=== PATIENT | male | born 1945 | race Caucasian/White ===

== ENCOUNTER 2017-12-12 15:30 | Day surgery (SDC) | payer MEDICARE, OTHER ==
[2017-12-12] VITALS (8 sets, daily range): BP systolic 118–156; BP diastolic 54–77
[~2017-12-12] VITALS: Ht 175.3 cm; Wt 108.9 kg
[~2017-12-12 15:30] MED LIST: AMLO1TAB52; ASP325T; ASP81TEC PO; BUME2TAB3 PO; COLE1TAB; CPR250T PO; HCT25T; HYDR1TAB PO; LOSA100T16; LOVA40TA2; LRT10T PO; MECL25TA56 PO; NFNEB10T PO; NIA500ERT; OMEP-10; OMG1KC PO; SCOP1PAT TD; UBID100T7 PO
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
[2017-12-12] MEDS ORDERED: LOSA100T28 PO (15:52)
[2017-12-12] MEDS ORDERED: UBID1CAP58 PO (15:52)
[2017-12-12] MEDS ORDERED: CHOL200012 PO (15:52)
[2017-12-12] MEDS ORDERED: AMLO10TA2 PO (15:52)
[2017-12-12] MEDS ORDERED: METF-478 PO (15:52)
[2017-12-12] MEDS ORDERED: CARV12.53 PO (15:52)
[2017-12-12] MEDS ORDERED: ASPIRIN 81 MG CHEW (CHILDREN'S ASA) PO ONE (16:00)
[2017-12-12 16:07] LABS: BASOPHILS % (AUTO) 1 % (0-10); EOSINOPHILS # (AUTO) 0.2 10^3/uL (0.0-0.3); EOSINOPHILS % (AUTO) 3 % (0-10); HEMATOCRIT 40 % (40-54); HEMOGLOBIN 13.7 G/DL (13.3-17.7); LYMPHOCYTES # (AUTO) 2.1 X 10^3 (1.0-4.0); LYMPHOCYTES % (AUTO) 36 % (12-44); MEAN CORPUSCULAR HEMOGLOBIN 30 PG (25-34); MEAN CORPUSCULAR HGB CONC 35 G/DL (32-36); MEAN CORPUSCULAR VOLUME 87 FL (80-99); MEAN PLATELET VOLUME 9.8 FL (7.4-10.4); MONOCYTES # (AUTO) 0.6 X 10^3 (0.0-1.0); MONOCYTES % (AUTO) 10 % (0-12); NEUTROPHILS % (AUTO) 52 % (42-75); PLATELET COUNT 221 10^3/uL (130-400); RED BLOOD COUNT 4.57 10^6/uL (4.35-5.85); RED CELL DISTRIBUTION WIDTH 13.3 % (10.0-14.5); WHITE BLOOD COUNT 5.9 10^3/uL (4.3-11.0)
[2017-12-12 16:17] LABS: INR 0.9 (0.8-1.4); PROTHROMBIN TIME PATIENT 12.5 SEC (12.2-14.7)
[2017-12-12 16:29] LABS: ALANINE AMINOTRANSFERASE 45 U/L (0-55); ALBUMIN 4.3 GM/DL (3.2-4.5); ALKALINE PHOSPHATASE 56 U/L (40-136); BILIRUBIN,TOTAL 0.5 MG/DL (0.1-1.0); BUN/CREATININE RATIO 17; CALCIUM 9.2 MG/DL (8.5-10.1); CARBON DIOXIDE 23 MMOL/L (21-32); CHLORIDE 102 MMOL/L (98-107); CREATININE SERUM 0.81 MG/DL (0.60-1.30); GFR ESTIMATED > 60; GLUCOSE 116 MG/DL (70-105); MAGNESIUM 2.2 MG/DL (1.8-2.4); POTASSIUM 3.8 MMOL/L (3.6-5.0); SODIUM 139 MMOL/L (135-145); TOTAL PROTEIN 7.7 GM/DL (6.4-8.2)
--- NOTE | 2017-12-12 16:30 | Diagnostic Imaging Report ---
INDICATION: SOA, Dizziness, Chest tightness x2 days. FINDINGS: Single view of the chest demonstrates clear lungs bilaterally. The heart is normal. There is no pneumothorax. The osseous structures are normal. IMPRESSION: Negative chest. Dictated by: Dictated on workstation # [id number]
[2017-12-12 16:35] LABS: MYOGLOBIN SERUM 62.3 NG/ML (10.0-92.0)
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
[2017-12-12] MEDS ORDERED: IOHEXOL 350 MG/ML 150 ML (OMNIPAQUE 350) VIAL IV ONE (17:30)
--- NOTE | 2017-12-12 18:27 | Diagnostic Imaging Report ---
PROCEDURE: CT angiography of the chest with contrast. TECHNIQUE: Multiple contiguous axial images were obtained through the chest after uneventful bolus administration of intravenous contrast. Reconstructed CTA MIP acquisitions were also performed. INDICATION: Chest pain x3 days The lungs are clear. There are no effusions or pneumothoraces. There is no hilar or mediastinal lymphadenopathy. There is minimal calcific atherosclerosis of the aorta but no aneurysm or dissection. There are no pulmonary emboli. IMPRESSION: Negative CTA chest Dictated by: Dictated on workstation # [id number]
--- NOTE | 2017-12-12 19:20 | Diagnostic Imaging Report ---
PROCEDURE: CT head without contrast. TECHNIQUE: Multiple contiguous axial images were obtained through the brain without the use of intravenous contrast. INDICATION: Dizziness The ventricles are normal in size, shape and position. There are no masses or hemorrhages. There are no extra-axial fluid collections. There is some inflammatory change in the posterior ethmoid air cells on the left. IMPRESSION: Ethmoid sinusitis Dictated by: Dictated on workstation # [id number]
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
[2017-12-12] MEDS ORDERED: ONDANSETRON 4 MG/2 ML (SDV) Z0FRAN IV PRN (21:15)
[2017-12-12] MEDS ORDERED: NITROGLYCERIN 0.4 MG SL TABS BTL 25'S SL PRN (21:15)
[2017-12-12] MEDS ORDERED: ACETAMINOPHEN 500 MG TAB (TYLENOL) PO PRN (21:15)
[2017-12-12] MEDS ORDERED: morphine INJ 4 MG/ML 1 ML (VIAL/SYRINGE) IV PRN (21:15)
[2017-12-12] MEDS ORDERED: cefTRIAXone 1,000 MG/D5W 50 ML IVPB IV SCH ×2 (21:15)
[2017-12-12] MEDS: NS IV 1000 ML 1,000 ML IV SCH (21:58)
[2017-12-12 22:10] LABS: CREATINE KINASE 213 U/L (30-200)
[2017-12-13] VITALS (16 sets, daily range): BP systolic 123–173; BP diastolic 61–79
[2017-12-13] MEDS: NS IV 1000 ML 1,000 ML IV SCH ×5 (06:00→20:53)
[2017-12-13 06:46] LABS: BASOPHILS % (AUTO) 0 % (0-10); EOSINOPHILS # (AUTO) 0.1 10^3/uL (0.0-0.3); EOSINOPHILS % (AUTO) 3 % (0-10); HEMATOCRIT 36 % (40-54); HEMOGLOBIN 12.3 G/DL (13.3-17.7); LYMPHOCYTES # (AUTO) 1.6 X 10^3 (1.0-4.0); LYMPHOCYTES % (AUTO) 35 % (12-44); MEAN CORPUSCULAR HEMOGLOBIN 30 PG (25-34); MEAN CORPUSCULAR HGB CONC 35 G/DL (32-36); MEAN CORPUSCULAR VOLUME 88 FL (80-99); MONOCYTES # (AUTO) 0.4 X 10^3 (0.0-1.0); MONOCYTES % (AUTO) 8 % (0-12); NEUTROPHILS # (AUTO) 2.5 X 10^3 (1.8-7.8); NEUTROPHILS % (AUTO) 53 % (42-75); PLATELET COUNT 185 10^3/uL (130-400); RED BLOOD COUNT 4.04 10^6/uL (4.35-5.85); RED CELL DISTRIBUTION WIDTH 13.4 % (10.0-14.5); WHITE BLOOD COUNT 4.6 10^3/uL (4.3-11.0)
[2017-12-13 06:59] LABS: ALANINE AMINOTRANSFERASE 42 U/L (0-55); ALBUMIN 3.5 GM/DL (3.2-4.5); ALKALINE PHOSPHATASE 47 U/L (40-136); BILIRUBIN,TOTAL 0.4 MG/DL (0.1-1.0); BUN/CREATININE RATIO 19; CALCIUM 8.5 MG/DL (8.5-10.1); CARBON DIOXIDE 25 MMOL/L (21-32); CHLORIDE 106 MMOL/L (98-107); CHOLESTEROL 184 MG/DL (< 200); CREATININE SERUM 0.78 MG/DL (0.60-1.30); GFR ESTIMATED > 60; GLUCOSE 127 MG/DL (70-105); HDL CHOLESTEROL 43 MG/DL (40-60); POTASSIUM 3.9 MMOL/L (3.6-5.0); SODIUM 142 MMOL/L (135-145); TOTAL PROTEIN 6.4 GM/DL (6.4-8.2); TRIGLYCERIDES 275 MG/DL (<150); VLDL CHOLESTEROL 55 MG/DL (5-40)
[2017-12-13] MEDS ORDERED: HEParin (CATH LAB) 2,000 ML IV ONE (08:32)
[2017-12-13] MEDS ORDERED: LIDOCAINE 1% INJ 50 ML (XYLOCAINE) VIAL ONE (08:32)
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
--- NOTE | 2017-12-13 08:36 | Consultation-Cardiology ---
HPI-Cardiology Cardiology Consultation Date of Consultation 12/13/17 Date of Admission Time Seen by Provider: 08:31 Indication: Chest pain HPI Patient is a very pleasant 72y/o male with history of HTN, HLP, DM. Presented to the ER with complaints of chest pain, dyspnea, and dizziness, intermittent for the last 3 days. 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 Denies any active CP at this time. In addition, he complains of sinus pain and pressure with nonproductive cough over the last week. Denies any F/C/ NS. No other complaints at this time. Patient was seen and evaluated with Mckenzie, has been having chest pain and shortness of breath with exertion, has been significantly worse over the past 3 days that worse to the point that patient came into the emergency room last night. He has been unable to lay down. Sleep in a recliner. Admit having worsening shortness of breath with activities. Has been fairly active until recently when he started having the chest pain. EKG showed T-wave inversion in the anterolateral lead and inferior leads. 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 Alcohol Use: Occasionally Uses Recreational Drug Use: No Smoking Status: Former Smoker Recent Foreign Travel: No Recent Infectious Disease Expo: No Physical Abuse Screen: No Sexual Abuse: No Immunizations Up To Date Tetanus Booster (TDap): Less than 5yrs Date of Pneumonia Vaccine: Nov 26, 2016 Date of Influenza Vaccine: Sep 15, 2017 Past Medical History HTN, HLP, DM, obesity Family Medical History Significant Family History: No Pertinent Family Hx Constitutional: No diaphoresis, dizziness, No fever, No malaise EENTM: No blurred vision, No double vision, No vision loss Cardiovascular: chest pain, edema, No palpitations, No syncope Gastrointestinal: No abdominal pain, No constipation, No diarrhea, No nausea, No vomiting Genitourinary: No dysuria, No frequency, No hematuria Musculoskeletal: No back pain, No neck pain Skin: No dryness, No lesions, No rash Psychiatric/Neurological: Denies Anxiety, Denies Depressed Reviewed Test Results Reviewed Test Results Lab Laboratory Tests 12/12/17 15:58: White Blood Count 5.9, Red Blood Count 4.57, Hemoglobin 13.7, Hematocrit 40, Mean Corpuscular Volume 87, Mean Corpuscular Hemoglobin 30, Mean Corpuscular Hemoglobin Concent 35, Red Cell Distribution Width 13.3, Platelet Count 221, Mean Platelet Volume 9.8, Neutrophils (%) (Auto) 52, Lymphocytes (%) (Auto) 36, Monocytes (%) (Auto) 10, Eosinophils (%) (Auto) 3, Basophils (%) (Auto) 1, Neutrophils # (Auto) 3.0, Lymphocytes # (Auto) 2.1, Monocytes # (Auto) 0.6, Eosinophils # (Auto) 0.2, Basophils # (Auto) 0.0, Prothrombin Time 12.5, INR Comment 0.9, Activated Partial Thromboplast Time 38H, D-Dimer < 0.27, Sodium Level 139, Potassium Level 3.8, Chloride Level 102, Carbon Dioxide Level 23, Anion Gap 14, Blood Urea Nitrogen 14, Creatinine 0.81, Estimat Glomerular Filtration Rate > 60, BUN/Creatinine Ratio 17, Glucose Level 116H, Calcium Level 9.2, Magnesium Level 2.2, Total Bilirubin 0.5, Aspartate Amino Transf (AST /SGOT) 31, Alanine Aminotransferase (ALT/SGPT) 45, Alkaline Phosphatase 56, Myoglobin 62.3, Troponin I < 0.30, B-Type Natriuretic Peptide 33.6, Total Protein 7.7, Albumin 4.3 12/12/17 21:46: Troponin I < 0.30, Total Creatine Kinase 213H 12/13/17 06:21: White Blood Count 4.6, Red Blood Count 4.04L, Hemoglobin 12.3L, Hematocrit 36L, Mean Corpuscular Volume 88, Mean Corpuscular Hemoglobin 30, Mean Corpuscular Hemoglobin Concent 35, Red Cell Distribution Width 13.4, Platelet Count 185, Mean Platelet Volume 10.0, Neutrophils (%) (Auto) 53, Lymphocytes (%) (Auto) 35 , Monocytes (%) (Auto) 8, Eosinophils (%) (Auto) 3, Basophils (%) (Auto) 0, Neutrophils # (Auto) 2.5, Lymphocytes # (Auto) 1.6, Monocytes # (Auto) 0.4, Eosinophils # (Auto) 0.1, Basophils # (Auto) 0.0, Sodium Level 142, Potassium Level 3.9, Chloride Level 106, Carbon Dioxide Level 25, Anion Gap 11, Blood Urea Nitrogen 15, Creatinine 0.78, Estimat Glomerular Filtration Rate > 60, BUN/ Creatinine Ratio 19, Glucose Level 127H, Calcium Level 8.5, Total Bilirubin 0.4 , Aspartate Amino Transf (AST/SGOT) 32, Alanine Aminotransferase (ALT/SGPT) 42, Alkaline Phosphatase 47, Total Protein 6.4, Albumin 3.5, Triglycerides Level 275H, Cholesterol Level 184, LDL Cholesterol Direct 93, VLDL Cholesterol 55H, HDL Cholesterol 43 ECG Impression ECG Initial ECG Rhythm: Normal Sinus Initial ECG Comparisson: Changed (T wave inversion present on most recent EKG) Physical Exam Vital Signs Vital Sign - Last 12Hours 12/12/17 12/12/17 15:39 19:55 Temp 97.7 Pulse 91 Resp 20 B/P (MAP) 155/74 (101) Pulse Ox 94 O2 Delivery Room Air Capillary Refill : Less Than 3 Seconds General Appearance: No Apparent Distress, WD/WN HEENT: PERRL/EOMI, TMs Normal, Normal ENT Inspection, Pharynx Normal Neck: Non Tender, Supple, Carotid Bruit (right bruit ascultated) Respiratory: Chest Non Tender, Lungs Clear, Normal Breath Sounds, No Accessory Muscle Use, No Respiratory Distress Cardiovascular: Regular Rate, Rhythm, No Edema, No JVD, Systolic Murmur ( murmur radiating to the right neck.) Gastrointestinal: No Pulsatile Mass, Non Tender, Soft, Other (ventral hernia present) Rectal: Deferred Back: No CVA Tenderness Extremity: Non Tender, No Calf Tenderness, No Pedal Edema Neurologic/Psychiatric: Alert, Oriented x3, street sweeper II-XII Norm as Tested Skin: Normal Color, Warm/Dry Lymphatic: No Adenopathy A/P-Cardiology Admission Diagnosis Chest pain Dyspnea HTN Assessment/Plan Chest pain, resembling unstable angina- denies any active CP at this time. EKG revealed T wave inversion not present on previous EKG. Cardiac enzymes are negative so far. Discussed the management plan with the patient, he has multiple risk factors for underlying CAD. Recommend [facility] for further evaluation. Planning for [facility] later this morning. Dyspnea, angina equivalent- management as discussed above. Aortic stenosis- 2D Echo done at bedside revealed moderate . Continue to monitor. HTN- restart home blood pressure medication and continue to monitor HLP- controlled. Continue to monitor. DM- management per PCP Obesity- discussed diet and exercise for weight loss Ex-tobaccoism Sinusitis- CT Head reveal ethmoid sinusitis. Management per PCP Thank you for allowing us to participate in the management of Mr. Packer. This is Mckenzie Banda PA-C as a scribe for Dr. Rodriguez. Patient was seen and evaluated with Mckenzie, I interviewed the patient and perform physical examination. He is a 72 years old gentleman with multiple risk factors for coronary artery disease including hypertension, hyperlipidemia and diabetes mellitus in addition to obesity with BMI 35. On examination lungs were clear to auscultation bilaterally, aortic stenosis murmur was noted on exam. Echocardiogram confirmed aortic stenosis that is moderate. Has been having unstable angina with EKG changes. Discussed the management plan with the patient recommended cardiac catheterization possible PTCA. Procedure was explained in length to the patient all pros and cons were explained. I'll proceed with the procedure. I reviewed the current note and agree with the current scribe, I made a few modification and used Italic Font Clinical Quality Measures DVT/VTE Risk/Contraindication: Risk Factor Score Per Nursin RFS Level Per Nursing on Admit: 4+=Very High MCKENZIE RIVERA Dec 13, 2017 08:36 JAYLAN RODRIGUEZ MD Dec 13, 2017 08:51
[2017-12-13] MEDS ORDERED: fentaNYL INJECTION 100 MCG/2 ML AMP ONE (08:45)
[2017-12-13] MEDS ORDERED: MIDAZOLAM 5 MG/5 ML (VERSED) VIAL ONE (08:46)
--- NOTE | 2017-12-13 08:47 | Cardiac Procedure Note-CS/ASA ---
Pre-Procedure Note Pre-Op Procedure Note H&P Reviewed The H&P was reviewed, patient examined and no changes noted. Date H&P Reviewed: Dec 13, 2017 Time H&P Reviewed: 08:47 Conscious Sedation Pre-Proced Time Reviewed: 08:47 ASA Class: 3 Airway Mallampati Classification: ([place] appropriate class) I. II. III, IV Lungs Heart ASA score ASA 1: a normal healthy patient ASA 2: a patient with a mild systemic disease (mid diabetes, controlled hypertension, obesity x ASA 3: a patient with a severe systemic disease that limits activity (angina , COPD, prior Myocardial infarction) ASA 4: a patient with an incapacitating disease that is a constant threat to life (CHF, renal failure) ASA 5: a moribund patient not expected to survive 24 hrs. (ruptured aneurysm) ASA 6: a declared brain patient whose organs are being harvested. For emergent operations, add the letter E after the classification Grade 3 Sedation Plan: Analgesia, Amnesia, Plan communicated to team members, Discussed options with patient/fam, Discussed risks with patient/fam Note The patient is an appropriate candidate to undergo the planned procedure, sedation, and anesthesia. The patient immediately re-assessed prior to indication. JAYLAN AGUDELO MD Dec 13, 2017 08:47
[2017-12-13] MEDS ORDERED: LOSARTAN 100 MG (COZAAR) TABLET PO SCH ×2 (09:00→12:58)
[2017-12-13] MEDS ORDERED: ASPIRIN E.C. 325 MG (ECOTRIN) TABLET PO SCH (09:00)
[2017-12-13] MEDS ORDERED: NS IV 1000 ML 1,000 ML IV SCH (09:00)
[2017-12-13] MEDS ORDERED: CARVEDILOL 12.5 MG (COREG) TABLET PO SCH (09:00)
[2017-12-13] MEDS ORDERED: amLODIPine 5 MG (NORVASC) TAB PO SCH (09:00)
[2017-12-13] MEDS ORDERED: PATIENT MAY USE OWN MEDS, ALL PO SCH (10:00)
--- NOTE | 2017-12-13 10:04 | Cardiac Cath Report ---
Cardiac Cath Report Physician (s)/Commercial Credit Specialist (s) Physician JAYLAN AGUDELO MD Pre-Procedure Diagnosis Pre-Procedure Diagnosis: Unstable angina Post-Procedure Note Procedure Start Date: Dec 13, 2017 Name of Procedure: Left heart catheterization Findings/Procedure Note PROCEDURE NOTE: After explaining the procedure to the patient, all pros and cons were explained, all questions were answered. The patient signed the consent and then she was placed on the cardiac catheterization laboratory. The patient was placed on the cardiac catheterization laboratory. Groin was prepped SL fashion local anesthesia was used. Sheath placed in the artery. Darryl right and left catheter were used to access the coronary system. I was able to cross the aortic valve with the stork wire through the Darryl right catheter. Pressure was measured and during clearing the catheter with saline I was able to visualize the left ventriculogram Pullback LV to aorta was recorded At the end of the procedure the sheath was removed. Closure device was used FINDINGS: Hemodynamics LV 193/23, end-diastolic pressure of 23 Aorta 151/62 mean of 97 Pullback LV to aorta showed peak to peak gradient of 53 mmHg ANATOMY: Left Main is free of obstructive disease Left Anterior Descending is calcified with mild to moderate disease at the midportion, nonobstructive disease Left Circumflex is small to moderate in size with ostial ramus intermedius that appeared to be hazy with moderate to severe stenosis, the artery is less than 1.5 mm in diameter Right Coronory Artery his dominant artery with mild disease nonobstructive disease, calcified artery LV Gram was done during flushing the catheter with saline showing normal left ventricular contractility with ejection fraction 60 percent CONCLUSION: 1. Calcified coronary system with moderate to severe stenosis at the ostium of the ramus intermedius branch that appeared to be slightly hazy and calcified, the artery is less than 1.5 mm in diameter. 2. Calcified coronary system with mild to moderate disease in the LAD and right coronary artery 3. Moderate aortic valve stenosis 4. Normal left ventricular size and contractility, elevated left ventricular end-diastolic pressure DISCUSSION AND RECOMMENDATION: Medical therapy is recommended, close monitoring is recommended and referral for evaluation for possible TAVR Anesthesia Type: Conscious Sedation Estimated blood loss (mL): 10 ml Contrast Amount: 60 ml Total Radiation Dose: 1613 mGy Post-Procedure Diagnosis Post-operative diagnosis: Chest pain nonspecific etiology Aortic valve stenosis Coronary artery disease Hypertension Hyperlipidemia JAYLAN AGUDELO MD Dec 13, 2017 10:04
[2017-12-13] MEDS ORDERED: cefTRIAXone 1,000 MG/NS 50 ML IVPB IV SCH ×4 (10:45→21:00)
[2017-12-13] MEDS ORDERED: OMEP20CA12 PO (10:55)
[2017-12-13] MEDS ORDERED: ASPI-983 PO (10:55)
[2017-12-13] MEDS ORDERED: LOVA40TA2 PO (10:55)
[2017-12-13] MEDS ORDERED: COLE1TAB PO (10:55)
[2017-12-13] MEDS ORDERED: LORA10TA7 PO (10:56)
[2017-12-13] MEDS ORDERED: CHOL10007 PO (10:56)
[2017-12-13] MEDS ORDERED: BUME1TAB4 PO (10:56)
[2017-12-13] MEDS ORDERED: MMT17NA NS (10:56)
[2017-12-13] MEDS ORDERED: UBID200C16 PO (10:56)
[2017-12-13] MEDS ORDERED: amLODIPine 10 MG (NORVASC) TAB PO SCH (12:57)
[2017-12-13] MEDS: CARVEDILOL 12.5 MG (COREG) TABLET PO SCH ×2 (13:17→20:09)
[2017-12-13] MEDS ORDERED: ATORVASTATIN 40 MG (LIPITOR) TABLET PO SCH (21:00)
[2017-12-14] VITALS: BP 136/63
[2017-12-14 04:19] VITALS: BP 138/63
[2017-12-14] MEDS: NS IV 1000 ML 1,000 ML IV SCH ×2 (05:39)
[2017-12-14 06:12] LABS: HEMOGLOBIN 12.3 G/DL (13.3-17.7); MEAN PLATELET VOLUME 9.8 FL (7.4-10.4); RED BLOOD COUNT 4.04 10^6/uL (4.35-5.85); RED CELL DISTRIBUTION WIDTH 13.5 % (10.0-14.5); WHITE BLOOD COUNT 4.5 10^3/uL (4.3-11.0)
[2017-12-14 06:23] LABS: BUN/CREATININE RATIO 20; CALCIUM 8.6 MG/DL (8.5-10.1); CARBON DIOXIDE 21 MMOL/L (21-32); CHLORIDE 107 MMOL/L (98-107); CREATININE SERUM 0.79 MG/DL (0.60-1.30); GFR ESTIMATED > 60; GLUCOSE 148 MG/DL (70-105); POTASSIUM 3.9 MMOL/L (3.6-5.0); SODIUM 139 MMOL/L (135-145)
[2017-12-14] MEDS ORDERED: UMEC1BLS IH (07:48)
[2017-12-14 08:00] VITALS: BP 167/72
[2017-12-14] MEDS ORDERED: ISOS30TA3 PO (08:08)
--- NOTE | 2017-12-14 08:08 | Discharge Inst-Post CATH ---
Discharge Inst-CATH Post Cardiac Cath D/C Inst Follow Up/Plan Hold metformin for [address] Rodriguez's office next week CARDIAC CATH DISCHARGE INSTRUCTIONS *Hold Metformin for 48 hours post heart cath. ACTIVITY * Go Home directly and rest. * Limit activity of the leg (or wrist if it was used) for 7 days including aerobics, swimming, jogging, bicycling, etc. * Restrict stair-climbing for 7 days if possible, if not, climb up with your non -cath leg, then bring together on the same step. * Avoid lifting, pushing, pulling or excessive movement of the affected extremity for 7 days. * Customary sexual activity may be resumed after 2 days-use caution not to use a position that strains or causes pain to the affected extremity. * No driving for 24 hours. * NO SMOKING. * Avoid straining for bowel movements for 7 days. * Gentle walking on level ground is allowed. * Returning to work will depend on the type of procedure and the results. Your doctor will discuss this with you. CALL YOUR DOCTOR FOR ANY OF THE FOLLOWING: *If bleeding from the puncture site occurs- Apply gentle pressure to site with clean cloth and call your doctor or EMS. * If a knot or lump forms under the skin, increases in size, or causes pain. * If bruising appears to be worsening or moving further down your leg instead of disappearing. * Temperature above 101 F. CARE OF YOUR GROIN INCISION; * Bruising or purple discoloration of the skin near the puncture site is common. * You may shower only, no bathtub bathing for 5 days. Be careful to avoid slipping as your leg may feel stiff. * If a closure device was used on your femoral artery, please see the attached guide regarding care of the device and your leg. * REMOVE the dressing from your groin the next day after your procedure in the shower. CARE OF YOUR WRIST INCISION; * Bruising or purple discoloration of the skin near the puncture site is common. * You may shower. * DO NOT submerge wrist. * Remove dressing in 24 hours. JAYLAN RODRIGUEZ MD Dec 14, 2017 08:08
--- NOTE | 2017-12-14 08:11 | Cardiology Progress Note ---
Subjective Date Seen by Provider: Dec 14, 2017 Time Seen by Provider: 08:09 Subjective/Events-last exam Patient is feeling better, asking to go home, denied any chest pain. Review of Systems General: No Chills, No Night Sweats, No Fatigue, No Malaise, No Appetite, No Other HEENT: No Head Aches, No Visual Changes, No Eye Pain, No Ear Pain, No Dysphasia , No Sinus Congestion, No Post Nasal Drip, No Sore Throat, No Other Pulmonary: No Dyspnea, No Cough, No Pleuritic Chest Pain, No Other Cardiovascular: No: Chest Pain, Palpitations, Orthopnea, Paroxysmal Noc. Dyspnea, Edema, Lt Headedness, Other Objective-Cardiology Exam Last Set of Vital Signs Vital Signs 12/14/17 04:19 Temp 98.0 Pulse 82 Resp 17 B/P (MAP) 138/63 (88) Pulse Ox 94 O2 Delivery Room Air Capillary Refill : Less Than 3 Seconds I&O Intake and Output 12/13/17 23:59 Intake Total 1140 ml Output Total 700 ml Balance 440 ml Intake Oral 1140 ml Output Urine Total 700 ml # Voids 2 # Bowel Movements 2 Daily Weight Change No General: Alert, Oriented X3, Cooperative HEENT: Atraumatic, PERRLA Neck: Supple, No JVD, No Thyromegaly Lungs: Clear to Auscultation, Normal Air Movement Heart: Regular Rate, Normal S1, Normal S2, No Murmurs Abdomen: Normal Bowel Sounds, Soft, No Tenderness, No Hepatosplenomegaly, No Masses Extremities: No Clubbing, No Cyanosis, No Edema, Normal Pulses, No Tenderness/ Swelling Skin: No Rashes, No Breakdown, No Significant Lesion Neuro: Normal Gait, Normal Speech, Strength at 5/5 X4 Ext, Normal Tone, Sensation Intact Psych/Mental Status: Mental Status NL, Mood NL Results Lab Laboratory Tests 12/14/17 06:00 A/P-Cardiology Admission Diagnosis Chest pain Dyspnea HTN Assessment/Plan Chest pain, resembling unstable angina- coronary artery disease status post cardiac catheterization done on December 13, 2017 Coronary artery disease, cardiac catheterization done on December 13, 2017 showing moderate severe stenosis at the ostium of the ramus intermedius branch that appeared to be small less than 1.5 millimeter in diameter. Calcified artery with [id number] disease otherwise. I will try to maximize medical therapy by adding Imdur. Dyspnea, angina equivalent- management as discussed above. Aortic stenosis, left ventricular systolic pressure is 205, diastolic pressure 25. Continue on beta blockers, ARB and add Imdur and evaluate tolerance and response. Hypertension, management as above Hyperlipidemia, continue on current medication monitor Diabetes mellitus, managed by primary care physician. Obesity- discussed diet and exercise for weight loss Ex-tobaccoism Sinusitis- CT Head reveal ethmoid sinusitis. Management per PCP Thank you for allowing us to participate in the management of Mr. Packer. Clinical Quality Measures DVT/VTE Risk/Contraindication: Risk Factor Score Per Nursin RFS Level Per Nursing on Admit: 4+=Very High JAYLAN AGUDELO MD Dec 14, 2017 08:11
[2017-12-14] MEDS ORDERED: Nitroglycerin SL (08:44)
[2017-12-14] MEDS ORDERED: NITROGLYCERIN 0.4 MG SL TABS BTL 25'S SL SCH (09:00)
--- NOTE | 2017-12-14 11:49 | Discharge Summary-Hospitalist ---
Diagnosis/Chief Complaint Date of Admission Dec 12, 2017 at 19:40 Date of Discharge Discharge Date: Dec 14, 2017 Admission Diagnosis 1. Symptoms suggestive of unstable angina are most likely with abnormal EKG suspicious for underlying ischemia.. Dr. Naidu/cardiology is been consulted with likely cardiac catheterization to follow pending his evaluation. 2. History of aortic stenosis judged to be of mild to moderate severity. Considering that his BNP level was normal doubt that this is a major contributor to angina. Considering his age and medical comorbidities significant three-vessel disease is more likely. 3. Hypertension continue current antihypertensive medication including beta tracy and calcium channel tracy therapy. 4. Hyperlipidemia continue at bedtime statin therapy. The patient had been getting [facility] will switch to Lipitor 40 mg at at bedtime 5. History of type II diabetes mellitus continue fingerstick monitoring. Discharge Diagnosis 1. Unstable angina 2. Aortic stenosis judged to be of moderate severity. 3. Hypertension 4. Type II diabetes mellitus Discharge Summary Discharge Physical Examination Allergies: Coded Allergies: No Known Drug Allergies (Unverified , 03/22/09) Vitals & I&Os Vital Signs Date Time Temp Pulse Resp B/P (MAP) Pulse Ox O2 Delivery O2 Flow Rate FiO2 12/14/17 04:19 98.0 82 17 138/63 (88) 94 Room Air Hospital Course Mr. Packer is a 72-year-old white male who presented with a 48 hour history of chest discomfort and shortness of breath with minimal exertion compatible with unstable angina. He is significantly abnormal EKG with diffuse T-wave inversion in addition to evidence for LVH. He had known aortic stenosis in 2014 judged to be of mild to moderate severity with preserved LV systolic function and estimated ejection fraction greater than [address] Naidu took the patient to cardiac catheterization where he was noted to have a significant ostial lesion of the intermediary ramus artery. Due to small caliber at 1.5 mm it was left. Calcific disease was noted but no other hemodynamically significant lesions were appreciated. He did have a gradient across aortic valve of 53 mmHg and an LV systolic pressure 197 indicative of moderate aortic stenosis. At this is likely contributing to his anginal symptoms. The patient had no chest discomfort during his hospital stay and Imdur 30 mg was initiated. He will be following up with Dr. Naidu in one week and I will see him back in 2 weeks. He will hold metformin due to recent cardiac catheterization until then resume and continue his other medications. He also underwent CT head which revealed some ethmoid haziness suggesting possible sinusitis. She denied headache he does have some chronic congestion but reports only clear discharge rarely purulent we'll hold off on antibiotic therapy at this time but if he has any subsequent infectious type symptoms or increased pressure will reevaluate. He was advised to avoid any significant exertion until follow-up with Dr. Cain and advised not to drive until . Labs (last 24 hrs) Laboratory Tests 12/14/17 06:00: White Blood Count 4.5, Red Blood Count 4.04L, Hemoglobin 12.3L, Hematocrit 36L, Mean Corpuscular Volume 89, Mean Corpuscular Hemoglobin 30, Mean Corpuscular Hemoglobin Concent 34, Red Cell Distribution Width 13.5, Platelet Count 188, Mean Platelet Volume 9.8, Sodium Level 139, Potassium Level 3.9, Chloride Level 107, Carbon Dioxide Level 21, Anion Gap 11, Blood Urea Nitrogen 16, Creatinine 0.79, Estimat Glomerular Filtration Rate > 60, BUN/Creatinine Ratio 20, Glucose Level 148H, Calcium Level 8.6 Microbiology 12/13/17 Influenza Types A,B Antigen (KORINA) - Final, Complete Pending Labs Laboratory Tests 12/14/17 06:00: White Blood Count 4.5, Red Blood Count 4.04, Hemoglobin 12.3, Hematocrit 36, Mean Corpuscular Volume 89, Mean Corpuscular Hemoglobin 30, Mean Corpuscular Hemoglobin Concent 34, Red Cell Distribution Width 13.5, Platelet Count 188, Mean Platelet Volume 9.8, Sodium Level 139, Potassium Level 3.9, Chloride Level 107, Carbon Dioxide Level 21, Anion Gap 11, Blood Urea Nitrogen 16, Creatinine 0.79, Estimat Glomerular Filtration Rate > 60, BUN/Creatinine Ratio 20, Glucose Level 148, Calcium Level 8.6 Discharge Home Medications: Active Scripts Active [Nitroglycerin] 0.4 MG Btl 0 Mg SL PRN PRN Isosorbide Mononitrate ER (Isosorbide Mononitrate) 30 Mg Tab.er.24h 30 Mg PO DAILY Anoro Ellipta 62.5-25 Mcg INH (Umeclidinium Brm/Vilanterol Tr) 1 Each Blst.w.dev 1 Each IH 1 30 Days Reported Nasonex (Mometasone Furoate) 17 Gm Naspr 2 Sprays NS DAILY PRN Vitamin D3 (Cholecalciferol (Vitamin D3)) 1,000 Unit Capsule 1,000 Unit PO DAILY Co Q-10 (Ubidecarenone) 200 Mg Capsule 200 Mg PO DAILY Loratadine 10 Mg Tablet 10 Mg PO DAILY PRN Bumetanide 1 Mg Tablet 2 Mg PO DAILY TAKES 2 (1MG) TABLETS Aspirin EC (Aspirin) 81 Mg Tablet.dr 81 Mg PO DAILY Lovastatin 40 Mg Tablet 40 Mg PO HS Omeprazole 20 Mg Capsule.dr 20 Mg PO Q48H Colestipol HCl 1 Gm Tablet 1 Gm PO TID Carvedilol 12.5 Mg Tablet 6.25 Mg PO BID TAKES 1/2 (12.5MG) TABLET Losartan Potassium 100 Mg Tablet 100 Mg PO DAILY Metformin HCl ER (Metformin HCl) 500 Mg Tab.er.24 1,000 Mg PO 1730 TAKES 2 (500MG) TABLETS Amlodipine Besylate 10 Mg Tablet 10 Mg PO DAILY Instructions to patient/family Please see electronic discharge instructions given to patient. Clinical Quality Measures DVT/VTE Risk/Contraindication: Risk Factor Score Per Nursin RFS Level Per Nursing on Admit: 4+=Very High Copy Copies To 1: PATTY ZHANG MD, MARK D MD Dec 14, 2017 11:49
[2017-12-14] MEDS ORDERED: cefTRIAXone 1,000 MG/NS 50 ML IVPB IV SCH ×2 (21:00)
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
== END 2017-12-14 07:49 | disposition home or self-care (01) ==
LOC: EDUNIT# 15:30 → ER 15:31 → UNDOADMOB 19:40 → 4TH 19:40 → CATH 20:15 → 4TH 20:15 → CATH 12-14 07:49 → 4TH 12-14 09:20 → UNDODISOB 12-14 09:20 → CATH 12-14 09:20
PROVIDERS: ATTEND Internal Medicine
DX: I25.110 Atherosclerotic heart disease of native coronary artery with unstable angina pectoris (principal); I35.0 Nonrheumatic aortic (valve) stenosis; J32.2 Chronic ethmoidal sinusitis; I10 Essential (primary) hypertension; E78.5 Hyperlipidemia, unspecified; E11.9 Type 2 diabetes mellitus without complications; J45.909 Unspecified asthma, uncomplicated; G47.30 Sleep apnea, unspecified; K21.9 Gastro-esophageal reflux disease without esophagitis; E66.9 Obesity, unspecified; Z68.35 Body mass index [BMI] 35.0-35.9, adult; Z79.82 Long term (current) use of aspirin; Z79.899 Other long term (current) drug therapy; Z87.891 Personal history of nicotine dependence
CPT/HCPCS: 36415; 70450; 71045; 71275; 80048; 80053; 80061; 82550; 83735; 83874; 83880; 84484; 85025; 85027; 85347; 85379; 85610; 85730; 87804; 93005; 93041; 93306; 93458

== ENCOUNTER → 2018-01-05 | Outpatient (CLI) | payer MEDICARE, OTHER ==
[~2018-01-05] MED LIST changes: +AMLO10TA2 PO; +ASPI-983 PO; +BUME1TAB4 PO; +CARV12.53 PO; +CHOL10007 PO; +CHOL200012 PO; +COLE1TAB PO; +ISOS30TA3 PO; +LORA10TA7 PO; +LOSA100T28 PO; +LOVA40TA2 PO; +METF-478 PO; +MMT17NA NS; +Nitroglycerin SL; +OMEP20CA12 PO; +RT-ALBUTEROL SULF 2.5 MG/3 ML PRE-MIX VIAL INH ONE; +UBID1CAP58 PO; +UBID200C16 PO; +UMEC1BLS IH
== END ==
LOC: RT 10:04
PROVIDERS: ATTEND Internal Medicine Cardiovascular Disease
DX: I35.0 Nonrheumatic aortic (valve) stenosis (principal); R06.09 Other forms of dyspnea
CPT/HCPCS: 94060; 94726; 94729

== ENCOUNTER 2018-04-15 10:08 | Outpatient (RCR) | payer MEDICARE, OTHER ==
[~2018-04-15 10:08] MED LIST changes: -RT-ALBUTEROL SULF 2.5 MG/3 ML PRE-MIX VIAL INH ONE
== END 2018-06-14 | disposition home or self-care (01) ==
LOC: CR 10:08
PROVIDERS: ATTEND Internal Medicine Cardiovascular Disease
DX: Z48.812 Encounter for surgical aftercare following surgery on the circulatory system (principal); Z95.1 Presence of aortocoronary bypass graft; Z95.2 Presence of prosthetic heart valve
CPT/HCPCS: 93798

== ENCOUNTER → 2019-02-21 | Outpatient (CLI) | payer MEDICARE, OTHER ==
[~2019-02-21] MED LIST changes: -AMLO10TA2 PO; +AMLO10TA7 PO; -LOSA100T28 PO; +LOSA100T57 PO
== END ==
LOC: CARD 11:52
PROVIDERS: ATTEND Physician Assistant
DX: I35.0 Nonrheumatic aortic (valve) stenosis (principal); I25.10 Atherosclerotic heart disease of native coronary artery without angina pectoris; E11.9 Type 2 diabetes mellitus without complications; E78.5 Hyperlipidemia, unspecified
CPT/HCPCS: 93306

== ENCOUNTER → 2019-02-22 | Outpatient (CLI) | payer MEDICARE, OTHER ==
[~2019-02-22] MED LIST changes: +CATHETER FLUSH 10 ML SYR IV PRN; +REGADENOSON 0.4 MG/5 ML SYR (LEXISCAN) IV ONE
[2019-02-22 09:43] VITALS: BP 169/72
--- NOTE | 2019-02-22 12:12 | STRESS TEST ---
DATE OF SERVICE: 02/22/2019 LEXISCAN MYOVIEW STRESS TEST REPORT REFERRING PHYSICIAN: Karthikeyan Lema MD Baseline heart rate is 89. Baseline blood pressure 181/76. Baseline EKG is sinus rhythm with occasional PVCs. SUMMARY: The patient was scheduled for exercise stress test, was unable to exercise. Test was converted to Lexiscan Myoview stress test. Received 10.43 mCi of technetium-99 Myoview and the resting images were obtained. Then, the patient received 0.4 mg of Lexiscan followed by 30.3 mCi of technetium-99 Myoview. Throughout the test, there were no EKG changes. Occasional PVCs were noted, persisted throughout test. The resting and stress images were reviewed and compared in the short axis, horizontal long axis, and vertical long axis views. Review of the images showed diaphragmatic attenuation with mild decreased uptake involving the mid to apical inferior wall with subtle reversibility, no significant ischemia was noted. SSS is 4. SDS is 4. TID value 1.07. On the gated images, the left ventricle appeared to be normal in size with normal contractility. Calculated ejection fraction 48%. CONCLUSION: 1. The patient tolerated Lexiscan well, unable to exercise on treadmill. 2. Diaphragmatic attenuation with typical male pattern, mild decreased uptake at the mid to apical inferior wall with subtle reversibility, no significant ischemia was noted. 3. Normal left ventricular size with normal contractility. Calculated ejection fraction 48%. Job ID: [id number] DocumentID: [id number] Dictated Date: 02/22/2019 11:29:33 Traffic Control Technician Date: 02/22/2019 12:12:34 Dictated By: JAYLAN AGUDELO MD
== END ==
LOC: CARD 07:48
PROVIDERS: ATTEND Physician Assistant
DX: I10 Essential (primary) hypertension (principal); I35.0 Nonrheumatic aortic (valve) stenosis; I25.10 Atherosclerotic heart disease of native coronary artery without angina pectoris; E78.5 Hyperlipidemia, unspecified; E11.9 Type 2 diabetes mellitus without complications
CPT/HCPCS: 78452; 93017

== ENCOUNTER 2019-08-03 19:05 | Observation (INO) | payer MEDICARE, OTHER ==
[~2019-08-03] VITALS: Ht 176.5 cm; Wt 106.0 kg
[2019-08-03] VITALS (7 sets, daily range): BP systolic 153–169; BP diastolic 68–89
[~2019-08-03 19:05] MED LIST changes: -BUME1TAB4 PO; +BUME1TAB8 PO; -CATHETER FLUSH 10 ML SYR IV PRN; -OMEP20CA12 PO; +OMEP20CA13 PO; -REGADENOSON 0.4 MG/5 ML SYR (LEXISCAN) IV ONE
[2019-08-03 19:25] LABS: BASOPHILS % (AUTO) 0 % (0-10); EOSINOPHILS # (AUTO) 0.1 10^3/uL (0.0-0.3); EOSINOPHILS % (AUTO) 1 % (0-10); HEMATOCRIT 45 % (40-54); HEMOGLOBIN 15.1 G/DL (13.3-17.7); LYMPHOCYTES # (AUTO) 2.3 X 10^3 (1.0-4.0); LYMPHOCYTES % (AUTO) 20 % (12-44); MEAN CORPUSCULAR HEMOGLOBIN 29 PG (25-34); MEAN CORPUSCULAR HGB CONC 34 G/DL (32-36); MEAN CORPUSCULAR VOLUME 87 FL (80-99); MEAN PLATELET VOLUME 10.4 FL (7.4-10.4); MONOCYTES # (AUTO) 0.8 X 10^3 (0.0-1.0); MONOCYTES % (AUTO) 7 % (0-12); NEUTROPHILS # (AUTO) 8.2 X 10^3 (1.8-7.8); NEUTROPHILS % (AUTO) 72 % (42-75); PLATELET COUNT 264 10^3/uL (130-400); RED CELL DISTRIBUTION WIDTH 13.8 % (10.0-14.5); WHITE BLOOD COUNT 11.5 10^3/uL (4.3-11.0)
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
[2019-08-03] MEDS ORDERED: fentaNYL INJECTION 100 MCG/2 ML AMP IVP ONE (19:30)
[2019-08-03] MEDS ORDERED: HOLD METFORMIN - RECEIVED CONTRAST 20 ML VIAL IV SCH (19:45)
[2019-08-03] MEDS ORDERED: IOHEXOL 350 MG/ML 100 ML (OMNIPAQUE 350) VIAL IV ONE (19:45)
[2019-08-03] MEDS ORDERED: NS 100 ML (IVPB) BAG IV ONE (19:45)
[2019-08-03] MEDS ORDERED: CATHETER FLUSH 10 ML SYR IV PRN (19:45)
[2019-08-03] MEDS ORDERED: meTOprolol 5 MG/5 ML (LOPRESSOR) VIAL IV ONE (20:00)
[2019-08-03 20:04] LABS: ALANINE AMINOTRANSFERASE 42 U/L (0-55); ALBUMIN 4.8 GM/DL (3.2-4.5); ALKALINE PHOSPHATASE 48 U/L (40-136); BILIRUBIN,TOTAL 0.7 MG/DL (0.1-1.0); BUN/CREATININE RATIO 21; CALCIUM 10.5 MG/DL (8.5-10.1); CARBON DIOXIDE 25 MMOL/L (21-32); CHLORIDE 104 MMOL/L (98-107); CREATININE SERUM 1.34 MG/DL (0.60-1.30); GFR ESTIMATED 52; GLUCOSE 140 MG/DL (70-105); POTASSIUM 3.9 MMOL/L (3.6-5.0); SODIUM 142 MMOL/L (135-145); TOTAL PROTEIN 8.4 GM/DL (6.4-8.2)
--- NOTE | 2019-08-03 20:09 | Diagnostic Imaging Report ---
PROCEDURE: CT chest, abdomen, and pelvis with contrast. TECHNIQUE: Multiple contiguous axial images were obtained through the chest, abdomen, and pelvis after the administration of intravenous contrast. Auto Exposure Controls were utilized during the CT exam to meet ALARA standards for radiation dose reduction. INDICATION: Stepped on by bull CT chest: Comparison is made to the examination of 12/12/2017. There are surgical changes noted in the sternum and mediastinum with small left basilar anterior pneumothorax. No definite rib fracture or other acute osseous abnormality is identified in the thorax. There is no significant pleural or pericardial fluid. There is no evidence of mediastinal hematoma. IMPRESSION: Approximately 5-10% anterior basilar left pneumothorax. CT abdomen and pelvis: There is mild low-density throughout the liver indicating steatosis without evidence of focal hepatic or splenic lesion. No gallbladder, pancreatic or adrenal gland abnormality is identified. Kidneys are also unremarkable. There is small anterior abdominal wall defect with protrusion of omental fat. There is no evidence of bowel hernia. Partially opacified urinary bladder reveals no perivesicular contrast extravasation. Prostate is prominent with evidence of previous transurethral resection. There is no evidence of pneumoperitoneum or hemoperitoneum. IMPRESSION: Hepatic steatosis and small anterior abdominal wall hernia containing only fat. Otherwise, no acute visceral injury is identified. Dictated by: Dictated on workstation # [id number]
--- NOTE | 2019-08-03 20:45 | NUR ---
CALLED TO GIVE REPORT, NURSE ANUSHA UNAVAIABLE AT THIS TIME.
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
--- NOTE | 2019-08-03 21:05 | NUR ---
2ND ATTEMPT TO GIVE REPORT, NURSE ANUSHA UNAVAIABLE AT THIS TIME. FAMILY INFORMED OF DELAY
--- NOTE | 2019-08-03 21:32 | NUR ---
REPORT GIVEN TO ANUSHA PATTERSON
[2019-08-03] MEDS ORDERED: RT-ALBUTEROL SULF 2.5 MG/3 ML PRE-MIX VIAL INH PRN (23:00)
[2019-08-04] VITALS (12 sets, daily range): BP systolic 136–174; BP diastolic 69–105
[2019-08-04] MEDS: fentaNYL INJECTION 100 MCG/2 ML AMP IV PRN ×2 (00:30→03:47)
[2019-08-04 03:46] LABS: BASOPHILS % (AUTO) 0 % (0-10); EOSINOPHILS # (AUTO) 0.1 10^3/uL (0.0-0.3); EOSINOPHILS % (AUTO) 1 % (0-10); HEMATOCRIT 41 % (40-54); HEMOGLOBIN 13.8 G/DL (13.3-17.7); LYMPHOCYTES # (AUTO) 2.2 X 10^3 (1.0-4.0); LYMPHOCYTES % (AUTO) 27 % (12-44); MEAN CORPUSCULAR HEMOGLOBIN 29 PG (25-34); MEAN CORPUSCULAR HGB CONC 34 G/DL (32-36); MEAN CORPUSCULAR VOLUME 87 FL (80-99); MEAN PLATELET VOLUME 9.9 FL (7.4-10.4); MONOCYTES # (AUTO) 0.7 X 10^3 (0.0-1.0); MONOCYTES % (AUTO) 9 % (0-12); NEUTROPHILS % (AUTO) 63 % (42-75); PLATELET COUNT 218 10^3/uL (130-400); WHITE BLOOD COUNT 7.9 10^3/uL (4.3-11.0)
[2019-08-04 04:10] LABS: BUN/CREATININE RATIO 29; CALCIUM 9.7 MG/DL (8.5-10.1); CARBON DIOXIDE 24 MMOL/L (21-32); CHLORIDE 104 MMOL/L (98-107); CREATININE SERUM 0.89 MG/DL (0.60-1.30); GFR ESTIMATED > 60; GLUCOSE 128 MG/DL (70-105); MAGNESIUM 2.1 MG/DL (1.6-2.4); PHOSPHORUS 4.8 MG/DL (2.3-4.7); POTASSIUM 3.8 MMOL/L (3.6-5.0); SODIUM 140 MMOL/L (135-145)
[2019-08-04] MEDS ORDERED: ENOXAPARIN 40 MG/0.4 ML (LOVENOX) SYR SC SCH (05:45)
[2019-08-04] MEDS ORDERED: MAGNESIUM 1 GM/100 ML IVPB 100 ML IV SCH (06:00)
[2019-08-04] MEDS ORDERED: KCL 20 MEQ TAB (K-DUR) PO SCH (06:00)
[2019-08-04] MEDS ORDERED: POTASSIUM CL 10MEQ/50ML IVPB 50 ML IV SCH (06:00)
--- NOTE | 2019-08-04 07:38 | Diagnostic Imaging Report ---
EXAMINATION: Portable erect AP chest at 3:34 AM INDICATION: Dyspnea The heart size is within normal limits and stable when compared to 12/12/2017. In the interval since the prior exam, the patient has undergone a cardiac surgical procedure and there are now sternotomy wires and orthopedic fixation plates evident. The lungs are clear. The CT chest exam performed on 08/03/2019 did notify 10% basilar pneumothorax on the left. That finding is not well visualized on this study. There is no sign of failure, pneumonia or a pleural effusion. The mediastinum is not widened. The osseous structures are intact. IMPRESSION: 1. In the interval since the prior exam, the patient has undergone a cardiac surgical procedure. However, there is no evidence for an acute cardiopulmonary abnormality at this time. 2. The small pneumothorax on the left seen on the CT chest exam performed yesterday cannot be identified on this study. Dictated by: Dictated on workstation # [id number]
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
[2019-08-04] MEDS ORDERED: ACHD5005 PO (11:17)
--- NOTE | 2019-08-04 11:20 | Discharge Inst-Surgical ---
Discharge Inst-Surgical Depart Medication/Instructions New, Converted or Re-Newed RX: RX Given to Pt/Family Patient Instructions Follow up Appt: Make appointment for [address] Lema, can follow up with Dr. Yates if needed. Instructions: Must use sling for right arm for 4-6 weeks. No strenuous activity. May shower in 24 hours. Use incentive spirometer at home as directed. No Smoking Symptoms to Report: Appetite Changes, Extremity Discoloration, Numbness/Tingling, Swelling Increased, Bleeding Excessive, Eyesight Changes, Pain Increased, Urine Color Change, Constipation(Persistent), Fever over 101 degree F, Pain/Pressure in c hest, Urinating Difficulty, Cough Up/Vomit Blood, Heart Beat Irreg/Pounding, Pain/Pressure in jaw, Cramps in feet or legs, Lightheadedness, Pain/Pressure in shoulder, Diarrhea(Persistent), Memory Changes Suddenly, Questions/Concerns, Weight gain consecutive days, Dizziness/Fainting, Nausea/Vomiting, Shortness of Breath, Weight gain over 2 pounds If questions or concerns contact your physician Or seek help at emergency department. Activity Activity as Tolerated: Yes Driving Instructions: No Driving/Refer to Dr. Rios Discharge Diet: No Restrictions Diet After 24 Hours: Clear Liquid if Nauseous Skin/Wound Care Bathing Instructions: KANE Pro DO Aug 04, 2019 11:19
--- NOTE | 2019-08-04 11:57 | NUR ---
Pt discharged to home via private vehicle with . All discharge information given to patient with no questions voiced. F/U appt with Dr. Lema is Aug 10 at 1300 and patient is aware. Script for Hydrocodone given to patient, he is aware he needs to take it to the pharmacy to fill. He states " I probably won't". All personal belongings with patient.
== END 2019-08-04 11:35 | disposition home or self-care (01) ==
LOC: EDUNIT# 19:09 → ER 19:11 → ICU 20:16 → UNDOADMOB 20:16 → ICU 22:10 → UNDODISOB 08-04 11:57
PROVIDERS: ADMIT Surgery; ATTEND Surgery
DX: S42.101A Fracture of unspecified part of scapula, right shoulder, initial encounter for closed fracture (principal); S27.321A Contusion of lung, unilateral, initial encounter; J93.9 Pneumothorax, unspecified
CPT/HCPCS: 36415; 71045; 71260; 73030; 74177; 80048; 80053; 82962; 83735; 84100; 85025; 87081; 93005; 94664; 96374; G0378

== ENCOUNTER 2020-05-16 05:44 | Outpatient (RCR) | payer MEDICARE, OTHER ==
[~2020-05-16] VITALS: Ht 176 cm; Wt 108.2 kg
[~2020-05-16 05:44] MED LIST changes: +ACHD5005 PO; -OMEP20CA13 PO; +OMEP20CA18 PO
[2020-05-16] MEDS ORDERED: ROSU20TA32 PO (13:37)
[2020-05-16] MEDS ORDERED: HYDR25TA4 PO (13:38)
== END 2020-05-16 13:41 | disposition home or self-care (01) ==
LOC: PREOP 05:44
PROVIDERS: ATTEND Internal Medicine
DX: Z01.818 Encounter for other preprocedural examination (principal); Z01.812 Encounter for preprocedural laboratory examination; K62.5 Hemorrhage of anus and rectum; Z20.828 Contact with and (suspected) exposure to other viral communicable diseases
CPT/HCPCS: 87635

== ENCOUNTER 2020-05-21 06:54 | Day surgery (SDC) | payer MEDICARE, OTHER ==
--- NOTE | 2020-05-19 08:20 | HISTORY AND PHYSICAL ---
DATE OF SERVICE: COLONOSCOPY HISTORY AND PHYSICAL HISTORY OF PRESENT ILLNESS: The patient is a 75-year-old white male, who I initially saw in the office on 05/09/2020. He was not having any of blood at that time in his stool, but was noticing some diarrhea, unpredictable 3 to 4 loose stools per day with no antibiotic exposure. With diabetes and proton pump inhibitor therapy, I was concerned about small bowel bacterial overgrowth first or less likely diverticulitis. He was given Cipro and Flagyl. He did report some improvement over the past week and diarrhea. He has developed some intermittent bright red blood per rectum, which is painless. I performed colonoscopy on him in 1996 that did not reveal any evidence for neoplasia. He reports 6 to 7 years ago, he had a colonoscopy at the [facility], does not recall any problems at that time with no intervening bowel studies. He reports his weight has been stable and appetite has been stable. He has had no weakness and denies abdominal pain. No changes in appetite reported. He denies any problems with dysphagia or odynophagia. PAST MEDICAL HISTORY: Significant for type 2 diabetes mellitus. He underwent aortic valve replacement for aortic stenosis and coronary artery bypass grafting in 2018. This is a bioprosthesis. He does not require anticoagulant therapy. He also has a history of hypertension and hyperlipidemia. PHYSICAL EXAMINATION: GENERAL: Reveals a pleasant overweight white male, in no acute distress. VITAL SIGNS: Weight was down 2.7 pounds over the last week. Blood pressure 152/54. HEENT: Unremarkable. CHEST: Clear. CARDIOVASCULAR: Revealed a regular rate and rhythm without murmur, S3 or S4. ABDOMEN: Soft, supple without mass, organomegaly or tenderness. EXTREMITIES: Revealed 1+ brawny edema on the right, trace on the left is baseline. ASSESSMENT AND PLAN: The patient will be set up for next Wednesday for diagnostic colonoscopy due to rectal bleeding and bowel habit change. He was sent for COVID testing prior. Prep instructions with the Suprep if affordable or Colyte if not. Given instructions and questions were answered. Job ID: [id number] DocumentID: [id number] Dictated Date: 05/15/2020 17:01:01 Stucco Worker Date: 05/15/2020 17:32:04 Dictated By: MD LILLIAN KEN
[2020-05-21] VITALS (13 sets, daily range): BP systolic 126–169; BP diastolic 60–75
[~2020-05-21] VITALS: Ht 176 cm; Wt 108.2 kg
[~2020-05-21 06:54] MED LIST changes: +HYDR25TA4 PO; +ROSU20TA32 PO
[2020-05-21] MEDS ORDERED: D5 LR IV SOLUTION 1,000 ML IV ONE (07:01)
--- OUTSIDE RECORDS SUMMARY | 2020-05-21 07:02 | XMS REPORT | Encounter Summary ---
Author Author [facility] Organization [facility] Address Unknown Phone Unavailable Care Team Providers Care Vice President Quality Improvement Name Role Phone Karthikeyan Lema MD PCP Cem Rodriguez MD [address], [address] Unavailable Reason for Visit * Reason Comments Post-hospital Follow Up Encounter Details Care Team Description Date Type Department Meseret Knight APRN [address] [address] [phone] Adriana Rooney APRN-MUSIC GRAPHER [address] [address] [phone] S/P CABG (coronary artery bypass graft) (Primary Dx); S/P AVR (aortic valve replacement) 04/11/2020 Scheduled [facility] [address] [address] Social History Date Tobacco Use Types Packs/Day Years Used Quit: 11/15/1987 Former Smoker Cigarettes 2 20 Smokeless Tobacco: Never Used Drinks/Week oz/Week Comments Alcohol Use Socially Yes Sex Assigned at Date Recorded Not on file Industry Job Start Date Occupation Not on file Not on file Not on file Travel End Travel History Travel Start No recent travel history available. 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 They are not currently experiencing any of the symptoms listed on the letter. There is not indication for further workup at thi s time. They know to contact us with any additional questions or new concerns. Adriana Rooney APRN Thoracic & Cardiovascular Surgery 04/12/2020 documented in this encounter Plan of Treatment Not on filedocumented as of this encounter Visit Diagnoses Diagnosis S/P CABG (coronary artery bypass graft) Postsurgical aortocoronary bypass statu s S/P AVR (aortic valve replacement) Heart valve replaced by other means documented in this encounter
--- OUTSIDE RECORDS SUMMARY | 2020-05-21 07:02 | XMS REPORT | Clinical Summary ---
Author Author [facility] Organization [facility] Address Unknown Phone Unavailable Care Team Providers Care Lock Installer Name Role Phone Karthikeyan Lema MD PCP Cem Rodriguez MD [address] [place] Unavailable Source Comments Some departments are not documenting in the electronic medical record. If you d o not see the information that you expected, contact Release of Information in [facility] Information Management department at [phone] for further assistan ce in locating additional records.[facility] Allergies No Known Allergies Medications End Date Status Medication Sig Dispensed Refills Start Date Active nitroglycerin (NITROSTAT) Place 0.4 mg 0 0.4 mg tablet under tongue every 5 minutes as needed for Chest Pain. Max of 3 tablets, call 911. Active amLODIPine (NORVASC) 10 Take 10 mg by 0 mg tablet mouth daily. Active cholecalciferol (VITAMIN Take 1,000 0 D-3) 1,000 units tablet Units by mouth daily. Active aspirin EC 81 mg tablet Take 81 mg by 0 mouth daily. Take with food. Active colestipol (COLESTID) 1 Take 1 g by 0 gram tablet mouth three times daily. Active losartan(+) (COZAAR) 100 Take 100 mg 0 mg tablet by mouth daily. Active lovastatin(+) (MEVACOR) Take 40 mg by 0 40 mg tablet mouth daily with dinner. Active omeprazole DR(+) Take 20 mg by 0 (PRILOSEC) 20 mg capsule mouth daily before breakfast. Active hydroCHLOROthiazide Take 25 mg by 0 (HYDRODIURIL) 25 mg mouth every tablet morning. Active Guaifenesin 400 mg tab Take 1 tablet 0 by mouth three times daily as needed. Active metFORMIN-XR(+) Take 1,000 mg 0 (GLUCOPHAGE XR) 500 mg by mouth extended release tablet daily with dinner. Active fish oil- omega 3-DHA/EPA Take 1 0 300/1,000 mg capsule capsule by mouth daily. Active loratadine (CLARITIN) 10 Take 10 mg by 0 mg tablet mouth every morning. Active carvedilol (COREG) 12.5 Take 1 tablet 180 tablet 3 02/15/201 mg tablet by mouth 8 twice daily with food. Active isosorbide mononitrate SR Take 60 mg by 0 (IMDUR) 60 mg tablet mouth every morning. Active Problems Problem Noted Date S/P AVR (aortic valve replacement) 02/11/2018 S/P CABG (coronary artery bypass graft) 02/11/2018 Acute blood loss anemia 02/11/2018 Aortic valve stenosis 02/10/2018 Coronary artery disease involving [place] coronary art [place] heart 02/10/2018 without angina pectoris Chronic diastolic heart failure 02/10/2018 Aortic stenosis 12/30/2017 CAD (coronary artery disease) Obesity HTN (hypertension) Stable angina Chronic diastolic heart failure, NYHA c lass 3 Diabetes History of tobacco use Encounters Care Team Description Date Type Specialty Meseret Knight APRN Winkler, Katelyn R, APRN-NP S/P CABG (coronary artery bypass graft) (Primary Dx); S/P AVR (aortic valve replacement) 04/11/2020 Scheduled Cardiothoracic Surg heena Telephone from Last 3 Months Family History Medical History Relation Name Comments Coronary Artery Disease Father Heart Attack Father Stroke Father Dementia Mother Diabetes Mother Relation Name Status Comments Father (Age 80) Mother (Age 90) Social History Date Tobacco Use Types Packs/Day Years Used Quit: 11/15/1987 Former Smoker Cigarettes 2 20 Smokeless Tobacco: Never Used Drinks/Week oz/Week Comments Alcohol Use Socially Yes Sex Assigned at Date Recorded Not on file Industry Job Start Date Occupation Not on file Not on file Not on file Travel End Travel History Travel Start No recent travel history available. Last Filed Vital Signs Reading Time Taken Comments Vital Sign 148/60 03/22/2018 1:06 PM CDT Blood Pressure 86 03/22/2018 1:06 PM CDT Pulse 36.8 C (98.3 F) 02/15/2018 8:10 AM CDT Temperature - - Respiratory Rate 92% 03/22/2018 1:06 PM CDT Oxygen Saturation - - Inhaled Oxygen Concentration 108.8 kg (239 lb 14.4 oz) 03/22/2018 1:06 PM CDT Weight 175.3 cm (5' 9") 03/22/2018 1:06 PM CDT Height 35.43 03/22/2018 1:06 PM CDT Body Mass Index Plan of Treatment Health Maintenance Due Date Last Done Comments MEDICARE ANNUAL WELLNESS 1945 VISIT DILATED EYE EXAM 1965 DTAP/TDAP VACCINES (1 - 1965 Tdap) FOOT EXAM 1965 HEPATITIS C SCREENING 1965 PHYSICAL (COMPREHENSIVE) 1965 EXAM COLORECTAL CANCER 1997 SCREENING ABDOMINAL AORTIC ANEURYSM 2012 SCREENING PNEUMONIA (PPSV23) 2012 VACCINE (1 of 1 - PPSV23) HBA1C 08/13/2018 02/10/2018 SHINGLES RECOMBINANT 10/25/2019 08/30/2019 VACCINE (2 of 2) INFLUENZA VACCINE 08/15/2020 Implants Device Identifier Shelf Expiration Date Model / Serial / L ot Implanted Type Area Manufactur er 11/16/2021 [id number] / [id number] / [id number] Valve Aortic 23mm Heart N/A: Heart [employer]arden[employer] Magna Valve LIF ESCIENC Ease - [id number] [facility] Implanted: Qty: 1 on 02/11/2018 by Camacho Dale MD at [facility] [id number] / [id number] / [id number] Plate Acutie Sternal Closure - N/A: Sternum ACT [id number] [employer] Implanted: Qty: 3 on 02/11/2018 by Camacho Frias MD at 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
--- OUTSIDE RECORDS SUMMARY | 2020-05-21 07:02 | XMS REPORT | Continuity of Care Document ---
Author [facility] Organization [facility] Address Unknown Phone Unavailable Care Team Providers Care Data Manager Name Role Phone [facility] Unavailable Unavailable Problems Combined list of all problems from all Department of Defense and [facility] facilities. It does not include entries that were removed or entered in error. Problem Status Onset Date Problem Type Date of Resolution Comments Source Essential hypertension Active Condition [facility] Gastroesophageal reflux disease (SNOMED CT 803249894) Active Condition [facility] Hearing loss (SNOMED CT 12391810) Active Condition [facility] Hypercholesterolemia Active Condition [facility] Hyperlipidemia Active Condition [facility] Muscle pain Active Condition [facility] Obesity (SNOMED CT 561255729) Active Condition [facility] Osteoarthritis (SNOMED CT 027052094) Active Condition [facility] Personal History of Colonic Polyps (ICD-9-CM V12.72) Active Condition [facility] Sleep apnea (SNOMED CT 40720203) Active Condition [facility] Type 2 diabetes mellitus Active Condition [facility] Vitamin D deficiency (SNOMED CT 34462676) Active Condition [facility] Actinic keratosis (SNOMED CT 240075415) Inactive Condition 9 [facility] Dizziness * (ICD-9-CM 780.4) Inactive Condition 02/01/2019 [facility] Dyslipidemia (ICD-9-CM 272.4) Inactive Condition 02/01/2019 [facility] Hyperglycemia * (ICD-9-CM 790.29) Inactive Condition 9 [facility] Hypertension * (ICD-9-CM 401.9) In active Condition 9 [facility] Impaired FASTING Glucose (ICD-9-CM 790.21) Inactive Condition 9 [facility] Obesity * (ICD-9-CM 278.00) Inactive Condition 02/01/2019 [facility] OSTEOARTHRITIS HAND Inactive Condition 02/01/2019 Aug 29, 2007 Entered By: SOULEYMANE MANCILLA Comment: wrist [facility] Other Seborrheic Keratosis (ICD-9-CM 702.19) Inactive Condition 9 [facility] Other tenosynovitis of hand and wrist (ICD-9-CM 727.05 ) Inactive Condition 02/01/2019 [facility] Rhinitis * (ICD-9-CM 472.0) Inactive Condition 02/01/2019 [facility] Screening, Malignancy Inactive Condition 02/01/2019 [facility] Trigger Finger (ICD-9-CM 727.03) I nactive Condition 9 [facility] Umbilical hernia * (ICD-9-CM 553.1) Inactive Condition 9 [facility] ICD-10-CM H90.3 Sensorineural hearing lo ss, bilateral with Provider Comments: Hearing loss ([facility] [id number]) active Diagnosis [facility] ICD-10-CM I10. Essential (primary) hyper tension with Provider Comments: Essential hypertension ([facility] [id number]) active Diagnosis [facility] ICD-10-CM E11.9 Type 2 diabetes mellitus without complications with Provider Comments: Type 2 Diabetes Mellitus without Complications active Diagnosis [facility] ICD-10-CM E11.9 Type 2 diabetes mellitus without complications with Provider Comments: Type 2 diabetes mellitus ([facility] [id number]) active Diagnosis [facility] Medications Combined list of all outpatient medications recorded within the last 15 months b y all Department of Defense and Veterans Affairs facilities, and also all patien t-reported medications. Medication Details Route Status Patient Instructions Prescription Expires Prescript ion Number Last Dispense Date Ordering Pr ovider Order Date Source AMLODIPINE BESYLATE 10MG TAB T MACHELLE ONE TABLET BY MOUTH EVERY MORNING DISCONTINUED 05/04/2020 [id number] 09/21/2019 GINNA ALFRED JR 05/07/2019 [facility] ASPIRIN 81MG TAB,EC TAKE ONE T ABLET BY MOUTH ONCE A DAY ACTIVE SILVIO DA SILVA 02/02/2013 [facility] BUMETANIDE 1MG TAB TAKE TWO TA BLETS BY MOUTH EVERY MORNING DISCONTINUED 05/04/2020 [id number] 05/04/2019 AUBRIEGINNA Irais GABRIEL 05/07/2019 [facility] CARVEDILOL 12.5MG TAB TAKE ONE -HALF TABLET BY MOUTH TWO TIMES A DAY FOR HEART. TAKE WITH FOOD. NOTE: EACH DOSE IS 1/2 TABLET ACTIVE 12/25/2020 [id number] 12/27/2019 AUBRIEGINNASUSHILA Braxton JR 12/27/2019 [facility] CARVEDILOL 12.5MG TAB TAKE ONE -HALF TABLET BY MOUTH TWO TIMES A DAY FOR HEART. TAKE WITH FOOD. NOTE: EACH DOSE IS 1/2 TABLET DISCONTINUE 05/04/2020 [id number] 09/21/2019 GINNA ALFRED JR 05/07/2019 [facility] CHOLECALCIFEROL 10MCG (400UNIT) TAB TAKE TWO TABLETS BY MOUTH ONCE A DAY FOR VITAMIN D DEFICIENCY ACTIVE 01/14 [id number] 02/03/2020 JULIA RODRIGUEZ 02/03/2020 [facility] COLESTIPOL HCL 1GM TAB TAKE ON E TABLET BY MOUTH THREE TIMES A DAY - TAKE ONE HOUR AFTER OR FOUR HOURS BEFORE OTHER MEDICATIONS *DO NOT CHEW OR CRUSH* DISCONTINUED 05/04/2020 [id number] 12/19/2019 GINNA ALFRED JR 05/07/2019 [facility] FISH OIL CAP/TAB 3 CAPS MOUTH ONCE A DAY ACTIVE SILVIO DA SILVA 02/02/2013 [facility] HYDROCHLOROTHIAZIDE 25MG TAB T MACHELLE ONE TABLET BY MOUTH EVERY MORNING ACTIVE GINNA ALFRED JR 01/26/2018 [facility] LORATADINE 10MG TAB TAKE ONE T ABLET BY MOUTH QDAY PRN ACTIVE SILVIO DA SILVA 02/02/2013 [facility] [place] POTASSIUM 100MG TAB T MACHELLE ONE TABLET BY MOUTH ONCE A DAY FOR BLOOD PRESSURE. ACTIVE 12/25/2020 [id number] 12/27/2019 GINNA ALFRED JR 12/27/2019 [facility] [place] POTASSIUM 100MG TAB T MACHELLE ONE TABLET BY MOUTH ONCE A DAY FOR BLOOD PRESSURE. DISCONTINUE 05/04/2020 [id number] 09/21/2019 GINNA ALFRED JR 05/07/2019 [facility] LOVASTATIN 40MG TAB TAKE ONE T ABLET BY MOUTH EVERY EVENING WITH SUPPER FOR CHOLESTEROL - REPORT ANY UNEXPLAINED MUSCLE PAIN/WEAKNESS TO YOUR PROVIDER DISCONTINUED 05/04/2020 [id number] 09/21/2019 GINNA ALFRED JR 05/07/2019 [facility] MELOXICAM 15MG TAB TAKE ONE TA BLET BY MOUTH ONCE A DAY WITH FOOD FOR PAIN AND INFLAMMATION. DISCONTINUED 05/04/2020 [id number] 05/04/2019 GINNA ALFRED JR 05/07/2019 [facility] METFORMIN HCL 500MG 24HR TAB,SA TAKE TWO TABLETS BY MOUTH EVERY EVENING BEFORE SUPPER ACTIVE LAYLA ALFRED JR 01/26/2018 [facility] OMEPRAZOLE 20MG CAP,EC TAKE 1 CAPSULE BY MOUTH EVERY MORNING 30 MINUTES BEFORE EATING TO LOWER STOMACH ACID ACTIVE 12/25/2020 [id number] 12/27/2019 GINNA ALFRED JR 12/27/2019 [facility] OMEPRAZOLE 20MG CAP,EC TAKE 1 CAPSULE BY MOUTH EVERY MORNING 30 MINUTES BEFORE EATING TO LOWER STOMACH ACID DISCONTINUE 05/04/2020 [id number] 09/21/2019 GINNA ALFRED JR 05/07/2019 [facility] OMEPRAZOLE 20MG CAP,EC TAKE 1 CAPSULE BY MOUTH EVERY MORNING ACTIVE SILVIO DA SILVA 02/02/2013 [facility] ROSUVASTATIN CA 40MG TAB TAKE ONE-HALF TABLET BY MOUTH AT BEDTIME FOR CHOLESTEROL. REPORT ANY UNEXPLAINED MUSCLE PAIN OR WEAKNESS TO YOUR DOCTOR. ACTIVE 12/25/2020 [id number] 12/27/2019 GINNA ALFRED JR 12/27/2019 [facility] Allergies, Adverse Reactions, Alerts Combined list of all allergies from all Department of Defense and Veterans Affairs facilities. It does not include entries that were removed or entered in error. Substance Category R eaction Severity Reaction type Status Date Reported Comments Source LISINOPRIL Propensity to adverse r eactions to drug (disorder) Cough Propensity to adverse reactions to drug (disorder) active 03/27/2008 [facility] ZOCOR Propensity to adverse reacti ons to drug (disorder) Syncope SEVERE Propensity to adverse reactions to drug (disorder) active 10/24/2007 [facility] Immunizations Combined list of: 1) all immunizations on record at all [facility] facilit ies, and 2) all available immunizations on record at Department of Defense (Do D) facilities. Some immunizations on record at [facility] may not be included. Immunization Series Date Given Administered By Site Reaction Lot Number CVX Code Drug Digital Printer Operator Status Comments Source ZOSTER RECOMBINANT 2 12/25/2019 187 completed E [facility] INFLUENZA, UNSPECIFIED FORMULATION 09/15/2019 88 completed [facility] ZOSTER RECOMBINANT 1 08/30/2019 187 completed [employer] Vaccination Form F[facility] in by [facility] INFLUENZA, UNSPECIFIED FORMULATION 09/15/2018 88 completed [facility] INFLUENZA, UNSPECIFIED FORMULATION 10/15/2017 88 completed [facility] INFLUENZA, SEASONAL, INJECTABLE, PRESERVATIVE FREE 08/15/2016 140 completed [facility] PNEUMOCOCCAL POLYSACCHARIDE PPV23 03/13/2016 33 completed [facility] INFLUENZA, SEASONAL, INJECTABLE, PRESERVATIVE FREE 08/29/2015 140 completed [facility] PNEUMOCOCCAL CONJUGATE PCV 13 01/23/2015 133 completed [facility] INFLUENZA, SEASONAL, INJECTABLE, PRESERVATIVE FREE 10/15/2014 140 completed [facility] INFLUENZA, UNSPECIFIED FORMULATION 09/04/2013 88 completed [facility] TDAP (HISTORICAL) 02/02/2013 115 completed E [facility] INFLUENZA, UNSPECIFIED FORMULATION 11/04/2012 88 completed [facility] INFLUENZA, UNSPECIFIED FORMULATION 01/05/2012 88 completed [facility] INFLUENZA, UNSPECIFIED FORMULATION 09/15/2010 88 completed [facility] INFLUENZA, UNSPECIFIED FORMULATION 08/14/2009 88 completed [facility] ZOSTER LIVE 11/15/2008 121 completed [facility] [place] INFLUENZA, UNSPECIFIED FORMULATION 09/10/2008 88 [facility] INFLUENZA, UNSPECIFIED FORMULATION 08/25/2007 88 completed [facility] INFLUENZA, UNSPECIFIED FORMULATION 10/01/2006 88 completed [facility] PNEUMOCOCCAL, UNSPECIFIED FORMULATION 10/01/2006 109 completed [facility] PNEUMOCOCCAL, UNSPECIFIED FORMULATION 11/15/2005 109 completed [facility] Results Combined list of recent chemistry, hematology and other laboratory results going back no more than 15 months from the Department of Defense and Veterans Affairs facilities. Order Name Results Value Reference Range Date Interpretation Specimen Comments Source HEMOGLOBIN A1C HEMOGLOBIN A1C/ HEMOGLOBIN.TOTAL IN BLOOD BY HPLC 6.5 % 4.0 - 6.0 01/24/2020 H Specimen Type: BLOOD No comment entered. [facility] URINALYSIS COLOR OF URINE Yello w 01/24/2020 Specimen Type: URINE No comment entered. [facility] URINALYSIS SPECIFIC GRAVITY OF URINE 1.021 01/24/2020 Specimen Type: URINE No comment entered. [facility] URINALYSIS UROBILINOGEN [MASS/VOLUME ] IN URINE Negativemg/dL 0.1 - 1.0 01/24/2020 Specimen Type: URINE No comment entered. [facility] URINALYSIS BILIRUBIN.TOTAL [DC ESENCE] IN URINE BY TEST STRIP Negative 0 01/24/2020 Specimen Type: URINE No comment entered. [facility] URINALYSIS KETONES [MASS/VOLUME] IN URINE BY TEST STRIP Negativemg/dl 01/24/2020 Specimen Type: URINE No comment entered. [facility] URINALYSIS GLUCOSE [MASS/VOLUME] IN URINE BY TEST STRIP Negativemg/dL 01/24/2020 Specimen Type: URINE No comment entered. [facility] URINALYSIS PROTEIN [MASS/VOLUME] IN URINE BY TEST STRIP Negativemg/dl - Trace" 01/24/2020 Specimen Type: URINE No comment entered. [facility] URINALYSIS PH OF URINE BY TEST STRIP 5.0 01/24/2020 Specimen Type: URINE No comment entered. [facility] URINALYSIS APPEARANCE OF URINE Clear 01/24/2020 Specimen Type: URINE No comment entered. [facility] URINALYSIS HEMOGLOBIN [PRESENCE] IN URINE Negative 01/24/2020 Specimen Type: URINE No comment entered. [facility] URINALYSIS NITRITE [PRESENCE] IN URI NE BY TEST STRIP Negative 01/24/2020 Specimen T ype: URINE No comment entered. [facility] URINALYSIS LEUKOCYTE ESTERASE [PRESENCE] IN URINE BY TEST STRIP Negative 0 01/24/2020 Specimen Type: URINE No comment entered. [facility] MICROALBUMIN (BARI,[place]) RANDOM URINE MICROALBUMIN [MASS/VOLUME] IN URINE 26 ug/mL 01/24/2020 Specimen Type: URINE No comment entered. [facility] MICROALBUMIN ([place]) RANDOM URINE MICROALBUMIN/CREATININE [MASS RATIO] IN URINE 20 mcg/mgcr 01/24/2020 Specimen Type: URINE No comment entered. [facility] MICROALBUMIN ([place]) RANDOM URINE CREATININE [MASS/VOLUME] IN URINE 130.7 mg/dL 01/24/2020 Specimen Type: URINE No comment entered. [facility] VITAMIN D (25-OH) CALCIDIOL [M ASS/VOLUME] IN SERUM OR PLASMA 23.6 ng/mL 30.0 - 96.0 01/24/2020 L Specimen Type: SERUM No comment entered. [facility] HCV-AB HEPATITIS C VIRUS AB [PRESENC E] IN SERUM NonReactive 01/24/2020 Specimen Type: SERUM No comment entered. [facility] CBC & DIFF LEUKOCYTES [#/VOLUM E] IN BLOOD BY AUTOMATED COUNT 5.4 K/cmm 3.60 - 11.20 01/24/2020 Specimen Type: BLOOD No comment entered. [facility] CBC & DIFF ERYTHROCYTES [#/VOL UME] IN BLOOD BY AUTOMATED COUNT 4.73 M/ul 4.1 - 5.7 01/24/2020 Specimen Type: BLOOD No comment entered. [facility] CBC & DIFF HEMOGLOBIN [MASS/VOLUME] IN BLOOD 13.6 g/dl 13.1 - 16.8 01/24/2020 Specimen T ype: BLOOD No comment entered. [facility] CBC & DIFF HEMATOCRIT [VOLUME FRACTION] OF BLOOD BY AUTOMATED COUNT 41.1 % 38.2 - 48.4 01/24/2020 Specimen Type: BLOOD No comment entered. [facility] CBC & DIFF MCV [ENTITIC VOLUME] BY A UTOMATED COUNT 86.9 fl 80.1 - 98.5 01/24/2020 Specimen Type: BLOOD No comment entered. [facility] CBC & DIFF MCH [ENTITIC MASS] BY AUT OMATED COUNT 28.8 pg 27.0 - 34.0 01/24/2020 Specimen T ype: BLOOD No comment entered. [facility] CBC & DIFF MCHC [MASS/VOLUME] BY AUT OMATED COUNT 33.1 g/dl 33.0 - 36.0 01/24/2020 Specimen Type: BLOOD No comment entered. [facility] CBC & DIFF PLATELETS [#/VOLUME ] IN BLOOD BY AUTOMATED COUNT 176 K/cmm 150 - 400 01/24/2020 Specimen Type: BLOOD No comment entered. [facility] CBC & DIFF PLATELET MEAN VOLUM E [ENTITIC VOLUME] IN BLOOD BY AUTOMATED COUNT 11.1 fl 7.5 - 11.2 01/24/2020 Specimen Type: BLOOD No comment entered. [facility] CBC & DIFF ERYTHROCYTE DISTRIB UTION WIDTH [RATIO] BY AUTOMATED COUNT 13.2 % 11.8 - 15.1 01/24/2020 Specimen Type: BLOOD No comment entered. [facility] CBC & DIFF LYMPHOCYTES/100 MICHELLE KOCYTES IN BLOOD BY AUTOMATED COUNT 31.5 % 01/24/2020 Specimen Type: BLOOD No comment entered. [facility] CBC & DIFF NEUTROPHILS/100 MICHELLE KOCYTES IN BLOOD BY AUTOMATED COUNT 58.3 % 01/24/2020 Specimen Type: BLOOD No comment entered. [facility] CBC & DIFF MONOCYTES/100 LEUKO CYTES IN BLOOD BY AUTOMATED COUNT 6.9 % 01/24/2020 Specimen Type: BLOOD No comment entered. [facility] CBC & DIFF MONOCYTES [#/VOLUME ] IN BLOOD BY AUTOMATED COUNT 0.4 K/cmm 0.19 - 0.80 01/24/2020 Specimen Type: BLOOD No comment entered. [facility] CBC & DIFF NEUTROPHILS [#/VOLU ME] IN BLOOD BY AUTOMATED COUNT 3.1 K/cmm 2.10 - 8.00 01/24/2020 Specimen Type: BLOOD No comment entered. [facility] CBC & DIFF EOSINOPHILS [#/VOLU ME] IN BLOOD BY AUTOMATED COUNT 0.1 K/cmm 0.00 - 0.60 01/24/2020 Specimen Type: BLOOD No comment entered. [facility] CBC & DIFF BASOPHILS [#/VOLUME ] IN BLOOD BY AUTOMATED COUNT 0.0 K/cmm 0.00 - 0.20 01/24/2020 Specimen Type: BLOOD No comment entered. [facility] CBC & DIFF EOSINOPHILS/100 MICHELLE KOCYTES IN BLOOD BY AUTOMATED COUNT 2.2 % 01/24/2020 Specimen Type: BLOOD No comment entered. [facility] CBC & DIFF BASOPHILS/100 LEUKO CYTES IN BLOOD BY AUTOMATED COUNT 0.7 % 01/24/2020 Specimen Type: BLOOD No comment entered. [facility] CBC & DIFF LYMPHOCYTES [#/VOLU ME] IN BLOOD BY AUTOMATED COUNT 1.7 K/cmm 0.77 - 4.50 01/24/2020 Specimen Type: BLOOD No comment entered. [facility] CBC & DIFF IMMATURE GRANULOCYT ES [#/VOLUME] IN BLOOD BY AUTOMATED COUNT 0.02 K/cmm 0.00 - 0.05 01/24/2020 Specimen Type: BLOOD No comment entered. [facility] CBC & DIFF IMMATURE GRANULOCYT ES/100 LEUKOCYTES IN BLOOD BY AUTOMATED COUNT 0.4 % 01/24/2020 Specimen Type: BLOOD No comment entered. [facility] COMPREHENSIVE METABOLIC PANEL CREATININE [MASS/VOLUME] IN SERUM OR PLASMA 0.73 mg/dL 0.7 - 1.3 01/24/2020 Specimen Type: PLASMA Comment: For eGFR: eGFR results >60 are imprecise. Many variables affect the calculated result. Interpretation of eGFR results >60 must be monitored over time. [facility] COMPREHENSIVE METABOLIC PANEL UREA NITROGEN [MASS/VOLUME] IN SERUM OR PLASMA 16 mg/dL 9 - 25 01/24/2020 Specimen Type: PLASMA Comment: For eGFR: eGFR results >60 are imprecise. Many variables affect the calculated result. Interpretation of eGFR results >60 must be monitored over time. [facility] COMPREHENSIVE METABOLIC PANEL GLUCOSE [MASS/VOLUME] IN SERUM OR PLASMA 118 mg/dL 72 - 99 01/24/2020 H Specimen Type: PLASMA Comment: For eGFR: eGFR results >60 are imprecise. Many variables affect the calculated result. Interpretation of eGFR results >60 must be monitored over time. [facility] COMPREHENSIVE METABOLIC PANEL SODIUM [MOLES/VOLUME] IN SERUM OR PLASMA 139 mEq/L 136 - 145 01/24/2020 Specimen Type: PLASMA Comment: For eGFR: eGFR results >60 are imprecise. Many variables affect the calculated result. Interpretation of eGFR results >60 must be monitored over time. [facility] COMPREHENSIVE METABOLIC PANEL POTASSIUM [MOLES/VOLUME] IN SERUM OR PLASMA 4.4 mEq/L 3.5 - 5.0 01/24/2020 Specimen Type: PLASMA Comment: For eGFR: eGFR results >60 are imprecise. Many variables affect the calculated result. Interpretation of eGFR results >60 must be monitored over time. [facility] COMPREHENSIVE METABOLIC PANEL CALCIUM [MASS/VOLUME] IN SERUM OR PLASMA 9.1 mg/dL 8.4 - 10.4 01/24/2020 Specimen Type: PLASMA Comment: For eGFR: eGFR results >60 are imprecise. Many variables affect the calculated result. Interpretation of eGFR results >60 must be monitored over time. [facility] COMPREHENSIVE METABOLIC PANEL PROTEIN [MASS/VOLUME] IN SERUM OR PLASMA 7.4 g/dL 6.0 - 8.6 01/24/2020 Specimen Type: PLASMA Comment: For eGFR: eGFR results >60 are imprecise. Many variables affect the calculated result. Interpretation of eGFR results >60 must be monitored over time. [facility] COMPREHENSIVE METABOLIC PANEL ALBUMIN [MASS/VOLUME] IN SERUM OR PLASMA 4.3 g/dl 3.4 - 5.0 01/24/2020 Specimen Type: PLASMA Comment: For eGFR: eGFR results >60 are imprecise. Many variables affect the calculated result. Interpretation of eGFR results >60 must be monitored over time. [facility] COMPREHENSIVE METABOLIC PANEL BILIRUBIN.TOTAL [MASS/VOLUME] IN SERUM OR PLASMA 0.5 mg/dL 0.2 - 1.2 01/24/2020 Specimen Type: PLASMA Comment: For eGFR: eGFR results >60 are imprecise. Many variables affect the calculated result. Interpretation of eGFR results >60 must be monitored over time. [facility] COMPREHENSIVE METABOLIC PANEL ASPARTATE AMINOTRANSFERASE [ENZYMATIC ACTIVITY/VOLUME] IN SERUM OR PLASMA 20 U/L 5 - 34 01/24/2020 Specimen Type: PLASMA Comment: For eGFR: eGFR results >60 are imprecise. Many variables affect the calculated result. Interpretation of eGFR results >60 must be monitored over time. [facility] COMPREHENSIVE METABOLIC PANEL ALANINE AMINOTRANSFERASE [ENZYMATIC ACTIVITY/VOLUME] IN SERUM OR PLASMA 30 U/L 8 - 40 01/24/2020 Specimen Type: PLASMA Comment: For eGFR: eGFR results >60 are imprecise. Many variables affect the calculated result. Interpretation of eGFR results >60 must be monitored over time. [facility] COMPREHENSIVE METABOLIC PANEL ANION GAP IN SERUM OR PLASMA 8.4 2019 Specimen T ype: PLASMA Comment: For eGFR: eGFR results >60 are imprecise. Many variables affect the calculated result. Interpretation of eGFR results >60 must be monitored over time. [facility] COMPREHENSIVE METABOLIC PANEL CHLORIDE [MOLES/VOLUME] IN SERUM OR PLASMA 105 mEq/L 98 - 107 01/24/2020 Specimen Type: PLASMA Comment: For eGFR: eGFR results >60 are imprecise. Many variables affect the calculated result. Interpretation of eGFR results >60 must be monitored over time. [facility] COMPREHENSIVE METABOLIC PANEL "CARBON DIOXIDE, TOTAL [MOLES/VOLUME] IN SERUM OR PLASMA" 25.6 mEq/L 22 - 31 01/24/2020 Specimen Type: PLASMA Comment: For eGFR: eGFR results >60 are imprecise. Many variables affect the calculated result. Interpretation of eGFR results >60 must be monitored over time. [facility] COMPREHENSIVE METABOLIC PANEL ALKALINE PHOSPHATASE [ENZYMATIC ACTIVITY/VOLUME] IN SERUM OR PLASMA 52 U/L 40 - 150 01/24/2020 Specimen Type: PLASMA Comment: For eGFR: eGFR results >60 are imprecise. Many variables affect the calculated result. Interpretation of eGFR results >60 must be monitored over time. [facility] COMPREHENSIVE METABOLIC PANEL GLOMERULAR FILTRATION RATE/1.73 SQ M.PREDICTED [VOLUME RATE/AREA] IN SERUM OR PLASMA BY CREATININE- BASED FORMULA (MDRD) >60 01/24/2020 Specimen Type: PLASMA Comment: For eGFR: eGFR results >60 are imprecise. Many variables affect the calculated result. Interpretation of eGFR results >60 must be monitored over time. [facility] LIPID PROFILE(HDL,TRIG,CHOL,LDL) CHOLESTEROL [MASS/VOLUME] IN SERUM OR PLASMA 184 mg/dL 0 - 200 01/24/2020 Specimen Type: PLASMA Comment: For eGFR: eGFR results >60 are imprecise. Many variables affect the calculated result. Interpretation of eGFR results >60 must be monitored over time. [facility] LIPID PROFILE(HDL,TRIG,CHOL,LDL) TRIGLYCERIDE [MASS/VOLUME] IN SERUM OR PLASMA 180 mg/dL 0 - 150 01/24/2020 H Specimen Type: PLASMA Comment: For eGFR: eGFR results >60 are imprecise. Many variables affect the calculated result. Interpretation of eGFR results >60 must be monitored over time. [facility] LIPID PROFILE(HDL,TRIG,CHOL,LDL) CHOLESTEROL IN HDL [MASS/VOLUME] IN SERUM OR PLASMA 55 mg/dL 01/24/2020 Specimen Type: PLASMA Comment: For eGFR: eGFR results >60 are imprecise. Many variables affect the calculated result. Interpretation of eGFR results >60 must be monitored over time. [facility] LIPID PROFILE(HDL,TRIG,CHOL,LDL) CHOLESTEROL IN LDL [MASS/VOLUME] IN SERUM OR PLASMA BY CALCULATION 93 mg/dL 0 - 99.9 01/24/2020 Specimen Type: PLASMA Comment: For eGFR: eGFR results >60 are imprecise. Many variables affect the calculated result. Interpretation of eGFR results >60 must be monitored over time. [facility] TSH THYROTROPIN [UNITS/VOLUME] IN SE RUM OR PLASMA 1.85 uIU/mL 0.47 - 5.00 01/24/2020 Specimen Type: SERUM No comment entered. [facility] PROSTATIC SPECIFIC ANTIGEN(TOTAL) PROSTATE SPECIFIC AG [MASS/VOLUME] IN SERUM OR PLASMA 1.4 ng/mL 0 - 4 01/24/2020 Specimen Type: SERUM No comment entered. [facility] Vital Signs Combined list of inpatient and outpatient Vital Signs from all [facility] and/or [facility] medical facilities within the last 15 months. The included entries comply with the patient's data sharing authorizations. Vital Sign Value Date Comments Source PAIN 0 01/23 10:14:00 [facility] HEIGHT 66.75[in_us] 12/25/2019 11:52:00 [facility] Encounters Combined list of encounters at Department of [facility] and/or [facility] [facility] for the last 15 months. Not all [facility] inpatient encounters are included. The incl uded entries comply with the patient's data sharing authorizations. Location Location Details Encounter Type Encounter Number Reason For Visit Attending Provider ADM Date DC Date Status Disposition Source Outpatient Encounter [id number] _MAPID:[id number] 02/01/2019 [facility] 15 OFFICE/[place] [id number] ICD-10 -CM E11.9 Type 2 diabetes mellitus without complications with Provider Comments: Type 2 diabetes mellitus (SCT [id number]) GINNA ALFRED JR 02/01/2019 [facility] Outpatient Encounter [id number] _MAPID:[id number] 02/01/2019 [facility] 15 Outpatient Encounter [id number] _MAPID:[id number] 02/15/2019 [facility] 15 Outpatient Encounter [id number] _MAPID:[id number] 05/02/2019 [facility] Outpatient Encounter [id number] _MAPID:[id number] 05/10/2019 [facility] Outpatient Encounter [id number] _MAPID:e [id number] 08/30/2019 [facility] Outpatient Encounter [id number] _MAPID:e [id number] 09/15/2019 [facility] Outpatient Encounter [id number] _MAPID:[id number] 12/21/2019 [facility] Outpatient Encounter [id number] _MAPID:[id number] 12/22/2019 [facility] Outpatient Encounter [id number] _MAPID:e [id number] 12/25/2019 [facility] OFFICE/OUT PATIENT VISIT EST [id number] ICD-10 -CM E11.9 Type 2 diabetes mellitus without complications with Provider Comments: Type 2 Diabetes Mellitus without Complications GINNA ALFRED JR 12/25/2019 [facility] Outpatient Encounter [id number] _MAPID:e ndReason8 12/26/2019 [facility] Outpatient Encounter [id number] _MAPID:e ndReason7 12/26/2019 [facility] Outpatient Encounter [id number] _MAPID:e ndReason6 01/24/2020 [facility] OFFICE/OUT PATIENT VISIT EST [id number] ICD-10 -CM I10. Essential (primary) hypertension with Provider Comments: Essential hypertension (SCT [id number]) JULIA RODRIGUEZ 01/24/2020 [facility] Outpatient Encounter [id number] ICD-10 -CM H90.3 Sensorineural hearing loss, bilateral with Provider Comments: Hearing loss (SCT [id number]) ROXANNA JOSHUA 01/24/2020 [facility] Outpatient Encounter [id number] _MAPID :endReason3 01/24/2020 AINSLEY IBARRA [facility] Outpatient Encounter [id number] _MAPID :endReason2 02/01/2020 [facility] Outpatient Encounter [id number] _MAPID:e ndReason1 04/04/2020 [facility] Procedures No Data Provided for This Section Social History Combined list of available smoking, tobacco, and other social history on record at Department of Defense and/or Veterans Affairs facilities. The included entrie s comply with the patient's data sharing authorizations. Social History Type Response Date Comment Source Tobacco smoking status NHIS NON-TOBACCO USER 01/02/2020 [facility] History of tobacco use VA-TO BACCO QUIT 15 YRS OR MORE 01/02/2020 [facility] History of tobacco use VA-TO BACCO FORMER USER 01/02/2020 [facility] History of tobacco use VA-TO BACCO FORMER USER 01/23/2019 [facility] History of tobacco use VA-TO BACCO QUIT 15 YRS OR MORE 01/23/2019 [facility] History of tobacco use CURRE NT NON-TOBACCO USER 03/13/2016 [facility] History of tobacco use CURRE NT NON-TOBACCO USER 01/23/2015 [facility] History of tobacco use CURRE NT NON-TOBACCO USER 02/02/2013 [facility] History of tobacco use CURRE NT NON-TOBACCO USER 01/05/2012 [facility] History of tobacco use EK-NO N TOBACCO USE PAST 12 MO 07/04/2010 [facility] History of tobacco use EK-NO N TOBACCO USE PAST 12 MO 01/14/2009 [facility] History of tobacco use EK-NO N TOBACCO USE PAST 12 MO 10/14/2007 [facility] History of tobacco use EK-NO N TOBACCO USE PAST 12 MO 10/01/2006 [facility] Assessment and Plan No Data Provided for This Section Plan of Care No Data Provided for This Section Family History No Data Provided for This Section Advance Directives List of completed, amended, or rescinded Advance Directives on record at [facility]. An actual copy of the Directive is not included. Date Advance Directive Provider Source 01/24/2020 ADVANCE DIRECTIVE D ROXANNA GARCIA [facility] Functional Status No Data Provided for This Section
--- OUTSIDE RECORDS SUMMARY | 2020-05-21 07:02 | XMS REPORT | Encounter Summary ---
Author Author [facility] BRENT fernandez Organization [facility] of [facility] Address [address] [place] [address] Phone Unavailable Care Team Providers Care Equipment Coordinator Name Role Phone JULIA RODRIGUEZ PCP Unavailable Insurance Providers: All historical and current Section Date Range: From patient's date of to the date document was create d. This section includes the names of all active insurance providers for the eri kaiser Insurance Provider Type of Coverage Plan Name Start of Policy Co verage End of Policy Coverage Group Number Member ID Insurance Provider's Telephone N umber Policy Antonio's Name Patient's Relationship to Policy Antonio MEDICARE (WNR) MEDICARE (M) PART B May 15, 2013 PART B [id number] [phone] BRENT CONCEPCION PATIENT MEDICARE (WNR) MEDICARE (M) PART B May 15, 2013 PART B [id number] [phone] BRENT CONCEPCION PATIENT MEDICARE (WNR) MEDICARE (M) PART A Dec 16, 2011 PART A [id number] [phone] BRENT CONCEPCION PATIENT MEDICARE (WNR) MEDICARE (M) PART A Dec 16, 2011 PART A [id number] [phone] CONCEPCION,CARL PATIENT [facility] [place] PLAN F MEDICARE SUPPLEMENT Jun 15, 2013 PLAN F [id number] [phone] CONCEPCION,CARL PATIENT Selected Encounter This section includes the information on record at [place] for the Encounter. Date/Time Encounter Type Encounter Description Reason Provider Source Dec 22, 2019 12:14 PM Outpatient Encounter ADMIN PAT ACTIVTIES (MASNO NCT) [facility] IHE Encounter Template Text not used by CO Assessments - Encounter Diagnoses No Data Provided for This Section Plan of Treatment: Future Appointments (+ 6 months) and Future Tests (+/- 45 day s) The Plan of Treatment section includes future care activities for the patient fr om all [place] treatment facilities. This section includes future appointments and fu ture orders which are active, pending or scheduled. Future Appointments This section includes appointments that were scheduled t o occur 6 months from the date of the Encounter, up to a maximum of 20 appointme nts. The data comes from all [place] treatment facilities. Appointment Date/Time Appointment Type Appointment Facili ty Name Dec 25, 2019 09:30 AM AMBULATORY - NONE [facility] Dec 25, 2019 11:30 AM AMBULATORY - MEDICINE [facility] Jan 24, 2020 10:00 AM AMBULATORY - MEDICINE [facility] Jan 24, 2020 10:30 AM AMBULATORY - NONE [facility] April 04, 2020 11:15 AM AMBULATORY - NONE [facility] Active, Pending, and Scheduled Orders This section includes a listing of several types of activ e, pending, and scheduled orders, including clinic medications orders, diagnosti c test orders, procedure orders and consult orders; where the start date of th e order is 45 days before the date of the Encounter or 45 days after the date o f the Encounter. The data comes from all [place] treatment [facility]. Test Date/Time Test Type Test Details Facility Name Dec 25, 2019 12:09 PM Consult Order [facility]- [id number] Cons Cold Rolling Supervisor's Choice [facility] Surgical Procedures: All associated to the encounter No Data Provided for This Section Lab Results: +/- 30 days of the encounter This section includes the Chemistry and Hematology Lab R esults on record with CO for the patient. Radiology Reports and Pathology Report s are provided separately, in subsequent sections. Lab Results This section contains the Chemistry/Hematology Results harmony t were resulted 30 days before or 30 days after the date of the Encounter. Date/Time Source Result Type Result - Unit Interpretation Reference Range Comment Dec 25, 2019 09:12 AM [facility] CBC & DIFF Specimen Type: BLOOD No comment entered. WBC 4.45 K/cmm 3.60-11.20 RBC 4.78 M/ul 4.1-5.7 HGB 14.0 g/dl 13.1-16.8 HCT 41.6 % 38.2-48.4 MCV 87.0 fl 80.1-98.5 MCH 29.3 pg 27.0-34.0 MCHC 33.7 g/dl 33.0-36.0 PLATELET COUNT 195 K/cmm 150-400 MPV 9.8 fl 7.5-11.2 RDW 13.2 % 11.8-15.1 LYMPHOCYTES, AUTO% 34.6 % NEUTROPHILS, AUTO % 54.4 % MONOCYTES, AUTO% 7.4 % MONOCYTES, ABSOLUTE 0.33 K/cmm 0.19-0.80 NEUTROPHILS, ABSOLUTE 2.42 K/cmm 2.10-8. 00 EOSINOPHILS, ABSOLUTE 0.12 K/cmm 0.00-0. 60 BASOPHILS, ABSOLUTE 0.03 K/cmm 0.00-0.20 EOSINOPHILS, AUTO% 2.7 % BASOPHILS, AUTO% 0.7 % LYMPHOCYTES, ABSOLUTE 1.54 K/cmm 0.77-4. 50 IMMATURE GRANS, ABSOLUTE 0.01 K/cmm 0.00 -0.05 IMMATURE GRANS, AUTO % 0.2 % Dec 25, 2019 09:12 AM [facility] [employer] COMPREHENSIVE AK TABOLIC PANEL Specimen Type: PLASMA No comment entered. *CREATININE 0.74 mg/dL 0.7-1.3 UREA NITROGEN mg/dL 17 mg/dL 9-25 GLUCOSE 127 mg/dL H 72-99 SODIUM 141 mEq/L 136-145 POTASSIUM 4.0 mEq/L 3.5-5.0 CALCIUM (mg/dL) 9.3 mg/dL 8.4-10.4 PROTEIN,TOTAL 7.1 g/dL 6.0-8.6 ALBUMIN 4.1 g/dl 3.4-5.0 TOTAL BILIRUBIN 0.4 mg/dL 0.2-1.2 ASPARTATE TRANSAMINASE 20 U/L 5-34 ALANINE AMINOTRANSFERASE 29 U/L 8-40 CHLORIDE 106 mEq/L 98-107 CO2 27 mEq/L 22-31 ALKALINE PHOSPHATASE 52 U/L 40-150 EGFR 104.0 Dec 25, 2019 09:12 AM [facility] [employer] LIPID PROFIL E(HDL,TRIG,CHOL,LDL) Sp ecimen Type: PLASMA No comment entered. CHOLESTEROL 193 mg/dL 0-200 TRIGS 162 mg/dL H 0-150 HDL-CHOLESTEROL 50 mg/dL >40 LDL (CALC) 110.6 mg/dL H 0-99.9 Dec 25, 2019 09:12 AM [facility] [employer] PROSTATIC SP ECIFIC ANTIGEN(TOTAL) Sp ecimen Type: SERUM No comment entered. PROSTATIC SPECIFIC ANTIGEN(TOTAL) 1.57 ng/mL 0-4 Dec 25, 2019 09:12 AM [facility] [employer] URINALYSIS Specimen Type: URINE No comment entered. URINE COLOR Yellow SPECIFIC GRAVITY 1.024 1.005-1.030 UROBILINOGEN Negative mg/dL 0.1-1.0 URINE BILIRUBIN Negative Negative URINE KETONES Negative mg/dl Negative URINE GLUCOSE Negative mg/dL Negative URINE PROTEIN Negative mg/dl Negative-Tr mary URINE PH 5.0 5-8 APPEARANCE,URINE Clear Clear URINE BLOOD Negative Negative URINE NITRITE Negative Negative LEUKOCYTE ESTERASE Negative Negative Dec 25, 2019 09:12 AM [facility] [employer] TSH Specimen Type: SERUM No comment entered. TSH 1.37 uIU/mL 0.47-5.00 Dec 25, 2019 09:12 AM [facility] [employer] HEMOGLOBIN A1C Specimen Type: BLOOD No comment entered. HEMOGLOBIN A1C 6.5 % H 4.0-6.0 Dec 25, 2019 09:12 AM [facility] [employer] MICROALBUMIN (CO ,EK) Specimen Type: URINE No comment entered. *MICROALBUMIN(CONC) 1.7 mg/dL - *MICROALBUMIN(SPOT) 12.4 mcg/mg cr 0-29 *CREATININE mg/dL 137.6 mg/dl Not Avail. Dec 25, 2019 09:12 AM [facility] [employer] VITAMIN D (25-OH ) Specimen Type: SERUM No comment entered. VITAMIN D (25-OH) 26.0 ng/mL L 30.0-96.0 Vital Signs: All taken on the encounter date No Data Provided for This Section Immunizations: All administered on the encounter date No Data Provided for This Section Social History: Smoking Status (Most current) and Tobacco Use (All prior to enco unter date) This section includes the most current, and the historical, smoking and tobacco- related health factors from the CO facility where the Encounter took place. Current Smoking Status This section includes the most current smoking, or tobacco -related health factor, from the CO facility where the Encounter took place. Date/Time Current Smoking Status Comment Facility Jan 23, 2019 01:31 PM [facility]ACCO [facility] Tobacco Use History This section includes a history of the smoking, or tobacco -related health factors, that were collected on or before the date of the Encoun ter. The data comes from the [place] facility where the Encounter took place. Date/Time Smoking Status/Tobacco Use Comment [facility] Jan 23, 2019 01:31 PM VA-TOBACCO QUIT 15 YRS OR MORE MARIA INES [facility]TER[facility] Mar 13, 2016 10:38 AM CURRENT NON-TOBACCO USER [facility] Jan 23, 2015 11:08 AM CURRENT NON-TOBACCO USER [facility] Feb 02, 2013 10:27 AM CURRENT NON-TOBACCO USER [facility] Jan 05, 2012 01:10 PM CURRENT NON-TOBACCO USER [facility] Jul 04, 2010 10:03 AM EK-NON TOBACCO USE PAST 12 MO [facility] Jan 14, 2009 03:55 PM EK-NON TOBACCO USE PAST 12 MO [facility] Advance Directives: All historical and current Section Date Range: From patient's date of to the date document was create d. This section includes ALL of a patient's completed or amen ded VA Advance and Rescinded Directives. The entries below indicate that a direc tive exists for the patient, but an actual copy is not included with this docume nt. The data comes from all [place] facilities. Date Advance Directives Provider Source Jan 24, 2020 ADVANCE DIRECTIVE DISCUSSION ROXANNA JOSHUA [facility] Allergies and Adverse Reactions (ADRs): All historical and current Section Date Range: From patient's date of to the date document was create d. This section includes Allergies and Adverse Reactions (ADR s) on record with VA for the patient. The data comes from a ll [place] treatment facilities. It does not list Allergies/ADRs that were removed or entered in error. Some allergies/ADRs may be reported in t he Immunization section. Allergen Event Date Event Type Reaction(s) Severity Source LISINOPRIL March 27, 2008 Propensity to adverse reactions to drug (disorder) Cough [facility] ZOCOR Oct 24, 2007 Propensity to adverse reactions to drug ( disorder) Syncope SEVERE [facility] Medications: VA dispensed (-15 months) and Non-VA Documented (Obtained Outside A) Section Date Range: 1) prescriptions processed by a VA pharmacy in the last 15 m [facility], and 2) all medications recorded in the CO medical record as "non-VA medic ations". Pharmacy terms refer to VA pharmacy's work on prescriptions. VA patient s are advised to take their medications as instructed by their health care team. The data comes from all [place] treatment facilities. Glossary of Pharmacy Terms:Active = A prescription that can be filled at the local VA pharmacy.Active: On Hold = An active prescription that will not be filled until pharmacy resolves the issue.Active: Susp = An active prescription that is not scheduled to be filled yet.Clinic Order = A medication received during a visit to a CO clinic or emergency department (currently not available).Discontinued = A prescription stopped by a VA provider. It is no longer available to be filled. = A prescription which is too old to fill. This does not refer to the expiration date of the medication in the container. Non-VA = A medication that came from someplace other than a VA pharmacy. This may be a prescription from either the VA or other providers that was filled outside the CO. Or, it may be an over the counter (OTC), herbal, dietary supplement or sample medication.Pending = This prescription order has been sent to the Pharmacy for review and is not ready yet. Medication Name and Strength Pharmacy Term Instructions Quantity Or dered Prescription Expires Prescription Number Last Dispense Date Ordering Provider Facility AMLODIPINE BESYLATE 10MG TAB Discontinued TAKE ONE TA BLET BY MOUTH EVERY MORNING 90 May 04, 2020 [id number] Sep 21, 2019 GINNA ALFRED JR [facility] ASPIRIN 81MG TAB,EC Non- VA TAKE ONE TABLET BY MOUTH ONCE A DAY Non-VA Documented by: SILVIO DA SILVA nted at: [facility] BUMETANIDE 1MG TAB Discontinued TAKE TWO TABLETS BY MOUTH EVERY MOR MAXINE 180 May 04, 2020 [id number] May 04, 2019 GINNA ALFRED JR [facility] CARVEDILOL 12.5MG TAB Active TAKE ONE-HALF TABL ET BY MOUTH TWO TIMES A DAY FOR HEART. TAKE WITH FOOD. NOTE: EACH DOSE IS 1/2 TABLET 90 Dec 25 [id number] Dec 27, 2019 GINNA ALFRED JR [facility] CARVEDILOL 12.5MG TAB Discontinued TAKE ONE-HALF TABL ET BY MOUTH TWO TIMES A DAY FOR HEART. TAKE WITH FOOD. NOTE: EACH DOSE IS 1/2 TABLET 90 May 04, 2020 [id number] Sep 21, 2019 GINNA ALFRED JR [facility] CHOLECALCIFEROL 10MCG (400UNIT) TAB Active TAKE TWO TABLETS BY MOUTH ONCE A DAY FOR VITAMIN D DEFICIENCY 200 Feb 01, 2021 [id number] Feb 03, 2020 [facility] SANCHE[facility] COLESTIPOL HCL 1GM TAB Discontinued TAKE ONE TABLET B Y MOUTH THREE TIMES A DAY - TAKE ONE HOUR AFTER OR FOUR HOURS BEFORE OTHER MEDICATIONS *DO NOT CHEW OR CRUSH* 270 May 04, 2020 [id number] Dec 19, 2019 GINNA ALFRED JR E [facility] FISH OIL CAP/TAB Non- VA 3 CAPS MOUTH ONCE A DAY Non-V A Documented by: SILVIO DA SILVA nted at: [facility] HYDROCHLOROTHIAZIDE 25MG TAB Non-VA TAKE ONE TABLET BY MOUTH EVERY MORNING Non-VA Documented by: GINNA ALFRED JR nted at: [facility] LORATADINE 10MG TAB Non- VA TAKE ONE TABLET BY MOUTH QDAY PRN Non-VA Documented by: SILVIO DA SILVA nted at: [facility] [place] POTASSIUM 100MG TAB Active TAKE ONE TA BLET BY MOUTH ONCE A DAY FOR BLOOD PRESSURE. 90 Dec 25, 2020 [id number] Dec 27, 2019 GINNA ALFRED JR [facility] [place] POTASSIUM 100MG TAB Discontinued TAKE ONE TA BLET BY MOUTH ONCE A DAY FOR BLOOD PRESSURE. 90 May 04, 2020 [id number] Sep 21, 2019 LAURIE ALFRED JR [facility] LOVASTATIN 40MG TAB Discontinued TAKE ONE TABLET BY M OUTH EVERY EVENING WITH SUPPER FOR CHOLESTEROL - REPORT ANY UNEXPLAINED MUSCLE PAIN/WEAKNESS TO YOUR PROVIDER 90 May 04, 2020 [id number] Sep 21, 2019 GINNA ALFRED JR Val ESCALERA [facility] MELOXICAM 15MG TAB Discontinued TAKE ONE TABLET BY M OUTH ONCE A DAY WITH FOOD FOR PAIN AND INFLAMMATION. 30 May 04, 2020 [id number] May 04, 2019 T GINNA DELCID JR [facility] METFORMIN HCL 500MG 24HR TAB,SA Non-VA TAKE TWO TABLETS BY MOUTH EVERY EVENING BEFORE SUPPER Non-VA Documented by: GINNA ALFRED JRume nted at: [facility] OMEPRAZOLE 20MG CAP,EC Active TAKE 1 CAPSULE BY MOUTH EVERY MORNING 30 MINUTES BEFORE EATING TO LOWER STOMACH ACID 90 Dec 25, 2020 [id number] Dec 162019 GINNA ALFRED JR [facility] OMEPRAZOLE 20MG CAP,EC Discontinued TAKE 1 CAPSULE BY MOUTH EVERY MORNING 30 MINUTES BEFORE EATING TO LOWER STOMACH ACID 90 May 04, 2020 [id number] Sep 21, 2019 GINNA ALFRED JR [facility] OMEPRAZOLE 20MG CAP,EC N on-VA TAKE 1 CAPSULE BY MOUTH EVERY MORNING Non-VA Documented by: SILVIO DA SILVA nted at: [facility] ROSUVASTATIN CA 40MG TAB Active TAKE ONE-HALF T ABLET BY MOUTH AT BEDTIME FOR CHOLESTEROL. REPORT ANY UNEXPLAINED MUSCLE PAIN OR WEAKNESS TO YOUR DOCTOR. 45 Dec 25, 2020 [id number] Dec 27, 2019 GINNA ALFRED JR [facility] Problems (Conditions): All historical and current Section Date Range: From patient's date of to the date document was create d. This section includes a list of Problems (Conditions) know n to VA for the patient. It includes both active and inacti ve problems (conditions). The data comes from all [place] treatment facilities. Problem Status Problem Code Date of Onset Date of Resolution Comm ent(s) Provider Source Essential hypertension Active 17230374 Tacho DALAL [facility] Gastroesophageal reflux disease (SNOMED CT 803938789) Active 033971 009 GINNA ALFRED JR [facility] Hearing loss (SNOMED CT 94985063) Active 74481423 GINNA ALFRED [facility] Hypercholesterolemia Active 14005470 LAYLA ALFRED [facility] Hyperlipidemia Active 14265894 [facility] Muscle pain Active 82522796 MULUGETAPRITI [facility] Obesity (SNOMED CT 566015664) Active 882651821 GINNA ALFRED [facility] Osteoarthritis (SNOMED CT 121696794) Active 615160754 GINNA ALFRED [facility] Personal History of Colonic Polyps (ICD-9-CM V12.72) Active V12.72 ARI WARE Irais [facility] Sleep apnea (SNOMED CT 01263330) Active 95331009 GINNA ALFRED [facility] Type 2 diabetes mellitus Active 71418279 [facility] Vitamin D deficiency (SNOMED CT 33033748) Active 86096155 GINNA ALFRED [facility] Actinic keratosis (SNOMED CT 092468381) Inactive 702.0 Feb 01, 2019 MULUGETAPRITI KAROLINA [facility] Dizziness * (ICD-9-CM 780.4) Inactive 780.4 Feb 01, 2019 [facility] Dyslipidemia (ICD-9-CM 272.4) Inactive 272.4 Feb 01, 2019 LEISUREYORDY [facility] Hyperglycemia * (ICD-9-CM 790.29) Inactive 790.29 [facility] Hypertension * (ICD-9-CM 401.9) Inactive 401.9 Feb 01, 2019 LEISUREYORDY [facility] Impaired FASTING Glucose (ICD-9-CM 790.21) Inactive 790.21 Feb 01, 2019 ESEQUIEL SAMANIEGO [facility] Obesity * (ICD-9-CM 278.00) Inactive 278.00 Feb 01, 2019 LUZ MARIA HARDWICK [facility] OSTEOARTHRITIS HAND Inactive 715.14 Feb 01, 2019 Aug 29, 2007 Entered By: SOULEYMANE MANCILLA Comment: wrist LAURENTSOULEYMANE Castillo [facility] IV Other Seborrheic Keratosis (ICD-9-CM 702.19) Inactive 702.19 Feb 01, 2019 MIMI HAN [facility] Other tenosynovitis of hand and wrist (ICD-9-CM 727.05) Inactive 727.05 Feb 01, 2019 ESEQUIEL SAMANIEGO [facility] Rhinitis * (ICD-9-CM 472.0) Inactive 472.0 Feb 01, 2019 HERNANDO KELSEY [facility] Screening, Malignancy Inactive V76.89 Feb 01, 2019 INDIRA SESAY Tacho [facility] Trigger Finger (ICD-9-CM 727.03) Inactive 727.03 Feb 01, 2019 EMELYMIMI [facility] Umbilical hernia * (ICD-9-CM 553.1) Inactive 553.1 Feb 01, 2019 YORDY WARE [facility] Radiology Reports: +/- 30 days of the encounter No Data Provided for This Section Pathology Reports: +/- 30 days of the encounter No Data Provided for This Section Encounter Notes: All associated encounter notes This section contains the clinical notes associated to the Encounter. Date/Time Encounter Note(s) Provider Source Dec 22, 2019 12:14 PM SCANNED REPORT: [facility] TITLE: EK-SCANNED DOCUMENT-FEE OUTPATIENT STANDARD TITLE: SCANNED REPORT DATE OF NOTE: DEC 22, 2019@12:14 ENTRY DATE: DEC 22, 2019@12:15:01 AUTHOR: LIANE JAEGER EXP COSIGNER: URGENCY: STATUS: COMPLETED Prior Herpes Zoster vaccination The patient has previously received the recombinant zoster vaccine dose #1 (Shingrix, RZV). Date: August 30, 2019 Location: [facility] Written documentation: Shingrix Vaccination Form Faxed in by Pharmacy wants to get second dose at [facility] due to the cost of the Vaccine. Will notify PCP Team. /kaley/ LIANE JAEGER LPN Signed: 12/22/2019 12:21 Receipt Acknowledged By: * AWAITING SIGNATURE * EDWARD SALDANA ADRI [facility]
--- OUTSIDE RECORDS SUMMARY | 2020-05-21 07:03 | XMS REPORT | Encounter Summary ---
Author Author Department of [facility] BRENT fernandez Organization Department of [facility] Address [address] [place] [address] Phone Unavailable Care Team Providers Care Screw Machine Set Up Operator Name Role Phone MICHAELJULIA PCP Unavailable Insurance Providers: All historical and [...] PART B May 15, 2013 PART B [id number] [phone] BRENT CONCEPCION PATIENT MEDICARE (WNR) MEDICARE (M) PART B May 15, 2013 PART B [id number] BRENT CONCEPCION PATIENT MEDICARE (WNR) MEDICARE (M) PART A Dec 16, 2011 PART A [id number] [phone] BRENT CONCEPCION PATIENT MEDICARE (WNR) MEDICARE (M) PART A Dec 16, 2011 PART A [id number] CONCEPCION,BRENT PATIENT [facility] INSURANCE MEDIGAP PLAN F MEDICARE SUPPLEMENT Jun 15, 2013 PLAN F [id number] [phone] BRENT CONCEPCION PATIENT Selected Encounter This section includes the information on record at [place] for the Encounter. Date/Time Encounter Type Encounter Description Reason Provider Source Jan 24, 2020 10:30 AM Outpatient Encounter PRIMARY CARE/MEDICINE ICD-10-CM H90.3 Sensorineural hearing loss, bilateral with Provider Comments: Hearing loss ([facility] [id number]) ROXANNA JOSHUA IHE Encounter Template Text not used by VA Assessments - Encounter Diagnoses This section includes the primary and secondary diag noses documented for the Encounter. Date/Time Primary/Secondary Diagnosis Diagnosis Name Provider Source Jan 24, 2020 11:13 AM PRIMARY Sensorineural hearing loss , bilateral FAUSTO MAYER Jan 24, 2020 11:13 AM SECONDARY Type 2 diabetes mellitus w ithout complications FAUSTO MAYER Plan of Treatment: Future Appointments (+ 6 months) and Future Tests (+/- 45 day s) The Plan of Treatment section includes future care activities for the patient fr om all [place] treatment facilities. This section includes future appointments and fu ture orders which are active, pending or scheduled. Future Appointments This section includes appointments that were scheduled t o occur 6 months from the date of the Encounter, up to a maximum of 20 appointme nts. The data comes from all [place] treatment facilities. Appointment Date/Time Appointment Type Appointment Facili ty Name April 04, 2020 11:15 AM AMBULATORY - NONE AINS[facility] SKELTON C Active, Pending, and Scheduled Orders This [...] the Encounter. The data comes from all [facility]. Test Date/Time Test Type Test Details Facility Name Dec 25, 2019 12:09 PM Consult Order [facility]- DERMATOLOGY-[id number] Cons Information Support Project Manager's [facility] [place] Surgical Procedures: All associated to the encounter No Data Provided for This Section Lab Results: +/- 30 days of the encounter This section includes the Chemistry and Hematology Lab R esults on record with [place] for the patient. Radiology Reports and Pathology Report s are provided separately, in subsequent sections. Lab Results This section contains the Chemistry/Hematology Results harmony t were resulted 30 days before or 30 days after the date of the Encounter. Date/Time Source Result Type Result - Unit Interpretation Reference Range Comment Jan 24, 2020 09:25 AM [facility] HEMOGLOBIN A1C Specimen Type: BLOOD No comment entered. HEMOGLOBIN A1C 6.5 % H 4.0-6.0 Jan 24, 2020 09:25 AM [email or web address] URINALYSIS Specimen Type: URINE No comment entered. URINE COLOR Yellow SPECIFIC GRAVITY 1.021 1.005-1.030 UROBILINOGEN Negative mg/dL 0.1-1.0 URINE BILIRUBIN Negative Negative URINE KETONES Negative mg/dl Negative URINE GLUCOSE Negative mg/dL Negative URINE PROTEIN Negative mg/dl Negative-Tr mary URINE PH 5.0 5-8 APPEARANCE,URINE Clear Clear URINE BLOOD Negative Negative URINE NITRITE Negative Negative LEUKOCYTE ESTERASE Negative Negative Jan 24, 2020 09:25 AM [email or web address] MICROALBUMIN (BARI,WI) RANDO M URINE Specimen Type: URINE No comment entered. *MICROALBUMIN,RAND 26 ug/mL *MICROALB/CREAT 20 mcg/mg cr *UR CREATININE 130.7 mg/dL Not Available Jan 24, 2020 09:25 AM [facility] VITAMIN D (25-OH) Specimen Type: SERUM No comment entered. VITAMIN D (25-OH) 23.6 ng/mL L 30.0-96.0 Jan 24, 2020 09:25 AM [facility] HCV-AB Specimen Type: SERUM No comment entered. HCV-AB NonReactive Nonreactive Jan 24, 2020 09:25 AM [email or web address] CBC & DIFF Specimen Type: BLOOD No comment entered. WBC 5.4 K/cmm 3.60-11.20 RBC 4.73 M/ul 4.1-5.7 HGB 13.6 g/dl 13.1-16.8 HCT 41.1 % 38.2-48.4 MCV 86.9 fl 80.1-98.5 MCH 28.8 pg 27.0-34.0 MCHC 33.1 g/dl 33.0-36.0 PLATELET COUNT 176 K/cmm 150-400 MPV 11.1 fl 7.5-11.2 RDW 13.2 % 11.8-15.1 LYMPHOCYTES, AUTO% 31.5 % NEUTROPHILS, AUTO % 58.3 % MONOCYTES, AUTO% 6.9 % MONOCYTES, ABSOLUTE 0.4 K/cmm 0.19-0.80 NEUTROPHILS, ABSOLUTE 3.1 K/cmm 2.10-8.0 0 EOSINOPHILS, ABSOLUTE 0.1 K/cmm 0.00-0.6 0 BASOPHILS, ABSOLUTE 0.0 K/cmm 0.00-0.20 EOSINOPHILS, AUTO% 2.2 % BASOPHILS, AUTO% 0.7 % LYMPHOCYTES, ABSOLUTE 1.7 K/cmm 0.77-4.5 0 IMMATURE GRANS, ABSOLUTE 0.02 K/cmm 0.00 -0.05 IMMATURE GRANS, AUTO % 0.4 % Jan 24, 2020 09:25 AM [facility] COMPREHENSIVE METABOLIC PA YESSY Specimen Type: PLASMA Comment: For eGFR: eGFR results >60 are imprecise. Many variables affect the calculated result. Interpretation of eGFR results >60 must be monitored over time. *CREATININE 0.73 mg/dL 0.7-1.3 UREA NITROGEN mg/dL 16 mg/dL 9-25 GLUCOSE 118 mg/dL H 72-99 SODIUM 139 mEq/L 136-145 POTASSIUM 4.4 mEq/L 3.5-5.0 CALCIUM (mg/dL) 9.1 mg/dL 8.4-10.4 PROTEIN,TOTAL 7.4 g/dL 6.0-8.6 ALBUMIN 4.3 g/dl 3.4-5.0 TOTAL BILIRUBIN 0.5 mg/dL 0.2-1.2 ASPARTATE TRANSAMINASE 20 U/L 5-34 ALANINE AMINOTRANSFERASE 30 U/L 8-40 ANION GAP 8.4 8-16 CHLORIDE 105 mEq/L 98-107 CO2 25.6 mEq/L 22-31 ALKALINE PHOSPHATASE 52 U/L 40-150 EGFR >60 Jan 24, 2020 09:25 AM [facility] LIPID PROFILE(HDL,TRIG,CHO L,LDL) Specimen Type: PLASMA Comment: For eGFR: eGFR results >60 are imprecise. Many variables affect the calculated result. Interpretation of eGFR results >60 must be monitored over time. CHOLESTEROL 184 mg/dL 0-200 TRIGS 180 mg/dL H 0-150 HDL-CHOLESTEROL 55 mg/dL >40 LDL (CALC) 93 mg/dL 0-99.9 Jan 24, 2020 09:25 AM [facility] TSH Specimen Type: SERUM No comment entered. TSH 1.85 uIU/mL 0.47-5.00 Jan 24, 2020 09:25 AM [facility] PROSTATIC SPECIFIC ANTIGEN (TOTAL) Specimen Type: SERUM No comment entered. PROSTATIC SPECIFIC ANTIGEN(TOTAL) 1.4 ng/mL 0-4 Vital Signs: All taken on the encounter date This section contains inpatient and outpatient Vital Signs collected on the date of the Encounter. Date/Time Temperature Pulse Blood Pressure Respiratory Rate SP02 Pa in Height Weight Body Mass Index Source Jan 24, 2020 10:14 AM 0 [facility] Jan 24, 2020 09:48 AM 98 F 73 /min 138/72 mm[Hg] 16 /min 94 % 0 237.8 lb 38 [facility] Jan 24, 2020 09:42 AM 0 [facility] Immunizations: All administered on the encounter date No Data Provided for This Section Social History: Smoking Status (Most current) and Tobacco Use (All prior to enco unter date) This section includes the most current, and the historical, smoking and tobacco- related health factors from the VA facility where the Encounter took place. Current Smoking Status This section includes the most current smoking, or tobacco -related health factor, from the VA facility where the Encounter took place. Date/Time Current Smoking Status Comment Facility Jan 02, 2020 01:03 PM NON-TOBACCO USER [facility] Tobacco Use History This section includes a history of the smoking, or tobacco -related health factors, that were collected on or before the date of the Encoun ter. The data comes from the VA facility where the Encounter took place. Date/Time Smoking Status/Tobacco Use Comment Facil ity Jan 02, 2020 01:03 PM VA-TOBACCO FORMER USER [facility] Jan 02, 2020 01:03 PM VA-TOBACCO QUIT 15 YRS OR MORE [facility] Advance Directives: All historical and current Section [...] docume nt. The data comes from all [place] facilities. Date Advance Directives Provider Source Jan 24, 2020 ADVANCE DIRECTIVE DISCUSSION ROXANNA JOSHUA [facility] Allergies and Adverse Reactions (ADRs): All historical and current Section Date Range: From patient's date of to the date document was create d. This section includes Allergies and Adverse Reactions (ADR s) on record with VA for the patient. The data comes from a ll [place] treatment facilities. It does not list Allergies/ADRs that were removed or entered in error. Some allergies/ADRs may be reported in t he Immunization section. Allergen Event Date Event Type Reaction(s) Severity Source LISINOPRIL March 27, 2008 Propensity to adverse reactions to drug (disorder) Cough [facility] 15 ZOCOR Oct 24, 2007 Propensity to adverse reactions to drug ( disorder) Syncope SEVERE [facility] 15 Medications: VA dispensed (-15 months) and Non-VA Documented (Obtained Outside V A) Section Date Range: 1) prescriptions processed by a VA pharmacy in the last 15 m [facility], and 2) all medications recorded in the [place] medical record as "non-VA medic ations". Pharmacy terms refer to [place] pharmacy's work on prescriptions. VA patient s are advised to take their medications as instructed by their health care team. The data comes from all [place] treatment facilities. Glossary of Pharmacy Terms:Active = A prescription that can be filled at the local [place] pharmacy.Active: On Hold = An active prescription that will not be filled until pharmacy resolves the issue.Active: Susp = An active prescription that is not scheduled to be filled yet.Clinic Order = A medication received during a visit to a [place] clinic or emergency department (currently not available).Discontinued [...] other providers that was filled outside the [place]. Or, it may be an over the [...] MOUTH EVERY MORNING 90 May 04, 2020 [id number] Sep 21, 2019 GINNA ALFRED JR [facility] [place] ASPIRIN 81MG TAB,EC Non- VA TAKE ONE TABLET BY MOUTH ONCE A DAY Non-VA Documented by: SILVIO DA SILVA nted at: [facility] [place] BUMETANIDE 1MG TAB Discontinued TAKE TWO TABLETS BY MOUTH EVERY MOR MAXINE 180 May 04, 2020 [id number] May 04, 2019 GINNA ALFRED JR [facility] [place] CARVEDILOL 12.5MG TAB Active TAKE ONE-HALF TABL ET BY MOUTH TWO TIMES A DAY FOR HEART. TAKE WITH FOOD. NOTE: EACH DOSE IS 1/2 TABLET 90 Dec 25 [id number] Dec 27, 2019 GINNA [address]ED [address] [facility] [place] CARVEDILOL 12.5MG TAB Discontinued TAKE ONE-HALF TABL ET BY MOUTH TWO TIMES A DAY FOR HEART. TAKE WITH FOOD. NOTE: EACH DOSE IS 1/2 TABLET 90 Ju 2019 [id number] Sep 21, [address] [facility] [place] CHOLECALCIFEROL 10MCG (400UNIT) TAB Active TAKE TWO TABLETS BY MOUTH ONCE A DAY FOR VITAMIN D DEFICIENCY 200 Feb 01, 2021 [id number] Feb 03, 2020 [facility] COLESTIPOL HCL 1GM TAB Discontinued TAKE ONE TABLET B Y MOUTH THREE TIMES A DAY - TAKE ONE HOUR AFTER OR FOUR HOURS BEFORE OTHER MEDICATIONS *DO NOT CHEW OR CRUSH* 270 May 04, 2020 [id number] Dec 19, 2019 GINNA ALFRED JR E JW [facility] [place] FISH OIL CAP/TAB Non- VA 3 CAPS MOUTH ONCE A DAY Non-V A Documented by: SILVIO DA SILVA nted at: [facility] [place] HYDROCHLOROTHIAZIDE 25MG TAB Non-VA TAKE ONE TABLET BY MOUTH EVERY MORNING Non-VA Documented by: GINNA ALFRED JR nted at: [facility] [place] LORATADINE 10MG TAB Non- VA TAKE ONE TABLET BY MOUTH QDAY PRN Non-VA Documented by: SILVIO DA SILVA nted at: [facility] [place] POTASSIUM 100MG TAB Active TAKE ONE TA BLET BY MOUTH ONCE A DAY FOR BLOOD PRESSURE. 90 Dec 25, 2020 [id number] Dec 27, [address] [facility] [place] POTASSIUM 100MG TAB Discontinued TAKE ONE TA BLET BY MOUTH ONCE A DAY FOR BLOOD PRESSURE. 90 May 04, 2020 [id number] Sep 21, [address] [facility] [place] LOVASTATIN 40MG TAB Discontinued TAKE ONE TABLET BY M OUTH EVERY EVENING WITH SUPPER FOR CHOLESTEROL - REPORT ANY UNEXPLAINED MUSCLE PAIN/WEAKNESS TO YOUR PROVIDER 90 May 04, 2020 [id number] Sep 21, 2019 GINNA ALFRED JR Val ESCALERA [facility] [place] MELOXICAM 15MG TAB Discontinued TAKE ONE TABLET BY M OUTH ONCE A DAY WITH FOOD FOR PAIN AND INFLAMMATION. 30 May 04, 2020 [id number] May 04, 2019 GINNA PORTILLO [address] [facility] [place] METFORMIN HCL 500MG 24HR TAB,SA Non-VA TAKE TWO TABLETS BY MOUTH EVERY EVENING BEFORE SUPPER Non-VA Documented by: GINNA ALFRED JR nted at: [facility] [place] OMEPRAZOLE 20MG CAP,EC Active TAKE 1 CAPSULE BY MOUTH EVERY MORNING 30 MINUTES BEFORE EATING TO LOWER STOMACH ACID 90 Dec 25, 2020 [id number] Dec 162019 GINNA ALFRED JR [facility] [place] OMEPRAZOLE 20MG CAP,EC Discontinued TAKE 1 CAPSULE BY MOUTH EVERY MORNING 30 MINUTES BEFORE EATING TO LOWER STOMACH ACID 90 May 04, 2020 [id number] Sep 21, 2019 [address] [facility] [place] OMEPRAZOLE 20MG CAP,EC N on-VA TAKE 1 CAPSULE BY MOUTH EVERY MORNING Non-VA Documented by: SILVIO DA SILVA nted at: [facility] ROSUVASTATIN CA 40MG TAB Active TAKE ONE-HALF T ABLET BY MOUTH AT BEDTIME FOR CHOLESTEROL. REPORT ANY UNEXPLAINED MUSCLE PAIN OR WEAKNESS TO YOUR DOCTOR. 45 Dec 25, 2020 [id number] Dec 27, 2019 GINNA ALFRED JR [facility] [place] Problems (Conditions): All historical and current Section Date Range: From patient's date of to the date document was create d. This section includes a list of Problems (Conditions) know n to VA for the patient. It includes both active and inacti ve problems (conditions). The data comes from all [place] treatment facilities. Problem Status Problem Code Date of Onset Date of Resolution Comm ent(s) Provider Source Essential hypertension Active [id number] Tacho DALAL [facility] [place] Gastroesophageal reflux disease (SNOMED CT 798173153) Active 530568 [id number] GINNA ALFRED [facility] [place] Hearing loss (SNOMED CT 35121216) Active 12887706 GINNA ALFRED [facility] [place] Hypercholesterolemia Active 40942958 LAYLA ALFRED [facility] [place] Hyperlipidemia Active 03688066 [facility] [place] Muscle pain Active [id number] [facility] [place] Obesity (SNOMED CT 754594732) Active 308678076 GINNA ALFRED [facility] [place] Osteoarthritis (SNOMED CT 075894550) Active [id number] GINNA ALFRED [facility] [place] Personal History of Colonic Polyps (ICD-9-CM V12.72) Active V12.72 [facility] [place] Sleep apnea (SNOMED CT 44855151) Active 42780778 GINNA ALFRED [facility] [place] Type 2 diabetes mellitus Active 47957593 GINNA ALFRED [facility] [place] Vitamin D deficiency (SNOMED CT 98449429) Active 43171266 [facility] [place] Actinic keratosis (SNOMED CT 178689292) Inactive 702.0 Feb 01, 2019 [facility] [place] Dizziness * (ICD-9-CM 780.4) Inactive 780.4 Feb 01, 2019 [facility] [place] Dyslipidemia (ICD-9-CM 272.4) Inactive 272.4 Feb 01, 2019 LEISURE[facility] [place] Hyperglycemia * (ICD-9-CM 790.29) Inactive 790.[address] [address] [facility] [place] Hypertension * (ICD-9-CM 401.9) Inactive 401.9 Feb 01, 2019 LE[facility]URE[facility] [place] Impaired FASTING Glucose (ICD-9-CM 790.21) Inactive 790.21 Feb 01, [address] [facility] [place] Obesity * (ICD-9-CM 278.00) Inactive 278.00 Feb 01, 2019 LUZ [address]WICK [facility] [place] OSTEOARTHRITIS HAND Inactive 715.14 Feb 01, 2019 Aug 29, 2007 Entered By: SOULEYMANE MANCILLA Comment: wrist SOULEYMANE MANCILLA [facility] [place] IV Other Seborrheic Keratosis (ICD-9-CM 702.19) Inactive 702.19 Feb 01, [address] [facility] [place] Other tenosynovitis of hand and wrist (ICD-9-CM 727.05) Inactive 727.05 Feb 01, [address] [facility] [place] Rhinitis * (ICD-9-CM 472.0) Inactive 472.0 Feb 01, 2019 KELSEYHERNANDO FRANCE Irais [facility] [place] Screening, Malignancy Inactive V76.89 Feb 01, [address] [facility] [place] Trigger Finger (ICD-9-CM 727.03) Inactive 727.03 Feb 01, [address] [facility] [place] Umbilical hernia * (ICD-9-CM 553.1) Inactive 553.1 Feb 01, [address] [facility] [place] Radiology Reports: +/- 30 days of the encounter No Data Provided for This Section Pathology Reports: +/- 30 days of the encounter No Data Provided for This Section Encounter Notes: All associated encounter notes This section contains the clinical notes associated to the Encounter. 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 The was wounded during combat in [place]. The was medically discharged from the [employer]. The is 30% [place] for his combat injury. The is and lives with his in [place], [place]. The has three adult children. The continues to have good relationship with them. 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 The reports his son also work with him. The has hearing loss and type 2 diabetes mellitus and several other medical issues. The has transferred his VA health care to the [facility] from [facility]. This SW met with the to go over [place]-VA services and advance directives. TREATMENT PLAN: PACT SW provided education on VA TYPO MACHINE OPERATOR and respite care to the . PACT SW informed the that the VA offers VA TYPO MACHINE OPERATOR services to assist with personal care, like bathing, dressing, grooming and light housekeeping. SW informed the that the [place] offers caregivers 30 days of respite care per calendar year. It gives caregiver time off. The thanks this SW for the information. The states that he does not need services at this time. PACT SW talked with the about advance directives. SW asked the if he has a DPOA for health care. The states that he is interested in filling out the advance directive. The asked to take the document home with him. SW asked the to return the completed form back to this SW. the acknowledged understanding. The asked about assistance with service connection. ENMA referred the to the [place] home restoration service cleaner to assist with his [place] needs. REFERRAL: ENMA referred the to the [place] home restoration service cleaner to assist with [place] needs. CASE MANAGEMNT: will seek assistance from home restoration service cleaner for [place]. ENMA completed education on VA services, advance directives to the . SW will remain available per contact from the . [place]-ADVANCED DIRECTIVES: chose to take home the Advance Directive Form and the accompanying education information for further review. If Goodwin decides to complete the form s/he will return a completed copy to the VA. Depression Screening: PHQ-2+I9 Depression Screening Score: 0 The score on this administration is 0, which indicates a negative screen on the Depression Scale over the past two weeks. Suicide Screening Score: 0 The results of this administration indicates a NEGATIVE primary screen for Risk of Suicide over the last 2 weeks. Over the past two weeks, how often have you been bothered by the following problems? 1. Little interest or pleasure in doing things Not at all 2. Feeling down, depressed, or hopeless Not at all 3. Thoughts that you would be better off or of hurting yourself in some way Not at all PTSD Screening: PC-PTSD-5+I9 PTSD Screening Score: 0 The score for this administration is 0, which indicates a NEGATIVE screen for PTSD in the past month. Suicide Screening Score: 0 The results of this administration revealed no suicidal ideation over the last 2 weeks, which indicates a NEGATIVE primary screen for Risk of Suicide. Questions 1-5 reference a time frame of the past month Sometimes things happen to people that are unusually or especially frightening, horrible or traumatic. Have you ever experienced this kind of event? YES 1. Had nightmares about the event(s) or thought about the event(s) when you did not want to? NO 2. Tried hard not to think about the event(s) or went out of your way to avoid situations that reminded you of the event(s)? NO 3. Been constantly on guard, watchful, or easily startled? NO 4. [place] numb or detached from people, activities, or your surroundings? NO 5. [place] guilty or unable to stop blaming yourself or others for the event(s) or any problems the event(s) may have caused? NO 6. Over the last 2 weeks, how often have you been bothered by thoughts that you would be better off or of hurting yourself in some way? Not at All Time spend with the : 30 minutes Office visit: VA services DX: hearing loss, type 2 diabetes mellitus /es/ ROXANNA JOSHUA LMSW Signed: 01/24/2020 11:12 ROXANNA JOSHUA OC
--- OUTSIDE RECORDS SUMMARY | 2020-05-21 07:03 | XMS REPORT | Encounter Summary ---
Author Author [facility] Address [address] [place] [address] Phone Unavailable Care Team Providers Care Pt Skilled Name Role Phone MICHAELJULIA PCP Unavailable Insurance [...] ID Insurance Provider's Telephone N umber Policy Atnonio's Name Patient's Relationship to Policy Antonio MEDICARE (WNR) MEDICARE (M) PART B May 15, 2013 PART B [id number] [phone] BRENT CONCEPCION PATIENT MEDICARE (WNR) MEDICARE (M) PART B May 15, 2013 PART B [id number] [phone] BRENT CONCEPCION PATIENT MEDICARE (WNR) MEDICARE (M) PART A Dec 16, 2011 PART A [id number] [phone] BRENT CONCEPCION PATIENT MEDICARE (WNR) MEDICARE (M) PART A Dec 16, 2011 PART A [id number] BRENT CONCEPCION PATIENT [employer] PLAN F MEDICARE SUPPLEMENT Jun 15, 2013 PLAN F [id number] [phone] BRENT CONCEPCION PATIENT Selected Encounter This section includes the information on record at [facility] for the Encounter. Date/Time Encounter Type Encounter Description Reason Provider Source Feb 01, 2020 02:31 PM Outpatient Encounter ADMIN PAT ACTIVTIES (MASNO NCT) [facility] Encounter Template Text not used by [facility] Assessments - Encounter Diagnoses No Data Provided for This Section Plan of Treatment: Future Appointments (+ 6 months) and Future Tests (+/- 45 day s) The Plan of Treatment section includes future care activities for the patient fr om all [facility] treatment facilities. This section includes future appointments and fu ture orders which are active, pending or scheduled. Future Appointments This section includes appointments that were scheduled t o occur 6 months from the date of the Encounter, up to a maximum of 20 appointme nts. The data comes from all [facility] facilities. Appointment Date/Time Appointment Type Appointment Facili [...] the Encounter. The data comes from all [facility]. Test Date/Time Test Type Test Details Facility Name Dec 25, 2019 12:09 PM Consult Order [facility][id number] Cons Manager Payment's Choice [facility] Surgical Procedures: All associated to the encounter No Data Provided for This Section Lab Results: +/- 30 days of the encounter This section includes the Chemistry and Hematology Lab R esults on record with [facility] for the patient. Radiology Reports and Pathology Report s are provided separately, in subsequent sections. Lab Results This section contains the Chemistry/Hematology Results harmony t were resulted 30 days before or 30 days after the date of the Encounter. Date/Time Source Result Type Result - Unit Interpretation Reference Range Comment Jan 24, 2020 09:25 AM [facility] HEMOGLOBIN A1C Specimen Type: BLOOD No comment entered. HEMOGLOBIN A1C 6.5 % H 4.0-6.0 Jan 24, 2020 09:25 AM [facility] URINALYSIS Specimen Type: URINE No comment entered. URINE COLOR Yellow SPECIFIC GRAVITY 1.021 1.005-1.030 UROBILINOGEN Negative mg/dL 0.1-1.0 URINE BILIRUBIN Negative Negative URINE KETONES Negative mg/dl Negative URINE GLUCOSE Negative mg/dL Negative URINE PROTEIN Negative mg/dl Negative-Tr mary URINE PH 5.0 5-8 APPEARANCE,URINE Clear Clear URINE BLOOD Negative Negative URINE NITRITE Negative Negative LEUKOCYTE ESTERASE Negative Negative Jan 24, 2020 09:25 AM [facility] MICROALBUMIN (BARI,WI) RANDO M URINE Specimen Type: [...] NonReactive Nonreactive Jan 24, 2020 09:25 AM [facility] CBC & DIFF Specimen Type: BLOOD No [...] % Jan 24, 2020 09:25 AM [facility] COMPREHENSIVE METABOLIC PA YESSY Specimen Type: PLASMA [...] EGFR >60 Jan 24, 2020 09:25 AM [facility] LIPID PROFILE(HDL,TRIG,CHO L,LDL) Specimen Type: PLASMA Comment: For eGFR: eGFR results >60 are imprecise. Many variables affect the calculated result. Interpretation of eGFR results >60 must be monitored over time. CHOLESTEROL 184 mg/dL 0-200 TRIGS 180 mg/dL H 0-150 HDL-CHOLESTEROL 55 mg/dL >40 LDL (CALC) 93 mg/dL 0-99.9 Jan 24, 2020 09:25 AM [facility] TSH Specimen Type: SERUM No comment entered. TSH 1.85 uIU/mL 0.47-5.00 Jan 24, 2020 09:25 AM [facility] PROSTATIC SPECIFIC ANTIGEN (TOTAL) Specimen Type: SERUM [...] and tobacco- related health factors from the [facility] facility where the Encounter took place. Current Smoking Status This section includes the most current smoking, or tobacco -related health factor, from the [facility] facility where the Encounter took place. Date/Time Current Smoking Status Comment Facility Jan 02, 2020 01:03 PM NON-TOBACCO USER [facility] Tobacco Use History This section includes a history of the smoking, or tobacco -related health factors, that were collected on or before the date of the Encoun ter. The data comes from the [facility] facility where the Encounter took place. Date/Time Smoking Status/Tobacco Use Comment Gamaliel ity Jan 02, 2020 01:03 PM VA-TOBACCO [...] docume nt. The data comes from all [facility] facilities. Date Advance Directives Provider Source Jan 24, 2020 ADVANCE DIRECTIVE DISCUSSION ROXANNA [facility] Allergies and Adverse Reactions (ADRs): All historical and current Section Date Range: From patient's date of to the date document was create d. This section includes Allergies and Adverse Reactions (ADR s) on record with [facility] for the patient. The data comes from a ll [facility] treatment facilities. It does not list Allergies/ADRs that were removed or entered in error. Some allergies/ADRs may be reported in t Immunization section. Allergen Event Date Event Type Reaction(s) Severity Source LISINOPRIL March 27, 2008 Propensity to adverse reactions to drug (disorder) Cough [facility] 15 ZOCOR Oct 24, 2007 Propensity to adverse reactions to drug ( disorder) Sync[facility] Medications: VA dispensed (-15 months) and Non-VA Documented (Obtained Outside A) Section Date Range: 1) prescriptions processed by a VA pharmacy in the last 15 m [facility], and 2) all medications recorded in the [facility] medical record as "non-VA medic ations". Pharmacy terms refer to VA pharmacy's work on prescriptions. VA patient s are advised to take their medications as instructed by their health care team. The data comes from all [facility] treatment facilities. Glossary of Pharmacy Terms:Active = A prescription that can be filled at the local [facility] pharmacy.Active: On Hold = An active prescription that will not be filled until pharmacy resolves the issue.Active: Susp = An active prescription that is not scheduled to be filled yet.Clinic Order = A medication received during a visit to a [facility] clinic or emergency department (currently not available).Discontinued = A prescription stopped by a [facility] provider. It is no longer available to be filled. = A prescription which is too old to fill. This does not refer to the expiration date of the medication in the container. Non-VA = A medication that came from someplace other than a [facility] pharmacy. This may be a prescription from either the [facility] or other providers that was filled outside the [facility]. Or, it may be an over the [...] MOUTH EVERY MORNING 90 May 04, 2020 [id number] Sep 21, 2019 GINNA ALFRED JR [facility] ASPIRIN 81MG TAB,EC Non- VA TAKE ONE TABLET BY MOUTH ONCE A DAY Non-VA Documented by: SILVIO DA SILVA nted at: [facility] BUMETANIDE 1MG TAB Discontinued TAKE TWO TABLETS BY MOUTH EVERY MOR MAXINE 180 May 04, 2020 [id number] May 04, 2019 GINNA ALFRED JR [facility] CARVEDILOL 12.5MG TAB Active TAKE ONE-HALF TABL ET BY MOUTH TWO TIMES A DAY FOR HEART. TAKE WITH FOOD. NOTE: EACH DOSE IS 1/2 TABLET 90 Dec 25 1 [id number] Dec 27, [address] [facility] CARVEDILOL 12.5MG TAB Discontinued TAKE ONE-HALF TABL ET BY MOUTH TWO TIMES A DAY FOR HEART. TAKE WITH FOOD. NOTE: EACH DOSE IS 1/2 TABLET 90 May 04, 2020 [id number] Sep 21, [address] [facility] CHOLECALCIFEROL 10MCG (400UNIT) TAB Active TAKE TWO TABLETS BY MOUTH ONCE A DAY FOR VITAMIN D DEFICIENCY 200 Feb 01, 2021 [id number] Feb 03, 2020 [facility] COLESTIPOL HCL 1GM TAB Discontinued TAKE ONE TABLET B Y MOUTH THREE TIMES A DAY - TAKE ONE HOUR AFTER OR FOUR HOURS BEFORE OTHER MEDICATIONS *DO NOT CHEW OR CRUSH* 270 May 04, 2020 [id number] Dec 19, 2019 GINNA ALFRED JR [facility] FISH OIL CAP/TAB Non- VA 3 CAPS MOUTH ONCE A DAY Non-V A Documented by: SILVIO DA SILVA nted at: [facility] HYDROCHLOROTHIAZIDE 25MG TAB Non-VA TAKE ONE TABLET BY MOUTH EVERY MORNING Non-VA Documented by: GINNA ALFRED JRume nted at: [facility] LORATADINE 10MG TAB Non- [facility] TAKE ONE TABLET BY MOUTH QDAY PRN Non-VA Documented by: SILVIO DA SILVA nted at: [facility] LOSARTAN POTASSIUM 100MG TAB Active TAKE ONE TA BLET BY MOUTH ONCE A DAY FOR BLOOD PRESSURE. 90 Dec 25, 2020 [id number] Dec 27, [address] [facility] LOS[place]AN POTASSIUM 100MG TAB Discontinued TAKE ONE TA BLET BY MOUTH ONCE A DAY FOR BLOOD PRESSURE. 90 May 04, 2020 [id number] Sep 21, [address] [facility] LOVASTATIN 40MG TAB Discontinued TAKE ONE TABLET BY M OUTH EVERY EVENING WITH SUPPER FOR CHOLESTEROL - REPORT ANY UNEXPLAINED MUSCLE PAIN/WEAKNESS TO YOUR PROVIDER 90 May 04, 2020 [id number] Sep 21, 2019 GINNA ALFRED JR [facility] MELOXICAM 15MG TAB Discontinued TAKE ONE TABLET BY M OUTH ONCE A DAY WITH FOOD FOR PAIN AND INFLAMMATION. 30 May 04, 2020 [id number] May 04, [address] [facility] METFORMIN HCL 500MG 24HR TAB,SA Non-VA TAKE TWO TABLETS BY MOUTH EVERY EVENING BEFORE SUPPER Non-VA Documented by: GINNA ALFRED JRume nted at: [facility] OMEPRAZOLE 20MG CAP,EC Active TAKE 1 CAPSULE BY MOUTH EVERY MORNING 30 MINUTES BEFORE EATING TO LOWER STOMACH ACID 90 Dec 25, 2020 [id number] Dec 162019 [address] [facility] OMEPRAZOLE 20MG CAP,EC Discontinued TAKE 1 CAPSULE BY MOUTH EVERY MORNING 30 MINUTES BEFORE EATING TO LOWER STOMACH ACID 90 May 04, 2020 [id number] Sep 21, 2019 GINNA ALFRED [facility] OMEPRAZOLE 20MG CAP,EC N on-VA TAKE 1 CAPSULE BY MOUTH EVERY MORNING Non-VA Documented by: SILVIO DA SILVA nted at: [facility] ROSUVASTATIN CA 40MG TAB Active TAKE ONE-HALF T ABLET BY MOUTH AT BEDTIME FOR CHOLESTEROL. REPORT ANY UNEXPLAINED MUSCLE PAIN OR WEAKNESS TO YOUR DOCTOR. 45 Dec 25, 2020 [id number] Dec 27, 2019 GINNA ALFRED JR [facility] Problems (Conditions): All historical and current Section Date Range: From patient's date of to the date document was create d. This section includes a list of Problems (Conditions) know n to [facility] for the patient. It includes both active and inacti ve problems (conditions). The data comes from all [facility] treatment facilities. Problem Status Problem Code Date of Onset Date of Resolution Comm ent(s) Provider Source Essential hypertension Active [id number] Tacho DALAL [facility] Gastroesophageal reflux disease (SNOMED CT 417486397) Active 048453 009 GINNA ALFRED [facility] Hearing loss (SNOMED CT 12707533) Active 48256898 MASTERGINNA GILBERT [facility] Hypercholesterolemia Active 42953552 LAYLA ALFRED [facility] Hyperlipidemia Active 97693124 ,PRITI VALERIA GREY [facility] Muscle pain Active 67224555 KAROLINA [facility] Obesity (SNOMED CT 576348282) Active 716515313 MASTERGINNA GILBERT [facility] Osteoarthritis (SNOMED CT 071768780) Active 471601662 AUBRIEGINNA Braxton [facility] Personal History of Colonic Polyps (ICD-9-CM V12.72) Active V12.72 LEISURE,YORDY Braxton [facility] Sleep apnea (SNOMED CT 96778004) Active 76139380 GINNA ALFRED JR [facility] Type 2 diabetes mellitus Active 24180152 GINNA ALFRED [facility] Vitamin D deficiency (SNOMED CT 32210310) Active 30866863 GINNA ALFRED [facility] Actinic keratosis (SNOMED CT 888319956) Inactive 702.0 Feb 01, 2019 DALAL,PRITI KAROLINA [facility] Dizziness * (ICD-9-CM 780.4) Inactive 780.4 Feb 01, 2019 [facility] Dyslipidemia (ICD-9-CM 272.4) Inactive 272.4 Feb 01, 2019 [facility] Hyperglycemia * (ICD-9-CM 790.29) Inactive 790.29 [facility] Hypertension * (ICD-9-CM 401.9) Inactive 401.9 Feb 01, 2019 [facility] Impaired FASTING Glucose (ICD-9-CM 790.21) Inactive 790.21 Feb 01, 2019 ESEQUIEL [facility] Obesity * (ICD-9-CM 278.00) Inactive 278.00 Feb 01, 2019 NACHOLUZ MARIA SIMMONS [facility] OSTEOARTHRITIS HAND Inactive 715.14 Feb 01, 2019 Aug 29, 2007 Entered By: SOULEYMANE MANCILLA Comment: wrist SOULEYMANE MANCILLA [facility] Other Seborrheic Keratosis (ICD-9-CM 702.19) Inactive 702.19 Feb 01, 2019 [facility] Other tenosynovitis of hand and wrist (ICD-9-CM 727.05) Inactive 727.05 Feb 01, 2019 ESEQUIEL [facility] Rhinitis * (ICD-9-CM 472.0) Inactive 472.0 Feb 01, 2019 HERNANDO KELSEY [facility] Screening, Malignancy Inactive V76.89 Feb 01, 2019 INDIRA [facility] Trigger Finger (ICD-9-CM 727.03) Inactive 727.03 Feb 01, 2019 MIMI [facility] Umbilical hernia * (ICD-9-CM 553.1) Inactive 553.1 Feb 01, 2019 YORDY [facility] Radiology Reports: +/- 30 days of the encounter No Data Provided for This Section Pathology Reports: +/- 30 days of the encounter No Data Provided for This Section Encounter Notes: All associated encounter notes This section contains the clinical notes associated to the Encounter. Date/Time Encounter Note(s) Provider Source Feb 01, 2020 02:31 PM DIAGNOSTIC STUDY REPORT: LOCAL TITLE: WI-FORM LETTER DIAGNOSTIC RESULTS STANDARD TITLE: DIAGNOSTIC STUDY REPORT DATE OF NOTE: FEB 01, 2020@14:31 ENTRY DATE: FEB 01, 2020@14:31:21 AUTHOR: PAUL MULLER EXP COSIGNER: URGENCY: STATUS: COMPLETED Department of [facility] [address] [place] [address] BRENT CONCEPCION [address] [place], [place], [address] Jan Dear BRENT CONCEPCION, The purpose of this letter is to inform you of your test results done recently at the [facility],[place], [place]. LABORATORY glucose, hemoglobin A1C results were abnormal Comments: Fasting blood sugar slightly elevated at 118, A1C=6.5=130 average. Diabetes stable, Triglycerides slightly elevated at 180, continue with crestor as directed, CBC is normal, Vit D is low at 23, will order Vit D to take as directed, Recheck Vit D next year at annual exam and fasting lab, urine is clear, These test results are reported to you to keep you informed and involved in your health care. If you have any question about these results, please contact your health care provider at or . Option #2. Thank you! Your Primary Care Team. PAUL MULLER [facility]
--- OUTSIDE RECORDS SUMMARY | 2020-05-21 07:03 | XMS REPORT | Encounter Summary ---
Author Author Department of [facility] RBENT fernandez Organization Department of [facility] Address [address] [place] [address] Phone Unavailable Care Team Providers Care Manager [employer] Name Role Phone JULIA RODRIGUEZ PCP Unavailable [...] PART B May 15, 2013 PART B [id number] [phone] BRENT CONCEPCION PATIENT MEDICARE (WNR) MEDICARE (M) PART B May 15, 2013 PART B [id number] [phone] BRENT CONCEPCION PATIENT MEDICARE (WNR) MEDICARE (M) PART A Dec 16, 2011 PART A [id number] [phone] BRENT CONCEPCION PATIENT MEDICARE (WNR) MEDICARE (M) PART A Dec 16, 2011 PART A [id number] [phone] CONCEPCION,CARL PATIENT [facility]LE[facility] Jun 15, 2013 PLAN F [id number] [phone] BRENT CONCEPCION PATIENT Selected Encounter This section includes the information on record at DC for the Encounter. Date/Time Encounter Type Encounter Description Reason Provider Source April 04, 2020 08:00 AM Outpatient Encounter ADMIN PAT ACTIVTIES (GIO RUSSELL) [facility] 15 IHE Encounter Template Text not used by DC Assessments - Encounter Diagnoses No Data Provided for This Section Plan of Treatment: Future Appointments (+ 6 months) and Future Tests (+/- 45 day s) No Data Provided for This Section Surgical Procedures: All associated to the encounter No Data Provided for This Section Lab Results: +/- 30 days of the encounter No Data Provided for This Section Vital Signs: All taken on the encounter date No Data Provided for This Section Immunizations: All administered on the encounter date No Data Provided for This Section Social History: Smoking Status (Most current) and Tobacco Use (All prior to enco unter date) No Data Provided for This Section Advance Directives: All historical and current Section Date Range: From patient's date of to the date document was create d. This section includes ALL of a patient's completed or amen ded DC Advance and Rescinded Directives. The entries below indicate that a direc tive exists for the patient, but an actual copy is not included with this docume nt. The data comes from all [place] facilities. Date Advance Directives Provider Source Jan 24, 2020 ADVANCE DIRECTIVE DISCUSSION ROXANNA JOSHUA [facility] Allergies and Adverse Reactions (ADRs): All historical and current Section Date Range: From patient's date of to the date document was create d. This section includes Allergies and Adverse Reactions (ADR s) on record with VA for the patient. The data comes from a ll [place] treatment facilities. It does not list Allergies/ADRs that were removed or entered in error. Some allergies/ADRs may be reported in t Immunization section. Allergen Event Date Event Type Reaction(s) Severity Source LISINOPRIL March 27, 2008 Propensity to adverse reactions to drug (disorder) Cough [facility] 15 ZOCOR Oct 24, 2007 Propensity to adverse reactions to drug ( disorder) Syncope SEVERE [facility] 15 Medications: VA dispensed (-15 months) and Non-VA Documented (Obtained Outside A) Section Date Range: 1) prescriptions processed by a DC pharmacy in the last 15 m [facility], and 2) all medications recorded in the DC medical record as "non-VA medic ations". Pharmacy terms refer to DC pharmacy's work on prescriptions. VA patient s are advised to take their medications as instructed by their health care team. The data comes from all [place] treatment facilities. Glossary of Pharmacy Terms:Active = A prescription that can be filled at the local [place] pharmacy.Active: On Hold = An active prescription that will not be filled until pharmacy resolves the issue.Active: Susp = An active prescription that is not scheduled to be filled yet.Clinic Order = A medication received during a visit to a [place] clinic or emergency department (currently not available).Discontinued [...] may be a prescription from either the DC or other providers that was filled outside the DC. Or, it may be an over the [...] MOUTH EVERY MORNING 90 May 04, 2020 [id number] Sep 21, 2019 GINNA ALFRED [facility] [place] ASPIRIN 81MG TAB,EC Non- VA TAKE ONE TABLET BY MOUTH ONCE A DAY Non-VA Documented by: SILVIO DA SILVA nted at: [facility] [place] BUMETANIDE 1MG TAB Discontinued TAKE TWO TABLETS BY MOUTH EVERY MOR MAXINE 180 May 04, 2020 [id number] May 04, 2019 GINNA ALFRED JR [facility] [place] CARVEDILOL 12.5MG TAB Active TAKE ONE-HALF TABL ET BY MOUTH TWO TIMES A DAY FOR HEART. TAKE WITH FOOD. NOTE: EACH DOSE IS 1/2 TABLET 90 Dec 25 [id number] Dec 27, 2019 GINNA ALFRED JR [facility] [place] CARVEDILOL 12.5MG TAB Discontinued TAKE ONE-HALF TABL ET BY MOUTH TWO TIMES A DAY FOR HEART. TAKE WITH FOOD. NOTE: EACH DOSE IS 1/2 TABLET 90 May 04, 2020 [id number] Sep 21, 2019 GINNA ALFRED JR [facility] [place] [facility] CHOLECALCIFEROL 10MCG (400UNIT) TAB Active TAKE TWO TABLETS BY MOUTH ONCE A DAY FOR VITAMIN D DEFICIENCY 200 Feb 01, 2021 [id number] Feb 03, 2020 JULIA SANCHEZ [facility] COLESTIPOL HCL 1GM TAB Discontinued TAKE ONE TABLET B Y MOUTH THREE TIMES A DAY - TAKE ONE HOUR AFTER OR FOUR HOURS BEFORE OTHER MEDICATIONS *DO NOT CHEW OR CRUSH* 270 May 04, 2020 [id number] Dec 19, 2019 GINNA ALFRED JR [facility] [place] FISH OIL CAP/TAB Non- VA 3 CAPS MOUTH ONCE A DAY Non-V A Documented by: SILVIO DA SILVA nted at: [facility] [place] HYDROCHLOROTHIAZIDE 25MG TAB Non-VA TAKE ONE TABLET BY MOUTH EVERY MORNING Non-VA Documented by: GINNA ALFRED JR nted at: [facility] [place] LORATADINE 10MG TAB Non- VA TAKE ONE TABLET BY MOUTH QDAY PRN Non-VA Documented by: SILVIO DA SILVA nted at: [facility] [place] LOSARTAN POTASSIUM 100MG TAB Active TAKE ONE TA BLET BY MOUTH ONCE A DAY FOR BLOOD PRESSURE. 90 Dec 25, 2020 [id number] Dec 27, 2019 GINNA ALFRED JR [facility] [place] LOS[place]AN POTASSIUM 100MG TAB Discontinued TAKE ONE TA BLET BY MOUTH ONCE A DAY FOR BLOOD PRESSURE. 90 May 04, 2020 [id number] Sep 21, 2019 LAURIE ALFRED JR [facility] [place] LOVASTATIN 40MG TAB Discontinued TAKE ONE TABLET BY M OUTH EVERY EVENING WITH SUPPER FOR CHOLESTEROL - REPORT ANY UNEXPLAINED MUSCLE PAIN/WEAKNESS TO YOUR PROVIDER 90 May 04, 2020 [id number] Sep 21, 2019 GINNA ALFRED JR [facility] [place] MELOXICAM 15MG TAB Discontinued TAKE ONE TABLET BY M OUTH ONCE A DAY WITH FOOD FOR PAIN AND INFLAMMATION. 30 May 04, 2020 [id number] May 04, 2019 T GINNA DELCID JR [facility] [place] METFORMIN HCL 500MG 24HR TAB,SA Non-VA TAKE TWO TABLETS BY MOUTH EVERY EVENING BEFORE SUPPER Non-VA Documented by: GINNA ALFRED JR nted at: [facility] [place] OMEPRAZOLE 20MG CAP,EC Active TAKE 1 CAPSULE BY MOUTH EVERY MORNING 30 MINUTES BEFORE EATING TO LOWER STOMACH ACID 90 Dec 25, 2020 [id number] Dec 162019 GINNA ALFRED JR [facility] [place] OMEPRAZOLE 20MG CAP,EC Discontinued TAKE 1 CAPSULE BY MOUTH EVERY MORNING 30 MINUTES BEFORE EATING TO LOWER STOMACH ACID 90 May 04, 2020 [id number] Sep 21, 2019 GINNA ALFRED JR [facility] [place] OMEPRAZOLE 20MG CAP,EC N on-VA TAKE 1 CAPSULE BY MOUTH EVERY MORNING Non-VA Documented by: SILVIO DA [facility]VA [facility] ROSUVASTATIN CA 40MG TAB Active TAKE ONE-HALF T ABLET BY MOUTH AT BEDTIME FOR CHOLESTEROL. REPORT ANY UNEXPLAINED MUSCLE PAIN OR WEAKNESS TO YOUR DOCTOR. 45 Dec 25, 2020 [id number] Dec 27, 2019 GINNA ALFRED JR [facility] [place] Problems (Conditions): All historical and current Section Date Range: From patient's date of to the date document was create d. This section includes a list of Problems (Conditions) know n to [facility] for the patient. It includes both active and inacti ve problems (conditions). The data comes from all [place] treatment facilities. Problem Status Problem Code Date of Onset Date of Resolution Comm ent(s) Provider Source Essential hypertension Active [id number] Tacho DALAL KAROLINA [facility] [place] Gastroesophageal reflux disease (SNOMED CT 288838068) Active 226012 009 GINNA ALFRED JR [facility] [place] [facility] Hearing loss (SNOMED CT 56729633) Active [id number] GINNA ALFRED [facility] [place] Hypercholesterolemia Active 47531301 LAYLA ALFRED [facility] [place] Hyperlipidemia Active 05599214 [facility] [place] Muscle pain Active 60838286 NE [facility] [place] Obesity (SNOMED CT 578412102) Active 634178945 GINNA ALFRED [facility] [place] Osteoarthritis (SNOMED CT 204547125) Active 036226547 GINNA ALFRED [facility] [place] Personal History of Colonic Polyps (ICD-9-CM V12.72) Active V12.72 [facility] [place] Sleep apnea (SNOMED CT 45885392) Active 44123530 [facility] [place] [facility] Type 2 diabetes mellitus Active 89405512 [facility] [place] Vitamin D deficiency (SNOMED CT 84181329) Active 09308945 [facility] [place] Actinic keratosis (SNOMED CT 182568479) Inactive 702.0 Feb 01, 2019 PRITI DALAL KAROLINA [facility] [place] Dizziness * (ICD-9-CM 780.4) Inactive 780.4 Feb 01, 2019 [facility] [place] Dyslipidemia (ICD-9-CM 272.4) Inactive 272.4 Feb 01, 2019 LEISURE,[facility] [place] Hyperglycemia * (ICD-9-CM 790.29) Inactive 790.29 Jan [facility] [place] Hypertension * (ICD-9-CM 401.9) Inactive 401.9 Feb 01, [address] [facility] [place] Impaired FASTING Glucose (ICD-9-CM 790.21) Inactive 790.21 Feb 01, 2019 ESEQUIEL SAMANIEGO [facility] [place] Obesity * (ICD-9-CM 278.00) Inactive 278.00 Feb 01, 2019 LUZ MARIA HARDWICK [facility] [place] OSTEOARTHRITIS HAND Inactive 715.14 Feb 01, 2019 Aug 29, 2007 Entered By: SOULEYMANE MANCILLA Comment: wrist SOULEYMANE MANCILLA [facility] [place] IV Other Seborrheic Keratosis (ICD-9-CM 702.19) Inactive 702.19 Feb 01, 2019 [facility] [place] Other tenosynovitis of hand and wrist (ICD-9-CM 727.05) Inactive 727.05 Feb 01, 2019 ESEQUIEL SAMANIEGO [facility] [place] [facility] Rhinitis * (ICD-9-CM 472.0) Inactive 472.0 Feb 01, 2019 HERNANDO KELSEY [facility] [place] Screening, Malignancy Inactive V76.89 Feb 01, 2019 INDIRA SESAY [facility] [place] Trigger Finger (ICD-9-CM 727.03) Inactive 727.03 Feb 01, 2019 MIMI HAN [facility] [place] Umbilical hernia * (ICD-9-CM 553.1) Inactive 553.1 Feb 01, 2019 YORDY WARE [facility] [place] Radiology Reports: +/- 30 days of the encounter No Data Provided for This Section Pathology Reports: +/- 30 days of the encounter No Data Provided for This Section Encounter Notes: All associated encounter notes This section contains the clinical notes associated to the Encounter. Date/Time Encounter Note(s) Provider Source April 04, 2020 08:00 AM NONVA CONSULT: LOCAL TITLE: COMMUNITY CARE CONSULT RESULTS NOTE WI STANDARD TITLE: NONVA CONSULT DATE OF NOTE: APRIL 04, 2020@08:00 ENTRY DATE: APR 19, 2020@11:36:10 AUTHOR: CHRISTIAN FULTON EXP COSIGNER: URGENCY: STATUS: COMPLETED The following Non VA Care consult has been completed. See scanned document for report. NON VA Care Consult Results Audiology Comment: [facility]/04-04-2020 /kaley/ CHRISTIAN FULTON AMSA Signed: 04/19/2020 11:37 CHRISTIAN FULTON [facility]
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
--- OUTSIDE RECORDS SUMMARY | 2020-05-21 07:03 | XMS REPORT | Encounter Summary ---
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 Role Phone MICHAELJULIA PCP Unavailable Insurance [...] PART B May 15, 2013 PART B [id number] [phone] BRENT CONCEPCION PATIENT MEDICARE (WNR) MEDICARE (M) PART B May 15, 2013 PART B [id number] [phone] BRENT CONCEPCION PATIENT MEDICARE (WNR) MEDICARE (M) PART A Dec 16, 2011 PART A [id number] [phone] BRENT CONCEPCION PATIENT MEDICARE (WNR) MEDICARE (M) PART A Dec 16, 2011 PART A [id number] CONCEPCION,CARL PATIENT [facility] [place] INSURANCE [employer] PLAN F MEDICARE SUPPLEMENT Jun 15, 2013 PLAN F [id number] [phone] CONCEPCION,CARL PATIENT Selected Encounter This section includes the information on record at OR for the Encounter. Date/Time Encounter Type Encounter Description Reason Provider Source Jan 24, 2020 12:00 AM Outpatient Encounter EVENT (HISTORICAL) [facility] IHE Encounter Template Text not used by OR Assessments - Encounter Diagnoses No Data Provided for This Section Plan of Treatment: Future Appointments (+ 6 months) and Future Tests (+/- 45 day s) The Plan of Treatment section includes future care activities for the patient fr om all OR treatment facilities. This section includes future appointments and fu ture orders which are active, pending or scheduled. Future Appointments This section includes appointments that were scheduled t o occur 6 months from the date of the Encounter, up to a maximum of 20 appointme nts. The data comes from all [facility]. Appointment Date/Time Appointment Type Appointment Facili ty [...] the Encounter. The data comes from all [facility]. Test Date/Time Test Type Test Details Facility Name Dec 25, 2019 12:09 PM Consult Order [facility]-[id number] [facility] [place] [facility] Surgical Procedures: All associated to the encounter No Data Provided for This Section Lab Results: +/- 30 days of the encounter This section includes the Chemistry and Hematology Lab R esults on record with OR for the patient. Radiology Reports and Pathology Report s are provided separately, in subsequent sections. Lab Results This section contains the Chemistry/Hematology Results harmony t were resulted 30 days before or 30 days after the date of the Encounter. Date/Time Source Result Type Result - Unit Interpretation Reference Range Comment Jan 24, 2020 09:25 AM [facility] HEMOGLOBIN A1C Specimen Type: BLOOD No comment entered. HEMOGLOBIN A1C 6.5 % H 4.0-6.0 Jan 24, 2020 09:25 AM [facility] URINALYSIS Specimen Type: URINE No comment entered. URINE COLOR Yellow SPECIFIC GRAVITY 1.021 1.005-1.030 UROBILINOGEN Negative mg/dL 0.1-1.0 URINE BILIRUBIN Negative Negative URINE KETONES Negative mg/dl Negative URINE GLUCOSE Negative mg/dL Negative URINE PROTEIN Negative mg/dl Negative-Tr mary URINE PH 5.0 5-8 APPEARANCE,URINE Clear Clear URINE BLOOD Negative Negative URINE NITRITE Negative Negative LEUKOCYTE ESTERASE Negative Negative Jan 24, 2020 09:25 AM [facility] MICROALBUMIN (BARI,WI) RANDO M URINE Specimen Type: [...] NonReactive Nonreactive Jan 24, 2020 09:25 AM [facility] CBC & DIFF Specimen Type: BLOOD No [...] EGFR >60 Jan 24, 2020 09:25 AM [facility] LIPID PROFILE(HDL,TRIG,CHO L,LDL) Specimen Type: PLASMA Comment: [...] uIU/mL 0.47-5.00 Jan 24, 2020 09:25 AM [facility] PROSTATIC SPECIFIC ANTIGEN (TOTAL) Specimen Type: [...] docume nt. The data comes from all OR facilities. Date Advance Directives Provider Source Jan 24, 2020 ADVANCE DIRECTIVE DISCUSSION ROXANNA JOSHUA [facility] Allergies and Adverse Reactions (ADRs): All historical and current Section Date Range: From patient's date of to the date document was create d. This section includes Allergies and Adverse Reactions (ADR s) on record with VA for the patient. The data comes from a ll OR treatment facilities. It does not list Allergies/ADRs that were removed or entered in error. Some allergies/ADRs may be reported in t he Immunization section. Allergen Event Date Event Type Reaction(s) Severity Source LISINOPRIL March 27, 2008 Propensity to adverse reactions to drug (disorder) Cough [facility] 15 ZOCOR Oct 24, 2007 Propensity to adverse reactions to drug ( disorder) Syncope [facility] VISN 15 Medications: VA dispensed (-15 months) and Non-VA Documented (Obtained Outside [facility]) Section Date Range: 1) prescriptions processed by a VA pharmacy in the last 15 m [facility], and 2) all medications recorded in the OR medical record as "non-VA medic ations". Pharmacy terms refer to OR pharmacy's work on prescriptions. VA patient s are advised to take their medications as instructed by their health care team. The data comes from all OR treatment facilities. Glossary of Pharmacy Terms:Active = A prescription that can be filled at the local OR pharmacy.Active: On Hold = An active prescription that will not be filled until pharmacy resolves the issue.Active: Susp = An active prescription that is not scheduled to be filled yet.Clinic Order = A medication received during a visit to a OR clinic or emergency department (currently not available).Discontinued [...] MOUTH EVERY MORNING 90 May 04, 2020 [id number] Sep 21, 2019 GINNA ALFRED JR [facility] [place] [facility] ASPIRIN 81MG TAB,EC Non- VA TAKE ONE TABLET BY MOUTH ONCE A DAY Non-VA Documented by: SILVIO DA SILVA nted at: [facility] [place] [facility] BUMETANIDE 1MG TAB Discontinued TAKE TWO TABLETS BY MOUTH EVERY MOR MAXINE 180 May 04, 2020 [id number] May 04, 2019 GINNA ALFRED JR [facility] [place] [facility] CARVEDILOL 12.5MG TAB Active TAKE ONE-HALF TABL ET BY MOUTH TWO TIMES A DAY FOR HEART. TAKE WITH FOOD. NOTE: EACH DOSE IS 1/2 TABLET 90 Dec 25 1 [id number] Dec 27, 2019 GINNA ALFRED JR [facility] [place] [facility] CARVEDILOL 12.5MG TAB Discontinued TAKE ONE-HALF TABL ET BY MOUTH TWO TIMES A DAY FOR HEART. TAKE WITH FOOD. NOTE: EACH DOSE IS 1/2 TABLET 90 May 04, 2020 [id number] Sep 21, 2019 GINNA ALFRED JR [facility] [place] [facility] CHOLECALCIFEROL 10MCG (400UNIT) TAB Active TAKE TWO TABLETS BY MOUTH ONCE A DAY FOR VITAMIN D DEFICIENCY 200 Feb 01, 2021 [id number] Feb 03, 2020 [facility] COLESTIPOL HCL 1GM TAB Discontinued TAKE ONE TABLET B Y MOUTH THREE TIMES A DAY - TAKE ONE HOUR AFTER OR FOUR HOURS BEFORE OTHER MEDICATIONS *DO NOT CHEW OR CRUSH* 270 May 04, 2020 [id number] Dec 19, 2019 GINNA ALFRED JR [facility] [place] [facility] FISH OIL CAP/TAB Non- VA 3 CAPS MOUTH ONCE A DAY Non-V A Documented by: SILVIO DA SILVA nted at: [facility] [place] [facility] HYDROCHLOROTHIAZIDE 25MG TAB Non-VA TAKE ONE TABLET BY MOUTH EVERY MORNING Non-VA Documented by: GINNA ALFRED JR n[facility] LORATADINE 10MG TAB Non- VA TAKE ONE TABLET BY MOUTH QDAY PRN Non-VA Documented by: SILVIO DA SILVAed at: [facility] [place] [facility] [place] POTASSIUM 100MG TAB Active TAKE ONE TA BLET BY MOUTH ONCE A DAY FOR BLOOD PRESSURE. 90 Dec 25, 2020 [id number] Dec 27, 2019 GINNA ALFRED JR [facility] [place] [facility] [place] POTASSIUM 100MG TAB Discontinued TAKE ONE TA BLET BY MOUTH ONCE A DAY FOR BLOOD PRESSURE. 90 May 04, 2020 [id number] Sep 21, 2019 LAURIE ALFRED JR [facility] [place] [facility] LOVASTATIN 40MG TAB Discontinued TAKE ONE TABLET BY M OUTH EVERY EVENING WITH SUPPER FOR CHOLESTEROL - REPORT ANY UNEXPLAINED MUSCLE PAIN/WEAKNESS TO YOUR PROVIDER 90 May 04, 2020 [id number] Sep 21, 2019 GINNA ALFRED JR Val [facility] [place] [facility] MELOXICAM 15MG TAB Discontinued TAKE ONE TABLET BY M OUTH ONCE A DAY WITH FOOD FOR PAIN AND INFLAMMATION. 30 May 04, 2020 [id number] May 04, 2019 GINNA PORITLLO JR [facility] [place] [facility] METFORMIN HCL 500MG 24HR TAB,SA Non-VA TAKE TWO TABLETS BY MOUTH EVERY EVENING BEFORE SUPPER Non-VA Documented by: GINNA ALFRED JR nted at: [facility] [place] [facility] OMEPRAZOLE 20MG CAP,EC Active TAKE 1 CAPSULE BY MOUTH EVERY MORNING 30 MINUTES BEFORE EATING TO LOWER STOMACH ACID 90 Dec 25, 2020 [id number] Dec 162019 GINNA ALFRED JR [facility] [place] [facility] OMEPRAZOLE 20MG CAP,EC Discontinued TAKE 1 CAPSULE BY MOUTH EVERY MORNING 30 MINUTES BEFORE EATING TO LOWER STOMACH ACID 90 May 04, 2020 [id number] Sep 21, 2019 GINNA ALFRED JR [facility] [place] [facility] OMEPRAZOLE 20MG CAP,EC N on-VA TAKE 1 CAPSULE BY MOUTH EVERY MORNING Non-VA Documented by: SILVIO DA SILVA nted at: [facility] ROSUVASTATIN CA 40MG TAB Active TAKE ONE-HALF T ABLET BY MOUTH AT BEDTIME FOR CHOLESTEROL. REPORT ANY UNEXPLAINED MUSCLE PAIN OR WEAKNESS TO YOUR DOCTOR. 45 Dec 25, 2020 [id number] Dec 27, 2019 [facility]NA [facility] [place] [facility] Problems (Conditions): All historical and current Section Date Range: From patient's date of to the date document was create d. This section includes a list of Problems (Conditions) know n to VA for the patient. It includes both active and inacti ve problems (conditions). The data comes from all VA treatment facilities. Problem Status Problem Code Date of Onset Date of Resolution Comm ent(s) Provider Source Essential hypertension Active 96280361 DALALTacho [facility] [place] [facility] Gastroesophageal reflux disease (SNOMED CT 969604391) Active 645755 [id number] GINNA ALFRED [facility] [place] [facility] Hearing loss (SNOMED CT 12491075) Active 51923581 [facility] [place] [facility] Hypercholesterolemia Active 70809241 [facility] [place] [facility] Hyperlipidemia Active 72574134 [facility] [place] [facility] Muscle pain Active 50543213 [facility] [place] [facility] Obesity (SNOMED CT 441121944) Active 438287120 [facility] [place] [facility] Osteoarthritis (SNOMED CT 104593284) Active 569742596 [facility] [place] [facility] Personal History of Colonic Polyps (ICD-9-CM V12.72) Active V12.72 [facility] [place] [facility] Sleep apnea (SNOMED CT 04974043) Active 38995841 [facility] [place] [facility] Type 2 diabetes mellitus Active 39818425 [facility] [place] [facility] Vitamin D deficiency (SNOMED CT 34335147) Active 72424454 [facility] [place] [facility] Actinic keratosis (SNOMED CT 690533777) Inactive 702.0 Feb 01, 2019 DALAL,PRITI [facility] [place] [facility] Dizziness * (ICD-9-CM 780.4) Inactive 780.4 Feb 01, 2019 MIMI HAN [facility] [place] [facility] Dyslipidemia (ICD-9-CM 272.4) Inactive 272.4 Feb 01, 2019 YORDY WARE [facility] [place] [facility] Hyperglycemia * (ICD-9-CM 790.29) Inactive 790.29 [facility] [place] [facility] Hypertension * (ICD-9-CM 401.9) Inactive 401.9 Feb 01, 2019 YORDY WARE [facility] [place] [facility] Impaired FASTING Glucose (ICD-9-CM 790.21) Inactive 790.21 Feb 01, 2019 ADENESEQUIEL LOONEY [facility] [place] [facility] Obesity * (ICD-9-CM 278.00) Inactive 278.00 Feb 01, 2019 LUZ MARIA HARDWICK [facility] [place] [facility] OSTEOARTHRITIS HAND Inactive 715.14 Feb 01, 2019 Aug 29, 2007 Entered By: SOULEYMANE MANCILLA Comment: wrist SOULEYMANE MANCILLA [facility] [place] [facility] IV Other Seborrheic Keratosis (ICD-9-CM 702.19) Inactive 702.19 Feb 01, 2019 [facility] [place] [facility] Other tenosynovitis of hand and wrist (ICD-9-CM 727.05) Inactive 727.05 Feb 01, [address] [facility] [place] Rhinitis * (ICD-9-CM 472.0) Inactive 472.0 Feb 01, 2019 HERNANDO KELSEY [facility] [place] [facility] Screening, Malignancy Inactive V76.89 Feb 01, 2019 INDIRA SESAY [facility] [place] [facility] Trigger Finger (ICD-9-CM 727.03) Inactive 727.03 Feb 01, 2019 [facility] [place] [facility] Umbilical hernia * (ICD-9-CM 553.1) Inactive 553.1 Feb 01, 2019 YORDY WARE [facility] [place] [facility] Radiology Reports: +/- 30 days of the encounter No Data Provided for This Section Pathology Reports: +/- 30 days of the encounter No Data Provided for This Section Encounter Notes: All associated encounter notes No Data Provided for This Section
--- OUTSIDE RECORDS SUMMARY | 2020-05-21 07:04 | XMS REPORT | Encounter Summary ---
Author Author Department [facility] BRENT fernandez Organization Department of [facility] Address [address] [place] [address] Phone Unavailable Care Team Providers Care Physician Aide Name Role Phone MICHAELJULIA PCP Unavailable Insurance [...] PART B May 15, 2013 PART B [id number] [phone] BRENT CONCEPCION PATIENT MEDICARE (WNR) MEDICARE (M) PART B May 15, 2013 PART B [id number] [phone] BRENT CONCEPCION PATIENT MEDICARE (WNR) MEDICARE (M) PART A Dec 16, 2011 PART A [id number] [phone] BRENT CONCEPCION PATIENT MEDICARE (WNR) MEDICARE (M) PART A Dec 16, 2011 PART A [id number] [phone] CONCEPCION,CARL PATIENT [facility] INSURANCE MEDIGAP PLAN F MEDICARE SUPPLEMENT Jun 15, 2013 PLAN F [id number] [phone] CARLENEBRENT PATIENT Selected Encounter This section includes the information on record at ME for the Encounter. Date/Time Encounter Type Encounter Description Reason Provider Source Dec 26, 2019 12:01 PM Outpatient Encounter [facility]ITY CARE CONS[facility] 15 IHE Encounter Template Text not used by ME Assessments - Encounter Diagnoses No Data Provided for This Section Plan of Treatment: Future Appointments (+ 6 months) and Future Tests (+/- 45 day s) The Plan of Treatment section includes future care activities for the patient fr om all ME treatment facilities. This section includes future appointments and fu ture orders which are active, pending or scheduled. Future Appointments This section includes appointments that were scheduled t o occur 6 months from the date of the Encounter, up to a maximum of 20 appointme nts. The data comes from all ME treatment facilities. Appointment Date/Time Appointment Type Appointment Facili ty Name Jan 24, 2020 10:00 AM AMBULATORY - MEDICINE [facility] Jan 24, 2020 10:30 AM AMBULATORY - NONE [facility] April 04, 2020 11:15 AM AMBULATORY - NONE [facility] Active, Pending, and Scheduled Orders This [...] the Encounter. The data comes from all ME treatment [facility]. Test Date/Time Test Type Test Details Facility Name Dec 25, 2019 12:09 PM Consult Order COMMUNITY CARE-EK DERMATOLOGY-[id number] Cons Melting [employer] [place] Surgical Procedures: All associated to the encounter No Data Provided for This Section Lab Results: +/- 30 days of the encounter This section includes the Chemistry and Hematology Lab R esults on record with ME for the patient. Radiology Reports and Pathology Report s are provided separately, in subsequent sections. Lab Results This section contains the Chemistry/Hematology Results harmony t were resulted 30 days before or 30 days after the date of the Encounter. Date/Time Source Result Type Result - Unit Interpretation Reference Range Comment Jan 24, 2020 09:25 AM [facility] HEMOGLOBIN A1C Specimen Type: BLOOD No comment entered. HEMOGLOBIN A1C 6.5 % H 4.0-6.0 Jan 24, 2020 09:25 AM [facility] URINALYSIS Specimen Type: URINE No comment entered. URINE COLOR Yellow SPECIFIC GRAVITY 1.021 1.005-1.030 UROBILINOGEN Negative mg/dL 0.1-1.0 URINE BILIRUBIN Negative Negative URINE KETONES Negative mg/dl Negative URINE GLUCOSE Negative mg/dL Negative URINE PROTEIN Negative mg/dl Negative-Tr mary URINE PH 5.0 5-8 APPEARANCE,URINE Clear Clear URINE BLOOD Negative Negative URINE NITRITE Negative Negative LEUKOCYTE ESTERASE Negative Negative Jan 24, 2020 09:25 AM [facility] MICROALBUMIN (BARI,WI) RANDO M URINE Specimen Type: URINE No comment entered. *MICROALBUMIN,RAND 26 ug/mL *MICROALB/CREAT 20 mcg/mg cr *UR CREATININE 130.7 mg/dL Not Available Jan 24, 2020 09:25 AM [facility] VITAMIN D (25-OH) Specimen Type: SERUM No comment entered. VITAMIN D (25-OH) 23.6 ng/mL L 30.0-96.0 Jan 24, 2020 09:25 AM [facility] HCV-AB Specimen Type: SERUM No comment entered. HCV-AB NonReactive Nonreactive Jan 24, 2020 09:25 AM [facility] CBC & DIFF Specimen Type: BLOOD No [...] 0.4 % Jan 24, 2020 09:25 AM [facility] COMPREHENSIVE METABOLIC PA YESSY Specimen Type: [...] EGFR >60 Jan 24, 2020 09:25 AM [facility] LIPID PROFILE(HDL,TRIG,CHO L,LDL) Specimen Type: PLASMA Comment: For eGFR: eGFR results >60 are imprecise. Many variables affect the calculated result. Interpretation of eGFR results >60 must be monitored over time. CHOLESTEROL 184 mg/dL 0-200 TRIGS 180 mg/dL H 0-150 HDL-CHOLESTEROL 55 mg/dL >40 LDL (CALC) 93 mg/dL 0-99.9 Jan 24, 2020 09:25 AM [facility] TSH Specimen Type: SERUM No comment entered. TSH 1.85 uIU/mL 0.47-5.00 Jan 24, 2020 09:25 AM [facility] PROSTATIC SPECIFIC ANTIGEN (TOTAL) Specimen Type: SERUM No comment entered. PROSTATIC SPECIFIC ANTIGEN(TOTAL) 1.4 ng/mL 0-4 Dec 25, 2019 09:12 AM [facility] [place] CBC & DIFF Specimen Type: [...] 0.2 % Dec 25, 2019 09:12 AM [facility] [employer] COMPREHENSIVE ME TABOLIC PANEL Specimen Type: PLASMA No comment [...] EGFR 104.0 Dec 25, 2019 09:12 AM [facility] [employer] LIPID PROFIL E(HDL,TRIG,CHOL,LDL) Sp ecimen Type: PLASMA No comment entered. CHOLESTEROL 193 mg/dL 0-200 TRIGS 162 mg/dL H 0-150 HDL-CHOLESTEROL 50 mg/dL >40 LDL (CALC) 110.6 mg/dL H 0-99.9 Dec 25, 2019 09:12 AM [facility] [place] [employer] PROSTATIC SP ECIFIC ANTIGEN(TOTAL) Sp ecimen Type: SERUM No comment entered. PROSTATIC SPECIFIC ANTIGEN(TOTAL) 1.57 ng/mL 0-4 Dec 25, 2019 09:12 AM [facility] [place] [employer] URINALYSIS Specimen Type: URINE No comment entered. URINE COLOR Yellow SPECIFIC GRAVITY 1.024 1.005-1.030 UROBILINOGEN Negative mg/dL 0.1-1.0 URINE BILIRUBIN Negative Negative URINE KETONES Negative mg/dl Negative URINE GLUCOSE Negative mg/dL Negative URINE PROTEIN Negative mg/dl Negative-Tr mary URINE PH 5.0 5-8 APPEARANCE,URINE Clear Clear URINE BLOOD Negative Negative URINE NITRITE Negative Negative LEUKOCYTE ESTERASE Negative Negative Dec 25, 2019 09:12 AM [facility] [employer] TSH Specimen Type: SERUM No comment entered. TSH 1.37 uIU/mL 0.47-5.00 Dec 25, 2019 09:12 AM [facility] [employer] HEMOGLOBIN A1C Specimen Type: BLOOD No comment entered. HEMOGLOBIN A1C 6.5 % H 4.0-6.0 Dec 25, 2019 09:12 AM [facility] [employer] MICROALBUMIN (CO ,EK) Specimen Type: URINE No comment entered. *MICROALBUMIN(CONC) 1.7 mg/dL - *MICROALBUMIN(SPOT) 12.4 mcg/mg cr 0-29 *CREATININE mg/dL 137.6 mg/dl Not Avail. Dec 25, 2019 09:12 AM [facility] [employer] VITAMIN D (25-OH ) Specimen Type: SERUM [...] of a patient's completed or amen ded ME Advance and Rescinded Directives. The entries below indicate that a direc tive exists for the patient, but an actual copy is not included with this docume nt. The data comes from all ME facilities. Date Advance Directives Provider Source Jan 24, 2020 ADVANCE DIRECTIVE DISCUSSION ROXANNA JOSHUA [facility] Allergies and Adverse Reactions (ADRs): All historical and current Section Date Range: From patient's date of to the date document was create d. This section includes Allergies and Adverse Reactions (ADR s) on record with VA for the patient. The data comes from a ll ME treatment facilities. It does not list Allergies/ADRs that were removed or entered in error. Some allergies/ADRs may be reported in t he Immunization section. Allergen Event Date Event Type Reaction(s) Severity Source LISINOPRIL March 27, 2008 Propensity to adverse reactions to drug (disorder) Cough [facility] 15 ZOCOR Oct 24, 2007 Propensity to adverse reactions to drug ( disorder) Syncope SEVERE [facility] 15 Medications: VA dispensed (-15 months) and Non-VA Documented (Obtained Outside A) Section Date Range: 1) prescriptions processed by a VA pharmacy in the last 15 m [facility], and 2) all medications recorded in the ME medical record as "non-VA medic ations". Pharmacy terms refer to ME pharmacy's work on prescriptions. VA patient s are advised to take their medications as instructed by their health care team. The data comes from all ME treatment [facility]. Glossary of Pharmacy Terms:Active = A prescription that can be filled at the local [place] pharmacy.Active: On Hold = An active prescription that will not be filled until pharmacy resolves the issue.Active: Susp = An active prescription that is not scheduled to be filled yet.Clinic Order = A medication received during a visit to a ME clinic or emergency department (currently not available).Discontinued [...] MOUTH EVERY MORNING 90 May 04, 2020 [id number] Sep 21, 2019 GINNA ALFRED JR [facility] [place] ASPIRIN 81MG TAB,EC Non- VA TAKE ONE TABLET BY MOUTH ONCE A DAY Non-VA Documented by: SILVIO DA SILVA nted at: [facility] [place] BUMETANIDE 1MG TAB Discontinued TAKE TWO TABLETS BY MOUTH EVERY MOR MAXINE 180 May 04, 2020 [id number] May 04, 2019 GINNA ALFRED JR [facility] [place] CARVEDILOL 12.5MG TAB Active TAKE ONE-HALF TABL ET BY MOUTH TWO TIMES A DAY FOR HEART. TAKE WITH FOOD. NOTE: EACH DOSE IS 1/2 TABLET 90 Dec 25 1 [id number] Dec 27, 2019 GINNA ALFRED JR [facility] [place] CARVEDILOL 12.5MG TAB Discontinued TAKE ONE-HALF TABL ET BY MOUTH TWO TIMES A DAY FOR HEART. TAKE WITH FOOD. NOTE: EACH DOSE IS 1/2 TABLET 90 May 04, 2020 [id number] Sep 21, 2019 GINNA ALFRED JR [facility] [place] CHOLECALCIFEROL 10MCG (400UNIT) TAB Active TAKE TWO TABLETS BY MOUTH ONCE A DAY FOR VITAMIN D DEFICIENCY 200 Feb 01, 2021 [id number] Feb 03, 2020 [facility] COLESTIPOL HCL 1GM TAB Discontinued TAKE ONE TABLET B Y MOUTH THREE TIMES A DAY - TAKE ONE HOUR AFTER OR FOUR HOURS BEFORE OTHER MEDICATIONS *DO NOT CHEW OR CRUSH* 270 May 04, 2020 [id number] Dec 19, 2019 GINNA ALFRED JR [facility] [place] FISH OIL CAP/TAB Non- VA 3 CAPS MOUTH ONCE A DAY Non-V A Documented by: SILVIO DA SILVA nted at: [facility] [place] HYDROCHLOROTHIAZIDE 25MG TAB Non-VA TAKE ONE TABLET BY MOUTH EVERY MORNING Non-VA Documented by: GINNA ALFRED JR nted at: [facility] [place] LORATADINE 10MG TAB Non- VA TAKE ONE TABLET BY MOUTH QDAY PRN Non-VA Documented by: SILVIO DA SILVA nted at: [facility] [place] POTASSIUM 100MG TAB Active TAKE ONE TA BLET BY MOUTH ONCE A DAY FOR BLOOD PRESSURE. 90 Dec 25, 2020 [id number] Dec 27, 2019 GINNA ALFRED JR [facility] [place] POTASSIUM 100MG TAB Discontinued TAKE ONE TA BLET BY MOUTH ONCE A DAY FOR BLOOD PRESSURE. 90 May 04, 2020 [id number] Sep 21, 2019 LAURIE ALFRED JR [facility] [place] LOVASTATIN 40MG TAB Discontinued TAKE ONE TABLET BY M OUTH EVERY EVENING WITH SUPPER FOR CHOLESTEROL - REPORT ANY UNEXPLAINED MUSCLE PAIN/WEAKNESS TO YOUR PROVIDER 90 May 04, 2020 [id number] Sep 21, 2019 GINNA ALFRED JR Val [facility] [place] MELOXICAM 15MG TAB Discontinued TAKE ONE TABLET BY M OUTH ONCE A DAY WITH FOOD FOR PAIN AND INFLAMMATION. 30 May 04, 2020 [id number] May 04, 2019 GINNA PORTILLO JR [facility] [place] METFORMIN HCL 500MG 24HR TAB,SA Non-VA TAKE TWO TABLETS BY MOUTH EVERY EVENING BEFORE SUPPER Non-VA Documented by: GINNA ALFRED JR nted at: [facility] [place] OMEPRAZOLE 20MG CAP,EC Active TAKE 1 CAPSULE BY MOUTH EVERY MORNING 30 MINUTES BEFORE EATING TO LOWER STOMACH ACID 90 Dec 25, 2020 [id number] Dec 162019 GINNA ALFRED JR [facility] [place] OMEPRAZOLE 20MG CAP,EC Discontinued TAKE 1 CAPSULE BY MOUTH EVERY MORNING 30 MINUTES BEFORE EATING TO LOWER STOMACH ACID 90 May 04, 2020 [id number] Sep 21, 2019 GINNA ALFRED JR [facility] [place] OMEPRAZOLE 20MG CAP,EC N on-VA TAKE 1 CAPSULE BY MOUTH EVERY MORNING Non-VA Documented by: SILVIO DA SILVA nted at: [facility] ROSUVASTATIN CA 40MG TAB Active TAKE ONE-HALF T ABLET BY MOUTH AT BEDTIME FOR CHOLESTEROL. REPORT ANY UNEXPLAINED MUSCLE PAIN OR WEAKNESS TO YOUR DOCTOR. 45 Dec 25, 2020 [id number] Dec 27, 2019 GINNA ALFRED [facility] [place] Problems (Conditions): All [...] Comm ent(s) Provider Source Essential hypertension Active [id number] DALALTacho MEGANIrais TURCIOS [facility] [place] Gastroesophageal reflux disease (SNOMED CT 880998445) Active 677296 009 GINNA ALFRED [facility] [place] Hearing loss (SNOMED CT 67904332) Active 96037626 [facility] [place] Hypercholesterolemia Active 88824172 [facility] [place] Hyperlipidemia Active 32753876 DALAL [facility] [place] Muscle pain Active 96645699 DALAL [facility] [place] Obesity (SNOMED CT 049788571) Active 296957348 [facility] [place] Osteoarthritis (SNOMED CT 968771372) Active 298336005 [facility] [place] Personal History of Colonic Polyps (ICD-9-CM V12.72) Active V12.[address] [facility]ENT[facility] Braxton [facility] [place] Sleep apnea (SNOMED CT 89715590) Active 13098003 [facility] [place] Type 2 diabetes mellitus Active 11993102 [facility] [place] Vitamin D deficiency (SNOMED CT 14531548) Active 96555472 [facility] [place] Actinic keratosis (SNOMED CT 017721806) Inactive 702.0 Feb 01, 2019 MULUGETA,PRITI [facility] [place] Dizziness * (ICD-9-CM 780.4) Inactive 780.4 Feb 01, 2019 MIMI HAN [facility] [place] Dyslipidemia (ICD-9-CM 272.4) Inactive 272.4 Feb 01, 2019 YORDY WARE [facility] [place] Hyperglycemia * (ICD-9-CM 790.29) Inactive 790.29 Jan MIMI HAN [facility] [place] Hypertension * (ICD-9-CM 401.9) Inactive 401.9 Feb 01, 2019 YORDY WARE [facility] [place] Impaired FASTING Glucose (ICD-9-CM 790.21) Inactive 790.21 Feb 01, 2019 ESEQUIEL SAMANIEGO [facility] [place] Obesity * (ICD-9-CM 278.00) Inactive 278.00 Feb 01, 2019 LUZ MARIA HARDWICK [facility] [place] OSTEOARTHRITIS HAND Inactive 715.14 Feb 01, 2019 Aug 29, 2007 Entered By: SOULEYMANE MANCILLA Comment: wrist SOULEYMANE MANCILLA [facility] [place] IV Other Seborrheic Keratosis (ICD-9-CM 702.19) Inactive 702.19 Feb 01, 2019 [facility]ERRAMIRO [facility] [place] Other tenosynovitis of hand and wrist (ICD-9-CM 727.05) Inactive 727.05 Feb 01, 2019 ESEQUIEL SAMANIEGO ON LICENSE OF [facility] TO [place] Rhinitis * (ICD-9-CM 472.0) Inactive 472.0 Feb 01, 2019 HERNANDO KELSEY [facility] [place] Screening, Malignancy Inactive V76.89 Feb 01, 2019 INDIRA SESAY [facility] [place] Trigger Finger (ICD-9-CM 727.03) Inactive 727.03 Feb 01, 2019 [facility]IRO [facility] [place] Umbilical hernia * (ICD-9-CM 553.1) Inactive 553.1 Feb 01, 2019 YORDY WARE [facility] [place] Radiology Reports: +/- 30 days of the encounter No Data Provided for This Section Pathology Reports: +/- 30 days of the encounter No Data Provided for This Section Encounter Notes: All associated encounter notes This section contains the clinical notes associated to the Encounter. Date/Time Encounter Note(s) Provider Source Dec 26, 2019 12:01 PM NONVA NOTE: LOCAL TITLE: [facility] CARE-SCHEDULING STANDARD TITLE: NONVA NOTE DATE OF NOTE: DEC 26, 2019@12:01 ENTRY DATE: DEC 26, 2019@12:01:29 AUTHOR: PRAFUL HARRISONIGNER: URGENCY: STATUS: COMPLETED Patient Centered Community Care (PC3) Program [facility] Choice Approval for Medical Care VA-Form 10-0386 Certain protected health information (PHI) may be enclosed; specifically information related to Drug Abuse, Alcoholism or Alcohol Abuse, Sickle Cell Anemia, and Human Immunodeficiency Virus (HIV). This specific PHI may NOT be re-disclosed or used by the recipient person or office for any purpose other than that for which the disclosure was made. [Ref. 38 [facility] 7332(b)(2)(H)(ii)] The information is b eing disclosed by ME only for the treatment and care of the named patient in the health record. Accounting of disclosure must be maintained when required. Referral Urgency: Routine Indicate time frame for appointment: Clinically Indicated Date (HUGO): March Category of Care/Type of Specialty: DERMATOLOGY Type of Specialist: EXECUTIVE CANDIDATE DEVELOPER Type of Service/Procedure: Other specified Disorders of the Skin and Subcutaneous Tissue(ICD-10-CM L98.8) MULTIPLE SKIN LESIONS TO UE BILAT AND EARS BILAT Procedural Overview: 1. Initial outpatient evaluation (including full body exam) and treatmen t for the referred condition on the consult 2. Diagnostic imaging relevant to the referred condition on the consult 3. Labs and pathology relevant to the referred condition on the consult 4. Procedures relevant to the referred condition on the consult including but not limited to: cryotherapy, biopsy ( including excisional, shave, punch biopsies etc), excision, excimer laser, photodynamic therapy, UVB therapy, debridement 5. Follow-up visits for this episode of care 6. Follow up biopsy if clinically required as related to this episode of care Additional consultations needed relevant to the patient complaint/condition require VA review and approval including MOH's and/or a referral to another specialty for secondary/complex closure Please visit the [facility] Storefront [email or web address] for additional resources and requirements pertaining to the following Pharmacy prescribing requirements Durable Medical Equipment (DME), Prosthetics, and Orthotics prescribing requirements Precertification (PRCT) process requirements Request for Services (RFS) requirements Number of Visits, Frequency, and Duration: DURATION 180 DAYS 8 VISITS [facility] or [facility] Preferred Provider Name and Contact Information: Eligibility Verification: As the authorized VA senior outside sales representative, I hereby confirm that the is eligible for Community Care services. The [facility] basic eligibility was verified on Dec. Contact the Facility Community Care Office first to provide information to the VA or to reach a VA ordering provider. All contact from the contractor will be documented in the 's record by the facility [place] community Care and the VA provider will be notified for awareness. Report all Critical Findings related to this authorization to the issuing office below. All other questions regarding this authorization should be directed to: SHANNON BURTON Facility: Local [place] Office of Community Care (OCC) Contact:[phone] Local [place] Office of Community Care (OCC) [employer]ed [employer] Boards Beveler or Equivalent: Name: Shannon Burton Title: ME-EKHCS Community Care Travel Professional Contact Number (Normal Business Hours):[phone] AOD/Emergency Contact After Hours Number:[phone] From Station Number: [id number] Facility Name: [facility] [address] Address: [address] [place] [address] City: [place] State: [place] Zip: [address] [facility] Information: Name: BRENT CONCEPCION : Dec SSN: [id number] Address: [address] [place] [address] [facility]'s Alternate Phone: 's Alternate Address: In accordance with 38 CFR 17.8410-0036, ME will pay for non-VA hospital care and medical services that are authorized by ME for Veterans who are determined by ME to meet the Veterans Choice Program eligibility criteria set forth by section 101 of the Act and 38 CFR 17.1510 and any other eligibility standards that may apply to particular services (such as health care for newborns of Veterans under 38 CFR 17.38(a)(xiv) and dental benefits under 17.160-17.169). /kaley/ PRAFUL HARRISON Advanced MSA Signed: 12/26/2019 12:10 PRAFUL HARRISON [facility]
--- OUTSIDE RECORDS SUMMARY | 2020-05-21 07:04 | XMS REPORT | Encounter Summary ---
Author Author Department of [facility] BRENT fernandez Organization Department of [facility] Address [address] [place] [address] Phone Unavailable Care Team Providers Care Traffic Officer Name Role Phone JULIA RODRIGUEZ PCP Unavailable [...] PART B May 15, 2013 PART B [id number] BRENT CONCEPCION PATIENT MEDICARE (WNR) MEDICARE (M) PART B May 15, 2013 PART B [id number] BRENT CONCEPCION PATIENT MEDICARE (WNR) MEDICARE (M) PART A Dec 16, 2011 PART A [id number] BRENT CONCEPCION PATIENT MEDICARE (WNR) MEDICARE (M) PART A Dec 16, 2011 PART A [id number] BRENT CONCEPCION PATIENT [employer] PLAN F MEDICARE SUPPLEMENT Jun 15, 2013 PLAN F [id number] [phone] BRENT CONCEPCION PATIENT Selected Encounter This section includes the information on record at ID for the Encounter. Date/Time Encounter Type Encounter Description Reason Provider Source Jan 24, 2020 11:15 AM Outpatient Encounter ADMIN PAT ACTIVTIES (MASNO NCT) AINSLEY IBARRA [facility] IHE Encounter Template Text not used by ID Assessments - Encounter Diagnoses No Data Provided for This Section Plan of Treatment: Future Appointments (+ 6 months) and Future Tests (+/- 45 day s) The Plan of Treatment section includes future care activities for the patient fr om all [facility] facilities. This section includes future appointments and fu ture orders which are active, pending or scheduled. Future Appointments This section includes appointments that were scheduled t o occur 6 months from the date of the Encounter, up to a maximum of 20 appointme nts. The data comes from all [facility]. Appointment Date/Time Appointment Type Appointment Facili ty Name April 04, 2020 11:15 AM AMBULATORY - NONE [facility]INSLEY IBARRA [facility] C Active, Pending, and Scheduled Orders [...] the Encounter. The data comes from all [facility]. Test Date/Time Test Type Test Details Facility Name Dec 25, 2019 12:09 PM Consult Order [facility]- DERMATOLOGY-[id number] Cons Debt Management Counselor's Choice [facility] [facility] Surgical Procedures: All associated to the encounter No Data Provided for This Section Lab Results: +/- 30 days of the encounter This section includes the Chemistry and Hematology Lab R esults on record with ID for the patient. Radiology Reports and Pathology Report s are provided separately, in subsequent sections. Lab Results This section contains the Chemistry/Hematology Results harmony t were resulted 30 days before or 30 days after the date of the Encounter. Date/Time Source Result Type Result - Unit Interpretation Reference Range Comment Jan 24, 2020 09:25 AM [facility] HEMOGLOBIN A1C Specimen Type: BLOOD No comment entered. HEMOGLOBIN A1C 6.5 % H 4.0-6.0 Jan 24, 2020 09:25 AM [facility] URINALYSIS Specimen Type: URINE No comment entered. URINE COLOR Yellow SPECIFIC GRAVITY 1.021 1.005-1.030 UROBILINOGEN Negative mg/dL 0.1-1.0 URINE BILIRUBIN Negative Negative URINE KETONES Negative mg/dl Negative URINE GLUCOSE Negative mg/dL Negative URINE PROTEIN Negative mg/dl Negative-Tr mary URINE PH 5.0 5-8 APPEARANCE,URINE Clear Clear URINE BLOOD Negative Negative URINE NITRITE Negative Negative LEUKOCYTE ESTERASE Negative Negative Jan 24, 2020 09:25 AM [facility] MICROALBUMIN (BARI,WI) RANDO M URINE Specimen Type: URINE No comment entered. *MICROALBUMIN,RAND 26 ug/mL *MICROALB/CREAT 20 mcg/mg cr *UR CREATININE 130.7 mg/dL Not Available Jan 24, 2020 09:25 AM NERI [facility] VITAMIN D (25-OH) Specimen Type: SERUM No comment entered. VITAMIN D (25-OH) 23.6 ng/mL L 30.0-96.0 Jan 24, 2020 09:25 AM [facility] HCV-AB Specimen Type: SERUM No comment entered. HCV-AB NonReactive Nonreactive Jan 24, 2020 09:25 AM [facility] CBC & DIFF Specimen Type: BLOOD No [...] % Jan 24, 2020 09:25 AM NERI [facility] COMPREHENSIVE METABOLIC PA YESSY Specimen Type: [...] EGFR >60 Jan 24, 2020 09:25 AM [facility] LIPID PROFILE(HDL,TRIG,CHO L,LDL) Specimen Type: PLASMA Comment: For eGFR: eGFR results >60 are imprecise. Many variables affect the calculated result. Interpretation of eGFR results >60 must be monitored over time. CHOLESTEROL 184 mg/dL 0-200 TRIGS 180 mg/dL H 0-150 HDL-CHOLESTEROL 55 mg/dL >40 LDL (CALC) 93 mg/dL 0-99.9 Jan 24, 2020 09:25 AM [facility] TSH Specimen Type: SERUM No comment entered. TSH 1.85 uIU/mL 0.47-5.00 Jan 24, 2020 09:25 AM [facility] PROSTATIC SPECIFIC ANTIGEN (TOTAL) Specimen Type: [...] docume nt. The data comes from all ID facilities. Date Advance Directives Provider Source Jan 24, 2020 ADVANCE DIRECTIVE DISCUSSION ROXANNA JOSHUA [facility] Allergies and Adverse Reactions (ADRs): All historical and current Section Date Range: From patient's date of to the date document was create d. This section includes Allergies and Adverse Reactions (ADR s) on record with [facility] for the patient. The data comes from a ll ID treatment facilities. It does not list Allergies/ADRs that were removed or entered in error. Some allergies/ADRs may be reported in t he Immunization section. Allergen Event Date Event Type Reaction(s) Severity Source LISINOPRIL March 27, 2008 Propensity to adverse reactions to drug (disorder) Cough [facility] ZOCOR Oct 24, 2007 Propensity to adverse reactions to drug ( disorder) Syncope SEVERE [facility] Medications: VA dispensed (-15 months) and Non-VA Documented (Obtained Outside A) Section Date Range: 1) prescriptions processed by a VA pharmacy in the last [address] [facility], and 2) all medications recorded in the ID medical record as "non-VA medic ations". Pharmacy terms refer to ID pharmacy's work on prescriptions. VA patient s are advised to take their medications as instructed by their health care team. The data comes from all ID treatment facilities. Glossary of Pharmacy Terms:Active = A prescription that can be filled at the local ID pharmacy.Active: On Hold = An active prescription that will not be filled until pharmacy resolves the issue.Active: Susp = An active prescription that is not scheduled to be filled yet.Clinic Order = A medication received during a visit to a ID clinic or emergency department (currently not available).Discontinued [...] MOUTH EVERY MORNING 90 May 04, 2020 [id number] Sep 21, 2019 GINNA ALFRED JR [facility] [facility] ASPIRIN 81MG TAB,EC Non- VA TAKE ONE TABLET BY MOUTH ONCE A DAY Non-VA Documented by: SILVIO DA SILVA nted at: [facility] BUMETANIDE 1MG TAB Discontinued TAKE TWO TABLETS BY MOUTH EVERY MOR MAXINE 180 May 04, 2020 [id number] May 04, [address] [facility] [place] [facility] CARVEDILOL 12.5MG TAB Active TAKE ONE-HALF TABL ET BY MOUTH TWO TIMES A DAY FOR HEART. TAKE WITH FOOD. NOTE: EACH DOSE IS 1/2 TABLET 90 Dec 25 1 [id number] Dec 27, [address] [facility] [place] [facility] CARVEDILOL 12.5MG TAB Discontinued TAKE ONE-HALF TABL ET BY MOUTH TWO TIMES A DAY FOR HEART. TAKE WITH FOOD. NOTE: EACH DOSE IS 1/2 TABLET 90 May 04, 2020 [id number] Sep 21, [address] [facility] CHOLECALCIFEROL 10MCG (400UNIT) TAB Active TAKE TWO TABLETS BY MOUTH ONCE A DAY FOR VITAMIN D DEFICIENCY 200 Feb 01, 2021 [id number] Feb 03, 2020 [facility] COLESTIPOL HCL 1GM TAB Discontinued TAKE ONE TABLET B Y MOUTH THREE TIMES A DAY - TAKE ONE HOUR AFTER OR FOUR HOURS BEFORE OTHER MEDICATIONS *DO NOT CHEW OR CRUSH* 270 May 04, 2020 [id number] Dec 19, 2019 GINNA ALFRED JR [facility] [place] FISH OIL CAP/TAB Non- VA 3 CAPS MOUTH ONCE A DAY Non-V A Documented by: SILVIO DA SILVA nted at: [facility] HYDROCHLOROTHIAZIDE 25MG TAB Non-VA TAKE ONE TABLET BY MOUTH EVERY MORNING Non-VA Documented by: GINNA ALFRED JRed at: [facility] [facility] LORATADINE 10MG TAB Non- VA TAKE ONE TABLET BY MOUTH QDAY PRN Non-VA Documented by: SILVIO DA SILVA nted at: [facility] [facility] LOSARTAN POTASSIUM 100MG TAB Active TAKE ONE TA BLET BY MOUTH ONCE A DAY FOR BLOOD PRESSURE. 90 Dec 25, 2020 [id number] Dec 27, [address] [facility] [facility] LOS[place]AN POTASSIUM 100MG TAB Discontinued TAKE ONE TA BLET BY MOUTH ONCE A DAY FOR BLOOD PRESSURE. 90 May 04, 2020 [id number] Sep 21, [address] [facility] [place] [facility] LOVASTATIN 40MG TAB Discontinued TAKE ONE TABLET BY M OUTH EVERY EVENING WITH SUPPER FOR CHOLESTEROL - REPORT ANY UNEXPLAINED MUSCLE PAIN/WEAKNESS TO YOUR PROVIDER 90 May 04, 2020 [id number] Sep 21, 2019 GINNA ALFRED JR E [facility] [place] [facility] MELOXICAM 15MG TAB Discontinued TAKE ONE TABLET BY M OUTH ONCE A DAY WITH FOOD FOR PAIN AND INFLAMMATION. 30 May 04, 2020 [id number] May 04, 2019 GINNA [address] [facility] [place] [facility] METFORMIN HCL 500MG 24HR TAB,SA Non-VA TAKE TWO TABLETS BY MOUTH EVERY EVENING BEFORE SUPPER Non-VA Documented by: GINNA ALFRED JR nted at: [facility] [place] [facility] OMEPRAZOLE 20MG CAP,EC Active TAKE 1 CAPSULE BY MOUTH EVERY MORNING 30 MINUTES BEFORE EATING TO LOWER STOMACH ACID 90 Dec 25, 2020 [id number] Dec 162019 GINNA ALFRED JR [facility] OMEPRAZOLE 20MG CAP,EC Discontinued TAKE 1 CAPSULE BY MOUTH EVERY MORNING 30 MINUTES BEFORE EATING TO LOWER STOMACH ACID 90 May 04, 2020 [id number] Sep 21, 2019 [address] [facility] [place] [facility] OMEPRAZOLE 20MG CAP,EC N on-VA TAKE 1 CAPSULE BY MOUTH EVERY MORNING Non-VA Documented by: SILVIO DA SILVA nted at: [facility] ROSUVASTATIN CA 40MG TAB Active TAKE ONE-HALF T ABLET BY MOUTH AT BEDTIME FOR CHOLESTEROL. REPORT ANY UNEXPLAINED MUSCLE PAIN OR WEAKNESS TO YOUR DOCTOR. 45 Dec 25, 2020 [id number] Dec 27, 2019 TROUGINNA GILBERT [facility] [place] [facility] Problems (Conditions): All historical and current Section Date Range: From patient's date of to the date document was create d. This section includes a list of Problems (Conditions) know n to [facility] for the patient. It includes both active and inacti ve problems (conditions). The data comes from all ID treatment facilities. Problem Status Problem Code Date of Onset Date of Resolution Comm ent(s) Provider Source Essential hypertension Active [id number] Tacho DALALIrais [facility] [place] [facility] Gastroesophageal reflux disease (SNOMED CT 233931499) Active 838600 009 MASTERGINNA GILBERT [facility] [place] [facility] Hearing loss (SNOMED CT 91461506) Active 55268526 [facility] [place] [facility] Hypercholesterolemia Active 72688401 [facility]LA [facility] [place] [facility] Hyperlipidemia Active 64120498 [facility] [place] [facility] Muscle pain Active 96224576 [facility] [place] [facility] Obesity (SNOMED CT 042569036) Active 414441577 [facility] [place] [facility] Osteoarthritis (SNOMED CT 260969117) Active 109450640 [facility] [place] [facility] Personal History of Colonic Polyps (ICD-9-CM V12.72) Active V12.72 [facility] [facility] Sleep apnea (SNOMED CT 64803794) Active 14045215 [facility] [place] [facility] Type 2 diabetes mellitus Active 12307840 [facility] [place] [facility] Vitamin D deficiency (SNOMED CT 50935421) Active 78407537 [facility] [place] [facility] Actinic keratosis (SNOMED CT 766087096) Inactive 702.0 Feb 01, 2019 DALAL,PRITI [facility] [place] [facility] Dizziness * (ICD-9-CM 780.4) Inactive 780.4 Feb 01, [address] [facility] [place] [facility] Dyslipidemia (ICD-9-CM 272.4) Inactive 272.4 Feb 01, [address] [facility] [place] [facility] Hyperglycemia * (ICD-9-CM 790.29) Inactive 790.29 [facility] [place] [facility] Hypertension * (ICD-9-CM 401.9) Inactive 401.9 Feb 01, [address] [facility] [place] [facility] Impaired FASTING Glucose (ICD-9-CM 790.21) Inactive 790.21 Feb 01, 2019 ESEQUIEL SAMANIEGO [facility] [place] [facility] Obesity * (ICD-9-CM 278.00) Inactive 278.00 Feb 01, 2019 LUZ MARIA H[address]WICK [facility] [place] [facility] OSTEOARTHRITIS HAND Inactive 715.14 Feb 01, 2019 Aug 29, 2007 Entered By: SOULEYMANE MANCILLA Comment: wrist SOULEYMANE MANCILLA [facility] [place] [facility] IV Other Seborrheic Keratosis (ICD-9-CM 702.19) Inactive 702.19 Feb 01, 2019 [facility] [place] [facility] Other tenosynovitis of hand and wrist (ICD-9-CM 727.05) Inactive 727.05 Feb 01, 2019 ESEQUIEL SAMANIEGO [facility] [place] [facility] Rhinitis * (ICD-9-CM 472.0) Inactive 472.0 Feb 01, [address] [facility] [place] [facility] Screening, Malignancy Inactive V76.89 Feb 01, [address] [facility] [place] [facility] Trigger Finger (ICD-9-CM 727.03) Inactive 727.03 Feb 01, 2019 [facility] [place] [facility] Umbilical hernia * (ICD-9-CM 553.1) Inactive 553.1 Feb 01, [address] [facility] [place] [facility] Radiology Reports: +/- 30 days of the encounter No Data Provided for This Section Pathology Reports: +/- 30 days of the encounter No Data Provided for This Section Encounter Notes: All associated encounter notes This section contains the clinical notes associated to the Encounter. Date/Time Encounter Note(s) Provider Source Jan 24, 2020 11:15 AM ADVANCE DIRECTIVE DISCUSSION : LOCAL TITLE: ADVANCE DIRECTIVE DISCUSSION STANDARD TITLE: ADVANCE DIRECTIVE DISCUSSION DATE OF NOTE: JAN 24, 2020@11:15 ENTRY DATE: JAN 24, 2020@11:15:49 AUTHOR: ROXANNA JOSHUA EXP COSIGNER: URGENCY: STATUS: COMPLETED provided education on [facility] advance directives to the . Hewitt took the advance directives document home with him. SW asked the to return the form back to this if he decides to fill out the advance directives. /es/ ROXANNA JOSHUA [facility] Signed: 01/24/2020 11:17 ROXANNA JOSHUA [facility]
--- OUTSIDE RECORDS SUMMARY | 2020-05-21 07:04 | XMS REPORT | Encounter Summary ---
Author Author [facility] BRENT fernandez Organization [facility] Address [address] [place] [address] Phone Unavailable Care Team Providers Care Director Visual Name Role Phone MICHAELJULIA PCP Unavailable Insurance [...] PART B May 15, 2013 PART B [id number] [phone] BRENT CONCE[employer] PATIENT MEDICARE (WNR) MEDICARE (M) PART B May 15, 2013 PART B [id number] BRENT [employer] PATIENT MEDICARE (WNR) MEDICARE (M) PART A Dec 16, 2011 PART A [id number] [phone] BRENT CONCEPCION PATIENT MEDICARE (WNR) MEDICARE (M) PART A Dec 16, 2011 PART A [id number] CONCEPCION,CARL PATIENT [facility] INSURANCE MEDIGAP PLAN F MEDICARE SUPPLEMENT Jun 15, 2013 PLAN F [id number] [phone] CARLENEBRENT PATIENT Selected Encounter This section includes the information on record at [place] for the Encounter. Date/Time Encounter Type Encounter Description Reason Provider Source Dec 25, 2019 11:30 AM OFFICE/OUTPATIENT VISIT EST PRIMARY CARE/M EDICINE ICD-10-CM E11.9 Type 2 diabetes mellitus without complications with Provider Comments: Type 2 Diabetes Mellitus without Complications GINNA ALFRED JR [facility] [place] IHE Encounter Template Text not used by VA Assessments - Encounter Diagnoses This section includes the primary and secondary diag noses documented for the Encounter. Date/Time Primary/Secondary Diagnosis Diagnosis Name Provider Source Jan 08, 2020 10:28 AM PRIMARY Type 2 diabetes mellitus w ithout complications TORRES CENTENO [facility] [place] Jan 08, 2020 10:28 AM PRIMARY Type 2 diabetes mellitus w ithout complications TORRES CENTENO [facility] [place] [facility] Jan 08, 2020 10:28 AM PRIMARY Type 2 diabetes mellitus w ithout complications TORRES CENTENO [facility] [place] [facility] Jan 08, 2020 10:28 AM PRIMARY Type 2 diabetes mellitus w ithout complications TORRES CENTENO [facility] [place] [facility] Jan 08, 2020 10:28 AM PRIMARY Type 2 diabetes mellitus w ithout complications TORRES CENTENO [facility] [place] [facility] Jan 08, 2020 10:28 AM SECONDARY Bilateral primary osteoart hritis of hip TORRES CENTENO [facility] [place] [facility] Jan 08, 2020 10:28 AM SECONDARY Bilateral primary osteoart hritis of hip TORRES CENTENO [facility] [place] [facility] Jan 08, 2020 10:28 AM SECONDARY Bilateral primary osteoart hritis of hip TORRES CENTENO [facility] [place] [facility] Jan 08, 2020 10:28 AM SECONDARY Bilateral primary osteoart hritis of hip TORRES CENTENO [facility] [place] [facility] Jan 08, 2020 10:28 AM SECONDARY Bilateral primary osteoart hritis of knee TORRES CENTENO [facility] [place] [facility] Jan 08, 2020 10:28 AM SECONDARY Bilateral primary osteoart hritis of knee TORRES CENTENO [facility] [place] [facility] Jan 08, 2020 10:28 AM SECONDARY Bilateral primary osteoart hritis of knee TORRES CENTENO [facility] [place] [facility] Jan 08, 2020 10:28 AM SECONDARY Bilateral primary osteoart hritis of knee TORRES CENTENO [facility] [place] [facility] Jan 08, 2020 10:28 AM SECONDARY Bilateral primary osteoart hritis of knee TORRES CENTENO [facility] [place] [facility] Jan 08, 2020 10:28 AM SECONDARY Body mass index (BMI) 36.0 -36.9, adult TORRES CENTENO [facility] [place] [facility] Jan 08, 2020 10:28 AM SECONDARY Body mass index (BMI) 36.0 -36.9, adult TORRES CENTENO [facility] [place] [facility] Jan 08, 2020 10:28 AM SECONDARY Body mass index (BMI) 36.0 -36.9, adult TORRES CENTENO [facility] [place] [facility] Jan 08, 2020 10:28 AM SECONDARY Body mass index (BMI) 36.0 -36.9, adult TORRES CENTENO [facility] [place] [facility] Jan 08, 2020 10:28 AM SECONDARY Cardiac murmur, unspecified BOWM AN,TORRES Braxton [facility] [place] [facility] Jan 08, 2020 10:28 AM SECONDARY Cardiac murmur, unspecified BOWM AN,TORRES [facility] [place] [facility] Jan 08, 2020 10:28 AM SECONDARY Cardiac murmur, unspecified BOWM AN,TORRES [facility] [place] [facility] Jan 08, 2020 10:28 AM SECONDARY Cardiac murmur, unspecified BOWM AN,TORRES [facility] [place] [facility] Jan 08, 2020 10:28 AM SECONDARY Cardiac murmur, unspecified BOWM AN,TORRES Braxton [facility] [place] [facility] Jan 08, 2020 10:28 AM SECONDARY Encounter for immunization BOWMA N,TORRES Braxton [facility] [place] [facility] Jan 08, 2020 10:28 AM SECONDARY Encounter for immunization BOWMA N,TORRES Braxton [facility] [place] [facility] Jan 08, 2020 10:28 AM SECONDARY Encounter for immunization BOWMA N,TORRES Braxton [facility] [place] [facility] Jan 08, 2020 10:28 AM SECONDARY Encounter for immunization BOWMA N,TORRES Braxton [facility] [place] [facility] Jan 08, 2020 10:28 AM SECONDARY Essential (primary) hypert ension TORRES CENTENO [facility] [place] [facility] Jan 08, 2020 10:28 AM SECONDARY Essential (primary) hypert ension TORRES CENTENO [facility] [place] [facility] Jan 08, 2020 10:28 AM SECONDARY Essential (primary) hypert ension TORRES CENTENO [facility] [place] [facility] Jan 08, 2020 10:28 AM SECONDARY Essential (primary) hypert ension TORRES CENTENO [facility] Jan 08, 2020 10:28 AM SECONDARY Essential (primary) hypert ension TORRES CENTENO [facility] Jan 08, 2020 10:28 AM SECONDARY Familial hypercholesterolemia KIRSTIN TORRES RAMSAY [facility] Jan 08, 2020 10:28 AM SECONDARY Gastro-esophageal reflux disease without esophagitis CENTENOT[facility]RES BOOTH [facility] Jan 08, 2020 10:28 AM SECONDARY Gastro-esophageal reflux disease without esophagitis TORRES CENTENO [facility] Jan 08, 2020 10:28 AM SECONDARY Gastro-esophageal reflux disease without esophagitis TORRES CENTENO [facility] Jan 08, 2020 10:28 AM SECONDARY Gastro-esophageal reflux disease without esophagitis TORRES CENTENO [facility] Jan 08, 2020 10:28 AM SECONDARY Gastro-esophageal reflux disease without esophagitis TORRES CENTENO [facility] Jan 08, 2020 10:28 AM SECONDARY Hyperlipidemia, unspecified BOWM AN,TORRES [facility] Jan 08, 2020 10:28 AM SECONDARY Hyperlipidemia, unspecified BOWM AN,TORRES [facility] Jan 08, 2020 10:28 AM SECONDARY Hyperlipidemia, unspecified BOWM AN,TORRES [facility] Jan 08, 2020 10:28 AM SECONDARY Hyperlipidemia, unspecified BOWM AN,[facility] Jan 08, 2020 10:28 AM SECONDARY Obesity, unspecified CENTENO,VICT ORIA [facility] Jan 08, 2020 10:28 AM SECONDARY Obesity, unspecified CENTENO,VICT ORIA [facility] Jan 08, 2020 10:28 AM SECONDARY Obesity, unspecified CENTENO,VICT ORIA [facility] Jan 08, 2020 10:28 AM SECONDARY Obesity, unspecified CENTENO,VICT ORIA [facility] Jan 08, 2020 10:28 AM SECONDARY Obesity, unspecified CENTENO,VICT ORIA [facility] Jan 08, 2020 10:28 AM SECONDARY Obstructive sleep apnea (a dult) (pediatric) TORRES CENTENO [facility] [place] [facility] Jan 08, 2020 10:28 AM SECONDARY Obstructive sleep apnea (a dult) (pediatric) [facility] C[facility]ENO [facility] [place] [facility] Jan 08, 2020 10:28 AM SECONDARY Obstructive sleep apnea (a dult) (pediatric) TORRES CENTENO [facility] [place] [facility] Jan 08, 2020 10:28 AM SECONDARY Obstructive sleep apnea (a dult) (pediatric) [facility] C[facility] [place] [facility] [place] [facility] Jan 08, 2020 10:28 AM SECONDARY Sensorineural hearing loss , bilateral TORRES CENTENO [facility] [place] [facility] Jan 08, 2020 10:28 AM SECONDARY Sensorineural hearing loss , bilateral TORRES CENTENO [facility] [place] [facility] Jan 08, 2020 10:28 AM SECONDARY Sensorineural hearing loss , bilateral TORRES CENTENO [facility] [place] [facility] Jan 08, 2020 10:28 AM SECONDARY Sensorineural hearing loss , bilateral TORRES CENTENO [facility] [place] [facility] Jan 08, 2020 10:28 AM SECONDARY Sensorineural hearing loss , bilateral TORRES CENTENO [facility] [place] [facility] Jan 08, 2020 10:28 AM SECONDARY Sleep apnea, unspecified TORRES CENTENO [facility] [place] [facility] Jan 08, 2020 10:28 AM SECONDARY Vitamin D deficiency, unsp ecified TORRES CENTENO [facility] [place] [facility] Jan 08, 2020 10:28 AM SECONDARY Vitamin D deficiency, unsp ecified TORRES CENTENO [facility] [place] [facility] Jan 08, 2020 10:28 AM SECONDARY Vitamin D deficiency, unsp ecified TORRES CENTENO [facility] [place] [facility] Jan 08, 2020 10:28 AM SECONDARY Vitamin D deficiency, unsp ecified TORRES CENTENO [facility] [place] [facility] Jan 08, 2020 10:28 AM SECONDARY Vitamin D deficiency, unsp ecified TORRES CENTENO [facility] [place] [facility] Plan of Treatment: Future Appointments (+ 6 months) and Future Tests (+/- 45 day s) The Plan of Treatment section includes future care activities for the patient fr om all [facility] treatment facilities. This section includes future appointments and fu ture orders which are active, pending or scheduled. Future Appointments This section includes appointments that were scheduled t o occur 6 months from the date of the Encounter, up to a maximum of 20 appointme nts. The data comes from all [place] treatment facilities. Appointment Date/Time Appointment Type Appointment Facili ty Name Jan 24, 2020 10:00 AM AMBULATORY - MEDICINE [facility] Jan 24, 2020 10:30 AM AMBULATORY - NONE [facility] April 04, 2020 11:15 AM [...] the Encounter. The data comes from all [facility]. Test Date/Time Test Type Test Details Facility Name Dec 25, 2019 12:09 PM Consult Order [facility]- DERMATOLOGY-[id number] Cons Agency [facility] [place] Surgical Procedures: All associated to the encounter No Data Provided for This Section Lab Results: +/- 30 days of the encounter This section includes the Chemistry and Hematology Lab R esults on record with [place] for the patient. Radiology Reports and Pathology Report s are provided separately, in subsequent sections. Lab Results This section contains the Chemistry/Hematology Results harmony t were resulted 30 days before or 30 days after the date of the Encounter. Date/Time Source Result Type Result - Unit Interpretation Reference Range Comment Jan 24, 2020 09:25 AM [facility] HEMOGLOBIN A1C Specimen Type: BLOOD No comment entered. HEMOGLOBIN A1C 6.5 % H 4.0-6.0 Jan 24, 2020 09:25 AM [facility] URINALYSIS Specimen Type: URINE No [...] Negative Negative Jan 24, 2020 09:25 AM [facility] MICROALBUMIN (BARI,WI) ANIBALO M URINE Specimen Type: URINE No comment entered. *MICROALBUMIN,RAND 26 ug/mL *MICROALB/CREAT 20 mcg/mg cr *UR CREATININE 130.7 mg/dL Not Available Jan 24, 2020 09:25 AM [employer] VITAMIN D (25-OH) Specimen Type: SERUM No comment entered. VITAMIN D (25-OH) 23.6 ng/mL L 30.0-96.0 Jan 24, 2020 09:25 AM [facility] HCV-AB Specimen Type: SERUM No comment entered. HCV-AB NonReactive Nonreactive Jan 24, 2020 09:25 AM NER[facility] CBC & DIFF Specimen Type: BLOOD No [...] % Jan 24, 2020 09:25 AM NER[facility] COMPREHENSIVE METABOLIC PA YESSY Specimen Type: [...] EGFR >60 Jan 24, 2020 09:25 AM [employer] LIPID PROFILE(HDL,TRIG,CHO L,LDL) Specimen Type: PLASMA Comment: [...] uIU/mL 0.47-5.00 Jan 24, 2020 09:25 AM [facility] PROSTATIC SPECIFIC ANTIGEN (TOTAL) Specimen Type: SERUM No comment entered. PROSTATIC SPECIFIC ANTIGEN(TOTAL) 1.4 ng/mL 0-4 Dec 25, 2019 09:12 AM [facility] [place] [facility] CBC & DIFF Specimen Type: [...] 0.2 % Dec 25, 2019 09:12 AM [facility] [employer] COMPREHENSIVE OH TABOLIC PANEL Specimen Type: PLASMA No comment [...] EGFR 104.0 Dec 25, 2019 09:12 AM [facility] [employer] LIPID PROFIL E(HDL,TRIG,CHOL,LDL) Sp ecimen Type: PLASMA No comment entered. CHOLESTEROL 193 mg/dL 0-200 TRIGS 162 mg/dL H 0-150 HDL-CHOLESTEROL 50 mg/dL >40 LDL (CALC) 110.6 mg/dL H 0-99.9 Dec 25, 2019 09:12 AM [facility] [employer] PROSTATIC SP ECIFIC ANTIGEN(TOTAL) Sp ecimen Type: SERUM No comment entered. PROSTATIC SPECIFIC ANTIGEN(TOTAL) 1.57 ng/mL 0-4 Dec 25, 2019 09:12 AM [facility] [employer] URINALYSIS Specimen Type: URINE No comment entered. URINE COLOR Yellow SPECIFIC GRAVITY 1.024 1.005-1.030 UROBILINOGEN Negative mg/dL 0.1-1.0 URINE BILIRUBIN Negative Negative URINE KETONES Negative mg/dl Negative URINE GLUCOSE Negative mg/dL Negative URINE PROTEIN Negative mg/dl Negative-Tr mary URINE PH 5.0 5-8 APPEARANCE,URINE Clear Clear URINE BLOOD Negative Negative URINE NITRITE Negative Negative LEUKOCYTE ESTERASE Negative Negative Dec 25, 2019 09:12 AM [facility] TSH Specimen Type: SERUM No comment entered. TSH 1.37 uIU/mL 0.47-5.00 Dec 25, 2019 09:12 AM [facility] HEMOGLOBIN A1C Specimen Type: BLOOD No comment entered. HEMOGLOBIN A1C 6.5 % H 4.0-6.0 Dec 25, 2019 09:12 AM [facility] MICROALBUMIN (CO ,EK) Specimen Type: URINE No comment entered. *MICROALBUMIN(CONC) 1.7 mg/dL - *MICROALBUMIN(SPOT) 12.4 mcg/mg cr 0-29 *CREATININE mg/dL 137.6 mg/dl Not Avail. Dec 25, 2019 09:12 AM [facility] VITAMIN D (25-OH ) Specimen Type: SERUM No comment entered. VITAMIN D (25-OH) 26.0 ng/mL L 30.0-96.0 Vital Signs: All taken on the encounter date This section contains inpatient and outpatient Vital Signs collected on the date of the Encounter. Date/Time Temperature Pulse Blood Pressure Respiratory Rate SP02 Pa in Height Weight Body Mass Index Source Dec 25, 2019 11:52 AM 66.75 in [facility] Dec 25, 2019 11:39 AM 97.2 F 78 /min 138/62 mm[Hg] 16 /min 97 % 1 234.5 lb 36 [facility] Immunizations: All administered on the encounter date This section contains immunizations associated to the Encounter. Immunization Series Date Issued Reaction Comments ZOSTER RECOMBINANT 2 Dec 25, 2019 Social History: Smoking Status (Most current) and Tobacco Use (All prior to enco unter date) This section includes the most current, and the historical, smoking and tobacco- related health factors from the [place] facility where the Encounter took place. Current Smoking Status This section includes the most current smoking, or tobacco -related health factor, from the [place] facility where the Encounter took place. Date/Time Current Smoking Status Comment Facility Jan 23, 2019 01:31 PM VA-TOBACCO FORMER USER [facility] [place] [facility] Tobacco Use History This section includes a history of the smoking, or tobacco -related health factors, that were collected on or before the date of the Encoun ter. The data comes from the [place] facility where the Encounter took place. Date/Time Smoking Status/Tobacco Use Comment Gamaliel vo Jan 23, 2019 01:31 PM VA-TOBACCO QUIT 15 YRS OR MORE MARIA INES [facility] [place] Mar 13, 2016 10:38 AM CURRENT NON-TOBACCO USER [facility] [place] [facility] Jan 23, 2015 11:08 AM CURRENT NON-TOBACCO USER [facility] [place] [facility] Feb 02, 2013 10:27 AM CURRENT NON-TOBACCO USER [facility] [place] [facility] Jan 05, 2012 01:10 PM CURRENT NON-TOBACCO USER [facility] [place] [facility] Jul 04, 2010 10:03 AM EK-NON TOBACCO USE PAST 12 MO [facility] [place] [facility] Jan 14, 2009 03:55 PM EK-NON TOBACCO USE PAST 12 MO [facility] [place] [facility] Advance Directives: All historical [...] docume nt. The data comes from all [place] facilities. Date Advance Directives Provider Source Jan 24, 2020 ADVANCE DIRECTIVE DISCUSSION ROXANNA JOSHUA [facility] Allergies and Adverse Reactions (ADRs): All historical and current Section Date Range: From patient's date of to the date document was create d. This section includes Allergies and Adverse Reactions (ADR s) on record with VA for the patient. The data comes from a ll [place] treatment facilities. It does not list Allergies/ADRs that were removed or entered in error. Some allergies/ADRs may be reported in t he Immunization section. Allergen Event Date Event Type Reaction(s) Severity Source LISINOPRIL March 27, 2008 Propensity to adverse reactions to drug (disorder) Cough [facility], VISN 15 ZOCOR Oct 24, 2007 Propensity to adverse reactions to drug ( disorder) Syncope [facility] V[facility]N 15 Medications: VA dispensed (-15 months) and Non-VA Documented (Obtained Outside V A) Section Date Range: 1) prescriptions processed by a VA pharmacy in the last 15 m [facility], and 2) all medications recorded in the VA medical record as "non-VA medic ations". Pharmacy terms refer to VA pharmacy's work on prescriptions. VA patient s are advised to take their medications as instructed by their health care team. The data comes from all [place] treatment facilities. Glossary of Pharmacy Terms:Active = A prescription that can be filled at the local VA pharmacy.Active: On Hold = An active prescription that will not be filled until pharmacy resolves the issue.Active: Susp = An active prescription that is not scheduled to be filled yet.Clinic Order = A medication received during a visit to a [place] clinic or emergency department (currently not available).Discontinued [...] MOUTH EVERY MORNING 90 May 04, 2020 [id number] Sep 21, 2019 GINNA ALFRED JR [facility] [place] ASPIRIN 81MG TAB,EC Non- VA TAKE ONE TABLET BY MOUTH ONCE A DAY Non-VA Documented by: SILVIO DA SILVA nted at: [facility] [place] BUMETANIDE 1MG TAB Discontinued TAKE TWO TABLETS BY MOUTH EVERY MOR MAXINE 180 May 04, 2020 [id number] May 04, [address] [facility] [place] CARVEDILOL 12.5MG TAB Active TAKE ONE-HALF TABL ET BY MOUTH TWO TIMES A DAY FOR HEART. TAKE WITH FOOD. NOTE: EACH DOSE IS 1/2 TABLET 90 Dec 25 [id number] Dec 27, 2019 GINNA ALFRED JR [facility] [place] [facility] CARVEDILOL 12.5MG TAB Discontinued TAKE ONE-HALF TABL ET BY MOUTH TWO TIMES A DAY FOR HEART. TAKE WITH FOOD. NOTE: EACH DOSE IS 1/2 TABLET 90 Ju 2019 [id number] Sep 21, 2019 GINNA ALFRED JR [facility] [place] [facility] CHOLECALCIFEROL 10MCG (400UNIT) TAB Active TAKE TWO TABLETS BY MOUTH ONCE A DAY FOR VITAMIN D DEFICIENCY 200 Feb 01, 2021 [id number] Feb 03, 2020 DANA LEJULIA [facility] COLESTIPOL HCL 1GM TAB Discontinued TAKE ONE TABLET B Y MOUTH THREE TIMES A DAY - TAKE ONE HOUR AFTER OR FOUR HOURS BEFORE OTHER MEDICATIONS *DO NOT CHEW OR CRUSH* 270 May 04, 2020 [id number] Dec 19, 2019 GINNA ALFRED JR [facility] [place] [facility] FISH OIL CAP/TAB Non- VA 3 CAPS MOUTH ONCE A DAY Non-V A Documented by: SILVIO DA SILVA nted at: [facility] [place] [facility] HYDROCHLOROTHIAZIDE 25MG TAB Non-VA TAKE ONE TABLET BY MOUTH EVERY MORNING Non-VA Documented by: GINNA ALFRED JR nted at: [facility] [place] [facility] LORATADINE 10MG TAB Non- VA TAKE ONE TABLET BY MOUTH QDAY PRN Non-VA Documented by: SILVIO DA SILVA nted at: [facility] [place] [facility] [place]AN POTASSIUM 100MG TAB Active TAKE ONE TA BLET BY MOUTH ONCE A DAY FOR BLOOD PRESSURE. 90 Dec 25, 2020 [id number] Dec 27, 2019 GINNA ALFRED JR [facility] [place] [facility] [place] POTASSIUM 100MG TAB Discontinued TAKE ONE TA BLET BY MOUTH ONCE A DAY FOR BLOOD PRESSURE. 90 May 04, 2020 [id number] Sep 21, 2019 LAURIE ALFRED JR [facility] [place] [facility] LOVASTATIN 40MG TAB Discontinued TAKE ONE TABLET BY M OUTH EVERY EVENING WITH SUPPER FOR CHOLESTEROL - REPORT ANY UNEXPLAINED MUSCLE PAIN/WEAKNESS TO YOUR PROVIDER 90 May 04, 2020 [id number] Sep 21, 2019 GINNA ALFRED JR [facility] [place] [facility] MELOXICAM 15MG TAB Discontinued TAKE ONE TABLET BY Ellen TELLO ONCE A DAY WITH FOOD FOR PAIN AND INFLAMMATION. 30 May 04, 2020 [id number] May 04, 2019 GINNA PORTILLO JR [facility] [place] [facility] METFORMIN HCL 500MG 24HR TAB,SA Non-VA TAKE TWO TABLETS BY MOUTH EVERY EVENING BEFORE SUPPER Non-VA Documented by: GINNA ALFRED JRume nted at: [facility] [place] [facility] OMEPRAZOLE 20MG CAP,EC Active TAKE 1 CAPSULE BY MOUTH EVERY MORNING 30 MINUTES BEFORE EATING TO LOWER STOMACH ACID 90 Dec 25, 2020 [id number] Dec 162019 GINNA ALFRED JR [facility] [place] [facility] OMEPRAZOLE 20MG CAP,EC Discontinued TAKE 1 CAPSULE BY MOUTH EVERY MORNING 30 MINUTES BEFORE EATING TO LOWER STOMACH ACID 90 May 04, 2020 [id number] Sep 21, 2019 GINNA ALFRED JR [facility] [place] [facility] OMEPRAZOLE 20MG CAP,EC N on-VA TAKE 1 CAPSULE BY MOUTH EVERY MORNING Non-VA Documented by: SILVIO DA [facility] ROSUVASTATIN CA 40MG TAB Active TAKE ONE-HALF T ABLET BY MOUTH AT BEDTIME FOR CHOLESTEROL. REPORT ANY UNEXPLAINED MUSCLE PAIN OR WEAKNESS TO YOUR DOCTOR. 45 Dec 25, 2020 [id number] Dec 27, 2019 GINNA ALFRED JR [facility] [place] Problems (Conditions): All historical [...] Comm ent(s) Provider Source Essential hypertension Active [id number] Tacho DALAL [facility] [place] Gastroesophageal reflux disease (SNOMED CT 182395740) Active [id number] GINNA ALFRED JR [facility] [place] [facility] Hearing loss (SNOMED CT 40298888) Active [id number] GINNA ALFRED JR [facility] [place] [facility] Hypercholesterolemia Active [id number] LAYLA ALFRED JR [facility] [place] [facility] Hyperlipidemia Active [id number] VALERIA GREY [facility] [place] [facility] Muscle pain Active [id number] KAROLINA [facility] [place] Obesity (SNOMED CT 382040895) Active [id number] GINNA ALFRED [facility] [place] Osteoarthritis (SNOMED CT 231898740) Active [id number] GINNA ALFRED [facility] [place] Personal History of Colonic Polyps (ICD-9-CM V12.72) Active V12.72 [facility] [place] [facility] Sleep apnea (SNOMED CT 21447880) Active [id number] GINNA ALFRED [facility] [place] Type 2 diabetes mellitus Active 17023186 MASTER GINNA [facility] [place] Vitamin D deficiency (SNOMED CT 73901230) Active 58241889 GINNA ALFRED [facility] [place] Actinic keratosis (SNOMED CT 487554066) Inactive 702.0 Feb 01, 2019 KAROLINA [facility] [place] Dizziness * (ICD-9-CM 780.4) Inactive 780.4 Feb 01, 2019 [facility] [place] Dyslipidemia (ICD-9-CM 272.4) Inactive 272.4 Feb 01, 2019 CH[place],[facility] [place] Hyperglycemia * (ICD-9-CM 790.29) Inactive 790.29 Jan [facility] [place] Hypertension * (ICD-9-CM 401.9) Inactive 401.9 Feb 01, 2019 LEISURE,[facility] [place] Impaired FASTING Glucose (ICD-9-CM 790.21) Inactive 790.21 Feb 01, 2019 ESEQUIEL SAMANIEGO [facility] [place] [facility] Obesity * (ICD-9-CM 278.00) Inactive 278.00 Feb 01, 2019 LUZ MARIA HARDWICK [facility] [place] [facility] OSTEOARTHRITIS HAND Inactive 715.14 Feb 01, 2019 Aug 29, 2007 Entered By: SOULEYMANE MANCILLA Comment: wrist SOULEYMANE MANCILLA [facility] [place] [facility] IV Other Seborrheic Keratosis (ICD-9-CM 702.19) Inactive 702.19 Feb 01, 2019 MIMI HAN [facility] [place] [facility] Other tenosynovitis of hand and wrist (ICD-9-CM 727.05) Inactive 727.05 Feb 01, 2019 ESEUQIEL SAMANIEGO [facility] [place] Rhinitis * (ICD-9-CM 472.0) Inactive 472.0 Feb 01, 2019 HERNANDO KELSEY [facility] [place] [facility] Screening, Malignancy Inactive V76.89 Feb 01, 2019 JAKEINDIRA BRUNER [facility] [place] [facility] Trigger Finger (ICD-9-CM 727.03) Inactive 727.03 Feb 01, 2019 MIMI HAN [facility] [place] [facility] Umbilical hernia * (ICD-9-CM 553.1) Inactive 553.1 Feb 01, 2019 YORDY WARE [facility] [place] [facility] Radiology Reports: +/- 30 days of the encounter No Data Provided for This Section Pathology Reports: +/- 30 days of the encounter No Data Provided for This Section Encounter Notes: All associated encounter notes This section contains the clinical notes associated to the Encounter. Date/Time Encounter Note(s) Provider Source Dec 25, 2019 11:50 AM NURSING OUTPATIENT NOTE: LOCAL TITLE: -NURSING CLINIC CHECK-IN STANDARD TITLE: NURSING OUTPATIENT NOTE DATE OF NOTE: DEC 25, 2019@11:50 ENTRY DATE: DEC 25, 2019@11:50:23 AUTHOR: EDWARD SALDANA COSIGNER: URGENCY: STATUS: COMPLETED Travel Screen: The patient indicated that they or their close contacts have not traveled outside of the [place] in the past 21 days. PRIMARY REASON FOR VISIT TODAY: routine with lab PATIENT'S GOAL/MISSION FOR THEIR HEALTH: ALLERGIES/ADR: ZOCOR, LISINOPRIL VITALS: DATE/TIME TEMP PULSE RESP BP PAIN WEIGHT PUL OX 12/25/19 @ 1139 97.2 78 16 138/62 1 234.5 97 MEDICATION RECONCILIATION: Copy of current medication list on file provided for patient. Instructed to compare with all medications they are currently taking, and to review /discuss discrepancies with provider. LEARNING ASSESSMENT: Patient's preferred language for discussing health care is: Mongolian Today's learning assessment regarding patient's readiness to learn. Patient reads well. Barriers to Learning: Vision barrier addressed by: patient eyeglasses in place. Preferred Method of Learning: Hands On/Doing Education provided as per documentation below: SCREENING FOR PAIN STATUS: Patient reported pain level as 1 (12/25/2019 11:39) on 0 to 10 scale. Pain Scale used: Numerical Pain Scale Patient states current level of pain is: Acceptable Location of pain that most interferes with your life: arthritis-joints Characteristics of pain: PAIN QUALITY: Other: Verbal Education Provided: To patient Understanding of education: Patient: Good Patient Support Member: Not applicable Barriers to Learning: Visual SCREENING FOR FALL RISK: Lim Fall Assessment History of Falling, immediate or within 3 months: 25 - Yes Has the patient fallen within the last 12 months? Yes Secondary Diagnosis: 15 - Yes, more than one diagnosis Ambulatory Aid: 0 - None, bed rest nurse assist Intravenous Therapy: 0 - No Patient's Gait: 0 - Normal, bed rest, immobile Mental Status: 0 - Oriented to own ability Total Score: 40 Moderate (25-44) Encourage use of non-slip footwear when ambulating SCREENING FOR ABUSE/NEGLECT: Do you have any concerns about feeling safe, neglected or abused? Patient reports feeling safe; denies concern of abuse or neglect. SECURE MESSAGING: Patient was invited/encouraged to utilize Secure Messaging for medication refill requests and other non-urgent communication. N:BMI Screen: * Height: 66.75 in [169.5 cm) N:Relationship Health and Safety: Ask the the following questions: In the past 12 months did a current or former intimate partner (e.g) boyfriend, girlfriend, , , sexual partner): Scream or curse at you No Insult or talk down to you No Threaten you with harm No Physically hurt you No Force or Pressure you to have sexual Contact against your will, or when you were Unable to say no No Note: If All no's provide with contact information for IPV Coordinator and National Domestic Violence Hotline 1-752-527-MYVW (2323) or www.[employer].org. N:Zoster Immunization: The patient received recombinant zoster vaccine (RZV) 0.5 ml IM in Left deltoid. Field Hauler: [employer] Lot#s and Expiration Date: N7F2 02/06/22,4Z432 07/10/22 Administered by protocol/policy Complications: None The VIS for the recombinant zoster vaccine (RZV) dated Aug was given to the patient. /kaley/ EDWARD SALDANA MICA PATCHER Signed: 12/25/2019 11:53 EDWARD SALDANA [facility] Dec 25, 2019 11:48 AM PRIMARY CARE NURSE PRACTITIO NER NOTE: LOCAL TITLE: EK-NURSE PRACTITIONER PC STANDARD TITLE: PRIMARY CARE NURSE PRACTITIONER NOTE DATE OF NOTE: DEC 25, 2019@11:48 ENTRY DATE: DEC 25, 2019@09:28:46 AUTHOR: GINNA ALFRED JR EXP COSIGNER: URGENCY: STATUS: COMPLETED REASON FOR VISIT: ROUTINE VISIT CC: NO HEALTH CONCERNS HPI: BRENT CONCEPCION (: Dec) 74 Y.O. WHITE MALE PRESENTS TO THE CLINIC TODAY FOR EVALUATION AND MANAGEMENT OF SELECT CONDITIONS LISTED IN THE PROBLEM LIST BELOW. PROBLEM LIST: Active Problem Gastroesophageal reflux disease (SNOMED CT 827054479) Personal History of Colonic Polyps (ICD-9-CM V12.72) Sleep apnea (SNOMED CT 29718811) Obesity (SNOMED CT 502391355) Osteoarthritis (SNOMED CT 956195793) Hearing loss (SNOMED CT 86109462) Vitamin D deficiency (SNOMED CT 46088162) Muscle pain Essential hypertension Hyperlipidemia Type 2 diabetes mellitus SURGICAL/PROCEDURE HX: AUG 21, 2008@10:35 Proc: COLONOSCOPY, MOD. SEDATION SOURCE(S) OF HISTORY: Patient and VA chart OUTSIDE PROVIDERS: PCP- Dr. Karthikeyan Lema MD Address: [address] [place] [address] PREVENTATIVE: COLONOSCOPY (STARTING AT AGE 52): DUE 2023 LAST DENTAL EXAM: 2016 LAST EYE EXAM: 3+ YEARS DIET: NO SPECIFIC DIET EXERCISE: NO EXERCISE REGIMEN HTN: DOES NOT CHECK B/P OUTSIDE OF OFFICE IMMUNIZATIONS: INFLUENZA, UNSPECIFIED FORMULATION done on OCT 2017 CURRENT ALLERGIES/DRUG REACTIONS: ZOCOR, LISINOPRIL SOCIAL HISTORY: TOBACCO USE- NO ALCOHOL USE- 1 DRINK/MONTH ILLICIT DRUGS USE- NO FAMILY HISTORY: F: IN 2005 FROM [place] M: IN 2013 FROM UNKNOWN CAUSE, HX OF DM SIBLINGS: 3 BROTHERS, 4 SISTERS MARITAL STATUS: TO [employer] OCCUPATION: [employer] 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 P:HIV Screening: Patient has been offered HIV testing and has declined. I have explained that HIV testing is recommended for all adults, even if all risk factors are absent. P:Outpt Medication Reconciliation: MEDICATION RECONCILIATION I have reviewed all medications the patient is taking with the patient and/or caregiver. This includes the Local Active VA prescriptions, Remote Active VA prescriptions, Non-VA Medications, recently VA prescriptions (90-180 days), recently discontinued VA prescriptions (90-180 days) and pending medication orders including over the counter and supplemental medications. I have made changes on the Active Outpatient Medication List and updated the Non-VA Medication List as appropriate. Patient was educated on the need to maintain a current medication list. Copy of medication list given to patient and/or caregiver. Patient verbalizes understanding: yes. P:Test Results Notification: The following tests results along with appropriate management plan were discussed with patient at this clinic visit: Lab results It is documented that patient verbalized understanding of results and/or actions required? Yes P:Zoster Screening: Patient has no obvious contraindications to the herpes zoster vaccine. MEDS: (as listed in CPRS): Active Inpatient and Outpatient Medications (including Supplies): Active Outpatient Medications Status 1) AMLODIPINE BESYLATE 10MG TAB TAKE O NE TABLET BY MOUTH HOLD EVERY MORNING 2) BUMETANIDE 1MG TAB TAKE TWO TABLETS BY MOUTH EVERY HOLD MORNING 3) CARVEDILOL 12.5MG TAB TAKE ONE-HALF TABLET BY MOUTH ACTIVE TWO TIMES A DAY FOR HEART. TAKE WITH FOOD. NOTE: EACH DOSE IS 1/2 TABLET 4) COLESTIPOL HCL 1GM TAB TAKE ONE TAB LET BY MOUTH THREE ACTIVE TIMES A DAY - TAKE ONE HOUR AFTER OR FOUR HOURS BEFORE OTHER MEDICATIONS *DO NOT CHEW OR CRUSH* 5) LOSARTAN 100MG TAB TAKE ONE TABLET BY MOUTH ONCE A ACTIVE DAY FOR BLOOD PRESSURE. 6) LOVASTATIN 40MG TAB TAKE ONE TABLET BY MOUTH EVERY ACTIVE EVENING WITH SUPPER FOR CHOLESTEROL - REPORT ANY UNEXPLAINED MUSCLE PAIN/WEAKNESS TO YOUR PROVIDER 7) MELOXICAM 15MG TAB TAKE ONE TABLET BY MOUTH ONCE A HOLD DAY WITH FOOD FOR PAIN AND INFLAMMATION. 8) OMEPRAZOLE 20MG EC CAP TAKE ONE CAP JEREMY BY MOUTH ACTIVE EVERY MORNING 30 MINUTES BEFORE EATING TO LOWER STOMACH ACID Active Non-VA Medications Status 1) Non-VA AMLODIPINE BESYLATE 10MG TAB 10MG MOUTH EVERY ACTIVE MORNING 2) Non-VA ASPIRIN 81MG EC TAB 81MG KATHLEEN TH ONCE A DAY ACTIVE 3) Non-VA COLESTIPOL HCL 1GM TAB 1GM M OUTH THREE TIMES A ACTIVE DAY 4) Non-VA FISH OIL CAP/TAB 3 CAPS MOUT H ONCE A DAY ACTIVE 5) Non-VA HYDROCHLOROTHIAZIDE 25MG TAB 25MG MOUTH EVERY ACTIVE MORNING 6) Non-VA LORATADINE 10MG TAB 10MG KATHLEEN TH ONCE A DAY ACTIVE NEEDED 7) Non-VA METFORMIN HCL 500MG 24HR SA TAB 1000MG MOUTH ACTIVE EVERY EVENING BEFORE SUPPER 8) Non-VA OMEPRAZOLE 20MG EC CAP 20MG MOUTH EVERY ACTIVE MORNING 16 Total Medications REVIEW OF SYSTEMS GENERAL: DENIES ANY ACUTE CHANGE IN HEALTH, UNEXPLAINED WEIGHT GAIN OR LOSS, FEVER OR CHILLS EARS: DENIES HEARING LOSS, DRAINAGE, PAIN, TINNITUS OR VERTIGO EYES: DENIES VISUAL CHANGES, PAIN, DRAINAGE, ITCHING OR BURNING NOSE: DENIES OBSTRUCTION, DISCHARGE OR BLEEDING MOUTH/THROAT: DENIES SORE THROAT, HOARSENESS, TROUBLE SWALLOWING OR PROBLEMS WITH TEETH NECK: DENIES PAIN AND STIFFNESS CHEST: DENIES COUGH, SPUTUM PRODUCTION, SOB OR CHEST WALL PAIN HEART: DENIES CHEST PAIN, SOB OR PALPITATIONS ABDOMEN: DENIES ABDOMINAL PAIN, NAUSEA OR VOMITING, OR CHANGE IN BOWEL HABITS MALE: DENIES PENILE DISCHARGE, PAIN, LESIONS, MASSES OR ERECTILE DYSFUNCTIONS RECTAL: DENIES PAIN, BLEEDING OR MASSES MUSCULO: DENIES CHANGES IN STRENGTH, JOINT SWELLING, REDNESS OR LOCAL HEAT : DENIES BURNING, FREQUENCY, PAINFUL URINATION, BLOOD IN URINE OR INCONTINENCE SKIN: DENIES RASHES OR MOLE CHANGES BACK: DENIES PAIN, DECREASED ROM OR INJURY NEURO: DENIES NUMBNESS, TINGLING, MENTAL CONFUSION OR UNSTEADY ON FEET PSYCH: DENIES DEPRESSION OR ANXIETY PHYSICAL EXAMINATION: GENERAL: APPEARS STATED AGE, WELL DEVELOPED, WELL NOURISHED, ORIENTED X 3 AND IN NO ACUTE DISTRESS EYES: PERRLA, CONJUNCTIVA AND SCLERA CLEAR, EOM INTACT, NO ACUTE VISUAL CHANGES EARS: CAN HEAR WORDS AT NORMAL VOICE, CANALS CLEAR, TM'S VISUALIZED, LANDMARKS CLEAR NOSE: AIRWAYS PATENT BILATERALLY, MEMBRANES NOT REDDENED OR SWOLLEN, NO MASSES OR DISCHARGE, NON-TENDER FRONTAL AND MAXILLARY SINUSES TO PALPATION MOUTH: TEETH AND GUMS IN GOOD REPAIR, TONGUE AND UVULA MIDLINE, MEMBRANES NOT REDDENED OR INJECTED NECK: SUPPLE, NO MASSES, THYROID NOT ENLARGED, NO SIGNIFICANT LYMPH NODE ENLARGEMENT, NO CAROTID BRUITS CHEST: CLEAR TO A&P, NO WHEEZING, RALES OR RHONCHI HEART: REGULAR RATE & RHYTHM, PMI 5TH ICS, NO S3, S4 OR MURMURS ABDOMEN: SOFT, NORMAL BOWEL SOUNDS, NO MASSES, NO TENDERNESS BACK: FULL ROM NO TENDERNESS NEURO: CN'S 2-12 INTACT SKIN: NO RASHES OR UNUSUAL MOLES PSYCH: MOOD NORMAL, NO SIGNS OF ANXIETY OR DEPRESSION Vitals: B/P: 138/62 (12/25/2019 11:39) Temp: 97.2 F [36.2 C] (12/25/2019 11:39) Pulse: 78 (12/25/2019 11:39) Resp: 16 (12/25/2019 11:39) Height: 67.5 in [171.5 cm] (02/01/2019 11:03) Weight: 234.5 lb [106.6 kg] (12/25/2019 11:39) Pain: 1 (12/25/2019 11:39) BMI: 36.3 LAB RESULTS FOR: DEC 25, 2019 - NONE FOUND LABS: REVIEWED, PT VERBALIZED UNDERSTANDING REPORTS: REVIEWED, PT VERBALIZED UNDERSTANDING ASSESSMENT/PLAN: -DM: AT GLYCEMIC GOAL CONTINUE MEDICATION ORDERED -GERD: STABLE CONTINUE MEDICATION ORDERED -HEARING LOSS: STABLE HEARING AIDES NOT PRESENT TODAY PT STATES DOES NOT LIKE TO WEAR CONTINUE SURVEILLANCE -HLD: NOT AT LIPIDEMIC GOAL DISCONTINUE MODERATE INTENSITY AND BILE ACID SEQ ADD HIGH INTENSITY STATIN CRESTOR 20MG CONTINUE MEDICATION ORDERED -HTN: CONTROLLED CONTINUE MEDICATION ORDERED -OA: KNEES BILAT, HIPS BILAT STABLE CONTINUE MEDICATION ORDERED -OBESITY: NOT AT GOAL RECOMMEND DIET, EXERCISE, WT REDUCTION CONTINUE SURVEILLANCE AND WT LOSS SUPPORT -MARISOL: DOES NOT WEAR CPAP RECOMMEND CPAP COMPLIANCE -MURMUR: STABLE S/P VALVE REPLACEMENT AT [facility] [id number] CONTINUE SURVEILLANCE -VIT D DEF: NOT AT GOAL INCREASE SUPPLEMENTATION ORDERED ICD10/SCT Diagnoses: Type 2 diabetes mellitus (SCT [id number]) - Type 2 diabetes mellitus without complications (ICD-10-CM E11.9) (Primary) Gastroesophageal reflux disease (SCT 072743090) - Gastro-esophageal reflux disease without esophagitis (ICD-10-CM K21.9) Hearing loss (SCT 15717935) - Sensorineural hearing loss, bilateral (ICD-10-CM H90.3) Hypercholesterolemia (SCT 08075701) - 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 PATIENT EDUCATED ON ALL MEDICATIONS AND ADVISED TO TAKE MEDICATIONS INSTRUCTED. ADVISED TO CALL CLINIC OR GO TO URGENT CARE WITH ANY PROBLEMS. PATIENT VOICED UNDERSTANDING. ++++++++++++++++++++++++++++++++++++++++ +++++++++++++++ PROVIDER ORDERS: RTC: 1 YR WITH LABS RTC PLACED ON CHART /es/ GINNA ALFRED JR NURSE PRACTITIONER Signed: 12/25/2019 12:10 GINNA ALFRED JR [facility]
--- OUTSIDE RECORDS SUMMARY | 2020-05-21 07:05 | XMS REPORT | Encounter Summary ---
Author Author [facility] Organization [facility] [place] Address [address] [place] [address] Phone Unavailable Care Team Providers Care Solderer Dipper Name Role Phone JULIA RODRIGUEZ PCP Unavailable [...] PART B May 15, 2013 PART B [id number] [facility] CONCEPCION PATIENT MEDICARE (WNR) MEDICARE (M) PART B May 15, 2013 PART B [id number] [facility] CONCEPCION PATIENT MEDICARE (WNR) MEDICARE (M) PART A Dec 16, 2011 PART A [id number] [facility] CONCEPCION PATIENT MEDICARE (WNR) MEDICARE (M) PART A Dec 16, 2011 PART A [id number] [phone] CONCEPCION,CARL PATIENT [facility] INSURANCE MEDIGAP PLAN F MEDICARE SUPPLEMENT Jun 15, 2013 PLAN F [id number] [phone] CARLENEBRENT PATIENT Selected Encounter This section includes the information on record at [place] for the Encounter. Date/Time Encounter Type Encounter Description Reason Provider Source Dec 21, 2019 03:18 PM Outpatient Encounter TELEPHONE PRIMARY CARE [facility] [facility] IHE Encounter Template Text not used by [place] Assessments - Encounter Diagnoses No Data Provided for This Section Plan of Treatment: Future Appointments (+ 6 months) and Future Tests (+/- 45 day s) The Plan of Treatment section includes future care activities for the patient fr om all [place] treatment facilities. This section includes future appointments and fu ture orders which are active, pending or scheduled. Future Appointments This section includes appointments that were scheduled t o occur 6 months from the date of the Encounter, up to a maximum of 20 appointme nts. The data comes from all [place] treatment [facility]. Appointment Date/Time Appointment Type Appointment Facili ty Name Dec 25, 2019 09:30 AM AMBULATORY - NONE [facility] Dec 25, 2019 11:30 AM AMBULATORY - MEDICINE [facility] [place] [facility] Jan 24, 2020 10:00 AM AMBULATORY - MEDICINE [facility] Jan 24, 2020 10:30 AM AMBULATORY - NONE [facility] April 04, 2020 11:15 AM AMBULATORY - NONE [facility]INSLEY IBARRA [facility] C Active, Pending, and Scheduled Orders This [...] the Encounter. The data comes from all [facility]. Test Date/Time Test Type Test Details Facility Name Dec 25, 2019 12:09 PM Consult Order [facility] DERMATOLOGY-[id number] Cons Police Judge's Choice [facility] Surgical Procedures: All associated to the encounter No Data Provided for This Section Lab Results: +/- 30 days of the encounter This section includes the Chemistry and Hematology Lab R esults on record with [place] for the patient. Radiology Reports and Pathology Report s are provided separately, in subsequent sections. Lab Results This section contains the Chemistry/Hematology Results harmony t were resulted 30 days before or 30 days after the date of the Encounter. Date/Time Source Result Type Result - Unit Interpretation Reference Range Comment Dec 25, 2019 09:12 AM [facility] CBC & DIFF Specimen Type: [...] 0.2 % Dec 25, 2019 09:12 AM [facility] [employer] [facility] COMPREHENSIVE ME TABOLIC PANEL Specimen Type: PLASMA [...] EGFR 104.0 Dec 25, 2019 09:12 AM [facility] [employer] LIPID PROFIL E(HDL,TRIG,CHOL,LDL) Sp ecimen Type: PLASMA No comment entered. CHOLESTEROL 193 mg/dL 0-200 TRIGS 162 mg/dL H 0-150 HDL-CHOLESTEROL 50 mg/dL >40 LDL (CALC) 110.6 mg/dL H 0-99.9 Dec 25, 2019 09:12 AM [facility] [employer] PROSTATIC SP ECIFIC ANTIGEN(TOTAL) Sp ecimen Type: SERUM No comment entered. PROSTATIC SPECIFIC ANTIGEN(TOTAL) 1.57 ng/mL 0-4 Dec 25, 2019 09:12 AM [facility] [employer] URINALYSIS Specimen Type: URINE No comment entered. URINE COLOR Yellow SPECIFIC GRAVITY 1.024 1.005-1.030 UROBILINOGEN Negative mg/dL 0.1-1.0 URINE BILIRUBIN Negative Negative URINE KETONES Negative mg/dl Negative URINE GLUCOSE Negative mg/dL Negative URINE PROTEIN Negative mg/dl Negative-Tr mary URINE PH 5.0 5-8 APPEARANCE,URINE Clear Clear URINE BLOOD Negative Negative URINE NITRITE Negative Negative LEUKOCYTE ESTERASE Negative Negative Dec 25, 2019 09:12 AM [facility] [employer] TSH Specimen Type: SERUM No comment entered. TSH 1.37 uIU/mL 0.47-5.00 Dec 25, 2019 09:12 AM [facility] [employer] HEMOGLOBIN A1C Specimen Type: BLOOD No comment entered. HEMOGLOBIN A1C 6.5 % H 4.0-6.0 Dec 25, 2019 09:12 AM [facility] [employer] MICROALBUMIN (CO ,EK) Specimen Type: URINE No comment entered. *MICROALBUMIN(CONC) 1.7 mg/dL - *MICROALBUMIN(SPOT) 12.4 mcg/mg cr 0-29 *CREATININE mg/dL 137.6 mg/dl Not Avail. Dec 25, 2019 09:12 AM [facility] [employer] VITAMIN D (25-OH ) Specimen Type: SERUM [...] and tobacco- related health factors from the [facility] where the Encounter took place. Current Smoking Status This section includes the most current smoking, or tobacco -related health factor, from the [place] facility where the Encounter took place. Date/Time Current Smoking Status Comment Facility Jan 23, 2019 01:31 PM VA-TOBACCO FORMER USER [facility] [facility] Tobacco Use History This section includes a history of the smoking, or tobacco -related health factors, that were collected on or before the date of the Encoun ter. The data comes from the [place] facility where the Encounter took place. Date/Time Smoking Status/Tobacco Use Comment [facility] Jan 23, 2019 01:31 PM VA-TOBACCO QUIT 15 YRS OR MORE MARIA INES PATTERSON [facility] [facility] Mar 13, 2016 10:38 AM CURRENT NON-TOBACCO USER [facility] [facility] Jan 23, 2015 11:08 AM CURRENT NON-TOBACCO USER [facility] Feb 02, 2013 10:27 AM CURRENT NON-TOBACCO USER [facility] Jan 05, 2012 01:10 PM CURRENT NON-TOBACCO USER [facility] Jul 04, 2010 10:03 AM EK-NON TOBACCO USE PAST 12 MO [facility] [place] [facility] Jan 14, 2009 03:55 PM EK-NON TOBACCO USE PAST 12 MO [facility] [place] [facility] Advance Directives: All historical [...] docume nt. The data comes from all [place] facilities. Date Advance Directives Provider Source Jan 24, 2020 ADVANCE DIRECTIVE DISCUSSION ROXANNA JOSHUA [facility] Allergies and Adverse Reactions (ADRs): All historical and current Section Date Range: From patient's date of to the date document was create d. This section includes Allergies and Adverse Reactions (ADR s) on record with [facility] for the patient. The data comes from a ll [place] treatment facilities. It does not list Allergies/ADRs that were removed or entered in error. Some allergies/ADRs may be reported in t he Immunization section. Allergen Event Date Event Type Reaction(s) Severity Source LISINOPRIL March 27, 2008 Propensity to adverse reactions to drug (disorder) Cough [facility] ZOCOR Oct 24, 2007 Propensity to adverse reactions to drug ( disorder) Syncope SEVERE [facility] Medications: VA dispensed (-15 months) and Non-VA Documented (Obtained Outside V A) Section Date Range: 1) prescriptions processed by a VA pharmacy in the last 15 m [facility], and 2) all medications recorded in the [place] medical record as "non-VA medic ations". Pharmacy terms refer to VA pharmacy's work on prescriptions. VA patient s are advised to take their medications as instructed by their health care team. The data comes from all [place] treatment facilities. Glossary of Pharmacy Terms:Active = A prescription that can be filled at the local VA pharmacy.Active: On Hold = An active prescription that will not be filled until pharmacy resolves the issue.Active: Susp = An active prescription that is not scheduled to be filled yet.Clinic Order = A medication received during a visit to a [place] clinic or emergency department (currently not available).Discontinued [...] MOUTH EVERY MORNING 90 May 04, 2020 [id number] Sep 21, 2019 GINNA ALFRED JR JW [facility] [place] [facility] ASPIRIN 81MG TAB,EC Non- VA TAKE ONE TABLET BY MOUTH ONCE A DAY Non-VA Documented by: SILVIO DA SILVA nted at: [facility] BUMETANIDE 1MG TAB Discontinued TAKE TWO TABLETS BY MOUTH EVERY MOR MAXINE 180 May 04, 2020 [id number] May 04, 2019 GINNA ALFRED JR [facility] [place] [facility] CARVEDILOL 12.5MG TAB Active TAKE ONE-HALF TABL ET BY MOUTH TWO TIMES A DAY FOR HEART. TAKE WITH FOOD. NOTE: EACH DOSE IS 1/2 TABLET 90 Dec 25 [id number] Dec 27, 2019 GINNA ALFRED JR [facility] CARVEDILOL 12.5MG TAB Discontinued TAKE ONE-HALF TABL ET BY MOUTH TWO TIMES A DAY FOR HEART. TAKE WITH FOOD. NOTE: EACH DOSE IS 1/2 TABLET 90 May 04, 2020 [id number] Sep 21, 2019 GINNA ALFRED JR [facility] CHOLECALCIFEROL 10MCG (400UNIT) TAB Active TAKE TWO TABLETS BY MOUTH ONCE A DAY FOR VITAMIN D DEFICIENCY 200 Feb 01, 2021 [id number] Feb 03, 2020 JULIA SANCHEZ [facility] COLESTIPOL HCL 1GM TAB Discontinued TAKE ONE TABLET B Y MOUTH THREE TIMES A DAY - TAKE ONE HOUR AFTER OR FOUR HOURS BEFORE OTHER MEDICATIONS *DO NOT CHEW OR CRUSH* 270 May 04, 2020 [id number] Dec 19, 2019 GINNA ALFRED JR [facility] FISH OIL CAP/TAB Non- VA 3 CAPS MOUTH ONCE A DAY Non-V A Documented by: SILVIO DA SILVA nted at: [facility] HYDROCHLOROTHIAZIDE 25MG TAB Non-VA TAKE ONE TABLET BY MOUTH EVERY MORNING Non-VA Documented by: GINNA ALFRED JR nted at: [facility] LORATADINE 10MG TAB Non- VA TAKE ONE TABLET BY MOUTH QDAY PRN Non-VA Documented by: SILVIO DA SILVA nted at: [facility] [place]AN POTASSIUM 100MG TAB Active TAKE ONE TA BLET BY MOUTH ONCE A DAY FOR BLOOD PRESSURE. 90 Dec 25, 2020 [id number] Dec 27, 2019 GINNA ALFRED JR [facility] [place] POTASSIUM 100MG TAB Discontinued TAKE ONE TA BLET BY MOUTH ONCE A DAY FOR BLOOD PRESSURE. 90 May 04, 2020 [id number] Sep 21, 2019 LAURIE ALFRED JR [facility] LOVASTATIN 40MG TAB Discontinued TAKE ONE TABLET BY M OUTH EVERY EVENING WITH SUPPER FOR CHOLESTEROL - REPORT ANY UNEXPLAINED MUSCLE PAIN/WEAKNESS TO YOUR PROVIDER 90 May 04, 2020 [id number] Sep 21, 2019 GINNA ALFRED JR Val ESCALERA [facility] [place] [facility] MELOXICAM 15MG TAB Discontinued TAKE ONE TABLET BY M DEVONH ONCE A DAY WITH FOOD FOR PAIN AND INFLAMMATION. 30 May 04, 2020 [id number] May 04, 2019 GINNA PORTILLO JR [facility] METFORMIN HCL 500MG 24HR TAB,SA Non-VA TAKE TWO TABLETS BY MOUTH EVERY EVENING BEFORE SUPPER Non-VA Documented by: GINNA ALFRED JR Docume nted at: [facility] OMEPRAZOLE 20MG CAP,EC Active TAKE 1 CAPSULE BY MOUTH EVERY MORNING 30 MINUTES BEFORE EATING TO LOWER STOMACH ACID 90 Dec 25, 2020 [id number] Dec 162019 GINNA ALFRED JR [facility] OMEPRAZOLE 20MG CAP,EC Discontinued TAKE 1 CAPSULE BY MOUTH EVERY MORNING 30 MINUTES BEFORE EATING TO LOWER STOMACH ACID 90 May 04, 2020 [id number] Sep 21, 2019 GINNA ALFRED JR [facility] [facility] OMEPRAZOLE 20MG CAP,EC N on-VA TAKE 1 CAPSULE BY MOUTH EVERY MORNING Non-VA Documented by: SILVIO DA SILVA nted at: [facility] ROSUVASTATIN CA 40MG TAB Active TAKE ONE-HALF T ABLET BY MOUTH AT BEDTIME FOR CHOLESTEROL. REPORT ANY UNEXPLAINED MUSCLE PAIN OR WEAKNESS TO YOUR DOCTOR. 45 Dec 25, 2020 [id number] Dec 27, 2019 GINNA ALFRED JR [facility] [facility] Problems (Conditions): All historical [...] Comm ent(s) Provider Source Essential hypertension Active [id number] Tacho DALAL [facility] [facility] Gastroesophageal reflux disease (SNOMED CT 561830743) Active 451705 [id number] GINNA ALFRED JR [facility] Hearing loss (SNOMED CT 76572142) Active 33410072 GINNA ALFRED JR [facility] Hypercholesterolemia Active 57031424 LAYLA ALFRED [facility] [facility] Hyperlipidemia Active 94035735 VALERIA GREY [facility] Muscle pain Active 24382987 DALAL KAROLINA [facility] Obesity (SNOMED CT 053977259) Active [id number] GINNA ALFRED [facility] Osteoarthritis (SNOMED CT 476348365) Active [id number] GINNA ALFRED [facility] Personal History of Colonic Polyps (ICD-9-CM V12.72) Active V12.72 ARI WARE Irais [facility] Sleep apnea (SNOMED CT 23686750) Active 66309193 GINNA ALFRED [facility] [facility] Type 2 diabetes mellitus Active 58014990 GINNA ALFRED [facility] Vitamin D deficiency (SNOMED CT 35889356) Active 76921749 GINNA ALFRED [facility] Actinic keratosis (SNOMED CT 514410870) Inactive 702.0 Feb 01, 2019 KAROLINA [facility] [facility] Dizziness * (ICD-9-CM 780.4) Inactive 780.4 Feb 01, 2019 [facility] Dyslipidemia (ICD-9-CM 272.4) Inactive 272.4 Feb 01, 2019 LEISURE,YORDY Braxton [facility] Hyperglycemia * (ICD-9-CM 790.29) Inactive 790.29 Jan [facility] Hypertension * (ICD-9-CM 401.9) Inactive 401.9 Feb 01, 2019 LEISURE,ARI Irais [facility] [facility] Impaired FASTING Glucose (ICD-9-CM 790.21) Inactive 790.21 Feb 01, 2019 ESEQUIEL SAMANIEGO [facility] Obesity * (ICD-9-CM 278.00) Inactive 278.00 Feb 01, 2019 MULULUZ MARIA Hughes [facility] [facility] OSTEOARTHRITIS HAND Inactive 715.14 Feb 01, 2019 Aug 29, 2007 Entered By: SOULEYMANE MANCILLA Comment: wrist SOULEYMANE MANCILLA [facility] IV Other Seborrheic Keratosis (ICD-9-CM 702.19) Inactive 702.19 Feb 01, 2019 MIMI HAN [facility] Other tenosynovitis of hand and wrist (ICD-9-CM 727.05) Inactive 727.05 Feb 01, 2019 ESEQUIEL SAMANIEGO [facility] [place] [facility] Rhinitis * (ICD-9-CM 472.0) Inactive 472.0 Feb 01, 2019 HERNANDO KELSEY [facility] [facility] Screening, Malignancy Inactive V76.89 Feb 01, 2019 INDIRA SESAY [facility] [facility] Trigger Finger (ICD-9-CM 727.03) Inactive 727.03 Feb 01, 2019 EMELYMIMI [facility] [facility] Umbilical hernia * (ICD-9-CM 553.1) Inactive 553.1 Feb 01, 2019 YORDY WARE [facility] [facility] Radiology Reports: +/- 30 days of the encounter No Data Provided for This Section Pathology Reports: +/- 30 days of the encounter No Data Provided for This Section Encounter Notes: All associated encounter notes This section contains the clinical notes associated to the Encounter. Date/Time Encounter Note(s) Provider Source Dec 21, 2019 03:18 PM ADMINISTRATIVE NOTE: LOCAL TITLE: EK-ADMINISTRATIVE STANDARD TITLE: ADMINISTRATIVE NOTE DATE OF NOTE: DEC 21, 2019@15:18 ENTRY DATE: DEC 21, 2019@15:18:59 AUTHOR: EDWARD SALDANA COSIGNER: URGENCY: STATUS: COMPLETED This MALE patient was contacted prior to this upcoming PCP appointment.Yes Patient phone number: Primary reason for their visit: 6 months with lab TO-RED TEAM 5 Future Appointments: DEC 25, 2019@09:30 Clinic: TO-CLIN LAB-FASTING LAB N/C DEC 25, 2019@11:30 Clinic: TO-PACT RED TEAM 5 PCP Chart review: Means testing: Prior visits:FEB 01, 2019@10:30 Clinic: TO-PACT RED TEAM 5 PCP FEB 01, 2019@08:50 Clinic: TO-CLIN LAB-FASTING LAB N/C Patient was reminded of the following: [X]Appointment date and time [X]Arrive to clinic lobby 15-30 minutes early for completion of check in process [X]If labs are ordered, patient reminded if they are fasting labs [X]Which medications can be taken prior to lab [X]Refill need of medications/supplies [X]Bring any patient logs: Blood pressure, blood sugars, weights, etc. [X]Bring in list of medications and/or bag of all medications to review with nurse or pcp. [X]Contact information given for TO-RED TEAM 5in case of need to cancel or reschedule. [ ]Discussed secure messaging availability and sign up process through [employer]. List of things patient wants to discuss with the doctor: Other comments: EK-V15 Influenza Immunization FY19: 7910-5556 INFLUENZA IMMUNIZATION V1.0 Is the PATIENT an employee of [facility] [employer] [facility]? No. Vaccine not given: Patient indicated influenza vaccination was received at another facility. Date: September, Exact date is unknown Location: [place] [facility]/ EDWARD SALDANA LPN Signed: 12/21/2019 15:22 EDWARD SALDANA [facility]
--- OUTSIDE RECORDS SUMMARY | 2020-05-21 07:05 | XMS REPORT | Encounter Summary ---
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 Name Role Phone MICHAELJULIA PCP Unavailable Insurance [...] PART B May 15, 2013 PART B [id number] BRENT CONCEPCION PATIENT MEDICARE (WNR) MEDICARE (M) PART B May 15, 2013 PART B [id number] BRENT CONCEPCION PATIENT MEDICARE (WNR) MEDICARE (M) PART A Dec 16, 2011 PART A [id number] BRENT CONCEPCION PATIENT MEDICARE (WNR) MEDICARE (M) PART A Dec 16, 2011 PART A [id number] BRENT CONCEPCION PATIENT [facility] INSURANCE MEDIG[employer] PLAN F MEDICARE SUPPLEMENT Jun 15, 2013 PLAN F [id number] [phone] CONCEPCION,CARL PATIENT Selected Encounter This section includes the information on record at [place] for the Encounter. Date/Time Encounter Type Encounter Description Reason Provider Source Sep 15, 2019 12:00 AM Outpatient Encounter EVENT (HISTORICAL) [facility] 15 IHE Encounter Template Text not used by [place] Assessments - Encounter Diagnoses No Data Provided for This Section Plan of Treatment: Future Appointments (+ 6 months) and Future Tests (+/- 45 day s) The Plan of Treatment section includes future care activities for the patient fr om all [place] treatment facilities. This section includes future appointments and fu ture orders which are active, pending or scheduled. Future Appointments This section includes appointments that were scheduled t o occur 6 months from the date of the Encounter, up to a maximum of 20 appointme nts. The data comes from all [place] treatment facilities. Appointment Date/Time Appointment Type Appointment Facili ty Name Dec 25, 2019 09:30 AM AMBULATORY - NONE [facility] [place] Dec 25, 2019 11:30 AM AMBULATORY - MEDICINE [facility] [place] [facility] Jan 24, 2020 10:00 AM AMBULATORY - MEDICINE [facility] Jan 24, 2020 10:30 AM AMBULATORY - NONE [facility] Surgical Procedures: All associated to the encounter No Data Provided for This Section Lab Results: +/- 30 days of the encounter No Data Provided for This Section Vital Signs: All taken on the encounter date No Data Provided for This Section Immunizations: All administered on the encounter date This section contains immunizations associated to the Encounter. Immunization Series Date Issued Reaction Comments INFLUENZA, UNSPECIFIED FORMULATION Sep 15, 2019 Social History: Smoking Status (Most current) [...] docume nt. The data comes from all [place] facilities. Date Advance Directives Provider Source Jan 24, 2020 ADVANCE DIRECTIVE DISCUSSION ROXANNA JOSHUA [facility] Allergies and Adverse Reactions (ADRs): All historical and current Section Date Range: From patient's date of to the date document was create d. This section includes Allergies and Adverse Reactions (ADR s) on record with [facility] for the patient. The data comes from a ll [place] treatment facilities. It does not list Allergies/ADRs that were removed or entered in error. Some allergies/ADRs may be reported in t he Immunization section. Allergen Event Date Event Type Reaction(s) Severity Source LISINOPRIL March 27, 2008 Propensity to adverse reactions to drug (disorder) Cough [facility] 15 ZOCOR Oct 24, 2007 Propensity to adverse reactions to drug ( disorder) Syncope SEVERE [facility] 15 Medications: VA dispensed (-15 months) and Non-VA Documented (Obtained Outside V A) Section Date Range: 1) prescriptions processed by a VA pharmacy in the last 15 m [facility], and 2) all medications recorded in the [place] medical record as "non-VA medic ations". Pharmacy terms refer to [place] pharmacy's work on prescriptions. VA patient s are advised to take their medications as instructed by their health care team. The data comes from all [place] treatment facilities. Glossary of Pharmacy Terms:Active = A prescription that can be filled at the local [place] pharmacy.Active: On Hold = An active prescription that will not be filled until pharmacy resolves the issue.Active: Susp = An active prescription that is not scheduled to be filled yet.Clinic Order = A medication received during a visit to a [place] clinic or emergency department (currently not available).Discontinued [...] may be a prescription from either the [place] or other providers that was filled outside the [place]. Or, it may be an over the [...] MOUTH EVERY MORNING 90 May 04, 2020 [id number] Sep 21, 2019 GINNA ALFRED JR [facility] [place] ASPIRIN 81MG TAB,EC Non- VA TAKE ONE TABLET BY MOUTH ONCE A DAY Non-VA Documented by: SILVIO DA SILVA nted at: [facility] [place] BUMETANIDE 1MG TAB Discontinued TAKE TWO TABLETS BY MOUTH EVERY MOR MAXINE 180 May 04, 2020 [id number] May 04, [address] GINNA ALFRED [address] [facility] [place] CARVEDILOL 12.5MG TAB Active TAKE ONE-HALF TABL ET BY MOUTH TWO TIMES A DAY FOR HEART. TAKE WITH FOOD. NOTE: EACH DOSE IS 1/2 TABLET 90 Dec 25 [id number] Dec 27, 2019 GINNA ALFRED JR [facility] [place] CARVEDILOL 12.5MG TAB Discontinued TAKE ONE-HALF TABL ET BY MOUTH TWO TIMES A DAY FOR HEART. TAKE WITH FOOD. NOTE: EACH DOSE IS 1/2 TABLET 90 May 04, 2020 [id number] Sep 21, 2019 GINNA ALFRED JR [facility] [place] CHOLECALCIFEROL 10MCG (400UNIT) TAB Active TAKE TWO TABLETS BY MOUTH ONCE A DAY FOR VITAMIN D DEFICIENCY 200 Feb 01, 2021 [id number] Feb 03, 2020 [facility] COLESTIPOL HCL 1GM TAB Discontinued TAKE ONE TABLET B Y MOUTH THREE TIMES A DAY - TAKE ONE HOUR AFTER OR FOUR HOURS BEFORE OTHER MEDICATIONS *DO NOT CHEW OR CRUSH* 270 May 04, 2020 [id number] Dec 19, 2019 GINNA ALFRED JR [facility] [place] FISH OIL CAP/TAB Non- VA 3 CAPS MOUTH ONCE A DAY Non-V A Documented by: SILVIO DA SILVA nted at: [facility] [place] HYDROCHLOROTHIAZIDE 25MG TAB Non-VA TAKE ONE TABLET BY MOUTH EVERY MORNING Non-VA Documented by: GINNA ALFRED JRume nted at: [facility] [place] LORATADINE 10MG TAB Non- VA TAKE ONE TABLET BY MOUTH QDAY PRN Non-VA Documented by: SILVIO DA SILVA nted at: [facility] [place] POTASSIUM 100MG TAB Active TAKE ONE TA BLET BY MOUTH ONCE A DAY FOR BLOOD PRESSURE. 90 Dec 25, 2020 [id number] Dec 27, 2019 GINNA ALFRED JR [facility] [place] POTASSIUM 100MG TAB Discontinued TAKE ONE TA BLET BY MOUTH ONCE A DAY FOR BLOOD PRESSURE. 90 May 04, 2020 [id number] Sep 21, 2019 LAURIE ALFRED JR [facility] [place] LOVASTATIN 40MG TAB Discontinued TAKE ONE TABLET BY M OUTH EVERY EVENING WITH SUPPER FOR CHOLESTEROL - REPORT ANY UNEXPLAINED MUSCLE PAIN/WEAKNESS TO YOUR PROVIDER 90 May 04, 2020 [id number] Sep 21, 2019 GINNA ALFRED JR Val ESCALERA [facility] [place] MELOXICAM 15MG TAB Discontinued TAKE ONE TABLET BY M OUTH ONCE A DAY WITH FOOD FOR PAIN AND INFLAMMATION. 30 May 04, 2020 [id number] May 04, 2019 GINNA PORTILLO JR [facility] [place] METFORMIN HCL 500MG 24HR TAB,SA Non-VA TAKE TWO TABLETS BY MOUTH EVERY EVENING BEFORE SUPPER Non-VA Documented by: GINNA ALFRED JR nted at: [facility] [place] OMEPRAZOLE 20MG CAP,EC Active TAKE 1 CAPSULE BY MOUTH EVERY MORNING 30 MINUTES BEFORE EATING TO LOWER STOMACH ACID 90 Dec 25, 2020 [id number] Dec 162019 GINNA ALFRED JR [facility] [place] OMEPRAZOLE 20MG CAP,EC Discontinued TAKE 1 CAPSULE BY MOUTH EVERY MORNING 30 MINUTES BEFORE EATING TO LOWER STOMACH ACID 90 May 04, 2020 [id number] Sep 21, 2019 GINNA ALFRED JR [facility] [place] OMEPRAZOLE 20MG CAP,EC N on-VA TAKE 1 CAPSULE BY MOUTH EVERY MORNING Non-VA Documented by: SILVIO DA SILVA nted at: [facility] ROSUVASTATIN CA 40MG TAB Active TAKE ONE-HALF T ABLET BY MOUTH AT BEDTIME FOR CHOLESTEROL. REPORT ANY UNEXPLAINED MUSCLE PAIN OR WEAKNESS TO YOUR DOCTOR. 45 Dec 25, 2020 [id number] Dec 27, 2019 GINNA ALFRED [address] [facility] [place] Problems (Conditions): All historical and current Section Date Range: From patient's date of to the date document was create d. This section includes a list of Problems (Conditions) know n to [facility] for the patient. It includes both active and inacti ve problems (conditions). The data comes from all [place] treatment facilities. Problem Status Problem Code Date of Onset Date of Resolution Comm ent(s) Provider Source Essential hypertension Active [id number] Tacho DALAL [facility] [place] Gastroesophageal reflux disease (SNOMED CT 513795160) Active 613398 009 GINNA ALFRED [facility] [place] Hearing loss (SNOMED CT 25056540) Active 85837208 GINNA ALFRED [facility] [place] Hypercholesterolemia Active 78403001 LAYLA ALFRED [facility] [place] Hyperlipidemia Active 90335585 [facility] [place] Muscle pain Active 30058368 [facility] [place] Obesity (SNOMED CT 058196780) Active 390064842 GINNA ALFRED [facility] [place] Osteoarthritis (SNOMED CT 247387991) Active 939981196 GINNA ALFRED [facility] [place] Personal History of Colonic Polyps (ICD-9-CM V12.72) Active V12.72 [facility] [place] [facility] Sleep apnea (SNOMED CT 81933399) Active 09003558 GINNA ALFRED [facility] [place] Type 2 diabetes mellitus Active 64888794 [facility] [place] Vitamin D deficiency (SNOMED CT 81972782) Active 43420272 GINNA ALFRED [facility] [place] Actinic keratosis (SNOMED CT 846675971) Inactive 702.0 Feb 01, 2019 [facility] [place] Dizziness * (ICD-9-CM 780.4) Inactive 780.4 Feb 01, 2019 [facility] [place] Dyslipidemia (ICD-9-CM 272.4) Inactive 272.4 Feb 01, 2019 [facility] [place] Hyperglycemia * (ICD-9-CM 790.29) Inactive 790.29 Jan [facility] [place] Hypertension * (ICD-9-CM 401.9) Inactive 401.9 Feb 01, 2019 [facility] [place] Impaired FASTING Glucose (ICD-9-CM 790.21) Inactive 790.21 Feb 01, 2019 ESEQUIEL SAMANIEGO [facility] [place] Obesity * (ICD-9-CM 278.00) Inactive 278.00 Feb 01, 2019 NACHOLUZ MARIA SIMMONS [facility] [place] OSTEOARTHRITIS HAND Inactive 715.14 Feb 01, 2019 Aug 29, 2007 Entered By: SOULEYMANE MANCILLA Comment: wrist SOULEYMANE MANCILLA [facility] [place] IV Other Seborrheic Keratosis (ICD-9-CM 702.19) Inactive 702.19 Feb 01, 2019 MIMI HAN [facility] [place] Other tenosynovitis of hand and wrist (ICD-9-CM 727.05) Inactive 727.05 Feb 01, 2019 [facility] [place] [facility] Rhinitis * (ICD-9-CM 472.0) Inactive 472.0 Feb 01, 2019 HERNANDO KELSEY [facility] [place] Screening, Malignancy Inactive V76.89 Feb 01, 2019 INDIRA SESAY [facility] [place] Trigger Finger (ICD-9-CM 727.03) Inactive 727.03 Feb 01, 2019 MIMI HAN [facility] [place] Umbilical hernia * (ICD-9-CM 553.1) Inactive 553.1 Feb 01, 2019 YORDY WARE [facility] [place] Radiology Reports: +/- 30 days of the encounter No Data Provided for This Section Pathology Reports: +/- 30 days of the encounter No Data Provided for This Section Encounter Notes: All associated encounter notes No Data Provided for This Section
--- OUTSIDE RECORDS SUMMARY | 2020-05-21 07:05 | XMS REPORT | Encounter Summary ---
Author Author Department [facility] BRENT fernandez Organization Department of [facility] Address [address] [place] [address] Phone Unavailable Care Team Providers Care Section Laborer Name Role Phone MICHAELJULIA PCP Unavailable Insurance [...] PART B May 15, 2013 PART B [id number] [phone] BRENT CONCEPCION PATIENT MEDICARE (WNR) MEDICARE (M) PART B May 15, 2013 PART B [id number] [phone] BRENT CONCEPCION PATIENT MEDICARE (WNR) MEDICARE (M) PART A Dec 16, 2011 PART A [id number] [phone] BRENT CONCEPCION PATIENT MEDICARE (WNR) MEDICARE (M) PART A Dec 16, 2011 PART A [id number] [phone] CONCEPCION,CARL PATIENT [facility] INSURANCE MEDIGAP PLAN F MEDICARE SUPPLEMENT Jun 15, 2013 PLAN F [id number] [phone] CARLENEBRENT PATIENT Selected Encounter This section includes the information on record at [place] for the Encounter. Date/Time Encounter Type Encounter Description Reason Provider Source Dec 26, 2019 12:16 PM Outpatient Encounter COMMUNITY CARE CONS[facility] 15 IHE Encounter Template Text not used by [place] Assessments - Encounter Diagnoses No Data Provided for This Section Plan of Treatment: Future Appointments (+ 6 months) and Future Tests (+/- 45 day s) The Plan of Treatment section includes future care activities for the patient fr om all [place] treatment facilities. This section includes future appointments and fu ture orders which are active, pending or scheduled. Future Appointments This section includes appointments that were scheduled t o occur 6 months from the date of the Encounter, up to a maximum of 20 appointme nts. The data comes from all [place] treatment facilities. Appointment Date/Time Appointment Type Appointment Facili ty Name Jan 24, 2020 10:00 AM AMBULATORY - MEDICINE [facility] Jan 24, 2020 10:30 AM AMBULATORY - NONE [facility] April 04, 2020 11:15 AM AMBULATORY - NONE [facility] C Active, Pending, and Scheduled [...] the Encounter. The data comes from all [place] treatment [facility]. Test Date/Time Test Type Test Details Facility Name Dec 25, 2019 12:09 PM Consult Order [facility]ITY CARE-EK DERMATOLOGY-[id number] Cons Firer Low Pressure's [facility] [place] [facility] Surgical Procedures: All associated to the encounter No Data Provided for This Section Lab Results: +/- 30 days of the encounter This section includes the Chemistry and Hematology Lab R esults on record with [place] for the patient. Radiology Reports and Pathology Report s are provided separately, in subsequent sections. Lab Results This section contains the Chemistry/Hematology Results harmony t were resulted 30 days before or 30 days after the date of the Encounter. Date/Time Source Result Type Result - Unit Interpretation Reference Range Comment Jan 24, 2020 09:25 AM [facility] HEMOGLOBIN A1C Specimen Type: BLOOD No comment entered. HEMOGLOBIN A1C 6.5 % H 4.0-6.0 Jan 24, 2020 09:25 AM [facility] URINALYSIS Specimen Type: URINE No comment entered. URINE COLOR Yellow SPECIFIC GRAVITY 1.021 1.005-1.030 UROBILINOGEN Negative mg/dL 0.1-1.0 URINE BILIRUBIN Negative Negative URINE KETONES Negative mg/dl Negative URINE GLUCOSE Negative mg/dL Negative URINE PROTEIN Negative mg/dl Negative-Tr mary URINE PH 5.0 5-8 APPEARANCE,URINE Clear Clear URINE BLOOD Negative Negative URINE NITRITE Negative Negative LEUKOCYTE ESTERASE Negative Negative Jan 24, 2020 09:25 AM [facility] MICROALBUMIN (BARI,WI) RANDO M URINE Specimen Type: URINE No comment entered. *MICROALBUMIN,RAND 26 ug/mL *MICROALB/CREAT 20 mcg/mg cr *UR CREATININE 130.7 mg/dL Not Available Jan 24, 2020 09:25 AM [facility] VITAMIN D (25-OH) Specimen Type: SERUM No comment entered. VITAMIN D (25-OH) 23.6 ng/mL L 30.0-96.0 Jan 24, 2020 09:25 AM [facility] HCV-AB Specimen Type: SERUM No comment entered. HCV-AB NonReactive Nonreactive Jan 24, 2020 09:25 AM [facility] CBC & DIFF Specimen Type: BLOOD No [...] % Jan 24, 2020 09:25 AM [facility] COMPREHENSIVE METABOLIC PA YESSY Specimen Type: PLASMA [...] EGFR >60 Jan 24, 2020 09:25 AM [facility] LIPID PROFILE(HDL,TRIG,CHO L,LDL) Specimen Type: PLASMA Comment: For eGFR: eGFR results >60 are imprecise. Many variables affect the calculated result. Interpretation of eGFR results >60 must be monitored over time. CHOLESTEROL 184 mg/dL 0-200 TRIGS 180 mg/dL H 0-150 HDL-CHOLESTEROL 55 mg/dL >40 LDL (CALC) 93 mg/dL 0-99.9 Jan 24, 2020 09:25 AM [facility] TSH Specimen Type: SERUM No comment entered. TSH 1.85 uIU/mL 0.47-5.00 Jan 24, 2020 09:25 AM [facility] PROSTATIC SPECIFIC ANTIGEN (TOTAL) Specimen Type: SERUM No comment entered. PROSTATIC SPECIFIC ANTIGEN(TOTAL) 1.4 ng/mL 0-4 Dec 25, 2019 09:12 AM [facility] [place] [facility] CBC & DIFF Specimen [...] 0.2 % Dec 25, 2019 09:12 AM [facility] COMPREHENSIVE ME TABOLIC PANEL Specimen Type: PLASMA [...] EGFR 104.0 Dec 25, 2019 09:12 AM [facility] LIPID PROFIL E(HDL,TRIG,CHOL,LDL) Sp ecimen Type: PLASMA No comment entered. CHOLESTEROL 193 mg/dL 0-200 TRIGS 162 mg/dL H 0-150 HDL-CHOLESTEROL 50 mg/dL >40 LDL (CALC) 110.6 mg/dL H 0-99.9 Dec 25, 2019 09:12 AM [facility] [place] [email or web address] PROSTATIC SP ECIFIC ANTIGEN(TOTAL) Sp ecimen Type: SERUM No comment entered. PROSTATIC SPECIFIC ANTIGEN(TOTAL) 1.57 ng/mL 0-4 Dec 25, 2019 09:12 AM [facility] [place] [email or web address] URINALYSIS Specimen Type: URINE No comment entered. URINE COLOR Yellow SPECIFIC GRAVITY 1.024 1.005-1.030 UROBILINOGEN Negative mg/dL 0.1-1.0 URINE BILIRUBIN Negative Negative URINE KETONES Negative mg/dl Negative URINE GLUCOSE Negative mg/dL Negative URINE PROTEIN Negative mg/dl Negative-Tr mary URINE PH 5.0 5-8 APPEARANCE,URINE Clear Clear URINE BLOOD Negative Negative URINE NITRITE Negative Negative LEUKOCYTE ESTERASE Negative Negative Dec 25, 2019 09:12 AM [facility] TSH Specimen Type: SERUM No comment entered. TSH 1.37 uIU/mL 0.47-5.00 Dec 25, 2019 09:12 AM [facility] HEMOGLOBIN A1C Specimen Type: BLOOD No comment entered. HEMOGLOBIN A1C 6.5 % H 4.0-6.0 Dec 25, 2019 09:12 AM [facility] [employer] [facility] MICROALBUMIN (CO ,EK) Specimen Type: URINE No comment entered. *MICROALBUMIN(CONC) 1.7 mg/dL - *MICROALBUMIN(SPOT) 12.4 mcg/mg cr 0-29 *CREATININE mg/dL 137.6 mg/dl Not Avail. Dec 25, 2019 09:12 AM [facility] VITAMIN D (25-OH ) Specimen Type: SERUM [...] of a patient's completed or amen ded [place] Advance and Rescinded Directives. The entries below indicate that a direc tive exists for the patient, but an actual copy is not included with this docume nt. The data comes from all [place] facilities. Date Advance Directives Provider Source Jan 24, 2020 ADVANCE DIRECTIVE DISCUSSION ROXANNA JOSHUA [facility] Allergies and Adverse Reactions (ADRs): All historical and current Section Date Range: From patient's date of to the date document was create d. This section includes Allergies and Adverse Reactions (ADR s) on record with [facility] for the patient. The data comes from a ll [place] treatment facilities. It does not list Allergies/ADRs that were removed or entered in error. Some allergies/ADRs may be reported in t he Immunization section. Allergen Event Date Event Type Reaction(s) Severity Source LISINOPRIL March 27, 2008 Propensity to adverse reactions to drug (disorder) Cough [facility] 15 ZOCOR Oct 24, 2007 Propensity to adverse reactions to drug ( disorder) Syncope SEVERE [facility] 15 Medications: VA dispensed (-15 months) and Non-VA Documented (Obtained Outside A) Section Date Range: 1) prescriptions processed by a [facility] pharmacy in the last [facility], and 2) all medications recorded in the [place] medical record as "non-VA medic ations". Pharmacy terms refer to [place] pharmacy's work on prescriptions. [facility] patient s are advised to take their medications as instructed by their health care team. The data comes from all [place] treatment [facility]. Glossary of Pharmacy Terms:Active = A prescription that can be filled at the local [place] pharmacy.Active: On Hold = An active prescription that will not be filled until pharmacy resolves the issue.Active: Susp = An active prescription that is not scheduled to be filled yet.Clinic Order = A medication received during a visit to a [place] clinic or emergency department (currently not available).Discontinued [...] MOUTH EVERY MORNING 90 May 04, 2020 [id number] Sep 21, 2019 GINNA ALFRED JR [facility] [place] [facility] ASPIRIN 81MG TAB,EC Non- VA TAKE ONE TABLET BY MOUTH ONCE A DAY Non-VA Documented by: SILVIO DA SILVA nted at: [facility] [place] [facility] BUMETANIDE 1MG TAB Discontinued TAKE TWO TABLETS BY MOUTH EVERY MOR MAXINE 180 May 04, 2020 [id number] May 04, 2019 GINNA ALFRED JR [facility] [place] [facility] CARVEDILOL 12.5MG TAB Active TAKE ONE-HALF TABL ET BY MOUTH TWO TIMES A DAY FOR HEART. TAKE WITH FOOD. NOTE: EACH DOSE IS 1/2 TABLET 90 Dec 25 1 [id number] Dec 27, 2019 GINNA ALFRED JR [facility] [place] [facility] CARVEDILOL 12.5MG TAB Discontinued TAKE ONE-HALF TABL ET BY MOUTH TWO TIMES A DAY FOR HEART. TAKE WITH FOOD. NOTE: EACH DOSE IS 1/2 TABLET 90 May 04, 2020 [id number] Sep 21, 2019 GINNA ALFRED JR [facility] [place] [facility] CHOLECALCIFEROL 10MCG (400UNIT) TAB Active TAKE TWO TABLETS BY MOUTH ONCE A DAY FOR VITAMIN D DEFICIENCY 200 Feb 01, 2021 [id number] Feb 03, 2020 [facility] COLESTIPOL HCL 1GM TAB Discontinued TAKE ONE TABLET B Y MOUTH THREE TIMES A DAY - TAKE ONE HOUR AFTER OR FOUR HOURS BEFORE OTHER MEDICATIONS *DO NOT CHEW OR CRUSH* 270 May 04, 2020 [id number] Dec 19, 2019 GINNA ALFRED JR [facility] [place] [facility] FISH OIL CAP/TAB Non- [place] 3 CAPS MOUTH ONCE A DAY Non-V A Documented by: SILVIO DA SILVA nted at: [facility] [place] [facility] HYDROCHLOROTHIAZIDE 25MG TAB Non-VA TAKE ONE TABLET BY MOUTH EVERY MORNING Non-VA Documented by: GINNA ALFRED JR nted at: [facility] [place] [facility] LORATADINE 10MG TAB Non- [place] TAKE ONE TABLET BY MOUTH QDAY PRN Non-VA Documented by: SILVIO DA SILVA nted at: [facility] [place] [facility] [place] POTASSIUM 100MG TAB Active TAKE ONE TA BLET BY MOUTH ONCE A DAY FOR BLOOD PRESSURE. 90 Dec 25, 2020 [id number] Dec 27, 2019 GINNA ALFRED JR [facility] [place] [facility] [place] POTASSIUM 100MG TAB Discontinued TAKE ONE TA BLET BY MOUTH ONCE A DAY FOR BLOOD PRESSURE. 90 May 04, 2020 [id number] Sep 21, 2019 LAURIE ALFRED JR [facility] [place] [facility] LOVASTATIN 40MG TAB Discontinued TAKE ONE TABLET BY M OUTH EVERY EVENING WITH SUPPER FOR CHOLESTEROL - REPORT ANY UNEXPLAINED MUSCLE PAIN/WEAKNESS TO YOUR PROVIDER 90 May 04, 2020 [id number] Sep 21, 2019 GINNA ALFRED JR Val [facility] [place] [facility] MELOXICAM 15MG TAB Discontinued TAKE ONE TABLET BY M OUTH ONCE A DAY WITH FOOD FOR PAIN AND INFLAMMATION. 30 May 04, 2020 [id number] May 04, 2019 GINNA PORTILLO JR [facility] [place] [facility] METFORMIN HCL 500MG 24HR TAB,SA Non-VA TAKE TWO TABLETS BY MOUTH EVERY EVENING BEFORE SUPPER Non-VA Documented by: GINNA ALFRED JR nted at: [facility] [place] [facility] OMEPRAZOLE 20MG CAP,EC Active TAKE 1 CAPSULE BY MOUTH EVERY MORNING 30 MINUTES BEFORE EATING TO LOWER STOMACH ACID 90 Dec 25, 2020 [id number] Dec 162019 GINNA ALFRED JR [facility] [place] [facility] OMEPRAZOLE 20MG CAP,EC Discontinued TAKE 1 CAPSULE BY MOUTH EVERY MORNING 30 MINUTES BEFORE EATING TO LOWER STOMACH ACID 90 May 04, 2020 [id number] Sep 21, 2019 GINNA ALFRED JR [facility] [place] [facility] OMEPRAZOLE 20MG CAP,EC N on-VA TAKE 1 CAPSULE BY MOUTH EVERY MORNING Non-VA Documented by: SILVIO DA SILVA nted at: [facility] ROSUVASTATIN CA 40MG TAB Active TAKE ONE-HALF T ABLET BY MOUTH AT BEDTIME FOR CHOLESTEROL. REPORT ANY UNEXPLAINED MUSCLE PAIN OR WEAKNESS TO YOUR DOCTOR. 45 Dec 25, 2020 [id number] Dec 27, 2019 GINNA ALFRED [facility] [place] [facility] Problems (Conditions): [...] Comm ent(s) Provider Source Essential hypertension Active 13995539 DALALTacho MEGANIrais TURCIOS [facility] [place] [facility] Gastroesophageal reflux disease (SNOMED CT 086679536) Active 115362 009 GINNA ALFRED [facility] [place] [facility] Hearing loss (SNOMED CT 56819618) Active 67737235 [facility] [place] [facility] Hypercholesterolemia Active 03263583 [facility] [place] [facility] Hyperlipidemia Active 94067110 DALAL [facility] [place] [facility] Muscle pain Active 50832147 DALAL [facility] [place] [facility] Obesity (SNOMED CT 059396141) Active 480404783 [facility] [place] [facility] Osteoarthritis (SNOMED CT 590332373) Active 294567541 [facility] [place] [facility] Personal History of Colonic Polyps (ICD-9-CM V12.72) Active V12.72 [facility] Braxton [facility] [place] [facility] Sleep apnea (SNOMED CT 45725917) Active 80098332 [facility] [place] [facility] Type 2 diabetes mellitus Active 49979608 [facility] [place] [facility] Vitamin D deficiency (SNOMED CT 47194313) Active 73578163 [facility] [place] [facility] Actinic keratosis (SNOMED CT 044323889) Inactive 702.0 Feb 01, 2019 MULUGETA,PRITI [facility] [place] [facility] Dizziness * (ICD-9-CM 780.4) Inactive 780.4 Feb 01, 2019 MMII HAN [facility] [place] [facility] Dyslipidemia (ICD-9-CM 272.4) Inactive 272.4 Feb 01, 2019 YORDY WARE [facility] [place] [facility] Hyperglycemia * (ICD-9-CM 790.29) Inactive 790.29 Jan MIMI HAN [facility] [place] [facility] Hypertension * (ICD-9-CM 401.9) Inactive 401.9 Feb 01, 2019 YORDY WARE [facility] [place] [facility] Impaired FASTING Glucose (ICD-9-CM 790.21) Inactive 790.21 Feb 01, 2019 ESEQUIEL SAMANIEGO [facility] [place] [facility] Obesity * (ICD-9-CM 278.00) Inactive 278.00 Feb 01, 2019 LUZ MARIA HARDWICK [facility] [place] [facility] OSTEOARTHRITIS HAND Inactive 715.14 Feb 01, 2019 Aug 29, 2007 Entered By: SOULEYMANE MANCILLA Comment: wrist SOULEYMANE MANCILLA [facility] [place] [facility] IV Other Seborrheic Keratosis (ICD-9-CM 702.19) Inactive 702.19 Feb 01, 2019 [facility] [place] [facility] Other tenosynovitis of hand and wrist (ICD-9-CM 727.05) Inactive 727.05 Feb 01, 2019 ESEQUIEL SAMANIEGO [facility] [place] Rhinitis * (ICD-9-CM 472.0) Inactive 472.0 Feb 01, 2019 HERNANDO KELSEY [facility] [place] [facility] Screening, Malignancy Inactive V76.89 Feb 01, 2019 INDIRA SESAY [facility] [place] [facility] Trigger Finger (ICD-9-CM 727.03) Inactive 727.03 Feb 01, 2019 [facility] [place] [facility] Umbilical hernia * (ICD-9-CM 553.1) Inactive 553.1 Feb 01, 2019 YORDY WARE [facility] [place] [facility] Radiology Reports: +/- 30 days of the encounter No Data Provided for This Section Pathology Reports: +/- 30 days of the encounter No Data Provided for This Section Encounter Notes: All associated encounter notes This section contains the clinical notes associated to the Encounter. Date/Time Encounter Note(s) Provider Source Dec 26, 2019 12:16 PM NONVA NOTE: LOCAL TITLE: [facility] CARE-SCHEDULING STANDARD TITLE: NONVA NOTE DATE OF NOTE: DEC 26, 2019@12:16 ENTRY DATE: DEC 26, 2019@12:16:06 AUTHOR: PRAFUL HARRISONIGNER: URGENCY: STATUS: COMPLETED Patient Centered Community Care (PC3) Program [facility] Choice Approval for Medical Care VA-Form [id number] Certain protected health information (PHI) may be enclosed; specifically information related to Drug Abuse, Alcoholism or Alcohol Abuse, Sickle Cell Anemia, and Human Immunodeficiency Virus (HIV). This specific PHI may NOT be re-disclosed or used by the recipient person or office for any purpose other than that for which the disclosure was made. [Ref. 38 [facility] 7332(b)(2)(H)(ii)] The information is b eing disclosed by [place] only for the treatment and care of the named patient in the health record. Accounting of disclosure must be maintained when required. Referral Urgency: Routine Indicate time frame for appointment: Clinically Indicated Date (HUGO): March Category of Care/Type of Specialty: OTPMETRY Type of Specialist: SOLE LAYER Type of Service/Procedure: Type 2 Diabetes Mellitus without Complications(ICD-10-CM E11.9) Procedural Overview: 1. Initial outpatient evaluation and treatment for the one 1) routine eye exam 2. Diagnostic images, labs, studies relevant to the patient complaint/condition 3. Procedures relevant to the patient complaint/condition 4. One (1) follow up visitor for patient complaint/ condition. Eyeglasses are not authorized with this referral. Eyeglass prescriptions, if indicated, will be provided to the to bring to their local [place] facility in person for obtaining eyeglasses or provided per local [place] facility policy. Cosmetic contact lenses are not authorized with this referral, and medically necessary contact lens requests require VA review and approval. Please visit the [facility] Storefront [email or web address] for additional resources and requirements pertaining to the following Pharmacy prescribing requirements Durable Medical Equipment (DME), Prosthetics, and Orthotics prescribing requirements Precertification (PRCT) process requirements Request for Services (RFS) requirements Number of Visits, Frequency, and Duration: DURATION 90 DAYS 2 VISITS or [facility] Preferred Provider Name and Contact Information: Eligibility Verification: As the authorized VA visitor services representative, I hereby confirm that the is eligible for Community Care services. The [place]'s basic eligibility was verified on Dec. Contact the Facility Community Care Office first to provide information to the VA or to reach a VA ordering provider. All contact from the contractor will be documented in the [facility]'s record by the facility [place] community Care and the VA provider will be notified for awareness. Report all Critical Findings related to this authorization to the issuing office below. All other questions regarding this authorization should be directed to: SHANNON BURTON Facility: [facility] Office of Community Care (OCC) Contact:[phone] [facility] Office of Community Care (OCC) Bending Press Operator or Equivalent: Name: Shannon Burton Title: [place]-[facility] Community Care Md Do Resident Urgent Care Contact Number (Normal Business Hours):[phone] AOD/Emergency Contact After Hours Number:[phone] From Station Number: [id number] Facility Name: [facility] [address] Address: [address] [place] [address] City: [place] State: [place] Zip: [address] [place] Information: Name: BRENT CONCEPCION : Dec SSN: [id number] Address: [address] [place] [address] 's Alternate Phone: 's Alternate Address: In accordance with 38 CFR 17.6069-9341, [place] will pay for non-VA hospital care and medical services that are authorized by [place] for Veterans who are determined by [place] to meet the Veterans Choice Program eligibility criteria set forth by section 101 of the Act and 38 CFR 17.1510 and any other eligibility standards that may apply to particular services (such as health care for newborns of Veterans under 38 CFR 17.38(a)(xiv) and dental benefits under 17.160-17.169). /kaley/ PRAFUL HARRISNO Advanced [facility] Signed: 12/26/2019 12:17 PRAFUL HARRISON [facility]
--- OUTSIDE RECORDS SUMMARY | 2020-05-21 07:05 | XMS REPORT | Encounter Summary ---
Author Author Department [facility] BRENT fernandez Organization Department of [facility] Address [address] [place] [address] Phone Unavailable Care Team Providers Care Computing Tutor Name Role Phone MICHAELJULIA PCP Unavailable Insurance [...] PART B May 15, 2013 PART B [id number] BRNET CONCEPCION PATIENT MEDICARE (WNR) MEDICARE (M) PART B May 15, 2013 PART B [id number] BRENT CONCEPCION PATIENT MEDICARE (WNR) MEDICARE (M) PART A Dec 16, 2011 PART A [id number] BRENT CONCEPCION PATIENT MEDICARE (WNR) MEDICARE (M) PART A Dec 16, 2011 PART A [id number] CONCEPCION,CARL PATIENT [facility] INSURANCE MEDIGAP PLAN F MEDICARE SUPPLEMENT Jun 15, 2013 PLAN F [id number] [phone] CONCEPCION,CARL PATIENT Selected Encounter This section includes the information on record at [place] for the Encounter. Date/Time Encounter Type Encounter Description Reason Provider Source Dec 25, 2019 12:00 AM Outpatient Encounter EVENT (HISTORICAL) [facility] 15 IHE Encounter Template Text not used by [place] Assessments - Encounter Diagnoses No Data Provided for This Section Plan of Treatment: Future Appointments (+ 6 months) and Future Tests (+/- 45 day s) The Plan of Treatment section includes future care activities for the patient fr om all [place] treatment facilities. This section includes future appointments and fu ture orders which are active, pending or scheduled. Future Appointments This section includes appointments that were scheduled t o occur 6 months from the date of the Encounter, up to a maximum of 20 appointme nts. The data comes from all [place] treatment facilities. Appointment Date/Time Appointment Type Appointment Facili ty Name Jan 24, 2020 10:00 AM AMBULATORY - MEDICINE [facility] Jan 24, 2020 10:30 AM AMBULATORY - NONE [facility] April 04, 2020 11:15 AM AMBULATORY - NONE [facility] C Active, Pending, and Scheduled [...] the Encounter. The data comes from all [place] treatment [facility]. Test Date/Time Test Type Test Details Facility Name Dec 25, 2019 12:09 PM Consult Order [facility]- [id number] [employer] Manager's [facility] [place] Surgical Procedures: All associated to the encounter No Data Provided for This Section Lab Results: +/- 30 days of the encounter This section includes the Chemistry and Hematology Lab R esults on record with [place] for the patient. Radiology Reports and Pathology Report s are provided separately, in subsequent sections. Lab Results This section contains the Chemistry/Hematology Results harmony t were resulted 30 days before or 30 days after the date of the Encounter. Date/Time Source Result Type Result - Unit Interpretation Reference Range Comment Jan 24, 2020 09:25 AM [facility] HEMOGLOBIN A1C Specimen Type: BLOOD No comment entered. HEMOGLOBIN A1C 6.5 % H 4.0-6.0 Jan 24, 2020 09:25 AM [facility] URINALYSIS Specimen Type: URINE No comment entered. URINE COLOR Yellow SPECIFIC GRAVITY 1.021 1.005-1.030 UROBILINOGEN Negative mg/dL 0.1-1.0 URINE BILIRUBIN Negative Negative URINE KETONES Negative mg/dl Negative URINE GLUCOSE Negative mg/dL Negative URINE PROTEIN Negative mg/dl Negative-Tr mary URINE PH 5.0 5-8 APPEARANCE,URINE Clear Clear URINE BLOOD Negative Negative URINE NITRITE Negative Negative LEUKOCYTE ESTERASE Negative Negative Jan 24, 2020 09:25 AM [employer] MICROALBUMIN (BARI,WI) RANDO M URINE Specimen Type: URINE No comment entered. *MICROALBUMIN,RAND 26 ug/mL *MICROALB/CREAT 20 mcg/mg cr *UR CREATININE 130.7 mg/dL Not Available Jan 24, 2020 09:25 AM [facility] VITAMIN D (25-OH) Specimen Type: SERUM No comment entered. VITAMIN D (25-OH) 23.6 ng/mL L 30.0-96.0 Jan 24, 2020 09:25 AM [facility] HCV-AB Specimen Type: SERUM No comment entered. HCV-AB NonReactive Nonreactive Jan 24, 2020 09:25 AM [employer] CBC & DIFF Specimen Type: BLOOD No [...] 0.4 % Jan 24, 2020 09:25 AM [facility] COMPREHENSIVE METABOLIC PA YESSY Specimen Type: [...] EGFR >60 Jan 24, 2020 09:25 AM [facility] LIPID PROFILE(HDL,TRIG,CHO L,LDL) Specimen Type: PLASMA Comment: For eGFR: eGFR results >60 are imprecise. Many variables affect the calculated result. Interpretation of eGFR results >60 must be monitored over time. CHOLESTEROL 184 mg/dL 0-200 TRIGS 180 mg/dL H 0-150 HDL-CHOLESTEROL 55 mg/dL >40 LDL (CALC) 93 mg/dL 0-99.9 Jan 24, 2020 09:25 AM [facility] TSH Specimen Type: SERUM No comment entered. TSH 1.85 uIU/mL 0.47-5.00 Jan 24, 2020 09:25 AM [facility] PROSTATIC SPECIFIC ANTIGEN (TOTAL) Specimen Type: SERUM No comment entered. PROSTATIC SPECIFIC ANTIGEN(TOTAL) 1.4 ng/mL 0-4 Dec 25, 2019 09:12 AM [facility] [place] CBC & DIFF Specimen [...] 0.2 % Dec 25, 2019 09:12 AM [facility] [employer] COMPREHENSIVE MT TABOLIC PANEL Specimen Type: PLASMA No comment [...] EGFR 104.0 Dec 25, 2019 09:12 AM [facility] [employer] LIPID PROFIL E(HDL,TRIG,CHOL,LDL) Sp ecimen Type: PLASMA No comment entered. CHOLESTEROL 193 mg/dL 0-200 TRIGS 162 mg/dL H 0-150 HDL-CHOLESTEROL 50 mg/dL >40 LDL (CALC) 110.6 mg/dL H 0-99.9 Dec 25, 2019 09:12 AM [facility] [place] [employer] PROSTATIC SP ECIFIC ANTIGEN(TOTAL) Sp ecimen Type: SERUM No comment entered. PROSTATIC SPECIFIC ANTIGEN(TOTAL) 1.57 ng/mL 0-4 Dec 25, 2019 09:12 AM [facility] [employer] [facility] URINALYSIS Specimen Type: URINE No comment entered. URINE COLOR Yellow SPECIFIC GRAVITY 1.024 1.005-1.030 UROBILINOGEN Negative mg/dL 0.1-1.0 URINE BILIRUBIN Negative Negative URINE KETONES Negative mg/dl Negative URINE GLUCOSE Negative mg/dL Negative URINE PROTEIN Negative mg/dl Negative-Tr mary URINE PH 5.0 5-8 APPEARANCE,URINE Clear Clear URINE BLOOD Negative Negative URINE NITRITE Negative Negative LEUKOCYTE ESTERASE Negative Negative Dec 25, 2019 09:12 AM [facility] [employer] TSH Specimen Type: SERUM No comment entered. TSH 1.37 uIU/mL 0.47-5.00 Dec 25, 2019 09:12 AM [facility] [employer] HEMOGLOBIN A1C Specimen Type: BLOOD No comment entered. HEMOGLOBIN A1C 6.5 % H 4.0-6.0 Dec 25, 2019 09:12 AM [facility] [employer] MICROALBUMIN (CO ,EK) Specimen Type: URINE No comment entered. *MICROALBUMIN(CONC) 1.7 mg/dL - *MICROALBUMIN(SPOT) 12.4 mcg/mg cr 0-29 *CREATININE mg/dL 137.6 mg/dl Not Avail. Dec 25, 2019 09:12 AM [facility] [employer] VITAMIN D (25-OH ) Specimen Type: SERUM [...] of a patient's completed or amen ded [place] Advance and Rescinded Directives. The entries below indicate that a direc tive exists for the patient, but an actual copy is not included with this docume nt. The data comes from all [place] facilities. Date Advance Directives Provider Source Jan 24, 2020 ADVANCE DIRECTIVE DISCUSSION ROXANNA JOSHUA [facility] Allergies and Adverse Reactions (ADRs): All historical and current Section Date Range: From patient's date of to the date document was create d. This section includes Allergies and Adverse Reactions (ADR s) on record with [facility] for the patient. The data comes from a ll [place] treatment facilities. It does not list Allergies/ADRs that were removed or entered in error. Some allergies/ADRs may be reported in t he Immunization section. Allergen Event Date Event Type Reaction(s) Severity Source LISINOPRIL March 27, 2008 Propensity to adverse reactions to drug (disorder) Cough [facility] 15 [place] Oct 24, 2007 Propensity to adverse reactions to drug ( disorder) Syncope [facility] VISN 15 Medications: VA dispensed (-15 months) and Non-VA Documented (Obtained Outside V A) Section Date Range: 1) prescriptions processed by a VA pharmacy in the last [address] [facility], and 2) all medications recorded in the [place] medical record as "non-VA medic ations". Pharmacy terms refer to [place] pharmacy's work on prescriptions. [facility] patient s are advised to take their medications as instructed by their health care team. The data comes from all [place] treatment [facility]. Glossary of Pharmacy Terms:Active = A prescription that can be filled at the local [place] pharmacy.Active: On Hold = An active prescription that will not be filled until pharmacy resolves the issue.Active: Susp = An active prescription that is not scheduled to be filled yet.Clinic Order = A medication received during a visit to a [place] clinic or emergency department (currently not available).Discontinued [...] MOUTH EVERY MORNING 90 May 04, 2020 [id number] Sep 21, 2019 GINNA ALFRED JR [facility] [place] ASPIRIN 81MG TAB,EC Non- VA TAKE ONE TABLET BY MOUTH ONCE A DAY Non-VA Documented by: SILVIO DA SILVA nted at: [facility] [place] BUMETANIDE 1MG TAB Discontinued TAKE TWO TABLETS BY MOUTH EVERY MOR MAXINE 180 May 04, 2020 [id number] May 04, 2019 GINNA ALFRED JR [facility] CS [place] CARVEDILOL 12.5MG TAB Active TAKE ONE-HALF TABL ET BY MOUTH TWO TIMES A DAY FOR HEART. TAKE WITH FOOD. NOTE: EACH DOSE IS 1/2 TABLET 90 Dec 25 1 [id number] Dec 27, 2019 GINNA ALFRED JR [facility] [place] CARVEDILOL 12.5MG TAB Discontinued TAKE ONE-HALF TABL ET BY MOUTH TWO TIMES A DAY FOR HEART. TAKE WITH FOOD. NOTE: EACH DOSE IS 1/2 TABLET 90 May 04, 2020 [id number] Sep 21, 2019 GINNA ALFRED JR [facility] [place] CHOLECALCIFEROL 10MCG (400UNIT) TAB Active TAKE TWO TABLETS BY MOUTH ONCE A DAY FOR VITAMIN D DEFICIENCY 200 Feb 01, 2021 [id number] Feb 03, 2020 [facility] COLESTIPOL HCL 1GM TAB Discontinued TAKE ONE TABLET B Y MOUTH THREE TIMES A DAY - TAKE ONE HOUR AFTER OR FOUR HOURS BEFORE OTHER MEDICATIONS *DO NOT CHEW OR CRUSH* 270 May 04, 2020 [id number] Dec 19, 2019 GINNA ALFRED JR [facility] [place] FISH OIL CAP/TAB Non- [facility] 3 CAPS MOUTH ONCE A DAY Non-V A Documented by: SILVIO DA SILVA nted at: [facility] [place] HYDROCHLOROTHIAZIDE 25MG TAB Non-VA TAKE ONE TABLET BY MOUTH EVERY MORNING Non-VA Documented by: GINNA ALFRED JR nted at: [facility] [place] LORATADINE 10MG TAB Non- [place] TAKE ONE TABLET BY MOUTH QDAY PRN Non-VA Documented by: SILVIO DA SILVA nted at: [facility] [place] POTASSIUM 100MG TAB Active TAKE ONE TA BLET BY MOUTH ONCE A DAY FOR BLOOD PRESSURE. 90 Dec 25, 2020 [id number] Dec 27, 2019 GINNA ALFRED JR [facility] [place] POTASSIUM 100MG TAB Discontinued TAKE ONE TA BLET BY MOUTH ONCE A DAY FOR BLOOD PRESSURE. 90 May 04, 2020 [id number] Sep 21, 2019 LAURIE ALFRED JR [facility] [place] LOVASTATIN 40MG TAB Discontinued TAKE ONE TABLET BY M OUTH EVERY EVENING WITH SUPPER FOR CHOLESTEROL - REPORT ANY UNEXPLAINED MUSCLE PAIN/WEAKNESS TO YOUR PROVIDER 90 May 04, 2020 [id number] Sep 21, 2019 GINNA ALFRED JR Val [facility] [place] MELOXICAM 15MG TAB Discontinued TAKE ONE TABLET BY M OUTH ONCE A DAY WITH FOOD FOR PAIN AND INFLAMMATION. 30 May 04, 2020 [id number] May 04, 2019 GINNA PORTILLO JR [facility] [place] METFORMIN HCL 500MG 24HR TAB,SA Non-VA TAKE TWO TABLETS BY MOUTH EVERY EVENING BEFORE SUPPER Non-VA Documented by: GINNA ALFRED JR nted at: [facility] [place] OMEPRAZOLE 20MG CAP,EC Active TAKE 1 CAPSULE BY MOUTH EVERY MORNING 30 MINUTES BEFORE EATING TO LOWER STOMACH ACID 90 Dec 25, 2020 [id number] Dec 162019 GINNA ALFRED JR [facility] [place] OMEPRAZOLE 20MG CAP,EC Discontinued TAKE 1 CAPSULE BY MOUTH EVERY MORNING 30 MINUTES BEFORE EATING TO LOWER STOMACH ACID 90 May 04, 2020 [id number] Sep 21, 2019 GINNA ALFRED JR [facility] [place] OMEPRAZOLE 20MG CAP,EC N on-VA TAKE 1 CAPSULE BY MOUTH EVERY MORNING Non-VA Documented by: SILVIO DA SILVA nted at: [facility] ROSUVASTATIN CA 40MG TAB Active TAKE ONE-HALF T ABLET BY MOUTH AT BEDTIME FOR CHOLESTEROL. REPORT ANY UNEXPLAINED MUSCLE PAIN OR WEAKNESS TO YOUR DOCTOR. 45 Dec 25, 2020 [id number] Dec 27, 2019 TROUGINNA GILBERT [facility] [place] Problems (Conditions): All [...] Comm ent(s) Provider Source Essential hypertension Active [id number] Tacho DALAL KAROLINA [facility] [place] Gastroesophageal reflux disease (SNOMED CT 701611717) Active [id number] GINNA ALFRED [facility] [place] Hearing loss (SNOMED CT 80067736) Active [id number] [facility] [place] Hypercholesterolemia Active [id number] [facility] [place] Hyperlipidemia Active 09375512 [facility] [place] Muscle pain Active 64718965 [facility] [place] Obesity (SNOMED CT 899511851) Active [id number] [facility] [place] [facility] Osteoarthritis (SNOMED CT 767867431) Active [id number] [facility] [place] Personal History of Colonic Polyps (ICD-9-CM V12.72) Active V12.72 [facility] [place] Sleep apnea (SNOMED CT 54366475) Active 10478352 [facility] [place] [facility] Type 2 diabetes mellitus Active 10257983 [facility] [place] Vitamin D deficiency (SNOMED CT 81704068) Active 62692730 [facility] [place] Actinic keratosis (SNOMED CT 319886988) Inactive 702.0 Feb 01, 2019,FEBRUARY [facility] [place] Dizziness * (ICD-9-CM 780.4) Inactive 780.4 Feb 01, 2019 MIMI HAN [facility] [place] Dyslipidemia (ICD-9-CM 272.4) Inactive 272.4 Feb 01, 2019 YORDY WARE [facility] [place] Hyperglycemia * (ICD-9-CM 790.29) Inactive 790.29 [facility] [place] Hypertension * (ICD-9-CM 401.9) Inactive 401.9 Feb 01, 2019 YORDY WARE [facility] [place] Impaired FASTING Glucose (ICD-9-CM 790.21) Inactive 790.21 Feb 01, 2019 ESEQUIEL SAMANIEGO [facility] [place] Obesity * (ICD-9-CM 278.00) Inactive 278.00 Feb 01, 2019 LUZ MARIA HARDWICK [facility] [place] OSTEOARTHRITIS HAND Inactive 715.14 Feb 01, 2019 Aug 29, 2007 Entered By: SOULEYMANE MANCILLA Comment: wrist SOULEYMANE MANCILLA [facility] [place] IV Other Seborrheic Keratosis (ICD-9-CM 702.19) Inactive 702.19 Feb 01, 2019 [facility] [place] Other tenosynovitis of hand and wrist (ICD-9-CM 727.05) Inactive 727.05 Feb 01, 2019 ESEQUIEL SAMANIEGO [facility] [place] [facility] Rhinitis * (ICD-9-CM 472.0) Inactive 472.0 Feb 01, 2019 HERNANDO KELSEY [facility] [place] Screening, Malignancy Inactive V76.89 Feb 01, 2019 INDIRA SESAY [facility] [place] Trigger Finger (ICD-9-CM 727.03) Inactive 727.03 Feb 01, 2019 [facility] [place] Umbilical hernia * (ICD-9-CM 553.1) Inactive 553.1 Feb 01, 2019 YORDY WARE [facility] [place] Radiology Reports: +/- 30 days of the encounter No Data Provided for This Section Pathology Reports: +/- 30 days of the encounter No Data Provided for This Section Encounter Notes: All associated encounter notes No Data Provided for This Section
--- OUTSIDE RECORDS SUMMARY | 2020-05-21 07:05 | XMS REPORT | Encounter Summary ---
Author Author Department [facility] BRENT fernandez Organization Department of [facility] Address [address] [place] [address] Phone Unavailable Care Team Providers Care Neurology Technologist Name Role Phone MICHAELJULIA PCP Unavailable Insurance [...] PART B May 15, 2013 PART B [id number] [phone] BRENT CONCEPCION PATIENT MEDICARE (WNR) MEDICARE (M) PART B May 15, 2013 PART B [id number] BRENT CONCEPCION PATIENT MEDICARE (WNR) MEDICARE (M) PART A Dec 16, 2011 PART A [id number] BRENT CONCEPCION PATIENT MEDICARE (WNR) MEDICARE (M) PART A Dec 16, 2011 PART A [id number] [phone] [facility] INSURANCE MEDIGAP PLAN F MEDICARE SUPPLEMENT Jun 15, 2013 PLAN F [id number] [phone] BRENT CONCEPCION PATIENT Selected Encounter This section includes the information on record at NE for the Encounter. Date/Time Encounter Type Encounter Description Reason Provider Source Aug 30, 2019 12:00 AM Outpatient Encounter EVENT (HISTORICAL) [facility] IHE Encounter Template Text not used by NE Assessments - Encounter Diagnoses No Data Provided for This Section Plan of Treatment: Future Appointments (+ 6 months) and Future Tests (+/- 45 day s) The Plan of Treatment section includes future care activities for the patient fr om all NE treatment facilities. This section includes future appointments and fu ture orders which are active, pending or scheduled. Future Appointments This section includes appointments that were scheduled t o occur 6 months from the date of the Encounter, up to a maximum of 20 appointme nts. The data comes from all [place] treatment facilities. Appointment Date/Time Appointment Type Appointment Facili ty Name Dec 25, 2019 09:30 AM AMBULATORY - NONE [facility] [place] [facility] Dec 25, 2019 11:30 AM AMBULATORY - MEDICINE [facility] [place] [facility] Jan 24, 2020 [...] Series Date Issued Reaction Comments ZOSTER RECOMBINANT 1 Aug 30, 2019 Shingrix Vaccination Form Faxed in by Pharmacy Social History: Smoking Status (Most current) and [...] docume nt. The data comes from all [place] facilities. Date Advance Directives Provider Source Jan 24, 2020 ADVANCE DIRECTIVE DISCUSSION ROXANNA JOSHUA [facility] Allergies and Adverse Reactions (ADRs): All historical and current Section Date Range: From patient's date of to the date document was create d. This section includes Allergies and Adverse Reactions (ADR s) on record with NE for the patient. The data comes from a ll NE treatment facilities. It does not list Allergies/ADRs that were removed or entered in error. Some allergies/ADRs may be reported in t he Immunization section. Allergen Event Date Event Type Reaction(s) Severity Source LISINOPRIL March 27, 2008 Propensity to adverse reactions to drug (disorder) Cough [facility] 15 ZOCOR Oct 24, 2007 Propensity to adverse reactions to drug ( disorder) Syncope SEVERE [facility] 15 Medications: VA dispensed (-15 months) and Non-VA Documented (Obtained Outside A) Section Date Range: 1) prescriptions processed by a VA pharmacy in the last [address] [facility], and 2) all medications recorded in the NE medical record as "non-VA medic ations". Pharmacy terms refer to NE pharmacy's work on prescriptions. VA patient s are advised to take their medications as instructed by their health care team. The data comes from all NE treatment facilities. Glossary of Pharmacy Terms:Active = A prescription that can be filled at the local [place] pharmacy.Active: On Hold = An active prescription that will not be filled until pharmacy resolves the issue.Active: Susp = An active prescription that is not scheduled to be filled yet.Clinic Order = A medication received during a visit to a NE clinic or emergency department (currently not available).Discontinued [...] may be a prescription from either the NE or other providers that was filled outside the NE. Or, it may be an over the [...] MOUTH EVERY MORNING 90 May 04, 2020 [id number] Sep 21, 2019 GINNA ALFRED JR [facility] ASPIRIN 81MG TAB,EC Non- VA TAKE ONE TABLET BY MOUTH ONCE A DAY Non-VA Documented by: SILVIO DA SILVA nted at: [facility] [place] [facility] BUMETANIDE 1MG TAB Discontinued TAKE TWO TABLETS BY MOUTH EVERY MOR MAXINE 180 May 04, 2020 [id number] May 04, 2019 GINNA ALFRED JR [facility] [place] [facility] CARVEDILOL 12.5MG TAB Active TAKE ONE-HALF TABL ET BY MOUTH TWO TIMES A DAY FOR HEART. TAKE WITH FOOD. NOTE: EACH DOSE IS 1/2 TABLET 90 Dec 25 [id number] Dec 27, 2019 GINNA ALFRED JR [facility] [place] CARVEDILOL 12.5MG TAB Discontinued TAKE ONE-HALF TABL ET BY MOUTH TWO TIMES A DAY FOR HEART. TAKE WITH FOOD. NOTE: EACH DOSE IS 1/2 TABLET 90 May 04, 2020 [id number] Sep 21, 2019 GINNA ALFRED JR [facility] CHOLECALCIFEROL 10MCG (400UNIT) TAB Active TAKE TWO TABLETS BY MOUTH ONCE A DAY FOR VITAMIN D DEFICIENCY 200 Feb 01, 2021 [id number] Feb 03, 2020 JULIA SANCHEZ [facility] COLESTIPOL HCL 1GM TAB Discontinued TAKE ONE TABLET B Y MOUTH THREE TIMES A DAY - TAKE ONE HOUR AFTER OR FOUR HOURS BEFORE OTHER MEDICATIONS *DO NOT CHEW OR CRUSH* 270 May 04, 2020 [id number] Dec 19, 2019 GINNA ALFRED JR [facility] FISH OIL CAP/TAB Non- [...] FOR BLOOD PRESSURE. 90 Dec 25, 2020 [id number] Dec 27, 2019 GINNA ALFRED JR [facility] LOSARTAN POTASSIUM 100MG TAB Discontinued TAKE ONE TA BLET BY MOUTH ONCE A DAY FOR BLOOD PRESSURE. 90 May 04, 2020 [id number] Sep 21, 2019 LAURIE ALFRED JR [facility] LOVASTATIN 40MG TAB Discontinued TAKE ONE TABLET BY M OUTH EVERY EVENING WITH SUPPER FOR CHOLESTEROL - REPORT ANY UNEXPLAINED MUSCLE PAIN/WEAKNESS TO YOUR PROVIDER 90 May 04, 2020 [id number] Sep 21, 2019 GINNA ALFRED JR Val ESCALERA [facility] MELOXICAM 15MG TAB Discontinued TAKE ONE TABLET BY M OUTH ONCE A DAY WITH FOOD FOR PAIN AND INFLAMMATION. 30 May 04, 2020 [id number] May 04, 2019 GINNA PORTILLO JR [facility] METFORMIN HCL 500MG 24HR TAB,SA Non-VA TAKE TWO TABLETS BY MOUTH EVERY EVENING BEFORE SUPPER Non-VA Documented by: GINNA ALFRED JRume nted at: [facility] OMEPRAZOLE 20MG CAP,EC Active TAKE 1 CAPSULE BY MOUTH EVERY MORNING 30 MINUTES BEFORE EATING TO LOWER STOMACH ACID 90 Dec 25, 2020 [id number] Dec 162019 [facility] [...] Documented by: SILVIO DA SILVA nted at: [facility] ROSUVASTATIN CA 40MG TAB Active TAKE ONE-HALF T ABLET BY MOUTH AT BEDTIME FOR CHOLESTEROL. REPORT ANY UNEXPLAINED MUSCLE PAIN OR WEAKNESS TO YOUR DOCTOR. 45 Dec 25, 2020 [id number] Dec 27, 2019 [facility] [place] [facility] Problems (Conditions): All [...] Comm ent(s) Provider Source Essential hypertension Active [id number] Tacho DALAL [facility] Gastroesophageal reflux disease (SNOMED CT 547716907) Active 856039 009 GINNA ALFRED [facility] [place] [facility] Hearing loss (SNOMED CT 19910619) Active 17906260 GINNA ALFRED [facility] [place] [facility] Hypercholesterolemia Active 20413703 LAYLA ALFRED [facility] [place] [facility] Hyperlipidemia Active 18112912 [facility] [place] [facility] Muscle pain Active 69367733 [facility] [place] [facility] Obesity (SNOMED CT 247355194) Active 900505780 GINNA ALFRED [facility] [place] [facility] Osteoarthritis (SNOMED CT 804020191) Active 880495288 GINNA ALFRED [facility] [place] [facility] Personal History of Colonic Polyps (ICD-9-CM V12.72) [facility]12.[facility] [place] [facility] Sleep apnea (SNOMED CT 80348504) Active 24594774 GINNA ALFRED [facility] [place] [facility] Type 2 diabetes mellitus Active 05767330 [facility] [place] [facility] Vitamin D deficiency (SNOMED CT 90021828) Active 14907534 GINNA ALFRED [facility] [place] [facility] Actinic keratosis (SNOMED CT 224418229) Inactive 702.0 Feb 01, 2019 [facility] [place] [facility] Dizziness * (ICD-9-CM 780.4) Inactive 780.4 Feb 01, 2019 [facility] [place] [facility] Dyslipidemia (ICD-9-CM 272.4) Inactive 272.4 Feb 01, 2019 [facility] [place] [facility] Hyperglycemia * (ICD-9-CM 790.29) Inactive 790.29 Jan [facility] [place] [facility] Hypertension * (ICD-9-CM 401.9) Inactive 401.9 Feb 01, 2019 [facility] [place] [facility] Impaired FASTING Glucose (ICD-9-CM 790.21) Inactive 790.21 Feb 01, 2019 ESEQUIEL SAMANIEGO [facility] [place] [facility] Obesity * (ICD-9-CM 278.00) Inactive 278.00 Feb 01, 2019 NACHOLUZ MARIA SIMMONS [facility] [place] [facility] OSTEOARTHRITIS HAND Inactive 715.14 Feb 01, 2019 Aug 29, 2007 Entered By: SOULEYMANE MANCILLA Comment: wrist SOULEYMANE MANCILLA [facility] IV Other Seborrheic Keratosis (ICD-9-CM 702.19) Inactive 702.19 Feb 01, 2019 RAMIRO HANFORMERLY [facility] [place] [facility] Other tenosynovitis of hand and wrist (ICD-9-CM 727.05) Inactive 727.05 Feb 01, 2019 ADENESEQUIEL [facility] [place] [facility] Rhinitis * (ICD-9-CM 472.0) Inactive 472.0 Feb 01, 2019 HERNANDO KELSEY [facility] [place] [facility] Screening, Malignancy Inactive V76.89 Feb 01, 2019 INDIRA SESAY [facility] [place] [facility] Trigger Finger (ICD-9-CM 727.03) Inactive 727.03 Feb 01, 2019 MIMI HAN [facility] [place] [facility] Umbilical hernia * (ICD-9-CM 553.1) Inactive 553.1 Feb 01, 2019 YORDY WARE [facility] [place] [facility] Radiology Reports: +/- 30 days of the encounter No Data Provided for This Section Pathology Reports: +/- 30 days of the encounter No Data Provided for This Section Encounter Notes: All associated encounter notes No Data Provided for This Section
--- OUTSIDE RECORDS SUMMARY | 2020-05-21 07:06 | XMS REPORT | Continuity of Care Document ---
Author Organization Unknown Address Unknown Phone Unavailable Allergies Active Description Code Type Severity Reaction Onset Reported/Identified Relationship to Patient Clinical Status Yes No Known Drug Allergies [id number] Drug Allergy Mild N/A 03/22/2009 Medications There is no data. Problems Date Dx Coded Attending Type Code Diagnosis Diagnosed By 10/14/1340 LEATHA TIM, PATTY Wong Ot K62. 5 HEMORRHAGE OF ANUS AND RECTUM 10/14/1340 LEATHA TIM, PATTY Wong Ot Z01.812 ENCOUNTER FOR PREPROCEDURAL LABORATORY E 10/14/1340 PATTY ZHANG MD Ot Z01.818 ENCOUNTER FOR OTHER PREPROCEDURAL EXAMIN 10/14/1340 PATTY ZHANG MD Ot Z20.828 CONTACT W AND EXPOSURE TO OTH VIRAL COMM 12/06/2009 Ot 272.4 12/06/2009 Ot 401.9 12/06/2009 Ot 780.4 04/12/2013 SEAN AGUILLON MD Ot 041.49 OTHER AND UNSPECIFIED ESCHERICHIA COLI [ 04/12/2013 SEAN AGUILLON MD Ot 272.4 HYPERLIPIDEMIA NEC/NOS 04/12/2013 SEAN AGUILLON MD Ot 401.9 HYPERTENSION NOS 04/12/2013 ESAN AGUILLON MD Ot 682.6 CELLULITIS OF LEG 04/12/2013 SEAN AGUILLON MD Ot 890.1 OPEN WND HIP/THIGH-COMPL 04/12/2013 SEAN AGUILLON MD Ot E000.8 OTHER EXTERNAL CAUSE STATUS 04/12/2013 SEAN AGUILLON MD Ot E016.9 OTH ACT INVG PROPERTY LAND MAINT,BUILD 04/12/2013 SEAN AGUILLON MD Ot E849.0 ACCIDENT IN HOME 04/12/2013 SEAN AGUILLON MD Ot E920.8 ACC-CUTTING INSTRUM NEC 04/12/2013 SEAN AGUILLON MD Ot 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 07/13/2013 SEAN AGUILLON MD Ot 682.6 CELLULITIS OF LEG 07/13/2013 HENNA TIM, SEAN Hughes Ot 890.1 OPEN WND HIP/THIGH-COMPL 07/13/2013 SEAN AGUILLON MD Ot E000.8 OTHER EXTERNAL CAUSE STATUS 07/13/2013 SEAN AGUILLON MD Ot E016.9 OTH ACT INVG PROPERTY LAND MAINT,BUILD 07/13/2013 SEAN AGUILLON MD Ot E849.0 ACCIDENT IN HOME 07/13/2013 SEAN AGUILLON MD Ot E920.8 ACC-CUTTING INSTRUM NEC 05/04/2014 GLO LEUNG MD Ot 272 .0 PURE HYPERCHOLESTEROLEM 05/04/2014 GLO LEUNG MD Ot 276.51 DEHYDRATION 05/04/2014 GLO LEUNG MD Ot 401 .9 HYPERTENSION NOS 05/04/2014 GLO LEUNG MD Ot 530.81 ESOPHAGEAL REFLUX 05/04/2014 GLO LEUNG MD Ot 729 .5 PAIN IN LIMB 05/04/2014 GLO LEUNG MD Ot 780 .4 DIZZINESS AND GIDDINESS 05/04/2014 GLO LEUGN MD Ot 786.50 CHEST PAIN NOS 05/04/2014 GLO LEUNG MD Ot V49.62 OTHER FINGER(S) AMPUTATION STATUS 05/04/2014 GLO LEUNG MD Ot V58.66 LONG-TERM (CURRENT) USE OF ASPIRIN 05/04/2014 GLO LEUNG MD Ot V58.69 OTH MED,LT,CURRENT USE 11/27/2014 Ot 715.34 11/27/2014 Ot 727.03 11/27/2014 [...] E849.0 01/28/2016 Ot E920.8 03/03/2016 Ot 729.81 SWE LLING OF LIMB 03/03/2016 Ot 682.6 CELL ULITIS OF LEG 03/03/2016 Ot 890.1 OPEN WND HIP/THIGH-COMPL 03/03/2016 Ot E000.8 OTH ER EXTERNAL CAUSE STATUS 03/03/2016 Ot E016.9 OTH ACT INVG PROPERTY LAND MAINT,BUILD 03/03/2016 Ot E849.0 ACC IDENT IN HOME 03/03/2016 Ot E920.8 ACC -CUTTING INSTRUM NEC 03/11/2016 Ot 729.81 SWE LLING OF LIMB 03/11/2016 Ot 682.6 CELL ULITIS OF LEG 03/11/2016 Ot 890.1 OPEN WND HIP/THIGH-COMPL 03/11/2016 Ot E000.8 OTH ER EXTERNAL CAUSE STATUS 03/11/2016 Ot E016.9 OTH ACT INVG PROPERTY LAND MAINT,BUILD 03/11/2016 Ot E849.0 ACC IDENT IN HOME 03/11/2016 Ot E920.8 ACC -CUTTING INSTRUM NEC 03/12/2017 Ot 729.81 SWE LLING OF LIMB 03/12/2017 Ot 682.6 CELL ULITIS OF LEG 03/12/2017 Ot 890.1 OPEN WND HIP/THIGH-COMPL 03/12/2017 Ot E000.8 OTH ER EXTERNAL CAUSE STATUS 03/12/2017 Ot E016.9 OTH ACT INVG PROPERTY LAND MAINT,BUILD 03/12/2017 Ot E849.0 ACC IDENT IN HOME 03/12/2017 Ot E920.8 ACC -CUTTING INSTRUM NEC 04/07/2017 Ot 729.81 SWE LLING OF LIMB 04/07/2017 Ot 682.6 CELL ULITIS OF LEG 04/07/2017 Ot 890.1 OPEN WND HIP/THIGH-COMPL 04/07/2017 Ot E000.8 OTH ER EXTERNAL CAUSE STATUS 04/07/2017 Ot E016.9 OTH ACT INVG PROPERTY LAND MAINT,BUILD 04/07/2017 Ot E849.0 ACC IDENT IN HOME 04/07/2017 Ot E920.8 ACC -CUTTING INSTRUM NEC 04/07/2017 Ot 729.81 SWE LLING OF LIMB 04/07/2017 Ot 682.6 CELL ULITIS OF LEG 04/07/2017 Ot 890.1 OPEN WND HIP/THIGH-COMPL 04/07/2017 Ot E000.8 OTH ER EXTERNAL CAUSE STATUS 04/07/2017 Ot E016.9 OTH ACT INVG PROPERTY LAND MAINT,BUILD 04/07/2017 Ot E849.0 ACC IDENT IN HOME 04/07/2017 Ot E920.8 ACC -CUTTING INSTRUM NEC 12/12/2017 Ot 682.6 CELL ULITIS OF LEG 12/12/2017 Ot 890.1 OPEN WND HIP/THIGH-COMPL 12/12/2017 Ot E000.8 OTH ER EXTERNAL CAUSE STATUS 12/12/2017 Ot E016.9 OTH ACT INVG PROPERTY LAND MAINT,BUILD 12/12/2017 Ot E849.0 ACC IDENT IN HOME 12/12/2017 Ot E920.8 ACC -CUTTING INSTRUM NEC 12/12/2017 Ot I10 ESSENT IAL (PRIMARY) HYPERTENSION 12/12/2017 Ot R01.1 CARD IAC MURMUR, UNSPECIFIED 12/14/2017 PATTY ZHANG MD Ot E11. 9 TYPE 2 DIABETES MELLITUS WITHOUT COMPLIC 12/14/2017 PATTY ZHANG MD Ot E66. 9 OBESITY, UNSPECIFIED 12/14/2017 PATTY ZHANG MD Ot E78. 5 HYPERLIPIDEMIA, UNSPECIFIED 12/14/2017 PATTY ZHANG MD Ot G47. 30 SLEEP APNEA, UNSPECIFIED 12/14/2017 PATTY ZHANG MD Ot I10 ESSENTIAL (PRIMARY) HYPERTENSION 12/14/2017 PATTY ZHANG MD Ot I25.110 ATHSCL HEART DISEASE OF [place] COR ART W 12/14/2017 PATTY ZHANG MD Ot I35. 0 NONRHEUMATIC AORTIC (VALVE) STENOSIS 12/14/2017 PATTY ZHANG MD Ot J32. 2 CHRONIC ETHMOIDAL SINUSITIS 12/14/2017 PATTY ZHANG MD Ot J45.909 UNSPECIFIED ASTHMA, UNCOMPLICATED 12/14/2017 PATTY ZHANG MD Ot K21. 9 GASTRO-ESOPHAGEAL REFLUX DISEASE WITHOUT 12/14/2017 PATTY ZHANG MD Ot Z68. 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 9 TYPE 2 DIABETES MELLITUS WITHOUT COMPLIC 12/16/2017 PATTY ZHANG MD Ot E66. 9 OBESITY, UNSPECIFIED 12/16/2017 PATTY ZHANG MD Ot E78. 5 HYPERLIPIDEMIA, UNSPECIFIED 12/16/2017 PATTY ZHANG MD Ot G47. 30 SLEEP APNEA, UNSPECIFIED 12/16/2017 PATTY ZHANG MD Ot I10 ESSENTIAL (PRIMARY) HYPERTENSION 12/16/2017 PATTY ZHANG MD Ot I25.110 ATHSCL HEART DISEASE OF [place] COR ART W 12/16/2017 PATTY ZHANG MD Ot I35. 0 NONRHEUMATIC AORTIC (VALVE) STENOSIS 12/16/2017 PATTY ZHANG MD Ot J32. 2 CHRONIC ETHMOIDAL SINUSITIS 12/16/2017 PATTY ZHANG MD Ot J45.909 UNSPECIFIED ASTHMA, UNCOMPLICATED 12/16/2017 PATTY ZHANG MD Ot K21. 9 GASTRO-ESOPHAGEAL REFLUX DISEASE WITHOUT 12/16/2017 PATTY ZHANG MD Ot Z68. 35 BODY MASS INDEX (BMI) 35.0-35.9, ADULT 12/16/2017 PATTY ZHANG MD Ot Z79. 82 JEWEL [employer] [place] (CURRENT) USE OF ASPIRIN 12/16/2017 PATTY ZHANG MD Ot Z79.899 OTHER JEWEL BEARING [place]URNER (CURRENT) DRUG THERAPY 12/16/2017 PATTY ZHANG MD Ot Z87.891 PERSONAL HISTORY OF NICOTINE DEPENDENCE 12/16/2017 PATTY ZHANG MD Ot E11. 9 TYPE 2 DIABETES MELLITUS WITHOUT COMPLIC 12/16/2017 PATTY ZHANG MD Ot E66. 9 OBESITY, UNSPECIFIED 12/16/2017 PATTY ZHANG MD Ot E78. 5 HYPERLIPIDEMIA, UNSPECIFIED 12/16/2017 PATTY ZHANG MD Ot G47. 30 SLEEP APNEA, UNSPECIFIED 12/16/2017 LEATHA TIM, PATTY Wong Ot I10 ESSENTIAL (PRIMARY) HYPERTENSION 12/16/2017 PATTY ZHANG MD Ot I25.110 ATHSCL HEART DISEASE OF [place] COR ART W 12/16/2017 PATTY ZHANG MD Ot I35. 0 NONRHEUMATIC AORTIC (VALVE) STENOSIS 12/16/2017 PATTY ZHANG MD Ot J32. 2 CHRONIC ETHMOIDAL SINUSITIS 12/16/2017 PATTY ZHANG MD Ot J45.909 UNSPECIFIED ASTHMA, UNCOMPLICATED 12/16/2017 PATTY ZHANG MD Ot K21. 9 GASTRO-ESOPHAGEAL REFLUX DISEASE WITHOUT 12/16/2017 PATTY ZHANG MD Ot Z68. 35 BODY MASS INDEX (BMI) 35.0-35.9, ADULT 12/16/2017 PATTY ZHANG MD Ot Z79. 82 RETIREMENT (CURRENT) USE OF ASPIRIN 12/16/2017 PATTY ZHANG MD Ot Z79.899 OTHER RETIREMENT (CURRENT) DRUG THERAPY 12/16/2017 PATTY ZHANG MD Ot Z87.891 PERSONAL HISTORY OF NICOTINE DEPENDENCE 12/17/2017 PATTY ZHANG MD Ot E11. 9 TYPE 2 DIABETES MELLITUS WITHOUT COMPLIC 12/17/2017 PATTY ZHANG MD Ot E66. 9 OBESITY, UNSPECIFIED 12/17/2017 PATTY ZHANG MD Ot E78. 5 HYPERLIPIDEMIA, UNSPECIFIED 12/17/2017 PATTY ZHANG MD Ot G47. 30 SLEEP APNEA, UNSPECIFIED 12/17/2017 PATTY ZHANG MD Ot I10 ESSENTIAL (PRIMARY) HYPERTENSION 12/17/2017 PATTY ZHANG MD Ot I25.110 ATHSCL HEART DISEASE OF [place] ART W 12/17/2017 PATTY ZHANG MD Ot I35. 0 NONRHEUMATIC AORTIC (VALVE) STENOSIS 12/17/2017 PATTY ZHANG MD Ot J32. 2 CHRONIC ETHMOIDAL SINUSITIS 12/17/2017 PATTY ZHANG MD Ot J45.909 UNSPECIFIED ASTHMA, UNCOMPLICATED 12/17/2017 PATTY ZHANG MD Ot K21. 9 GASTRO-ESOPHAGEAL REFLUX DISEASE WITHOUT 12/17/2017 PATTY ZHANG MD Ot Z68. 35 BODY MASS INDEX (BMI) 35.0-35.9, ADULT 12/17/2017 LEATHA TIM, PATTY Wong Ot Z79. 82 RETIREMENT (CURRENT) USE OF ASPIRIN 12/17/2017 PATTY ZHANG MD Ot Z79.899 OTHER JEWEL [employer]ARING [place]URNER (CURRENT) DRUG THERAPY 12/17/2017 PATTY ZHANG MD Ot Z87.891 PERSONAL HISTORY OF NICOTINE DEPENDENCE 12/18/2017 Ot 682.6 CELL ULITIS OF LEG 12/18/2017 Ot 890.1 OPEN WND HIP/THIGH-COMPL 12/18/2017 Ot E000.8 OTH ER EXTERNAL CAUSE STATUS 12/18/2017 Ot E016.9 OTH ACT INVG PROPERTY LAND MAINT,BUILD 12/18/2017 Ot E849.0 ACC IDENT IN HOME 12/18/2017 Ot E920.8 ACC -CUTTING INSTRUM NEC 12/18/2017 Ot I10 ESSENT IAL (PRIMARY) HYPERTENSION 12/18/2017 Ot R01.1 CARD IAC MURMUR, UNSPECIFIED 02/03/2018 JAYLAN AGUDELO MD Ot I35. 0 NONRHEUMATIC AORTIC (VALVE) STENOSIS 02/03/2018 JAYLAN AGUDELO MD Ot R06. 09 OTHER FORMS OF DYSPNEA 03/07/2018 JAYLAN AGUDELO MD Ot I35. 0 NONRHEUMATIC AORTIC (VALVE) STENOSIS 03/07/2018 JAYLAN AGUDELO MD Ot R06. 09 OTHER FORMS OF DYSPNEA 03/07/2018 LEATHA TIM, PATTY Wong Ot R22. 42 LOCALIZED SWELLING, MASS AND LUMP, LEFT 03/07/2018 Ot 682.6 CELL ULITIS OF LEG 03/07/2018 Ot 890.1 OPEN WND HIP/THIGH-COMPL 03/07/2018 Ot E000.8 OTH ER EXTERNAL CAUSE STATUS 03/07/2018 Ot E016.9 OTH ACT INVG PROPERTY LAND MAINT,BUILD 03/07/2018 Ot E849.0 ACC IDENT IN HOME 03/07/2018 Ot E920.8 ACC -CUTTING INSTRUM NEC 03/07/2018 Ot I10 ESSENT IAL (PRIMARY) HYPERTENSION 03/07/2018 Ot R01.1 CARD IAC MURMUR, UNSPECIFIED 03/07/2018 JAYLAN AGUDELO MD Ot I35. 0 NONRHEUMATIC AORTIC (VALVE) STENOSIS 03/07/2018 JAYLAN AGUDELO MD Ot R06. 09 OTHER FORMS OF DYSPNEA 03/07/2018 LEATHA TIM, PATTY Wong Ot R22. 42 LOCALIZED SWELLING, MASS AND LUMP, LEFT 03/09/2018 LEATHA TIM, PATTY Wong Ot M79. 89 OTHER SPECIFIED SOFT TISSUE DISORDERS 03/09/2018 PATTY ZHANG MD Ot Z95. 1 PRESENCE OF AORTOCORONARY BYPASS GRAFT 03/30/2018 PATTY ZHANG MD Ot M79. 89 OTHER SPECIFIED SOFT TISSUE DISORDERS 03/30/2018 PATTY ZHANG MD Ot Z95. 1 PRESENCE OF AORTOCORONARY BYPASS GRAFT 05/06/2018 JAYLAN AGUDELO MD Ot Z48.812 ENCNTR FOR SURGICAL AFTCR FOLLOWING SURG 05/06/2018 JAYLAN AGUDELO MD Ot Z95. 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 1 PRESENCE OF AORTOCORONARY BYPASS GRAFT 06/14/2018 JAYLAN AGUDELO MD Ot Z95. 2 PRESENCE OF PROSTHETIC HEART VALVE 08/02/2018 JAYLAN AGUDELO MD Ot I35. 0 NONRHEUMATIC AORTIC (VALVE) STENOSIS 08/02/2018 JAYLAN AGUDELO MD Ot R06. 09 OTHER FORMS OF DYSPNEA 02/17/2019 Ot I10 ESSENT IAL (PRIMARY) HYPERTENSION 02/17/2019 Ot R01.1 CARD IAC MURMUR, UNSPECIFIED 02/17/2019 JAYLAN AGUDELO MD Ot I35. 0 NONRHEUMATIC AORTIC (VALVE) STENOSIS 02/17/2019 JAYLAN AGUDELO MD Ot R06. 09 OTHER FORMS OF DYSPNEA 02/17/2019 LEATHA TIM, PATTY Wong Ot M79. 89 OTHER SPECIFIED SOFT TISSUE DISORDERS 02/17/2019 PATTY ZHANG MD Ot Z95. 1 PRESENCE OF AORTOCORONARY BYPASS GRAFT 02/17/2019 JAYLAN AGUDELO MD Ot Z48.812 ENCNTR FOR SURGICAL AFTCR FOLLOWING SURG 02/17/2019 JAYLAN AGUDELO MD Ot Z95. 1 PRESENCE OF AORTOCORONARY BYPASS GRAFT 02/17/2019 JAMMIE TIM, JAYLAN Hope Ot Z95. 2 PRESENCE OF PROSTHETIC HEART VALVE 02/22/2019 MIGUEL DE LA ROSA, CAROLE K Ot E11.9 TYPE 2 DIABETES MELLITUS WITHOUT COMPLIC 02/22/2019 MIGUEL DE LA ROSA, CAROLE K Ot E78.5 HYPERLIPIDEMIA, UNSPECIFIED 02/22/2019 MIGUEL DE LA ROSA, CAROLE K Ot I25.10 ATHSCL HEART DISEASE OF [place] CORONARY 02/22/2019 MIGUEL DE LA ROSA, CAROLE K Ot I35.0 NONRHEUMATIC AORTIC (VALVE) STENOSIS 02/23/2019 MIGUEL DE LA ROSA, CAROLE K Ot E11.9 TYPE 2 DIABETES MELLITUS WITHOUT COMPLIC 02/23/2019 MIGUEL DE LA ROSA, CAROLE K Ot E78.5 HYPERLIPIDEMIA, UNSPECIFIED 02/23/2019 MIGUEL DE LA ROSA, CAROLE K Ot I10 ESSENTIAL (PRIMARY) HYPERTENSION 02/23/2019 MIGUEL DE LA ROSA CAROLE K Ot I25.10 ATHSCL HEART DISEASE OF [place] CORONARY 02/23/2019 MIGUEL DE LA ROSA, CAROLE K Ot I35.0 NONRHEUMATIC AORTIC (VALVE) STENOSIS 02/28/2019 MIGUEL DE [place] ROSA, CAROLE K Ot E11.9 TYPE 2 DIABETES MELLITUS WITHOUT COMPLIC 02/28/2019 MIGUEL DE LA ROSA, CAROLE K Ot E78.5 HYPERLIPIDEMIA, UNSPECIFIED 02/28/2019 MIGUEL DE [place] ROSA, CAROLE K Ot I10 ESSENTIAL (PRIMARY) HYPERTENSION 02/28/2019 MIGUEL DE LA ROSA CAROLE K Ot I25.10 ATHSCL HEART DISEASE OF [place] CORONARY 02/28/2019 MIGUEL DE LA ROSA, CAROLE K Ot I35.0 NONRHEUMATIC AORTIC (VALVE) STENOSIS 03/14/2019 MIGUEL DE [place] ROSA, CAROLE K Ot E11.9 TYPE 2 DIABETES MELLITUS WITHOUT COMPLIC 03/14/2019 MIGUEL DE LA ROSA, CAROLE K Ot E78.5 HYPERLIPIDEMIA, UNSPECIFIED 03/14/2019 MIGUEL DE LA ROSA, CAROLE K Ot I25.10 ATHSCL HEART DISEASE OF [place] CORONARY 03/14/2019 MIGUEL DE LA ROSA, CAROLE K Ot I35.0 NONRHEUMATIC AORTIC (VALVE) STENOSIS 03/14/2019 CAROLE HAND Ot E11.9 TYPE 2 DIABETES MELLITUS WITHOUT COMPLIC 03/14/2019 CAROLE HAND Ot E78.5 HYPERLIPIDEMIA, UNSPECIFIED 03/14/2019 CAROLE HAND Ot I10 ESSENTIAL (PRIMARY) HYPERTENSION 03/14/2019 CAROLE HAND Ot I25.10 ATHSCL HEART DISEASE OF [place] CORONARY 03/14/2019 CAROLE HAND Ot I35.0 NONRHEUMATIC AORTIC (VALVE) STENOSIS 08/04/2019 KANE SIDDIQUI DO, Ot J93.9 PNEUMOTHORAX, UNSPECIFIED 08/04/2019 KANE SIDDIQUI DO, Ot S27.321A CONTUSION OF LUNG, UNILATERAL, INITIAL E 08/04/2019 KANE SIDDIQUI DO, Ot S42.101A FRACTURE OF UNSP PART OF SCAPULA, RIGHT Procedures Code Description Performed By Per brittany On 83.02 MYOTOMY 04/10/2013 Results Test Result Range Complete blood count (CBC) with automate d white blood cell (WBC) differential - 12/12/17 15:58 Blood leukocytes automated count (number/volume) 5.9 10*3/uL 4.3-11.0 Blood erythrocytes automated count (number/volume) 4.57 10*6/uL 4.35-5.85 Venous blood hemoglobin measurement (mass/volume) 13.7 g/dL 13.3-17.7 Blood hematocrit (volume fraction) 40 % 40-54 Automated erythrocyte mean corpuscular volume 87 [ foz_us] 80-99 Automated erythrocyte mean corpuscular h emoglobin (mass per erythrocyte) 30 pg 25-34 Automated erythrocyte mean corpuscular h emoglobin concentration measurement (mass/volume) 35 g/dL 32-36 Automated erythrocyte distribution width ratio 13. 3 % 10.0- 14.5 Automated blood platelet count (count/volume) 221 10*3/uL [...] 10*3 1.0-4.0 Blood monocytes automated count (number/volume) 0. 6 10*3 0.0-1.0 Automated eosinophil count 0.2 10*3/uL 0 .0-0.3 Automated blood basophil count (count/volume) 0.0 10*3/uL 0.0-0.1 PT panel in platelet poor plasma by coag ulation assay - 12/12/17 15:58 Prothrombin time (PT) in platelet poor plasma by coagu lation assay 12.5 s 12.2-14.7 INR in platelet poor plasma or blood by coagulation as say 0.9 0.8-1.4 Activated partial thromboplastin time (a PTT) in platelet poor plasma bycoagulation assay - 12/12/17 15:58 Activated partial thromboplastin time (a PTT) in platelet poor plasma bycoagulation assay 38 s 24-35 Fibrin D-dimer FEU measurement in platel et poor plasma (mass/volume) - 12/12/17 15:58 Fibrin D-dimer FEU measurement in platelet [...] 5-14 Serum or plasma urea nitrogen measurement (mass/volume ) 14 mg/dL 7-18 Serum or plasma creatinine measurement (mass/volume) 0.81 mg/dL 0.60-1.30 Serum or plasma urea nitrogen/creatinine mass ratio 17 NRG Serum or plasma creatinine measurement w ith calculation of estimated glomerular filtration rate > NRG Serum or plasma glucose measurement (mass/volume) 116 mg/dL 70-105 Serum or plasma calcium measurement (mass/volume) 9.2 mg/dL 8.5-10.1 Serum or plasma total bilirubin measurement (mass/volu me) 0.5 mg/dL 0.1-1.0 Serum or plasma alkaline phosphatase tiffanie surement (enzymatic activity/volume) 56 U/L 40-136 Serum or plasma aspartate aminotransfera se measurement (enzymatic activity/volume) 31 U/L 5-34 Serum or plasma alanine aminotransferase measurement (enzymatic activity/volume) 45 U/L 0-55 Serum or plasma protein measurement (mass/volume) 7.7 g/dL 6.4-8.2 Serum or plasma albumin measurement (mass/volume) 4.3 g/dL 3.2-4.5 Magnesium - 12/12/17 15:58 Magnesium 2.2 mg/dL 1.8-2.4 Serum or plasma troponin i.cardiac measu rement (mass/volume) - 12/12/17 15:58 Serum or plasma troponin i.cardiac measurement (mass/v olume) < ng/mL <0.30 Myoglobin, serum - 12/12/17 15:58 Myoglobin, serum 62.3 ng/mL 10.0-92.0 Serum or plasma lithium measurement (mol es/volume) - 12/12/17 15:58 BNP level 33.6 pg/mL <100.0 Serum or plasma creatine kinase measurem ent (enzymatic activity/volume) - 12/12/17 21:46 Serum or plasma creatine kinase measurem ent (enzymatic activity/volume) 213 U/L 30-200 Serum or plasma troponin i.cardiac measu rement (mass/volume) - 12/12/17 21:46 Serum or plasma troponin i.cardiac measurement (mass/v olume) < ng/mL <0.30 Complete blood count (CBC) with automate d white blood cell (WBC) differential - 12/13/17 06:21 Blood leukocytes automated count (number/volume) 4.6 10*3/uL 4.3-11.0 Blood erythrocytes automated count (number/volume) 4.04 10*6/uL 4.35-5.85 Venous blood hemoglobin measurement (mass/volume) 12.3 g/dL 13.3-17.7 Blood hematocrit (volume fraction) 36 % 40-54 Automated erythrocyte mean corpuscular volume 88 [ foz_us] 80-99 Automated erythrocyte mean corpuscular h emoglobin (mass per erythrocyte) 30 pg 25-34 Automated erythrocyte mean corpuscular h emoglobin concentration measurement (mass/volume) 35 g/dL 32-36 Automated erythrocyte distribution width ratio 13. 4 % 10.0- 14.5 Automated blood platelet count (count/volume) 185 10*3/uL [...] 10*3 1.0-4.0 Blood monocytes automated count (number/volume) 0. 4 10*3 0.0-1.0 Automated eosinophil count 0.1 10*3/uL 0 .0-0.3 Automated blood basophil count (count/volume) 0.0 10*3/uL 0.0-0.1 Comprehensive metabolic panel - 12/13/17 06:21 Serum or plasma sodium measurement (moles/volume) 142 mmol/L 135-145 Serum or plasma potassium measurement (moles/volume) 3.9 mmol/L 3.6-5.0 Serum or plasma chloride measurement (moles/volume) 106 mmol/L 98-107 Carbon dioxide 25 mmol/L 21-32 Serum or plasma anion gap determination (moles/volume) 11 mmol/L 5-14 Serum or plasma urea nitrogen measurement (mass/volume ) 15 mg/dL 7-18 Serum or plasma creatinine measurement (mass/volume) 0.78 mg/dL 0.60-1.30 Serum or plasma urea nitrogen/creatinine mass ratio 19 NRG Serum or plasma creatinine measurement w ith calculation of estimated glomerular filtration rate > NRG Serum or plasma glucose measurement (mass/volume) 127 mg/dL 70-105 Serum or plasma calcium measurement (mass/volume) 8.5 mg/dL 8.5-10.1 Serum or plasma total bilirubin measurement (mass/volu me) 0.4 mg/dL 0.1-1.0 Serum or plasma alkaline phosphatase tiffanie surement (enzymatic activity/volume) 47 U/L 40-136 Serum or plasma aspartate aminotransfera se measurement (enzymatic activity/volume) 32 U/L 5-34 Serum or plasma alanine aminotransferase measurement (enzymatic activity/volume) 42 U/L 0-55 Serum or plasma protein measurement (mass/volume) 6.4 g/dL 6.4-8.2 Serum or plasma albumin measurement (mass/volume) 3.5 g/dL 3.2-4.5 Lipid 1996 panel - 12/13/17 06:21 Serum or plasma triglyceride measurement (mass/volume) 275 mg/dL <150 Serum or plasma cholesterol measurement (mass/volume) 184 mg/dL < 200 Serum or plasma cholesterol in HDL measurement (mass/v olume) 43 mg/dL 40-60 Cholesterol in LDL [mass/volume] in serum or plasma by direct assay 93 mg/dL 1-129 Serum or plasma cholesterol in VLDL measurement (mass/ volume) 55 mg/dL 5-40 Influenza virus A and B antigen detectio n - 12/13/17 12:50 FLU RESULT NEGATIVE FOR INFLUENZA A AND B ANTIGENS BY [facility] Automated blood complete blood count (he mogram) panel - 12/14/17 06:00 Blood leukocytes automated count (number/volume) 4.5 10*3/uL 4.3-11.0 Blood erythrocytes automated count (number/volume) 4.04 10*6/uL 4.35-5.85 Venous blood hemoglobin measurement (mass/volume) 12.3 g/dL 13.3-17.7 Blood hematocrit (volume fraction) 36 % 40-54 Automated erythrocyte mean corpuscular volume 89 [ foz_us] 80-99 Automated erythrocyte mean corpuscular h emoglobin (mass per erythrocyte) 30 pg 25-34 Automated erythrocyte mean corpuscular h emoglobin concentration measurement (mass/volume) 34 g/dL 32-36 Automated erythrocyte distribution width ratio 13. 5 % 10.0- 14.5 Automated blood platelet count (count/volume) 188 10*3/uL 130-400 Automated blood platelet mean volume measurement 9.8 [foz_us] 7.4-10.4 Whole blood basic metabolic panel - 11/17 06:00 Serum or plasma sodium measurement (moles/volume) 139 mmol/L 135-145 Serum or plasma potassium measurement (moles/volume) 3.9 mmol/L 3.6-5.0 Serum or plasma chloride measurement (moles/volume) 107 mmol/L 98-107 Carbon dioxide 21 mmol/L 21-32 Serum or plasma anion gap determination (moles/volume) 11 mmol/L 5-14 Serum or plasma urea nitrogen measurement (mass/volume ) 16 mg/dL 7-18 Serum or plasma creatinine measurement (mass/volume) 0.79 mg/dL 0.60-1.30 Serum or plasma urea nitrogen/creatinine mass ratio 20 NRG Serum or plasma creatinine measurement w ith calculation of estimated glomerular filtration rate > NRG Serum or plasma glucose measurement (mass/volume) 148 mg/dL 70-105 Serum or plasma calcium measurement (mass/volume) 8.6 mg/dL 8.5-10.1 Complete blood count (CBC) with automate d white blood cell (WBC) differential - 08/03/19 19:09 Blood leukocytes automated count (number/volume) 11.5 10*3/uL 4.3-11.0 Blood erythrocytes automated count (number/volume) 5.18 10*6/uL 4.35-5.85 Venous blood hemoglobin measurement (mass/volume) 15.1 g/dL 13.3-17.7 Blood hematocrit (volume fraction) 45 % 40-54 Automated erythrocyte mean corpuscular volume 87 [ foz_us] 80-99 Automated erythrocyte mean corpuscular h emoglobin (mass per erythrocyte) 29 pg 25-34 Automated erythrocyte mean corpuscular h emoglobin concentration measurement (mass/volume) 34 g/dL 32-36 Automated erythrocyte distribution width ratio 13. 8 % 10.0- 14.5 Automated blood platelet count (count/volume) 264 10*3/uL 130-400 Automated blood platelet mean volume measurement 10.4 [foz_us] 7.4-10.4 Automated blood neutrophils/100 leukocytes 72 % 42-75 Automated blood lymphocytes/100 leukocytes 20 % 12-44 Blood monocytes/100 leukocytes 7 % 0-12 Automated blood eosinophils/100 leukocytes 1 % 0-10 Automated blood basophils/100 leukocytes 0 % 0-10 Blood neutrophils automated count (number/volume) 8.2 10*3 1.8-7.8 Blood lymphocytes automated count (number/volume) 2.3 10*3 1.0-4.0 Blood monocytes automated count (number/volume) 0. 8 10*3 0.0-1.0 Automated eosinophil count 0.1 10*3/uL 0 .0-0.3 Automated blood basophil count (count/volume) 0.0 10*3/uL 0.0-0.1 Comprehensive metabolic panel - 08/03/19 19:09 Serum or plasma sodium measurement (moles/volume) 142 mmol/L 135-145 Serum or plasma potassium measurement (moles/volume) 3.9 mmol/L 3.6-5.0 Serum or plasma chloride measurement (moles/volume) 104 mmol/L 98-107 Carbon dioxide 25 mmol/L 21-32 Serum or plasma anion gap determination (moles/volume) 13 mmol/L 5-14 Serum or plasma urea nitrogen measurement (mass/volume ) 28 mg/dL 7-18 Serum or plasma creatinine measurement (mass/volume) 1.34 mg/dL 0.60-1.30 Serum or plasma urea nitrogen/creatinine mass ratio 21 NRG Serum or plasma creatinine measurement w ith calculation of estimated glomerular filtration rate 52 NRG Serum or plasma glucose measurement (mass/volume) 140 mg/dL 70-105 Serum or plasma calcium measurement (mass/volume) 10.5 mg/dL 8.5-10.1 Serum or plasma total bilirubin measurement (mass/volu me) 0.7 mg/dL 0.1-1.0 Serum or plasma alkaline phosphatase tiffanie surement (enzymatic activity/volume) 48 U/L 40-136 Serum or plasma aspartate aminotransfera se measurement (enzymatic activity/volume) 38 U/L 5-34 Serum or plasma alanine aminotransferase measurement (enzymatic activity/volume) 42 U/L 0-55 Serum or plasma protein measurement (mass/volume) 8.4 g/dL 6.4-8.2 Serum or plasma albumin measurement (mass/volume) 4.8 g/dL 3.2-4.5 [id number] - 08/03/19 19:09 [id number] SPECIMEN AVAILABLE NRG Methicillin resistant Staphylococcus aur eus (MRSA) screening culture - 08/03/19 22:15 Methicillin resistant Staphylococcus aureus (MRSA) scr eening culture NEG NRG Capillary blood glucose measurement by g lucometer (mass/volume) - 08/03/19 22:21 Capillary blood glucose measurement by glucometer (mas s/volume) 134 mg/dL 70-110 Complete blood count (CBC) with automate d white blood cell (WBC) differential - 08/04/19 03:33 Blood leukocytes automated count (number/volume) 7.9 10*3/uL 4.3-11.0 Blood erythrocytes automated count (number/volume) 4.75 10*6/uL 4.35-5.85 Venous blood hemoglobin measurement (mass/volume) 13.8 g/dL 13.3-17.7 Blood hematocrit (volume fraction) 41 % 40-54 Automated erythrocyte mean corpuscular volume 87 [ foz_us] 80-99 Automated erythrocyte mean corpuscular h emoglobin (mass per erythrocyte) 29 pg 25-34 Automated erythrocyte mean corpuscular h emoglobin concentration measurement (mass/volume) 34 g/dL 32-36 Automated erythrocyte distribution width ratio 14. 0 % 10.0- 14.5 Automated blood platelet count (count/volume) 218 10*3/uL 130-400 Automated blood platelet mean volume measurement 9.9 [foz_us] 7.4-10.4 Automated blood neutrophils/100 leukocytes 63 % 42-75 Automated blood lymphocytes/100 leukocytes 27 % 12-44 Blood monocytes/100 leukocytes 9 % 0-12 Automated blood eosinophils/100 leukocytes 1 % 0-10 Automated blood basophils/100 leukocytes 0 % 0-10 Blood neutrophils automated count (number/volume) 5.0 10*3 1.8-7.8 Blood lymphocytes automated count (number/volume) 2.2 10*3 1.0-4.0 Blood monocytes automated count (number/volume) 0. 7 10*3 0.0-1.0 Automated eosinophil count 0.1 10*3/uL 0 .0-0.3 Automated blood basophil count (count/volume) 0.0 10*3/uL 0.0-0.1 Whole blood basic metabolic panel - 07/17 03:33 Serum or plasma sodium measurement (moles/volume) 140 mmol/L 135-145 Serum or plasma potassium measurement (moles/volume) 3.8 mmol/L 3.6-5.0 Serum or plasma chloride measurement (moles/volume) 104 mmol/L 98-107 Carbon dioxide 24 mmol/L 21-32 Serum or plasma anion gap determination (moles/volume) 12 mmol/L 5-14 Serum or plasma urea nitrogen measurement (mass/volume ) 26 mg/dL 7-18 Serum or plasma creatinine measurement (mass/volume) 0.89 mg/dL 0.60-1.30 Serum or plasma urea nitrogen/creatinine mass ratio 29 NRG Serum or plasma creatinine measurement w ith calculation of estimated glomerular filtration rate > NRG Serum or plasma glucose measurement (mass/volume) 128 mg/dL 70-105 Serum or plasma calcium measurement (mass/volume) 9.7 mg/dL 8.5-10.1 Serum or plasma phosphate measurement (m ass/volume) - 08/04/19 03:33 Serum or plasma phosphate measurement (mass/volume) 4.8 mg/dL 2.3-4.7 Magnesium - 08/04/19 03:33 Magnesium 2.1 mg/dL 1.6-2.4 Coronavirus SARS-CoV-2 SO 2018 - 0 08:15 Coronavirus Ab [Units/volume] in Serum Negative Negative Encounters ACCT No. Visit Date/Time Discharge Status Pt. Type Provider Facility Loc./Unit Complaint [id number] 05/11/2018 17:00:00 05/11/2018 23:59: 59 CLS Outpatient MISSY TOBIAS L[facility] [id number] 05/16/2020 05:44:00 020 13:41:00 DIS Outpatient PATTY ZHANG MD [facility] PREOP COLONOSCOPY [id number] 08/03/2019 22:10:00 019 11:35:00 DIS Inpatient KANE SIDDIQUI DO [facility] ICU L PNEUMOTHORAX, R SCAPU LA FX [id number] 02/22/2019 07:48:00 23:59:59 CLS Outpatient KARYN HAND [facility] CARD AORTIC VALV E STENOSIS, CAD, DM, HYPERLIPIDEMIA [id number] 02/21/2019 11:52:00 23:59:59 CLS Outpatient KARYN HAND [facility] CARD AORTIC VALV E STENOSIS, CAD, DM [id number] 06/15/2018 11:00:00 018 23:59:59 CLS Preadmit JAYLAN AGUDELO MD [facility] CR STATUS POST ACB [id number] 04/15/2018 10:08:00 018 00:01:00 DIS Outpatient JAYLAN AGDUELO MD [facility] CR STATUS POST ACB [id number] 03/08/2018 12:54:00 018 23:59:59 CLS Outpatient PATTY ZAHNG MD [facility] RAD INCREASED PAIN,SWELLING W/ LLE RECENT CABG [id number] 01/05/2018 10:04:00 018 23:59:59 CLS Outpatient JAYLAN AGUEDLO MD [facility] RT I35.0 AORTIC VALVE STEN OSIS [id number] 12/12/2017 20:15:00 018 07:49:00 DIS Outpatient PATTY ZHANG MD [facility] CATH ACCELERATING ANGINA,SOA ,ETHMOID SINUSITIS [id number] 05/04/2014 16:09:00 014 18:59:00 DIS Emergency XOCHITL TIM, GLO Guzmán [facility] ER DIZZINESS, PAIN L ARM [id number] 05/16/2013 10:15:00 013 00:01:00 DIS Outpatient SEAN AGUILLON MD [facility] WOUNDCARE RIGHT LEG WOUND [id number] 04/08/2013 11:55:00 013 18:35:00 DIS Inpatient SEAN AGUILLON MD [facility] SURGICAL FB RIGHT THIGH, CELLULI TIS [id number] 05/21/2020 07:30:00 P EN Preadmit PATTY ZHANG MD [facility] ENDO DIARRHEA/RECTAL BLEEDING [id number] 08/21/2015 15:56:00 Document Registration [id number] 07/14/2013 10:45:00 Document Registration [id number] 04/13/2012 10:59:00 Document Registration [id number] 12/06/2009 06:39:00 Document Registration [id number] 09/30/2009 12:31:00 Document Registration
[2020-05-21] MEDS ORDERED: D5 LR IV SOLUTION 1,000 ML IV STA (07:22)
[2020-05-21] MEDS ORDERED: LIDOCAINE JELLY 2% 6 ML SYRINGE ONE (07:27)
[2020-05-21] MEDS ORDERED: MIDAZOLAM 5 MG/5 ML (VERSED) VIAL ONE (07:27)
[2020-05-21] MEDS ORDERED: fentaNYL INJECTION 100 MCG/2 ML AMP ONE (07:27)
[2020-05-21] MEDS ORDERED: fentaNYL INJECTION 100 MCG/2 ML AMP IVP ONE (07:30)
[2020-05-21] MEDS ORDERED: MIDAZOLAM 5 MG/5 ML (VERSED) VIAL IV PRN (07:30)
[2020-05-21] MEDS ORDERED: LIDOCAINE JELLY 2% 6 ML SYRINGE MM PRN (07:30)
--- NOTE | 2020-05-21 07:58 | Pre-Op Note & Conscious Sedat ---
Pre-Operative Progress Note H&P Reviewed The H&P was reviewed, patient examined and no changes noted. Date H&P Reviewed: May 21, 2020 Time H&P Reviewed: 07:20 Conscious Sedation Pre-Proced ASA Score 2 For ASA 3 and 4: Consider anesthesia and medical clearance. Also, for patients with a history of failed moderate sedation consider anesthesia. Airway Lungs Heart ASA score ASA 1: a normal healthy patient ASA 2: a patient with a mild systemic disease (mid diabetes, controlled hypertension, obesity ASA 3: a patient with a severe systemic disease that limits activity (angina, COPD, prior Myocardial infarction) ASA 4: a patient with an incapacitating disease that is a constant threat to life (CHF, renal failure) ASA 5: a moribund patient not expected to survive 24 hrs. (ruptured aneurysm) ASA 6: a declared brain- patient whose organs are being harvested. For emergent operations, add the letter E after the classification Mallampati Classification Grade 2 Sedation Plan Analgesia, Amnesia, Plan communicated to team members, Discussed options with patient/fam, Discussed risks with patient/fam The patient is an appropriate candidate to undergo the planned procedure, sedation, and anesthesia. The patient immediately re-assessed prior to indication. PATTY ZHANG MD May 21, 2020 07:58
--- NOTE | 2020-05-21 12:41 | OPERATIVE REPORT ---
DATE OF SERVICE: COLONOSCOPY SUMMARY PRIMARY CARE PROVIDER: Patty Zhang MD INDICATION FOR THE PROCEDURE: Diarrhea, bright red blood per rectum. DESCRIPTION OF PROCEDURE: The patient was placed in the left lateral decubitus position. Prior to any colonoscopy, digital rectal evaluation was performed. Anal sphincter tone was normal and the perianal reflexes intact. No abnormalities were noted on digital inspection. The prostate was normal in size, anodular and nontender. No abnormalities were noted on digital inspection of anal canal or distal rectal vault. The colonoscope was inserted into the rectum and under direct visualization advanced to the cecum. The cecum was identified by identification of the ileocecal valve and the appendiceal orifice. Photographic documentation was obtained. Quality of prep was good. The patient tolerated the procedure well. FINDINGS: There was no evidence for internal or external hemorrhoids and the rectum was unremarkable. Several small sigmoid diverticulum were present without evidence for diverticulitis. No other sigmoid colonic abnormalities were appreciated. The descending colon and splenic flexure were unremarkable. A sessile 4 x 6 mm polyp was noted in the mid transverse colon. It was biopsied and ablated with no subsequent blood loss. Two smaller polyps were noted, one in the proximal transverse colon, both measuring 2 to 3 mm in size and third in the distal ascending colon. Both were removed via cold biopsy and submitted for histopathology. The remainder of the ascending colon and cecum were unremarkable. ASSESSMENT: No potential bleeding sites were identified on today's procedure and there was no evidence for inflammatory change to gross inspection. Three polyps were removed, one by hot forceps and the other 2 smaller polyps by cold biopsy as noted above. As long as there are no surprise on histopathology report, considering this patient's medical comorbidities, we will not likely be recommending future surveillance colonoscopy. The patient was reassured. Job ID: [id number] DocumentID: [id number] Dictated Date: 05/21/2020 08:11:28 [employer] Business Manager Date: 05/21/2020 12:40:13 Dictated By: PATTY ZHANG MD
== END 2020-05-21 08:43 | disposition home or self-care (01) ==
LOC: ENDO 06:54
PROVIDERS: ATTEND Internal Medicine
DX: D12.2 Benign neoplasm of ascending colon (principal); D12.3 Benign neoplasm of transverse colon; K57.30 Diverticulosis of large intestine without perforation or abscess without bleeding; E11.9 Type 2 diabetes mellitus without complications; Z95.1 Presence of aortocoronary bypass graft; Z95.4 Presence of other heart-valve replacement; I10 Essential (primary) hypertension; E78.5 Hyperlipidemia, unspecified
CPT/HCPCS: 88305

== ENCOUNTER 2021-07-25 12:03 | Emergency (ER) | payer MEDICARE, OTHER ==
[~2021-07-25] VITALS: Ht 175.3 cm; Wt 104.3 kg
[~2021-07-25 12:03] MED LIST changes: +AMLO-251 PO; -AMLO10TA7 PO; +ASPI-1238 PO; -ASPI-983 PO; -ISOS30TA3 PO; +ISOS30TA82 PO
[2021-07-25] MEDS ORDERED: LIDOCAINE 1% INJ 20 ML 20 ML VIAL ONE (12:20)
[2021-07-25] MEDS ORDERED: TETANUS,DIPTH,PERTUSS P/F (BOOSTRIX) 0.5 ML VIAL IM ONE (12:30)
[2021-07-25] MEDS ORDERED: LIDOCAINE 1% INJ 20 ML 20 ML VIAL INJ ONE (12:30)
[2021-07-25] MEDS ORDERED: ACHD5005 PO (12:44)
[2021-07-25] MEDS ORDERED: CEPH500T PO (12:44)
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
[2021-07-25 13:12] VITALS: BP 142/90
--- NOTE | 2021-07-25 13:19 | Diagnostic Imaging Report ---
INDICATION: Third digit laceration COMPARISON: None. FINDINGS: 3 views of the left hand demonstrate diffuse degenerative joint disease. There is no fracture or dislocation. No foreign body is seen. IMPRESSION: No fracture identified. Dictated by: Dictated on workstation # [id number]
== END 2021-07-25 13:12 | disposition home or self-care (01) ==
LOC: EDUNIT# 12:03 → ER 12:05
DX: S61.213A Laceration without foreign body of left middle finger without damage to nail, initial encounter (principal); G47.30 Sleep apnea, unspecified; J45.909 Unspecified asthma, uncomplicated; I10 Essential (primary) hypertension; K21.9 Gastro-esophageal reflux disease without esophagitis; E78.00 Pure hypercholesterolemia, unspecified; E11.9 Type 2 diabetes mellitus without complications; Z23 Encounter for immunization; Z79.84 Long term (current) use of oral hypoglycemic drugs; Z79.899 Other long term (current) drug therapy; X50.0XXA Overexertion from strenuous movement or load, initial encounter
CPT/HCPCS: 12001; 73130; 90715

== ENCOUNTER 2021-08-06 11:31 | Emergency (ER) | payer MEDICARE, OTHER ==
[~2021-08-06 11:31] MED LIST changes: +CEPH500T PO
[2021-08-06 11:43] VITALS: BP 138/88
== END 2021-08-06 11:44 | disposition home or self-care (01) ==
LOC: EDUNIT# 11:31 → ER 11:33
DX: Z48.02 Encounter for removal of sutures (principal)

== ENCOUNTER 2022-01-06 10:41 | Emergency (ER) | payer MEDICARE, OTHER ==
[~2022-01-06] VITALS: Ht 175.3 cm; Wt 104.3 kg
[~2022-01-06 10:41] MED LIST changes: -MMT17NA NS; +MOME17SP4 NS
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
--- NOTE | 2022-01-06 12:12 | Diagnostic Imaging Report ---
INDICATION: Left leg pain x 10 days. Knocked over by a cow 1 month ago. TECHNIQUE: Three views of the left knee. CORRELATION STUDY: None. FINDINGS: Mild joint space narrowing medially with the lateral compartment better preserved. Articular surfaces appear to be smooth. No evidence for an acute or subacute appearing fracture. No reparative change. There is narrowing at the patellofemoral compartment with spur-like formation present. Soft tissues appearing unremarkable without significant fluid collection. Surgical clips within the popliteal fossa. IMPRESSION: Negative for acute bony abnormality of the knee. Mild to moderately advanced degenerative changes of the left knee. Dictated by: Dictated on workstation # [id number]
--- NOTE | 2022-01-06 12:21 | Diagnostic Imaging Report ---
INDICATION: Left femur pain post injury. AP and lateral views of the left femur are obtained. FINDINGS: No fracture or acute bony abnormality is seen. There is no lytic or blastic lesion. IMPRESSION: Negative left femur. Dictated by: Dictated on workstation # [id number]
--- NOTE | 2022-01-06 12:34 | Diagnostic Imaging Report ---
PROCEDURE: US left lower extremity venous. TECHNIQUE: Multiple real-time grayscale images were obtained over the left lower extremity in various projections. Additional duplex Doppler and color Doppler images were also obtained. INDICATION: Pain. FINDINGS: Left lower extremity femoropopliteal deep venous system showed normal color flow, normal compressibility, and normal waveforms. No deep vein thrombus and no visualized superficial thrombi. No fluid collection demonstrated. IMPRESSION: Normal negative unilateral left lower extremity venous Doppler and ultrasound exam. Dictated by: Dictated on workstation # [id number]
[2022-01-06] MEDS ORDERED: TRAM-42 PO (12:58)
[2022-01-06] MEDS ORDERED: TRIAMCINOLONE ACET (KENALOG-40) 40 MG/ML 1 ML VIAL IA ONE (13:00)
[2022-01-06] MEDS ORDERED: LIDOCAINE 1% INJ 20 ML VIAL INJ ONE (13:00)
[2022-01-06 13:20] VITALS: BP 150/71
== END 2022-01-06 13:20 | disposition home or self-care (01) ==
LOC: EDUNIT# 10:41 → ER 10:44
DX: M23.92 Unspecified internal derangement of left knee (principal); J45.909 Unspecified asthma, uncomplicated; G47.30 Sleep apnea, unspecified; I10 Essential (primary) hypertension; E78.00 Pure hypercholesterolemia, unspecified; K21.9 Gastro-esophageal reflux disease without esophagitis; E11.9 Type 2 diabetes mellitus without complications; Z79.84 Long term (current) use of oral hypoglycemic drugs; Z79.899 Other long term (current) drug therapy
CPT/HCPCS: 73552; 73562; 99284

== ENCOUNTER → 2022-02-11 | Outpatient (CLI) | payer MEDICARE, OTHER ==
[~2022-02-11] MED LIST changes: +TRAM-42 PO
--- NOTE | 2022-02-11 11:21 | Diagnostic Imaging Report ---
EXAMINATION: Magnetic resonance imaging of the left knee without intravenous contrast DATE: February 11, 2022. COMPARISON: Left knee radiographs January 06, 2022. INDICATION: 77-year-old male, left knee pain. TECHNIQUE: Multiplanar, multisequence non contrast enhanced MR imaging was accomplished. FINDINGS: MENISCI: The medial meniscus is intact. There is a longitudinal horizontal type tear involving the anterior horn, body, posterior horn of the lateral meniscus. LIGAMENTS AND TENDONS: The anterior and posterior cruciate ligaments are intact. The medial collateral ligament is intact. The iliotibial band, mid third lateral capsular ligament, fibular collateral ligament, biceps femoris tendon and conjoined tendon are intact. The quadriceps tendon and patella ligament are intact. JOINT: There are broad areas of near full-thickness cartilage loss of the patella. There is surface irregularity of the cartilage of the femoral trochlea. There is no knee joint effusion, prominent synovitis, or intra-articular body. BONE: There is degenerative related marrow signal in the patella. There is a focal area of edema-like signal in the anterior aspect of the medial femoral condyle which may relate to a focal bone contusion. There is no acute fracture. BURSAE AND SOFT TISSUES: No Bakers cyst. IMPRESSION: 1. Longitudinal horizontal type tear involving the anterior horn, body, and posterior horn of the lateral meniscus. 2. Intact medial meniscus. 3. Intact anterior and posterior cruciate ligaments. Additional ligaments and tendons are intact. 4. 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 5. Focal area of edema-like signal in the anterior aspect of the medial femoral condyle which may relate to a small bone contusion. No acute fracture. Dictated by: Dictated on workstation # [id number]
== END ==
LOC: RAD 10:15
PROVIDERS: ATTEND Nurse Practitioner Adult Health
DX: S83.282A Other tear of lateral meniscus, current injury, left knee, initial encounter (principal); M17.12 Unilateral primary osteoarthritis, left knee; X58.XXXA Exposure to other specified factors, initial encounter
CPT/HCPCS: 73721

== ENCOUNTER 2023-01-17 15:40 | Emergency (ER) | payer MEDICARE, OTHER ==
[2023-01-17] MEDS ORDERED: NS IV 500 ML 500 ML IV ONE (16:00)
[2023-01-17] MEDS ORDERED: TETANUS,DIPTH,PERTUSS P/F (BOOSTRIX) 0.5 ML VIAL IM ONE (16:00)
[2023-01-17] MEDS ORDERED: fentaNYL INJ 100 MCG/2 ML AMP IVP STA (16:09)
--- NOTE | 2023-01-17 16:14 | Diagnostic Imaging Report ---
EXAMINATION: Left hand radiographs. EXAM DATE: 01/17/2023 4:09 PM COMPARISON: 07/16/2021. HISTORY: Hand pain. TECHNIQUE: 3 views. FINDINGS: There is no acute fracture, dislocation or destructive osseous process. The joint spaces are normal. The soft tissues are normal. IMPRESSION: No acute osseous abnormality. Dictated by: Dictated on workstation # [id number]
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
[2023-01-17 16:20] LABS: BASOPHILS % (AUTO) 0 % (0-10); EOSINOPHILS # (AUTO) 0.2 10^3/uL (0.0-0.3); EOSINOPHILS % (AUTO) 2 % (0-10); HEMATOCRIT 46 % (40-54); HEMOGLOBIN 15.6 g/dL (13.3-17.7); LYMPHOCYTES % (AUTO) 21 % (12-44); MEAN CORPUSCULAR HEMOGLOBIN 30 pg (25-34); MEAN CORPUSCULAR HGB CONC 34 g/dL (32-36); MEAN CORPUSCULAR VOLUME 88 fL (80-99); MEAN PLATELET VOLUME 10.1 fL (9.0-12.2); MONOCYTES # (AUTO) 0.6 10^3/uL (0.0-1.0); MONOCYTES % (AUTO) 6 % (0-12); NEUTROPHILS # (AUTO) 6.6 10^3/uL (1.8-7.8); NEUTROPHILS % (AUTO) 71 % (42-75); PLATELET COUNT 235 10^3/uL (130-400); WHITE BLOOD COUNT 9.4 10^3/uL (4.3-11.0)
[2023-01-17 16:28] LABS: ALBUMIN 4.3 GM/DL (3.2-4.5)
[2023-01-17 16:29] LABS: POTASSIUM 3.3 MMOL/L (3.6-5.0)
[2023-01-17 16:30] LABS: CALCIUM 9.5 MG/DL (8.5-10.1)
[2023-01-17 16:31] LABS: TOTAL PROTEIN 7.6 GM/DL (6.4-8.2)
[2023-01-17 16:33] LABS: BILIRUBIN,TOTAL 0.5 MG/DL (0.1-1.0)
[2023-01-17 16:35] LABS: CREATININE SERUM 0.88 MG/DL (0.60-1.30)
[2023-01-17 16:41] LABS: INR 0.9 (0.8-1.4); PROTHROMBIN TIME PATIENT 12.3 SEC (12.2-14.7)
--- NOTE | 2023-01-17 16:47 | Diagnostic Imaging Report ---
Procedure: CT chest without contrast. Technique: Multiple contiguous axial images were obtained through the chest without the use of intravenous contrast. Auto Exposure Controls were utilized during the CT exam to meet ALARA standards for radiation dose reduction. Date: January 17, 2023. Indication: 78-year-old male, chest and rib pain. Injury. Comparisons: CT chest, abdomen and pelvis August 03, 2019. Findings: There is mild atelectasis in the right lower lobe. There is some respiratory motion artifact. There is no additional focal airspace consolidation. There is no pneumothorax. There is no pleural effusion. The more central airways are patent. The heart is not enlarged. There is no identified pericardial effusion. There are coronary artery calcifications and additional areas of atherosclerotic disease. There is no mediastinal or axillary lymph node which meets CT size criteria for adenopathy. The imaged portions of the upper abdomen are grossly unremarkable. There are multilevel degenerative changes of the spine. There are median sternotomy wires. There are right-sided rib deformities which appear likely chronic. There is no identified acute bony abnormality. Impression: 1. No identified acute cardiopulmonary abnormality. 2. No identified acute bony abnormality. Dictated by: Dictated on workstation # [id number]
[2023-01-17] MEDS ORDERED: TRM50T PO (17:21)
[2023-01-17 17:33] VITALS: BP 171/71
== END 2023-01-17 17:34 | disposition home or self-care (01) ==
LOC: EDUNIT# 15:40 → ER 15:41
DX: S60.222A Contusion of left hand, initial encounter (principal); S20.212A Contusion of left front wall of thorax, initial encounter; F17.210 Nicotine dependence, cigarettes, uncomplicated; Z23 Encounter for immunization; W55.22XA Struck by cow, initial encounter
CPT/HCPCS: 36415; 71045; 71250; 73130; 80053; 85025; 85610; 85730; 90715; 94664